=== PATIENT | female | born 2000 | race Caucasian/White ===

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

== ENCOUNTER 2021-02-04 12:22 | Emergency (ER) | payer BC, SELFPAY ==
[2021-02-04 12:31] VITALS: BP 115/59; PULSE 84; RESP 18; TEMP 36.8; O2SAT 100
--- NOTE | 2021-02-04 12:49 | ED.GENADULT ---
HPI - General Adult General Chief complaint: Urogenital-Female Stated complaint: UTI Source: patient Mode of arrival: ambulatory Limitations: no limitations History of Present Illness HPI narrative: Patient presents for evaluation of urinary symptoms since yesterday. She reports dysuria, urinary hesitancy, white vaginal discharge and vaginal pruritus. She is currently , 11 weeks 3 days gestation. She is already had a confirmed IUP during this per ultrasound. under the care of DIRECTOR PRIVATE, Dr. Phillips. She has experienced nausea during this but denies any fever, chills, vomiting, abdominal pain. Blood type is A- per chart review. No additional complaints or concerns. Related Data Home Medications Medication Instructions Recorded Confirmed promethazine 12.5 mg PO PRN PRN 02/04/21 02/04/21 Allergies Allergy/AdvReac Type Severity Reaction Status Date / Time No Known Allergies Allergy Verified 02/04/21 12:45 Review of Systems Review of Systems: Narrative: CONSTITUTIONAL: Denies fever, chills, or sweats. EYES: Denies visual changes, redness, or discharge. ENT: Denies rhinorrhea, congestion, sore throat, or otalgia. CARDIOVASCULAR: Denies chest pain, palpitations, or edema. RESPIRATORY: Denies cough or dyspnea. GASTROINTESTINAL: Denies abdominal pain, nausea, vomiting, or diarrhea. GENITOURINARY:Reports dysuria, hesitancy, vaginal pruritis and thick white vaginal discharge SKIN: Denies rash MUSCULOSKELETAL: Denies back pain, joint pain, or myalgia. NEUROLOGIC: Denies headache, numbness, dizziness, or weakness. PSYCHIATRIC: Denies anxiety or depression. [facility] Past Medical History Medical History UTI (urinary tract infection) Surgical History Surgical History No significant past surgical history Family History Family History Father Hyperlipidemia Other No acute medical problems Social History Social History (Updated 02/04/21 @ 12:52 by ALEX Boyd, ) Smoking status: Former smoker Tobacco type: cigarettes Second hand tobacco smoke exposure: No Alcohol intake: former Living arrangements: with family Gender identity (if verbalized by the patient): Female Sexual Orientation (if Verbalized by the Patient): Straight or Heterosexual Spiritual care concerns: No Exam Narrative: Exam Narrative: GENERAL: Well-appearing, well-nourished, and in no acute distress. HEAD: Normocephalic, atraumatic. EYES: PERRLA and EOMI. ENT: Nares clear, no rhinorrhea or epistaxis. Mucous membranes moist. Oropharynx without tonsillar hypertrophy exudate or other lesions. Bilateral TMs pearly moore nonbulging NECK: Supple. No adenopathy or masses. No carotid bruits or JVD CHEST: Clear to auscultation. No respiratory distress. No wheezes rales or rhonchi HEART: Regular rate and rhythm. No murmur heard. Normal peripheral pulses. ABDOMEN: Soft, nontender, nondistended, normal active bowel sounds. EXTREMITIES: Normal range of motion. No edema. SKIN: Warm, dry, no rash. NEURO: No focal deficits. Alert and oriented x3. PSYCH: Normal mood and affect. : No external genital lesions. No adnexal tenderness. No cervical motion tenderness. Moderate amount of thick white clumpy discharge in vaginal vault. Cervical os is closed. No visible blood in vaginal vault Course Course Emergency Course: This is a 20 yr old female currently , 11 weeks 3 days gestation, with confirmed IUP per U/S during this who presents today for evaluation of urinary symptoms that started yesterday. Of note, she had 1+ blood, 1+ protein and 2+ leukocytes on urine dipstick. She declined seeing any vaginal bleeding, and 1+ blood on urine dipstick is likely from urinary tract. However I did inform patient that to be t
== END 2021-02-04 13:40 | disposition home or self-care (01) ==
PROVIDERS: Emergency Provider Nurse Practitioner; PCP Obstetrics & Gynecology
DX: O23.41 Unspecified infection of urinary tract in pregnancy, first trimester (principal); Z3A.11 11 weeks gestation of pregnancy; Z87.891 Personal history of nicotine dependence
CPT/HCPCS: 81003; 87070; 87086; 87088; 87491; 87591; 87661; 99214; G0463

== ENCOUNTER 2021-02-16 20:32 | Emergency (ER) | payer BC, SELFPAY ==
--- NOTE | ~2021-02-16 | XR_ITS ---
EXAMINATION: XR chest 1V portable 02/16/2021 21:06 INDICATION: Left rib pain posteriorly PROCEDURE: AP portable chest COMPARISON: 12/19/2020 FINDINGS: The lungs are clear. The cardiomediastinal silhouette is within normal limits. There are no pleural effusions. There is no pneumothorax suspected. IMPRESSION: 1: NO ACUTE CARDIOPULMONARY DISEASE. Reviewed, dictated and finalized at location A.
[2021-02-16 20:42] VITALS: BP 127/66; PULSE 85; RESP 17; TEMP 36.9; O2SAT 100
--- NOTE | 2021-02-16 21:05 | ED.GENADULT ---
HPI - General Adult General Chief complaint: Abdominal Pain Stated complaint: sharp abdominal pain, 13 weeks Time Seen by Provider: 02/16/21 20:44 Source: patient and family Mode of arrival: ambulatory Limitations: no limitations History of Present Illness HPI narrative: Patient is 20 years old white female, 17 weeks intermittent sharp stabbing pain at the left mid axillary thoracic area, 1 hour prior to arrival to the emergency room. Patient started working at the [employer] for 1-1/2-month which involved lifting, pushing and bending. Patient denies any fever, chills, nausea, vomiting, chest pain, shortness of breath, abdominal pain, urinary symptoms. Patient had history of urinary tract infection few days ago started on Keflex 5 days ago. Patient also denies any vaginal bleeding or discharge. Patient is 3, para 0, 2 Related Data Home Medications Medication Instructions Recorded Confirmed promethazine 12.5 mg PO PRN PRN 02/04/21 02/04/21 Allergies Allergy/AdvReac Type Severity Reaction Status Date / Time No Known Allergies Allergy Verified 02/16/21 21:34 Review of Systems Review of Systems: Narrative: CONSTITUTIONAL: Denies fever, chills, or sweats. EYES: Denies visual changes, redness, or discharge. ENT: Denies rhinorrhea, congestion, sore throat, or otalgia. CARDIOVASCULAR: Denies chest pain, palpitations, or edema. RESPIRATORY: Denies cough or dyspnea. GASTROINTESTINAL: Denies abdominal pain, nausea, vomiting, or diarrhea. GENITOURINARY: Denies dysuria or hematuria. SKIN: Denies rash or itching. MUSCULOSKELETAL: Denies back pain, joint pain, or myalgia. NEUROLOGIC: Denies headache, numbness, or weakness. PSYCHIATRIC: Denies anxiety or depression. [facility] Past Medical History Medical History UTI (urinary tract infection) Surgical History Surgical History No significant past surgical history Family History Family History Father Hyperlipidemia Other No acute medical problems Social History Social History Smoking status: Former smoker Tobacco type: cigarettes Second hand tobacco smoke exposure: No Alcohol intake: former Alcohol use details: rarely Gender identity (if verbalized by the patient): Female Spiritual care concerns: No Exam Narrative: Exam Narrative: General appearance: Well-developed, well-nourished Skin: Normal color Head: Normocephalic, nontraumatic Eyes: Clear conjunctiva ENT: Oropharynx normal, ears normal, nose normal Neck: Supple, nontender Chest and respiratory: Airway patent, no respiratory distress, no accessory muscle use Heart: Regular rate/rhythm Abdomen: Soft, nontender, no organomegaly, quiet bowel sounds Vascular: Normal peripheral pulses, normal capillary refill. Musculoskeletal: Normal range of motion, nontender back Neurologic: Alert and oriented ?3, [employer]PAR[employer] is normal as tested, no gross motor deficit Course Course Emergency Course: Stable Vital Signs Vital signs: Vital Signs Temperature 36.9 C 02/16/21 20:42 Pulse Rate 85 02/16/21 20:42 Respiratory Rate 17 02/16/21 20:42 Blood Pressure 127/66 02/16/21 20:42 Pulse Oximetry 100 02/16/21 20:42 Temperature 36.9 C 02/16/21 20:42 Pulse Rate 85 02/16/21 20:42 Respiratory Rate 17 02/16/21 20:42 Blood Pressure 127/66 02/16/21 20:42 Pulse Oximetry 100 02/16/21 20:42 Medical Decision Making MDM Narrative Medical decision making narrative: Jose
[2021-02-16 21:29] LABS: Add Urine Microscopic? YES; Appearance Urine Cloudy (Clear); Bacteria Urine 1+ /hpf; Bilirubin Urine Negative (Negative); Blood Urine Negative (Negative); Color Urine Yellow (Yellow); Glucose Urine UA Negative (Negative); Ketones Urine Trace mg/dL (Negative); Leukocyte Esterase Ur 3+ LEU/UL (Negative); Mucus Urine Rare /lpf; Nitrate Urine Negative (Negative); Protein Urine Negative (Negative); Specific Grav Ur 1.015 (1.001-1.035); Squamous Epithelial Cell Urine Many /hpf (Few); Urobilinogen Urine Negative mg/dL (<2.0); WBC Urine 16-20 /hpf
[2021-02-16 21:40] LABS: Basophils Absolute Auto 0.1 K/mm3 (0.0-0.1); Basophils Percent Auto 0.5 % (0.2-1.2); Eosinophils Absolute Auto 0.1 K/mm3 (0-0.3); Eosinophils Percent Auto 0.8 % (0-4.4); Hematocrit 36.9 % (37.0-47.0); Hemoglobin 12.7 g/dL (12.0-15.0); Immature Granulocyte Absolute 0.04 K/mm3 (0.00-0.031); Immature Granulocyte Percent A 0.4 % (0-0.5); Lymphocytes Absolute Auto 2.58 K/mm3 (0.9-3.2); Lymphocytes Percent Auto 24.9 % (18.3-44.2); Mean Corpuscular HGB Conc 34.4 g/dl (32-36); Mean Corpuscular Hemoglobin 29.8 pg (26-34); Mean Corpuscular Volume 86.6 fl (80-100); Mean Platelet Volume 9.9 fl (7.4-10.4); Monocytes Absolute Auto 0.4 K/mm3 (0.1-0.6); Monocytes Percent Auto 4.2 % (2.6-8.5); Neutrophils Absolute Auto 7.2 K/mm3 (1.3-6.7); Neutrophils Percent Auto 69.2 % (45.5-73.1); Platelet Count Result 262 k/mm3 (150-375); Red Blood Count 4.26 M/mm3 (4.2-5.4); Red Cell Distribution Width 12.6 % (11.5-14.5); White Blood Count 10.4 K/mm3 (4.5-10.0)
[2021-02-16 21:55] LABS: Alanine Aminotransferase 7 U/L (4-35); Albumin Level 4.3 g/dL (3.7-5.6); Alkaline Phosphatase 42 U/L (45-116); Anion Gap 8 mmol/L (8-16); Aspartate Amino Transferase 21 U/L (14-36); Bilirubin,Total 0.3 mg/dL (0.2-1.3); Blood Urea Nitrogen 5 mg/dL (8-21); Calcium 9.2 mg/dL (8.9-10.7); Carbon Dioxide 25 mmol/L (22-30); Chloride 102 mmol/L (98-107); Estimated CRCL calculation 141 ml/min; Estimated Glomerular Filt Rate > 60; Glucose 87 mg/dL (65-105); Potassium 3.3 mmol/L (3.4-5.0); Sodium 135 mmol/L (134-143)
[2021-02-16 22:48] LABS: D Dimer 0.47 ug/mL (<0.48)
[2021-02-16] MEDS: AMOXICILLIN/CLAVULANATE K 875-125 MG TAB 1 TABLET PO (22:50)
[2021-02-16 22:52] VITALS: BP 97/58; PULSE 83; RESP 16; O2SAT 100
[2021-02-16 23:04] VITALS: BP 107/60
== END 2021-02-16 23:04 | disposition home or self-care (01) ==
PROVIDERS: Emergency Provider Emergency Medicine; PCP Obstetrics & Gynecology
DX: O23.42 Unspecified infection of urinary tract in pregnancy, second trimester (principal); O99.891 Other specified diseases and conditions complicating pregnancy; M54.6 Pain in thoracic spine; Z87.891 Personal history of nicotine dependence; Z3A.17 17 weeks gestation of pregnancy
CPT/HCPCS: 36415; 71045; 80053; 81001; 85025; 85380; 87086; 99283; A9270

== ENCOUNTER 2021-05-23 13:39 | Outpatient (RCR) | payer BC, SELFPAY ==
[2021-05-23 15:05] LABS: Hematocrit 36.1 % (37.0-47.0); Hemoglobin 12.2 g/dL (12.0-15.0)
[2021-05-23 15:16] LABS: Glucose 1 Hour PP 50gm Dose 71 mg/dL
[2021-05-23 16:52] LABS: HIV 1/2 Ab P24 Ag Result Negative (Negative)
[2021-05-24 13:13] LABS: Rapid Plasma Reagin Non-Reactive (NonReactive)
[2021-05-24] MEDS: RHO(D) IMMUNE GLOBULIN 300 MCG/2 ML SYRINGE IM (13:38)
== END 2021-08-21 23:59 | disposition home or self-care (01) ==
LOC: ANHLAB 13:39
PROVIDERS: PCP Obstetrics & Gynecology; Visit Provider Advanced Practice Midwife
DX: Z11.4 Encounter for screening for human immunodeficiency virus [HIV] (principal); Z29.13 Encounter for prophylactic Rho(D) immune globulin; O36.0190 Maternal care for anti-D [Rh] antibodies, unspecified trimester, not applicable or unspecified; Z3A.00 Weeks of gestation of pregnancy not specified
CPT/HCPCS: 36415; 82947; 85014; 85018; 85461; 86592; 86703; 90384; 96372; G0432; J2790

== ENCOUNTER 2021-06-19 04:46 | Emergency (ER) | payer BC, SELFPAY ==
[2021-06-19 04:57] VITALS: BP 122/66; PULSE 74; RESP 18; TEMP 36.4; O2SAT 100
--- NOTE | 2021-06-19 05:46 | ED.FALL ---
HPI - Fall General Chief Complaint: Fall Stated Complaint: 31 weeks preg - fell, side pain Time Seen by Provider: 06/19/21 04:58 History of Present Illness HPI Narrative: Patient is a 20-year-old female who presents ER with left-sided back pain. Patient was walking in her backyard when she stepped in a hole and fell onto her left side. She has some pain inferior to her rib cage and above her hip. She did not fall onto her abdomen. She is currently 31 weeks . No vaginal bleeding or leakage of fluid. She is concerned about the baby and has no other complaints. Patient is able to feel her baby move. Related Data Home Medications Medication Instructions Recorded Confirmed promethazine 12.5 mg PO PRN PRN 02/04/21 02/04/21 Allergies Allergy/AdvReac Type Severity Reaction Status Date / Time No Known Allergies Allergy Verified 06/19/21 05:06 Review of Systems Review of Systems: All systems reviewed & are unremarkable except as noted in HPI and below Gastrointestinal: Gastrointestinal: Denies abdominal pain, Denies nausea and Denies vomiting Genitourinary: Genitourinary: Denies abnormal vaginal bleeding, Denies pelvic pain and Denies vaginal discharge Musculoskeletal: Musculoskeletal: Reports back pain and Denies muscle cramps PMFSH Past Medical History Medical History UTI (urinary tract infection) Surgical History Surgical History No significant past surgical history Family History Family History Father Hyperlipidemia Other No acute medical problems Social History Social History Smoking status: Former smoker Tobacco type: cigarettes Second hand tobacco smoke exposure: No Alcohol intake: former Alcohol use details: rarely Gender identity (if verbalized by the patient): Female Sexual Orientation (if Verbalized by the Patient): Straight or Heterosexual Spiritual care concerns: No Exam Narrative: GENERAL: Well-appearing, well-nourished, and in no acute distress. HEAD: Normocephalic, atraumatic. CHEST: Clear to auscultation. No respiratory distress. HEART: Regular rate and rhythm. Normal peripheral pulses. ABDOMEN: Soft, gravid abdomen with palpable movement, fundus below the umbilicus, nondistended. EXTREMITIES: Normal range of motion. No edema. Back: No midline tenderness thoracic or lumbar spine. No reproducible paraspinal muscular tenderness. Discomfort is mainly superior to the iliac crest in the midaxillary line. NEURO: Alert and oriented x3. PSYCH: Normal mood and affect. Course Course Emergency Course: monitoring unremarkable. Discharge home. Vital Signs Vital signs: Vital Signs Temperature 97.6 F 06/19/21 04:57 Pulse Rate 74 06/19/21 04:57 Respiratory Rate 18 06/19/21 04:57 Blood Pressure 122/66 06/19/21 04:57 Pulse Oximetry 100 06/19/21 04:57 Temperature 97.6 F 06/19/21 04:57 Pulse Rate 74 06/19/21 04:57 Respiratory Rate 18 06/19/21 04:57 Blood Pressure 122/66 06/19/21 04:57 Pulse Oximetry 100 06/19/21 04:57 Discharge Plan Discharge Clinical Impression: Back strain Patient Disposition: Home, Self-Care Condition: Stable Instructions: Muscle Strain (ED) Additional Instructions: Take Tylenol as needed for pain. monitoring of your baby was unremarkable. Return to the ER if you have vaginal bleeding, you have leakage of fluid from your vagina, you develop chest pain or shortness of breath, you have additional concerns. Prescriptions: No Action promethazine 12.5 mg tablet 12.5 mg PO PRN PRN (Reason: Nausea) RF: 0 cephalexin 500 mg capsule 500 mg PO Q12H Qty: 14 RF: 0 amoxicillin 875 mg tablet 875 mg PO Q12H Qty: 20 RF: 0 Follow-up/Referrals: Kristen Phillips MD
[2021-06-19 05:47] VITALS: BP 122/69; PULSE 98
[2021-06-19 05:57] VITALS: BP 100/78; PULSE 86; RESP 16; O2SAT 99
== END 2021-06-19 05:57 | disposition home or self-care (01) ==
PROVIDERS: Emergency Provider Emergency Medicine; PCP Obstetrics & Gynecology
DX: O26.893 Other specified pregnancy related conditions, third trimester (principal); S39.012A Strain of muscle, fascia and tendon of lower back, initial encounter; Z87.891 Personal history of nicotine dependence; Z3A.31 31 weeks gestation of pregnancy; W17.2XXA Fall into hole, initial encounter
CPT/HCPCS: 99282

== ENCOUNTER 2021-08-23 14:07 | Inpatient (IN) | payer BC, SELFPAY ==
[2021-08-23] VITALS (115 sets, daily range): BP systolic 99–147; BP diastolic 47–109; PULSE 72–137; TEMP 36.7–37.3; O2SAT 93–100; BMI 34.4
--- NOTE | 2021-08-23 14:07 | PC.NURSE ---
pt states that, I think Im in labor, Im 40 weeks . pt in no distress, call to OB, pt to OB via W/C
--- OUTSIDE RECORDS SUMMARY | 2021-08-23 14:50 | XMS_ITS ---
:2000 Author Care Team Providers Name Role Phone MIRIAM VINES DO Primary Care Provider [phone] Allergies Code Code System Name Reaction Severity Status Onset NKDA ? Medications Name Status Start Date Stop Date ? ? amoxicillin 875 mg tablet Completed ? 2020 TAKE 1 TABLET BY MOUTH EVERY 12 HOURS azithromycin 250 mg tablet Completed ? 05/06 cefdinir 300 mg capsule Completed ? 01/18/20 21 cephalexin 500 mg capsule Completed ? 2020 TAKE 1 CAPSULE BY MOUTH EVERY 12 HOURS fluconazole 150 mg tablet Completed ? 2021 TAKE 1 TABLET BY MOUTH 1 TIME Loestrin 08/30 (21) 1 mg-20 mcg tablet Completed 11/13/2018 12/23/2018 take 1 tablet by oral route every day methotrexate sodium (PF) 25 mg/mL injection solution Active 05/27/2019 Not available Bring to office for inj misoprostol 200 mcg tablet Completed ? 05/06 nitrofurantoin Completed ? 05/06/2020 monohydrate/macrocrystals 100 mg capsule phenazopyridine 100 mg tablet Completed ? Gummies Active ? Not available promethazine Completed ? 03/09/2021 promethazine 12.5 mg tablet Completed ? 04/2021 terconazole 0.4 % vaginal cream Completed ? 01/17/2021 INSERT ONE APPLICATORFUL VAGINALLY AT BEDTIME FOR 7 DAYS terconazole 0.8 % vaginal cream Completed ? 07/13/2021 INSERT 1 APPLICATORFUL VAGINALLY EVERY DAY FOR 3 DAYS Ventolin HFA 90 mcg/actuation aerosol inhaler Completed ? 08/01/20
--- OUTSIDE RECORDS SUMMARY | 2021-08-23 14:50 | XMS_ITS | Encounter Summary ---
:2000 Author Care Team Providers Name Role Phone Oneal Thomas DO Primary Care Provider [phone] Reason for Visit OB visit 39wks Assessment and Plan 1. Routine care Discussion Note: None recorded.Patient educational handouts: No information available. Plan of Care Reminders Provider Appointments Ob Routine Lisbet Potts, 08/24/2021 CNM 10:45AM Lab None ? ? recorded. Referral None ? ? recorded. Procedures None ? ? recorded. Surgeries None ? ? recorded. Imaging None ? ? recorded. Medications Name Start Date ? ? Gummies ? Medications Administered None recorded. Vitals Height Weight BMI Blood Pressure 5 ft 6 in 213 lbs 34.4 kg/m2 134/80 mm[Hg] Results Lab Results None recorded. Allergies Code Code System Name Reaction Severity Onset NKDA ? ? ? Problems Name Status Onset Date Source ? Active 02/14/2021 ? Procedures Date Name Performed by ?
--- OUTSIDE RECORDS SUMMARY | 2021-08-23 14:50 | XMS_ITS | Encounter Summary ---
:2000 Author Care Team Providers Name Role Phone Oneal Thomas DO Primary Care Provider [phone] Reason for Visit OB visit 38wks Assessment and Plan 1. Routine care Discussion [...] BMI Blood Pressure 5 ft 6 in 215 lbs 34.7 kg/m2 130/85 mm[Hg] Results Lab Results None recorded. Allergies Code Code System Name Reaction Severity Onset NKDA ? ? ? Problems Name Status Onset Date Source ? Active 02/14/2021 ? Procedures Date Name Performed by ?
--- OUTSIDE RECORDS SUMMARY | 2021-08-23 14:50 | XMS_ITS | Encounter Summary ---
:2000 Author Care Team Providers Name Role Phone Oneal Thomas DO Primary Care Provider [phone] Reason for Visit OB visit Assessment and Plan Assessment Note Patient is ___weeks . Discu ssed plan. 1. screening Discussion Note: None recorded.Patient educational handouts: No information available. Plan of Care Reminders Provider Appointments Ob Routine Lisbet Potts, 08/24/2021 CN 10:45AM Lab None ? ? recorded. Referral None ? ? recorded. Procedures None ? ? recorded. Surgeries None ? ? recorded. Imaging None ? ? recorded. Medications Name Start Date ? ? Gummies ? Medications Administered None recorded. Vitals Height Weight BMI Blood Pressure 5 ft 6 in 207 lbs 33.4 kg/m2 130/84 mm[Hg] Results Lab Results None recorded. Allergies Code Code System Name Reaction Severity Onset NKDA ? ? ? Problems Name Status Onset Date Source ? Active 02/14/2021 ? Procedures
--- OUTSIDE RECORDS SUMMARY | 2021-08-23 14:50 | XMS_ITS | Encounter Summary ---
:2000 Author Care Team Providers Name Role Phone Oneal Thomas DO Primary Care Provider [phone] Reason for Visit OB visit Assessment and Plan 1. Routine care Discussion [...] BMI Blood Pressure 5 ft 6 in 199 lbs 32.1 kg/m2 122/79 mm[Hg] Results Lab Results None recorded. Allergies Code Code System Name Reaction Severity Onset NKDA ? ? ? Problems Name Status Onset Date Source ? Active 02/14/2021 ? Procedures Date Name Performed by ? 06/28/2021
--- OUTSIDE RECORDS SUMMARY | 2021-08-23 14:50 | XMS_ITS | Encounter Summary ---
:2000 Author Care Team Providers Name Role Phone Oneal Thomas DO Primary Care Provider [phone] Reason for Visit None recorded. Assessment and Plan 1. AND/OR placental disord er affecting management of mother ? US, obstetric, follow-up Discussion Note: None recorded.Patient educational handouts: No information available. Plan of Care Reminders Provider Appointments Ob Routine Lisbet Potts, 08/24/2021 CNM 10:45AM Lab None ? ? recorded. Referral None ? ? recorded. Procedures None ? ? recorded. Surgeries None ? ? recorded. Imaging [facility] Obstetric, Follow-up 06/28/2021 Medications Name Start Date ? ? Gummies ? Medications Administered None recorded. Vitals None recorded. Results Lab Results None recorded. Allergies Code Code System Name Reaction Severity Onset NKDA ? ? ? Problems Name Status Onset Date Source ? Active 02/14/2021 ? Procedures Date Name Performed by ?
--- OUTSIDE RECORDS SUMMARY | 2021-08-23 14:50 | XMS_ITS | Encounter Summary ---
:2000 Author Care Team Providers Name Role Phone Oneal Thomas DO Primary Care Provider [phone] Reason for Visit None recorded. Assessment and [...] recorded. Surgeries None ? ? recorded. Imaging [facility] Obstetric, Follow-up 07/26/2021 Medications Name Start Date ? ? Gummies ? Medications Administered None recorded. Vitals None recorded. Results Lab Results None recorded. Allergies Code Code System Name Reaction Severity Onset NKDA ? ? ? Problems Name Status Onset Date Source ? Active 02/14/2021 ? Procedures Date Name Performed by ?
--- OUTSIDE RECORDS SUMMARY | 2021-08-23 14:50 | XMS_ITS | Encounter Summary ---
:2000 Author Care Team Providers Name Role Phone Oneal Thomas DO Primary Care Provider [phone] Reason for Visit OB visit OB [id number] EDC 08/23/2021 LMP unsure Assessment and Plan Assessment Note Patient is _30__weeks . Dis cussed plan. 1. Routine care Discussion Note: None recorded.Patient [...] BMI Blood Pressure 5 ft 6 in 184 lbs 29.7 kg/m2 110/71 mm[Hg] Results Lab Results None recorded. Allergies Code Code System Name Reaction Severity Onset NKDA ? ? ? Problems Name Status Onset Date Source ? Ac
--- OUTSIDE RECORDS SUMMARY | 2021-08-23 14:51 | XMS_ITS | Encounter Summary ---
:2000 Author Care Team Providers Name Role Phone Oneal Thomas DO Primary Care Provider [phone] Reason for Visit None recorded. Assessment and Plan 1. Marginal insertion of umbilic al cord ? US, obstetric, follow-up Discussion Note: None recorded.Patient educational handouts: No information available. Plan of Care Reminders Provider Appointments Ob Routine Lisbet Potts, 08/24/2021 CNM 10:45AM Lab None ? ? recorded. Referral None ? ? recorded. Procedures None ? ? recorded. Surgeries None ? ? recorded. Imaging [facility] Obstetric, Follow-up 05/30/2021 Medications Name Start Date ? ? Gummies ? Medications Administered None recorded. Vitals None recorded. Results Lab Results None recorded. Allergies Code Code System Name Reaction Severity Onset NKDA ? ? ? Problems Name Status Onset Date Source ? Active 02/14/2021 ? Procedures Date Name Performed by ?
--- NOTE | 2021-08-23 15:18 | PM.IMHP ---
H&P: HPI History of Present Illness Date/Time: 08/23/21 15:18 20 y/o @ 40 weeks here in spontaneous labor Chief Complaint: Labor Review of Systems Review of Systems: All systems reviewed & are unremarkable except as noted in HPI and below Constitutional: Constitutional: Reports as per HPI and Reports no additional constitutional complaints Eyes: Eyes: Reports as per HPI ENT: Reports system reviewed and no additional complaints, except as documented Cardiovascular: Cardiovascular: Reports as per HPI Respiratory: Respiratory: Reports as per HPI Gastrointestinal: Gastrointestinal: Reports as per HPI Genitourinary: Genitourinary: Reports no additional female genitourinary complaints Musculoskeletal: Musculoskeletal: Reports no additional musculoskeletal complaints Integumentary/Breasts: Skin/Breast: Reports system reviewed and no additional complaints, except as docu Neurologic: Reports system reviewed and no additional complaints, except as documented Psychiatric: Psychiatric: Reports no additional psychiatric complaints Endocrine: Endocrine: Reports no additional endocrine complaints Hematologic/Lymphatic: Hematologic/Lymphatic: Reports no additional hematologic/lymphatic complaints Allergic/Immunologic: Allergic/Immunologic: Reports no additional allergic/immunologic complaints [facility] Past Medical History Medical History UTI (urinary tract infection) Surgical History Surgical History No significant past surgical history Family History Family History Father Hyperlipidemia Other No acute medical problems Social History Social History Smoking status: Former smoker Tobacco type: cigarettes Second hand tobacco smoke exposure: No Alcohol intake: former Alcohol use details: rarely Gender identity (if verbalized by the patient): Female Sexual Orientation (if Verbalized by the Patient): Straight or Heterosexual Spiritual care concerns: No Meds Home Medications and Allergies Home Medications Medication Instructions Recorded Confirmed Type cephalexin 500 mg PO Q12H #14 cap 02/04/21 Rx promethazine 12.5 mg PO PRN PRN 02/04/21 02/04/21 History amoxicillin 875 mg PO Q12H #20 tablet 02/16/21 Rx Allergies Allergy/AdvReac Type Severity Reaction Status Date / Time No Known Allergies Allergy Verified 06/19/21 05:06 Vital Signs Vital Signs - 24 hr 08/23/21 14:47 Pulse Rate 107 H Blood Pressure 132/109 H Exam Narrative: Contractions regular FHR category 1 Cervix 4-5/90/-1 Const: General: cooperative and healthy appearing Orientation/consciousness: oriented to person, oriented to place, oriented to time and patient oriented x3 Limitations: no limitations HENMT: Head: normal to inspection Ears: hearing grossly normal bilaterally General nose exam: Normal external nose present Face and sinus: normal facial exam Mouth: Yes Normal oral and palatal mucosa present Teeth and gingiva: dentition normal Throat: posterior oropharynx normal Eyes: General: appearance normal, both eyes and all related structures Neck: Neck: normal visual inspection Thyroid: thyroid normal Chest: Chest palpation & inspection: normal inspection of the chest Resp: Effort & Inspection: normal respiratory effort Auscultation: clear to auscultation bilaterally Cardio: Rate: regular rate Rhythm: regular rhythm GI: Inspection: normal to inspection : General: Yes bimanual renal exam normal bilaterally Skin: General skin exam: normal color and no rashes or lesions noted Neuro: General: oriented to person, oriented to place, oriented to time and patient oriented x3 Extrem: General: normal to inspection Psych: Mental Status: mental status grossly normal Assessment and Pl
[2021-08-23] MEDS: LACTATED RINGERS 1,000 ML 125 ML IV CONT (15:37)
--- NOTE | 2021-08-23 15:43 | PC.NURSE ---
This patient, Nelly Cespedes, was admitted to Labor/Delivery/Recovery 105 on 08/23/21 at 14:07. Plans for labor, pain management and were discussed with patient. Patient/family oriented to hospital policies and general routines including ID bracelet, bed and alarms, visiting hours, pain management, procedures, bathroom and other care routines, personal items, smoking policy, room service/diet and guest tray routines, security routines, and visiting hours. Patient/Family are encouraged to report perceived risks to care and to ask questions if they do not understand what they are told or what they should do. See OBIX for further documentation.
[2021-08-23 15:45] LABS: Basophils Absolute Auto 0.1 K/mm3 (0.0-0.1); Basophils Percent Auto 0.3 % (0.2-1.2); Eosinophils Absolute Auto 0.2 K/mm3 (0-0.3); Hematocrit 36.4 % (37.0-47.0); Hemoglobin 11.6 g/dL (12.0-15.0); Immature Granulocyte Absolute 0.16 K/mm3 (0.00-0.031); Immature Granulocyte Percent A 1.1 % (0-0.5); Lymphocytes Absolute Auto 1.97 K/mm3 (0.9-3.2); Lymphocytes Percent Auto 13.7 % (18.3-44.2); Mean Corpuscular HGB Conc 31.9 g/dl (32-36); Mean Corpuscular Hemoglobin 27.9 pg (26-34); Mean Corpuscular Volume 87.5 fl (80-100); Mean Platelet Volume 10.3 fl (7.4-10.4); Monocytes Absolute Auto 0.9 K/mm3 (0.1-0.6); Monocytes Percent Auto 6.3 % (2.6-8.5); Neutrophils Absolute Auto 11.1 K/mm3 (1.3-6.7); Neutrophils Percent Auto 77.6 % (45.5-73.1); Platelet Count Result 333 k/mm3 (150-375); Red Blood Count 4.16 M/mm3 (4.2-5.4); Red Cell Distribution Width 13.2 % (11.5-14.5); White Blood Count 14.4 K/mm3 (4.5-10.0)
[2021-08-23] MEDS: LACTATED RINGERS 1,000 ML 999 ML IV CONT (16:15)
--- NOTE | 2021-08-23 17:19 | PM.OBPNLAB ---
Pain Control Date/time seen: 08/23/21 17:19 Pt comfortable with epidural SVE 5-/-1 AROM minimal amount of clear odorless fluid, bloody show, anticipate vaginal delivery
[2021-08-24] VITALS (10 sets, daily range): BP systolic 105–137; BP diastolic 54–87; PULSE 89–110; RESP 16–18; TEMP 36.3–37.4; O2SAT 97–100
--- NOTE | 2021-08-24 01:52 | OBPPTRN ---
Patient transferred to post room # 290 via wheelchair. Support person present. Oriented to unit, room, information board, rooming in, admission packet and security measures. Patient verbalizes understanding.
[2021-08-24 04:28] LABS: Hematocrit 29.8 % (37.0-47.0); Hemoglobin 9.7 g/dL (12.0-15.0)
--- NOTE | 2021-08-24 04:38 | P.PCNOB_ITS ---
OB - Delivery Note Procedure Delivery date: 08/24/21 Procedure: vaginal delivery Intrapartal events: None Delivery augmentation: rupture of membranes Delivery monitor: external FHT and external uterine Route of delivery: Episiotomy description: None Laceration Description: Labial (left labial) Specimen: No Quantitative Blood Loss (ml): 110 Anesthesia type: Epidural Disposition: floor [place] Baby Date of : 08/24/21 Time of : 22:25 Weeks of gestation at delivery: 40 Infant gender: Female Weight (pounds): 9 Weight (ounces): 9 presentation: vertex position: Left Occiput Anterior Placenta delivery description: Spontaneous cord vessel description: 3 Vessels, Clamped/Cut and Delayed Cord Clamping score one minute: 9 score five minutes: 9 Narrative: mother and baby skin to skin in stable condition
[2021-08-24] MEDS: ACETAMINOPHEN 325 MG TABLET 650 MG PO ×3 (06:04→20:35)
[2021-08-24 06:28] LABS: Rapid Plasma Reagin Non-Reactive (NonReactive)
--- NOTE | 2021-08-24 07:49 | PM.OBPNVD ---
OB - PN: Subj Subjective Date/time seen: 08/24/21 07:49 Patient comments: no complaints baby status: doing well OB - PN: Obj Data Labs CBC & Chem 7: 08/24/21 04:12 Labs: Laboratory Results - last 24 hr 08/23/21 08/23/21 08/23/21 15:28 15:28 15:28 WBC 14.4 H RBC 4.16 L Hgb 11.6 L Hct 36.4 L MCV 87.5 MCH 27.9 MCHC 31.9 L RDW 13.2 Plt Count 333 MPV 10.3 Immature Gran % (Auto) 1.1 H Neut % (Auto) 77.6 H Lymph % (Auto) 13.7 L [place] % (Auto) 6.3 Eos % (Auto) 1.0 Baso % (Auto) 0.3 Lymph # (Auto) 1.97 [place] # (Auto) 0.9 H Eos # (Auto) 0.2 Baso # (Auto) 0.1 Abs Immat Gran (auto) 0.16 H Absolute Neuts (auto) 11.1 H Absolute Nucleated RBC 0.0 Nucleated RBC % 0.0 RPR Non-reactive Blood Type A Negative Antibody Screen Negative Screen Baby's Blood Type Baby's SPARKLE Doses of RhIg Required 08/24/21 08/24/21 04:12 05:23 WBC RBC Hgb 9.7 L Hct 29.8 L MCV MCH MCHC RDW Plt Count MPV Immature Gran % (Auto) Neut % (Auto) Lymph % (Auto) [place] % (Auto) Eos % (Auto) Baso % (Auto) Lymph # (Auto) [place] # (Auto) Eos # (Auto) Baso # (Auto) Abs Immat Gran (auto) Absolute Neuts (auto) Absolute Nucleated RBC Nucleated RBC % RPR Blood Type A Negative Antibody Screen Negative Screen Negative Baby's Blood Type A pos Baby's SPARKLE Negative Doses of RhIg Required 1 OB - PN A/P Plan day: 1 Plan: routine care and discharge home Time Spent With Patient Time: Total time spent is greater than 50% in coordination of care (as documented) at patient's floor/unit and/or counseling patient: Review of Systems Review of Systems: All systems reviewed & are unremarkable except as noted in HPI and below Exam Const: General: cooperative, healthy appearing, comfortable and no acute distress
[2021-08-24] MEDS: DOCUSATE SODIUM 100 MG CAPSULE PO ×2 (08:33→17:31)
[2021-08-24] MEDS: MULTIVIT/MIN/PREN/FOL AC/IRON TABLET 1 TAB PO (08:33)
[2021-08-24] MEDS: POLYSACCHARIDE IRON COMPLEX 150 MG CAPSULE PO ×2 (08:33→17:31)
[2021-08-24] MEDS: IBUPROFEN 600 MG TABLET PO ×3 (08:33→22:41)
--- NOTE | 2021-08-24 10:58 | WPDANLDPN2 ---
Anes-Prog Note L&D Date/Time: 08/24/21 10:58 Comfortable throughout: labor and delivery Neuraxial method: epidural Epidural/Spinal procedure site: clean & non-tender Neuro status: Neuro function grossly intact. Cardiovascular status: normal Respiratory status: normal Airway patency: baseline Mental status: baseline Post-Op hydration status: normal Vital Signs: Last Vital Signs Temp 36.9 C 08/24/21 07:05 Pulse 92 08/24/21 07:05 Resp 18 08/24/21 07:05 BP 105/54 L 08/24/21 07:05 Pulse Ox 100 08/24/21 07:05 Pain score (VAS): 0 I/O: Intake & Output 08/23/21 08/24/21 08/24/21 23:59 07:59 15:59 Intake Total 1000 Balance 1000 Post-procedural complaints: none Patient feedback: Patient satisfied with anesthetic care.
--- NOTE | 2021-08-24 15:21 | PC.NURSE ---
0715 - Reported to RN that mom is bottle feeding.
[2021-08-24] MEDS: RHO(D) IMMUNE GLOBULIN 300 MCG/2 ML SYRINGE IM (15:41)
[2021-08-25] MEDS: ACETAMINOPHEN 325 MG TABLET 650 MG PO ×2 (02:28→09:50)
[2021-08-25] MEDS: IBUPROFEN 600 MG TABLET PO ×2 (05:28→12:17)
--- NOTE | 2021-08-25 08:56 | P.PNOB_ITS ---
OB - PN: Subj Subjective Date/time seen: 08/25/21 08:56 Patient comments: no complaints baby status: doing well [place] feeding status: exclusively bottle feeding OB - PN: Obj Data Labs CBC & Chem 7: 08/24/21 04:12 Labs: Laboratory Results - last 24 hr 08/24/21 05:23 Blood Type A Negative Antibody Screen Negative Screen Negative Baby's Blood Type A pos Baby's SPARKLE Negative Doses of RhIg Required 1 OB - PN A/P Plan day: 2 Plan: routine care and discharge home Time Spent With Patient Time: Total time spent is greater than 50% in coordination of care (as documented) at patient's floor/unit and/or counseling patient: Time with patient: less than 15 minutes Exam Narrative: NAD abdomen soft, nontender, fundus firm below the umbilicus Extremities nontender, 1+ edema
--- NOTE | 2021-08-25 09:01 | PM.OBDSVD ---
DS: Admitting Diagnosis Discharge Date 08/25/21 Admitting Diagnosis term IUP DS: Discharge Diagnosis Discharge Diagnosis (1) , delivered: Code(s): O80 - Encounter for full-term uncomplicated delivery Status: Acute OB - DS: Summary Hospital Course Hospital Course: Pt had an uncomplicated vaginal delivery and course. OB Procedures : Ultrasound OB Procedures Intrapartum: Spontaneous Vag Delivery OB Procedures: : None Peripartum Data Delivery Method: Natural Vaginal complications: none Status at Discharge Functional status at discharge: independent ambulation Time Spent with Patient Time attestation: Total time spent providing and/or coordinating discharge services: Exam Narrative: NAD abdomen soft, appropriately tender Ext non tender, 1+ edema DS: Data Data Completed and Pending Labs on day of discharge: Labs from last 24 hours 08/24/21 05:23 Blood Type A Negative Antibody Screen Negative Screen Negative Baby's Blood Type A pos Baby's SPARKLE Negative Doses of RhIg Required 1 Discharge Plan Discharge Attending physician on discharge: Abby Wells Discharging Clinician: Abby Wells Anticipated Discharge Date/Time: 08/25/21 08:57 Patient Disposition: Home, Self-Care Activity: pelvic rest Diet: as tolerated Patient Instructions: Antibiotic Form Stand Alone Forms: General Discharge Information Follow-up/Referrals: Kristen Phillips MD [Primary Care Provider] - 4 Weeks Abby Wells MD [Physician] - Discharge Medications: Discontinued promethazine 12.5 mg tablet 12.5 mg PO PRN PRN (Reason: Nausea) RF: 0 cephalexin 500 mg capsule 500 mg PO Q12H Qty: 14 RF: 0 amoxicillin 875 mg tablet 875 mg PO Q12H Qty: 20 RF: 0 Date of admission: 08/23/21 14:07 Primary Care Provider: Kristen Phillips Admitting Provider: Abby Wells Attending physician on admission: Abby Wells Condition: Stable
[2021-08-25] MEDS: DOCUSATE SODIUM 100 MG CAPSULE PO (09:50)
[2021-08-25] MEDS: POLYSACCHARIDE IRON COMPLEX 150 MG CAPSULE PO (09:50)
[2021-08-25 11:14] VITALS: BP 120/78; PULSE 108; RESP 16; TEMP 36.7; O2SAT 100
--- NOTE | 2021-08-25 14:05 | PC.NURSE ---
1000 Patient viewed the discharge video Mother & Baby Care, The First Two Weeks . Patient was given the opportunity and encouraged to ask questions. Patient verbalized understanding of information shared and has been given the mother/baby guide for home reference.
[2021-08-27 10:08] VITALS: BP 123/61; PULSE 81; RESP 20; TEMP 37; O2SAT 100
== END 2021-08-25 13:11 | disposition home or self-care (01) | DRG 807 ==
LOC: ANHLDR 14:49 → ANHOB2 08-24 02:03
PROVIDERS: Advanced Practice Midwife; Admitting Provider Obstetrics & Gynecology; PCP Obstetrics & Gynecology; Visit Provider Obstetrics & Gynecology
DX: O76 Abnormality in fetal heart rate and rhythm complicating labor and delivery (principal); Z37.0 Single live birth; Z87.891 Personal history of nicotine dependence; O70.0 First degree perineal laceration during delivery; Z3A.40 40 weeks gestation of pregnancy
CPT/HCPCS: 36415; 85014; 85018; 85025; 85461; 86592; 86850; 86900; 86901; 90384; A9270; J2790; J2795; J7120

== ENCOUNTER 2022-03-25 14:01 | Emergency (ER) | payer BC, SELFPAY ==
[2022-03-25 14:20] VITALS: BP 130/67; PULSE 96; RESP 16; TEMP 36.7; O2SAT 99
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
== END 2022-03-25 15:49 | disposition home or self-care (01) ==
LOC: ANHED 15:22
PROVIDERS: Emergency Provider Nurse Practitioner Family; PCP Obstetrics & Gynecology
DX: T65.6X1A Toxic effect of paints and dyes, not elsewhere classified, accidental (unintentional), initial encounter (principal); T20.45XA Corrosion of unspecified degree of scalp [any part], initial encounter; T32.0 Corrosions involving less than 10% of body surface
CPT/HCPCS: 99283

== ENCOUNTER 2022-06-03 06:49 | Emergency (ER) | payer BC, SELFPAY ==
[2022-06-03 06:55] VITALS: BP 121/77; PULSE 87; RESP 16; TEMP 36.9; O2SAT 98
--- NOTE | 2022-06-03 07:11 | ED.DENTAL ---
HPI - Dental/Oral General Chief complaint: Dental/Oral Stated complaint: toothache Time Seen by Provider: 06/03/22 07:02 History of Present Illness HPI Narrative: Patient has been having tooth pain on and off but 4 days ago was started have more pain than usual, she does not have enough money to pay for root canal which is what her dentist told her she needed. Right lower molar. No fevers no chills no swelling no difficulty swallowing Related Data Allergies Allergy/AdvReac Type Severity Reaction Status Date / Time No Known Allergies Allergy Verified 06/03/22 07:20 Review of Systems Review of Systems: CONST: No fever. HEENT: Tooth ache C/V: No chest pain RESP: No difficulty breathing GI: No nausea or vomiting : No dysuria but currently spotting. M/S: Pain with chewing. SKIN: No rash or redness. NEURO: [No headache] PSYCH: [No depression] [facility] Past Medical History Medical History UTI (urinary tract infection) Surgical History Surgical History No significant past surgical history Family History Family History Father Hyperlipidemia Other No acute medical problems Social History Social History Smoking status: Former smoker Tobacco type: cigarettes Second hand tobacco smoke exposure: No Alcohol intake: former Alcohol use details: rarely Gender identity (if verbalized by the patient): Female Sexual Orientation (if Verbalized by the Patient): Straight or Heterosexual Spiritual care concerns: No Exam Narrative: EXAMINATION OF ORGAN SYSTEMS/BODY AREAS: Constitutional: Vital signs per nursing GENERAL:[No acute distress, non-toxic appearing.] HEAD: Normal with no signs of head trauma. EYES: EOMI, conjunctiva normal ENT: Dental antionette right lower molar, no fluctuance, no trismus or swelling LUNGS: Nonlabored breathing. HEART: [Regular rate and rhythm] ABD: No distension EXT: Normal range of motion SKIN: [No rashes or lesions.] NEURO: [Alert and oriented x 3. No gross focal sensory or strength deficits.] PSYCH: Normal affect Course Vital Signs Vital signs: Vital Signs Temperature 98.4 F 06/03/22 06:55 Pulse Rate 87 06/03/22 06:55 Respiratory Rate 16 06/03/22 06:55 Blood Pressure 121/77 06/03/22 06:55 Pulse Oximetry 98 06/03/22 06:55 Oxygen Delivery Room Air 06/03/22 06:55 Temperature 98.4 F 06/03/22 06:55 Pulse Rate 87 06/03/22 06:55 Respiratory Rate 16 06/03/22 06:55 Blood Pressure 121/77 06/03/22 06:55 Pulse Oximetry 98 06/03/22 06:55 Oxygen Delivery Room Air 06/03/22 06:55 MDM - Dental/Oral MDM Narrative Medical decision making narrative: ED COURSE AND MEDICAL DECISION MAKING: Patient with worsening dental pain and dental decay. No palpable abscess. No systemic signs or symptoms. Patient declined a dental block and analgesics. I will start antibiotics and NSAIDs. Follow-up instructions given for dental/oral surgery clinics. Patient was given return precautions and discharged home in stable condition. Pulse oximetry interpretation: not hypoxic. Lab Data Labs: UCG Bedside Result Negative Reference Range: Negative Discharge Plan Discharge Clinical Impression: Toothache, Dental caries Patient Disposition: Home, Self-Care Condition: Stable Instructions: Antibiotic Form, Toothache (ED) Additional Instructions: Please follow up with the oral surgeon; you may be able to contact local dental schools for a more reasonable quintero. Come back sooner if you have any worsening symptoms. Prescriptions: New amoxicillin 500 mg capsule 500 mg PO Q8H Qty: 15 0RF ibuprofen 600 mg tablet 600 mg PO Q6H PRN (Reason: pain) Qty: 30 0RF No Action
--- NOTE | 2022-06-03 07:25 | PC.NURSE ---
Patient refused Toradol injection. made aware.
[2022-06-03] MEDS: AMOXICILLIN 500 MG CAPSULE PO (07:30)
== END 2022-06-03 07:46 | disposition home or self-care (01) ==
PROVIDERS: Emergency Provider Emergency Medicine; PCP Obstetrics & Gynecology
DX: K02.9 Dental caries, unspecified (principal); Z87.440 Personal history of urinary (tract) infections; Z87.891 Personal history of nicotine dependence
CPT/HCPCS: 81025; 99283; A9270

== ENCOUNTER 2022-07-01 02:58 | Emergency (ER) | payer BC, SELFPAY ==
[2022-07-01 03:03] VITALS: BP 127/69; PULSE 99; RESP 16; TEMP 36.9; O2SAT 98
[2022-07-01 03:43] LABS: Appearance Urine Clear (Clear); Bilirubin Urine 2+ (Negative); Blood Urine 2+ (Negative); Color Urine Yellow (Yellow); Glucose Urine UA Negative (Negative); Ketones Urine 2+ mg/dL (Negative); Leukocyte Esterase Ur Negative LEU/UL (Negative); Nitrate Urine Negative (Negative); Protein Urine 1+ mg/dL (Negative); Specific Grav Ur >= 1.030 (1.001-1.035); Urobilinogen Urine 0.2 mg/dL (<2.0); pH Urine 5.5 (5.0-9.0)
[2022-07-01 03:47] LABS: Mucus Urine Heavy /lpf; RBC Urine 51-75 /hpf (0-2); Squamous Epithelial Cell Urine Occasional /hpf (Few); WBC Urine 0-3 /hpf
[2022-07-01 03:49] LABS: Add Urine Microscopic? YES
--- NOTE | 2022-07-01 04:21 | ED.FEMALEGU ---
HPI - Female Genitourinary General Chief complaint: Urogenital-Female Stated complaint: pain after sex, possible Time Seen by Provider: 07/01/22 03:00 History of Present Illness HPI Narrative: 21-year-old female presenting due to pain after sexual intercourse, she states that it happened suddenly and was associated with some scant blood, and the pain initially was so bad that she wanted to throw up. Since she has been here her pain has largely resolved. She is also concerned she may be and she would like to get STD testing also. She is currently on control. No dysuria. First day of last period was the 5 days ago. Related Data Allergies Allergy/AdvReac Type Severity Reaction Status Date / Time No Known Allergies Allergy Verified 06/03/22 07:20 Review of Systems Review of Systems: CONST: No fever. HEENT: No sore throat C/V: No chest pain RESP: No cough GI: Initial nausea now resolved : Some vaginal bleeding and pelvic pain M/S: No joint pain. SKIN: No rash. NEURO: [No headache or focal numbness or weakness] PSYCH: [No depression] [facility] Past Medical History Medical History UTI (urinary tract infection) Surgical History Surgical History No significant past surgical history Family History Family History Father Hyperlipidemia Other No acute medical problems Social History Social History Smoking status: Former smoker Tobacco type: cigarettes Second hand tobacco smoke exposure: No Alcohol intake: former Alcohol use details: rarely Gender identity (if verbalized by the patient): Female Sexual Orientation (if Verbalized by the Patient): Straight or Heterosexual Spiritual care concerns: No Exam Narrative: EXAMINATION OF ORGAN SYSTEMS/BODY AREAS: Constitutional: Vital signs per nursing GENERAL:[No acute distress, non-toxic appearing.] Resting comfortably in bed. HEAD: Normal with no signs of head trauma. EYES: EOMI, conjunctiva normal ENT: Hearing grossly intact LUNGS: Nonlabored breathing. HEART: [Regular rate and rhythm] ABD: [Soft], [nontender to palpation] : with release specialist in room; some tenderness to left adnexal region, no cervical motion tenderness, no vaginal discharge, no active bleeding, scant bloody mucus EXT: Normal range of motion SKIN: [No rashes or lesions.] NEURO: [Alert and oriented x 3. No gross focal sensory or strength deficits.] PSYCH: Normal affect Course Vital Signs Vital signs: Vital Signs Temperature 98.5 F 07/01/22 03:03 Pulse Rate 99 07/01/22 03:03 Respiratory Rate 16 07/01/22 03:03 Blood Pressure 127/69 07/01/22 03:03 Pulse Oximetry 98 07/01/22 03:03 Temperature 98.5 F 07/01/22 03:03 Pulse Rate 99 07/01/22 03:03 Respiratory Rate 16 07/01/22 03:03 Blood Pressure 127/69 07/01/22 03:03 Pulse Oximetry 98 07/01/22 03:03 MDM - Female Genitourinary MDM Narrative Medical decision making narrative: 58-year-old patient presents to the emergency department for pelvic pain during intercourse and STD testing. Denies any systemic symptoms. Exam shows mild L adnexal tenderness without discharge. GC/CT were sent for testing. [ test is negative.] Patient would rather get results first than be treated empirically; I have low concern for PID without severe pelvic pain or cervical motion tenderness or vaginal discharge. Doubt ovarian torsion given patient's pain now resolved. Patient well appearing here and resting comfortably without abdominal pain. She declined toradol shot at this time. Counseled patient to follow up regarding results, and can return to ER for any worsening symptoms. Lab Data Labs: Lab Results 07/01/22 07/01/22 07/01/22 Range/Units 03:35 03:53 03:53 Urine Color Y
== END 2022-07-01 04:36 | disposition home or self-care (01) ==
PROVIDERS: Emergency Provider Emergency Medicine; PCP Obstetrics & Gynecology
DX: N94.19 Other specified dyspareunia (principal); Z87.891 Personal history of nicotine dependence; Z87.440 Personal history of urinary (tract) infections
CPT/HCPCS: 81001; 81025; 87070; 87491; 87591; 87808; 99284; J1885

== ENCOUNTER 2022-07-29 07:57 | Emergency (ER) | payer BC, SELFPAY ==
[2022-07-29 08:10] VITALS: BP 112/66; PULSE 100; RESP 16; TEMP 36.4; O2SAT 97
--- NOTE | 2022-07-29 09:55 | PC.NURSE ---
SO at desk and asked for water for pt.; explained could not provide until she was seen. Pt. later at desk and asked I would like to know why I am being denied water . Explained to pt. has not been evaluated and could interfere with care plus if vomiting, best to rest the gut .
--- NOTE | 2022-07-29 09:58 | PC.NURSE ---
pt. ambulating without difficulty and normal posture; skin signs and breathing wnl.
[2022-07-29 10:51] VITALS: BP 93/59; PULSE 94; RESP 16; TEMP 36.2; O2SAT 100
[2022-07-29 12:24] VITALS: BP 99/51; PULSE 94; RESP 14; TEMP 36.3; O2SAT 98
== END 2022-07-29 13:09 | disposition left against medical advice (07) ==
PROVIDERS: PCP Obstetrics & Gynecology
DX: R19.7 Diarrhea, unspecified (principal)
CPT/HCPCS: 99199

== ENCOUNTER 2023-05-02 00:43 | Emergency (ER) | payer BC, SELFPAY ==
[2023-05-02 00:48] VITALS: BP 112/72; PULSE 110; RESP 16; TEMP 36.6; O2SAT 100
[2023-05-02 01:13] LABS: Basophils Absolute Auto 0.1 K/mm3 (0.0-0.1); Eosinophils Absolute Auto 0.2 K/mm3 (0-0.3); Eosinophils Percent Auto 2.9 % (0-4.4); Hematocrit 41.5 % (37.0-47.0); Hemoglobin 13.7 g/dL (12.0-15.0); Immature Granulocyte Absolute 0.02 K/mm3 (0.00-0.031); Immature Granulocyte Percent A 0.3 % (0-0.5); Lymphocytes Absolute Auto 3.94 K/mm3 (0.9-3.2); Lymphocytes Percent Auto 51.6 % (18.3-44.2); Mean Corpuscular Hemoglobin 29.3 pg (26-34); Mean Corpuscular Volume 88.7 fl (80-100); Mean Platelet Volume 9.7 fl (7.4-10.4); Monocytes Absolute Auto 0.5 K/mm3 (0.1-0.6); Monocytes Percent Auto 6.3 % (2.6-8.5); Neutrophils Absolute Auto 2.9 K/mm3 (1.3-6.7); Neutrophils Percent Auto 37.9 % (45.5-73.1); Platelet Count Result 211 k/mm3 (150-375); Red Blood Count 4.68 M/mm3 (4.2-5.4); Red Cell Distribution Width 13.2 % (11.5-14.5); White Blood Count 7.6 K/mm3 (4.5-10.0)
[2023-05-02 01:18] VITALS: BP 121/65; PULSE 108; RESP 13; O2SAT 100
[2023-05-02 01:21] LABS: Alanine Aminotransferase 44 U/L (6-35); Albumin Level 3.9 g/dL (3.5-5.1); Alkaline Phosphatase 92 U/L (38-126); Anion Gap 3 mmol/L (8-16); Aspartate Amino Transferase 49 U/L (14-36); Bilirubin,Total 0.6 mg/dL (0.2-1.3); Blood Urea Nitrogen 9 mg/dL (7-17); Calcium 8.7 mg/dL (8.4-10.2); Carbon Dioxide 25 mmol/L (22-30); Chloride 106 mmol/L (98-107); Estimated CRCL calculation 117 ml/min; Estimated Glomerular Filt Rate > 60; Glucose 91 mg/dL (65-110); Lipase 103 U/L (23-300); Potassium 3.7 mmol/L (3.4-5.0); Sodium 134 mmol/L (137-145)
[2023-05-02 01:31] LABS: Appearance Urine Turbid (Clear); Bacteria Urine 4+ /hpf; Bilirubin Urine Negative (Negative); Blood Urine Negative (Negative); Color Urine Dark Yellow (Yellow); Glucose Urine UA Negative (Negative); Ketones Urine 1+ mg/dL (Negative); Leukocyte Esterase Ur Trace LEU/UL (Negative); Nitrate Urine Negative (Negative); Non Pathogenic Casts 0-2; Protein Urine Trace mg/dL (Negative); RBC Urine 0-2 /hpf (0-2); Specific Grav Ur 1.031 (1.001-1.035); Squamous Epithelial Cell Urine Many /hpf (Few); WBC Urine 21-50 /hpf; pH Urine 5.5 (5.0-9.0)
[2023-05-02 01:38] LABS: Anisocytosis 1+ (NORMAL); Atypical Lymphocytes Present; Large Platelets Present; Platelet Estimate Adequate (Adequate); Schistocytes None Seen (NORMAL); Smudge Cells PRESENT
[2023-05-02 01:52] LABS: Add Urine Microscopic? YES
--- NOTE | 2023-05-02 01:53 | ED.ABDPAIN ---
HPI - Abdominal Pain General Chief Complaint: Abdominal Pain Stated Complaint: upper gastric pain, dizziness Time Seen by Provider: 05/02/23 01:33 Source: patient Limitations: no limitations History of Present Illness HPI narrative: Patient is a 22-year-old female present to the emergency department complaining of abdominal pain. Patient notes for the past 3 days she has been experiencing epigastric pressure that has been intermittent, notes that has been more intense today and remains intermittent but is more of a sharp discomfort now and admits to having approximately 1 episode every 30 minutes that typically last approximately 2 to 3 minutes in duration, patient denies any history of pain in the past, denies radiation of the pain, has not noticed anything bring on the pain or making it go away no anything making it better or worse and has not tried anything for the pain. Patient notes that she is currently and has not seen an OB yet but is seen [facility] in the past and does not have an appointment notes that her last menstrual period was March 24 to . Patient states she also has a mild sore throat in addition to a fever of 100.3 Fahrenheit taken at home today around 10 PM for she took a shower and it resolved. Patient denies use of vitamins. Patient notes that she does not want to continue with this and plans to obtain a elective . 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 Patient denies recent injuries, recent illness, vomiting, diarrhea, constipation, vaginal bleeding, vaginal discharge, pelvic pain, dysuria, hematuria, history of kidney stones, urinary frequency, urinary urgency, nasal congestion, chest pain, shortness of breath, palpitations, cough, numbness, weakness, headache. Patient notes for the past 1 week she has been feeling some mild lightheadedness whenever she stands up. Patient denies any association of the pain with food consumption. Related Data Allergies Allergy/AdvReac Type Severity Reaction Status Date / Time No Known Allergies Allergy Verified 05/02/23 00:44 Review of Systems Review of Systems: A 10 system review of systems was completed on the patient and is negative except for what is stated in the HPI. Nursing and ancillary documentation was reviewed. [facility]LY [facility] Past Medical History Medical History UTI (urinary tract infection) Surgical History Surgical History No significant past surgical history Family History Family History Father Hyperlipidemia Other No acute medical problems Social History Social History Smoking status: Former smoker Tobacco type: cigarettes Second hand tobacco smoke exposure: No Alcohol intake: former Alcohol use details: rarely Living arrangements: with family Occupation/Education: occupation Gender identity (if verbalized by the patient): Female Sexual Orientation (if Verbalized by the Patient): Straight or Heterosexual Spiritual care concerns: No Comments At time of signature, I have reviewed and agree with nursing past medical, surgical, social and family history unless otherwise noted. Please see the nursing chart for further information. There is no relevant family history pertinent to the presenting complaint. Exam Narrative: CONST: No acute distress. Well nourished. HENMT: Head is normocephalic and atraumatic. Tacky mucous membranes. No posterior oropharynx erythema. EYES: No conjunctival icterus, injection, or pallor. PERRL. NECK: No meningeal signs. No palpable cervical lymphadenopathy. No palpable th
[2023-05-02 02:01] VITALS: BP 126/64; PULSE 100; RESP 15; O2SAT 98
[2023-05-02] MEDS: LACTATED RINGERS 1,000 ML 999 ML IV CONT (02:01)
[2023-05-02] MEDS: ONDANSETRON INJ 4 MG/2 ML VIAL IV PUSH (02:02)
[2023-05-02] MEDS: ACETAMINOPHEN 500 MG TABLET 1000 MG PO (02:03)
--- NOTE | 2023-05-02 02:09 | PC.NURSE ---
Pt refused belladonna compound. This RN made EDP aware.
[2023-05-02 02:16] VITALS: BP 121/70; PULSE 97; RESP 21; O2SAT 99
[2023-05-02 02:20] LABS: Troponin I 0.019 ng/mL (0.000-0.034)
[2023-05-02 02:46] VITALS: BP 105/63; PULSE 96; RESP 22; O2SAT 99
[2023-05-02 02:51] LABS: Influenza A QL RT-PCR Negative (Negative); Influenza B QL RT-PCR Negative (Negative); SARS-CoV-2 RNA PCR Negative (Negative)
--- NOTE | 2023-05-02 03:12 | ECG_ITS ---
Measurements Intervals [place] Rate: 86 P: 67 CO: 179 QRS: 64 QRSD: 86 T: 51 QT: 358 QTc: 429 Interpretive Statements SINUS RHYTHM WITH SINUS ARRHYTHMIA NORMAL ECG COMPARED TO ECG 12/19/2020 18:38:38 SINUS RHYTHM NOW PRESENT SINUS ARRHYTHMIA NOW PRESENT Electronically Signed On 05-02-2023 6:24:31 CDT by Niranjan Marks D.O.
[2023-05-02] MEDS: FAMOTIDINE 20 MG/2 ML VIAL IV PUSH (03:17)
[2023-05-02 04:06] VITALS: BP 107/51; PULSE 76; RESP 18; O2SAT 99
== END 2023-05-02 04:00 | disposition home or self-care (01) ==
PROVIDERS: Emergency Provider Student in an Organized Health Care Education/Training Program
DX: O26.891 Other specified pregnancy related conditions, first trimester (principal); R10.13 Epigastric pain; R74.01 Elevation of levels of liver transaminase levels; Z20.822 Contact with and (suspected) exposure to COVID-19; Z87.891 Personal history of nicotine dependence; Z87.440 Personal history of urinary (tract) infections; Z3A.00 Weeks of gestation of pregnancy not specified
CPT/HCPCS: 36415; 76705; 80053; 81001; 81025; 83690; 83735; 84484; 84702; 85025; 87086; 87636; 93005; 96361; 96374; 96375; 99284; A9270; J2405; J7120

== ENCOUNTER 2023-05-02 14:02 | Outpatient (CLI) | payer BC, SELFPAY ==
--- NOTE | ~2023-05-02 | US_ITS ---
EXAMINATION: US right upper quadrant DATE: 05/02/2023 15:29 INDICATION: Right upper quadrant abdominal pain TECHNIQUE: Multiple grayscale and Doppler ultrasound images of the abdomen were obtained. COMPARISON: None FINDINGS: Cephalad to mid aorta and inferior vena cava are normal. Liver has normal echogenicity and contour, w ith a smooth surface. No liver lesion identified. No intrahepatic biliary duct dilation suspected. Po rtal venous flow was seen in the hepatopetal, normal direction and has normal Doppler waveform. The g allbladder is normal in appearance. There is no cholelithiasis. The common bile duct measures 4 mm, which is normal. Sonographic Augustin sign was reported as negative by the news video editor. The visualized body and tail the pancreas appears normal. The region of the pancreatic head is obscured. IMPRESSION: 1. Normal right upper quadrant ultrasound. Reviewed, dictated and finalized at location A.
== END 2023-05-02 14:03 | disposition home or self-care (01) ==
PROVIDERS: Student in an Organized Health Care Education/Training Program; PCP Emergency Medicine; Referring Provider Nurse Practitioner Obstetrics & Gynecology; Visit Provider Emergency Medicine
DX: O26.899 Other specified pregnancy related conditions, unspecified trimester (principal); Z3A.00 Weeks of gestation of pregnancy not specified
CPT/HCPCS: 36415; 76705; 84702

== ENCOUNTER 2023-06-19 17:21 | Emergency (ER) | payer BC, SELFPAY ==
[2023-06-19 17:39] VITALS: BP 112/67; PULSE 73; RESP 18; TEMP 36.6; O2SAT 98
--- NOTE | 2023-06-19 17:54 | ED.DENTAL ---
HPI - Dental/Oral General Chief complaint: Dental/Oral Stated complaint: dental infection Time Seen by Provider: 06/19/23 17:41 History of Present Illness HPI Narrative: 22-year-old female reports for evaluation for dental pain to her right lower molar started today. Patient states she is a hole in her right lower molar which frequently gets infected. States she will develop pain in the get treated with antibiotics with improvement of her pain. She does have a dentist but states that they will not pull this tooth due to her insurance. She is requesting dental referrals. States she took Tylenol prior to arrival with improvement. Her pain is currently 3 out of 10. She denies fever, difficulty tolerating her saliva, trismus, facial swelling, ear pain or sore throat Related Data Allergies Allergy/AdvReac Type Severity Reaction Status Date / Time No Known Allergies Allergy Verified 06/19/23 17:23 Review of Systems Review of Systems: CONSTITUTIONAL: Denies fever, chills EYES: Denies visual changes, redness, or discharge. ENT: See HPI CARDIOVASCULAR: Denies chest pain, palpitations, or edema. RESPIRATORY: Denies cough or dyspnea. GASTROINTESTINAL: Denies abdominal pain, nausea, vomiting, or diarrhea. GENITOURINARY: Denies dysuria or hematuria. SKIN: Denies rash or itching. MUSCULOSKELETAL: Denies back pain, joint pain, or myalgia. NEUROLOGIC: Denies headache, numbness, dizziness, or weakness. PSYCHIATRIC: Denies anxiety or depression. [facility] Past Medical History Medical History UTI (urinary tract infection) Surgical History Surgical History No significant past surgical history Family History Family History Father Hyperlipidemia Other No acute medical problems Social History Social History Smoking status: Former smoker Tobacco type: cigarettes Second hand tobacco smoke exposure: No Alcohol intake: former Alcohol use details: rarely Living arrangements: with family Occupation/Education: occupation Gender identity (if verbalized by the patient): Female Sexual Orientation (if Verbalized by the Patient): Straight or Heterosexual Spiritual care concerns: No Exam Narrative: GENERAL: Well-appearing, in no acute distress. Patient resting comfortably in exam chair. She is pleasant and conversational. HEAD: Normocephalic EYES: PERRLA ENT: Nares clear. Mucous membranes moist. Oropharynx without tonsillar hypertrophy exudate or other lesions. No facial swelling or lymphadenopathy. Floor mouth is soft without crepitus. No trismus. Patient tolerating secretions. Right lower mandible with a cavity and a mild amount of peridontillar disease. No periapical abscess. No areas of fluctuation or induration. NECK: Supple. CHEST: No respiratory distress. Clear to auscultation, no adventitious breath sounds. HEART: Regular rate and rhythm. No murmur heard. Normal peripheral pulses. EXTREMITIES: Normal range of motion. No edema. SKIN: Warm, dry, no rash. NEURO: No focal deficits. Alert and oriented x3. PSYCH: Normal mood and affect. Course Vital Signs Vital signs: Vital Signs Temperature 97.9 F 06/19/23 17:39 Pulse Rate 73 06/19/23 17:39 Respiratory Rate 18 06/19/23 17:39 Blood Pressure 112/67 06/19/23 17:39 Pulse Oximetry 98 06/19/23 17:39 Temperature 97.9 F 06/19/23 17:39 Pulse Rate 73 06/19/23 17:39 Respiratory Rate 18 06/19/23 17:39 Blood Pressure 112/67 06/19/23 17:39 Pulse Oximetry 98 06/19/23 17:39 MDM - Dental/Oral MDM Narrative Medical decision making narrative: 22-year-old female reports for evaluation for dental pain that started today. See HPI for further history. Vitals are stable and she is afebril
[2023-06-19] MEDS: AMOXICILLIN/CLAVULANATE K 875-125 MG TAB 1 TABLET PO (18:13)
== END 2023-06-19 18:10 | disposition home or self-care (01) ==
LOC: ANHED 18:14
PROVIDERS: Emergency Provider Physician Assistant
DX: K02.9 Dental caries, unspecified (principal); Z87.440 Personal history of urinary (tract) infections; Z87.891 Personal history of nicotine dependence
CPT/HCPCS: 99283; A9270

== ENCOUNTER 2023-10-08 17:13 | Emergency (ER) | payer BC, SELFPAY ==
[2023-10-08 17:27] VITALS: BP 114/71; PULSE 92; RESP 18; TEMP 37.1; O2SAT 100
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
[2023-10-08] MEDS: ULIPRISTAL ACETATE 30 MG TABLET PO (22:07)
--- NOTE | 2023-10-08 22:10 | PC.NURSE ---
Per GABBY patient declines a shower
[2023-10-08 23:07] LABS: Appearance Urine Clear (Clear); Bacteria Urine Rare /hpf; Bilirubin Urine Negative (Negative); Blood Urine Negative (Negative); Color Urine Yellow (Yellow); Glucose Urine UA Negative (Negative); Ketones Urine Negative (Negative); Leukocyte Esterase Ur Trace LEU/UL (Negative); Nitrate Urine Negative (Negative); Non Pathogenic Casts 0-2; Protein Urine Negative (Negative); RBC Urine 0-2 /hpf (0-2); Squamous Epithelial Cell Urine Few /hpf (Few); Urobilinogen Urine 0.2 mg/dL (<2.0); WBC Urine 0-5 /hpf; pH Urine 6.5 (5.0-9.0)
[2023-10-08 23:08] LABS: HIV 1/2 Ab P24 Ag Result Negative (Negative)
[2023-10-08 23:08] LABS: Add Urine Microscopic? YES
[2023-10-09] LABS: Trichomonas Vag PCR NOT DETECTED (NOT DETECTE)
[2023-10-09 00:22] LABS: Chlamydia trachomatis NOT DETECTED (NOT DETECTE); Neisseria gonorrhoeae PCR NOT DETECTED (NOT DETECTE)
[2023-10-09 15:12] LABS: Rapid Plasma Reagin Non-Reactive (NonReactive)
== END 2023-10-08 22:58 | disposition home or self-care (01) ==
PROVIDERS: Emergency Medicine; Emergency Provider Emergency Medicine
DX: T74.21XA Adult sexual abuse, confirmed, initial encounter (principal); Z87.891 Personal history of nicotine dependence; Z87.440 Personal history of urinary (tract) infections; Y07.59 Other non-family member, perpetrator of maltreatment and neglect
CPT/HCPCS: 36415; 81001; 81025; 86592; 86703; 87491; 87591; 87661; 99285; A9270; G0432

== ENCOUNTER 2024-06-18 19:11 | Observation (INO) | payer BC, SELFPAY ==
[2024-06-18] VITALS (10 sets, daily range): BP systolic 114–120; BP diastolic 64; PULSE 81–92; TEMP 36.4; O2SAT 99–100; BMI 33.0
--- NOTE | 2024-06-18 19:11 | PC.NURSE ---
Pt arrives to the unit from the Emergency Department with pelvic and back pain.
--- NOTE | 2024-06-18 19:58 | OBADM ---
This patient, Nelly Cespedes, admitted to the OB room OB Post 116 for observation. Patient/family oriented to hospital policies and general routines including ID bracelet, bed and alarms, visiting hours, pain management, procedures, bathroom and other care routines, personal items, smoking policy, room service/diet, and visiting hours. Patient/Family are encouraged to report perceived risks to care and to ask questions if they do not understand what they are told or what they should do.
[2024-06-18 20:18] LABS: Add Urine Microscopic? YES; Appearance Urine Cloudy (Clear); Bacteria Urine 2+ /hpf; Bilirubin Urine Negative (Negative); Blood Urine 3+ (Negative); Color Urine Yellow (Yellow); Glucose Urine UA Negative (Negative); Ketones Urine Negative (Negative); Leukocyte Esterase Ur 1+ LEU/UL (Negative); Nitrate Urine Negative (Negative); Non Pathogenic Casts 0-2; Protein Urine 1+ mg/dL (Negative); RBC Urine 51-100 /hpf (0-2); Specific Grav Ur 1.023 (1.001-1.035); Squamous Epithelial Cell Urine Many /hpf (Few); Urobilinogen Urine 0.2 mg/dL (<2.0); pH Urine 5.5 (5.0-9.0)
--- NOTE | 2024-06-18 20:28 | PC.NURSE ---
Called Dr. Phillips, update on pt, pelvic and back pain, blood pressure, labs, and tracing. Orders received to discharge pt with a prescription for macrobid 100 mg twice a day for seven days, instructions to call the office and make an appointment for next week, and when to return to the unit.
--- NOTE | 2024-06-18 20:48 | PC.NURSE ---
Pt discharged with a prescription for macrobid, instructions to call the office to make an appointment next week, and when to return to the unit.
--- NOTE | 2024-07-20 08:06 | P.PNOB_ITS ---
OB - Triage/Final Diagnosis Visit Information Comments/Additional reasons for admission: I have assessed the risk for this patient, Nelly Cespedes, and determined that she would benefit from observation care. Evaluation Laboratory results: Laboratory Tests 06/18/24 20:07 Urine Color Yellow Urine Appearance Cloudy H Urine pH 5.5 Ur Specific [place] 1.023 Urine Protein 1+ H Urine Glucose (UA) Negative Urine Ketones Negative Ur Blood (Man) 3+ H Urine Nitrate Negative Urine Bilirubin Negative Urine Urobilinogen 0.2 Leukocyte Esterase Rfl 1+ H Urine RBC 51-100 H Urine WBC 11-20 H Ur Squamous Epith Cells Many H Urine Bacteria 2+ H Urine Casts 0-2 Final Diagnosis (1) Oral pain of unknown etiology: Code(s): K13.79 - Other lesions of oral mucosa Status: Acute
--- NOTE | 2024-07-26 08:27 | P.PNOB_ITS ---
OB - Triage/Final Diagnosis Visit Information Comments/Additional reasons for admission: I have assessed the risk for this patient, Nelly Cespedes, and determined that she would benefit from observation care. Evaluation Laboratory results: Laboratory Tests 06/18/24 20:07 Urine Color Yellow Urine Appearance Cloudy H Urine pH 5.5 Ur Specific [place] 1.023 Urine Protein 1+ H Urine Glucose (UA) Negative Urine Ketones Negative Ur Blood (Man) 3+ H Urine Nitrate Negative Urine Bilirubin Negative Urine Urobilinogen 0.2 Leukocyte Esterase Rfl 1+ H Urine RBC 51-100 H Urine WBC 11-20 H Ur Squamous Epith Cells Many H Urine Bacteria 2+ H Urine Casts 0-2
== END 2024-06-18 20:48 | disposition home or self-care (01) ==
PROVIDERS: Admitting Provider Obstetrics & Gynecology; Visit Provider Obstetrics & Gynecology
DX: O26.892 Other specified pregnancy related conditions, second trimester (principal); R10.2 Pelvic and perineal pain; O99.891 Other specified diseases and conditions complicating pregnancy; M54.9 Dorsalgia, unspecified; K13.79 Other lesions of oral mucosa; Z3A.24 24 weeks gestation of pregnancy
CPT/HCPCS: 81001; 87086; 87088; G0378; G0379

== ENCOUNTER 2024-07-23 14:22 | Observation (INO) | payer BC, SELFPAY ==
[2024-07-23 14:40] VITALS: BMI 34.4
[2024-07-23 14:45] VITALS: BP 116/60; PULSE 91
[2024-07-23 15:00] VITALS: BP 104/60; PULSE 88
[2024-07-23 15:15] VITALS: BP 105/62; PULSE 88
[2024-07-23 15:24] LABS: Add Urine Microscopic? YES; Appearance Urine Turbid (Clear); Bacteria Urine 3+ /hpf; Bilirubin Urine Negative (Negative); Blood Urine 1+ (Negative); Color Urine Yellow (Yellow); Glucose Urine UA Negative (Negative); Ketones Urine Negative (Negative); Leukocyte Esterase Ur 2+ LEU/UL (Negative); Need Manual Microscopic Reviewed; Nitrate Urine Negative (Negative); Non Pathogenic Casts 0-2; Protein Urine Negative (Negative); Specific Grav Ur 1.011 (1.001-1.035); Squamous Epithelial Cell Urine Many /hpf (Few); Urobilinogen Urine 0.2 mg/dL (<2.0); WBC Urine 21-50 /hpf (0-3); pH Urine 7.5 (5.0-9.0)
[2024-07-23 15:30] VITALS: BP 105/58; PULSE 80
[2024-07-23 15:45] VITALS: BP 102/59; PULSE 84
--- NOTE | 2024-07-26 12:29 | PM.OBTRLD ---
OB - Triage/Final Diagnosis Visit Information Date of evaluation: 07/23/24 Reason for evaluation: other (cramping) Comments/Additional reasons for admission: I have assessed the risk for this patient, Nelly Cespedes, and determined that she would benefit from observation care. Evaluation Laboratory results: Laboratory Tests 07/23/24 14:57 Urine Color Yellow Urine Appearance Turbid H Urine pH 7.5 Ur Specific [place] 1.011 Urine Protein Negative Urine Glucose (UA) Negative Urine Ketones Negative Ur Blood (Man) 1+ H Urine Nitrate Negative Urine Bilirubin Negative Urine Urobilinogen 0.2 Ur Leukocyte Esterase 2+ H Add Ur Microanalysis Reviewed Urine RBC 11-20 H Urine WBC 21-50 H Ur Squamous Epith Cells Many H Urine Bacteria 3+ H Urine Casts 0-2
--- OUTSIDE RECORDS SUMMARY | 2024-07-26 20:34 | XMS_ITS | Data Portability ---
Author Organization [facility] [place] Address [address] [place] [address] [place] [address] Assessment Encounter Date Assessment Date Assessment LastModified by Organization Details LastModified Time 06/16/2024 06/16/2024 Patient is _24__weeks . Discussed plan. Not available 06/16/2024 11:54:02 07/21/2024 07/21/2024 Patient is _29 __weeks . Discussed plan. Not available 07/21/2024 10:51:03 Plan of Treatment Reminders Order Date Submit Date Provider Last Modified By Organization Details Last Modified Time Details Appointments OB ROUTINE 2023 08:45A Nidia BERG MD Not available Not available Not available Lab None recorded. Referral None recorded. Procedures None recorded. Surgeries None recorded. Imaging US, obstetric , 2nd or 3rd trimester 2023 024 [email or web address] [place], [facility] [address], [place], [address], 05/19/2024 20:34:58 US, obstetric , follow-up 2023 024 [email or web address] [place], [facility] [address], [place], [address], 06/16/2024 21:46:41 US, obstetric , follow-up 2023 024 ghanshyam [place], [facility] [address], [place], [address], 07/21/2024 14:19:44 Medication Orders Valtrex 500 mg tablet [address] [place] [address] [id number], [address], [place], [place], [id number], 06/16/2024 12:01:31 Patient TargetsNo targets recorded. Patient InstructionsNo instructions recorded. Reason for Referral None Reported. Results Created Date Observation Date Name Description Value Unit Range Abnormal Flag Note LastModifiedBy Organization Detail LastModifiedTime 05/19/20 24 05/19/2024 US, obste tric, 2nd or 3rd trime ster No observ ation record ed. [facility] [address], [place], [address], 05/19/2024 13:03:32 05/19/2005/19/2024 US, obste tric, follo w-up No observ ation record ed. [email or web address] [address], [place], [address], 05/20/2024 12:55:49 06/16/2006/16/2024 US, obste tric, follo w-up No observ ation record ed. [email or web address] [place] [address], [place], [address], 06/16/2024 11:37:57 06/16/2006/16/2024 US, obste tric, follo w-up No observ ation record ed. [email or web address] [address], [place], [address], 06/17/2024 13:53:59 07/21/20 24 07/21/2024 US, obste tric, follo w-up No observ ation record ed. [facility] [address], [place], [address], 07/21/2024 13:09:44 07/21/20 24 07/21/2024 US, obste tric, follo w-up No observ ation record ed. [email or web address] [address], [place], [address], 07/22/2024 18:18:47 Result Notes None recorded. Problems Name Problem SNOMED Code Status Onset Date Resolution Date Notes Provider Name and Address Organization Details Recorded Time Missed miscarri age 35108796 Completed 201801/17/2021 Missed ;Recorde d Elsewher e: No Locat ion: [facility] S ource: EHR Dewaterer Operator rina: N Practi ce ID: 0001 Catracho lable Time: 04:00:00 PM Giovanna Suh [facility] 16:25:08 Pregnanc y detectio n examinat ion Completed 201801/17/2021 Encounte r for pregnanc y test, result positive ;Recorde d Elsewher e: No Locat ion: [facility] S ource: EHR Dewaterer Operator rina: N Practi ce ID: 0001 Catracho lable Time: 01:45:00 PM Giovanna cardona [facility] 16:25:10 Finding of contents of cervix [id number] Completed 201801/17/2021 Weeks of gestatio n of pregnanc y not specifie d;Record ed Elsewher e: No Locat ion: [facility] S ource: EHR Dewaterer Operator rina: N Practi ce ID: 0001 Catracho lable Time: 04:30:00 PM Giovanna cardona [facility] 16:24:57 Pregnanc y test negative [id number] Completed 201801/17/2021 Encounte r for pregnanc y test, result negative ;Recorde d Elsewher e: No Locat ion: [facility] S ource: EHR Dewaterer Operator rina: N Practi ce ID: 0001 Catracho lable Time: 10:00:00 AM Giovanna cardona [facility] 16:25:13 Antenata l screenin g Completed 201801/17/2021 Encounte r for antenata l screenin g for uncertai n dates;Re corded Elsewher e: No Locat ion: [facility] S ource: EHR Dewaterer Operator rina: N Practi ce ID: 0001 Catracho lable Time: 01:00:00 PM Giovanna Suh [facility] 16:24:[address] Concept Completed 201801/17/2021 Encntr for routine child health exam w/o abnormal findings ;Recorde d Elsewher e: No Locat ion: [facility] S ource: EHR Dewaterer Operator rina: N Dianati ce ID: 0001 Catracho lable Time: 09:15:00 AM Giovanna cardona [facility] 16:25:15 Miscarri age without complica tion [id number] Completed 201801/17/2021 Incomple te spontane ous without complica tion;Rec orded Elsewher e: No Locat ion: [facility] Source: EHR Dewaterer Operator rina: N Dianati ce ID: 0001 Catracho lable Time: 02:00:00 PM Giovanna Suh brendan [facility] 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 16:25:18 Pregnanc y 37637539 Completed 202009/17/2021 Giovanna Suh [facility], [facility] 4 12:37:01 Acute urinary tract infectio n 389391613 Completed Treated Sravani anderson [facility] 2 16:07:41 Recurren t miscarri age 378821922 Completed Sravani Tidwellsoilamillersuri monica [facility], [facility] 2 16:07:41 Marginal insertio n of umbilica l cord 52804532 Completed 2020 serial growth u/s Sravani anderson brendan, [facility] 2 16:07:41 Herpes simplex 29305094 Active takes daily valtrex, increase to bid at 36 weeks Yulissa Potts CNM [address], [place], [address], [facility] 4 13:58:29 Pregnanc y 09445515 Active 2023 Giovanna Suh [facility], [facility] 4 12:37:01 Herpes simplex 86698716 Active takes daily valtrex, increase to bid at 36 weeks Yulissa Potts CNM [address], [place], [address], [facility] 4 13:58:29 Problem Notes None recorded. Procedures Surgical History Date Name Laterality Status Provider Name and Address Organization Details Recorded Time 02/25/20 24 Date of Last Pap Smear completed Giovanna Suh [facility] 02/25/2024 14:33:16 08/11/19 23 termination of completed Giovanna Suh [facility] 02/25/2024 14:35:32 Imaging Results Imaging Date Name Status LastModified by Organiz ation Details LastModified Time 05/19/2024 US, obstetric, 2nd or 3rd trimester completed [address], [place], [address], 05/19/2024 13:03:32 05/19/2024 US, obstetric, follow-up completed [email or web address] [address], [place], [address], 05/20/2024 12:55:49 06/16/2024 US, obstetric, follow-up [email or web address] [address], [place], [address], 06/16/2024 11:37:57 06/16/2024 US, obstetric, follow-up completed [email or web address] [address], [place], [address], 06/17/2024 13:53:59 07/21/2024 US, obstetric, follow-up completed [facility] [address], [place], [address], 07/21/2024 13:09:44 07/21/2024 US, obstetric, follow-up completed [email or web address] [address], [place], [address], 07/22/2024 18:18:47 Procedure Notes None recorded. Medical Equipment None Reported. Allergies No known drug allergies Medications Name Sig Start Date Stop Date Status Note LastModified by Organization Details LastModified Time amoxicill in 500 mg capsule TAKE 1 CAPSULE BY MOUTH EVERY 8 HOURS 07/01 completed Not Available Not Available Not Available terconazo le 0.4 % vaginal cream INSERT ONE APPLICAT ORFUL VAGINALL Y AT BEDTIME FOR 7 DAYS 01/17 completed Not Available Not Available Not Available azithromy araceli 250 mg tablet 05/06 completed Not Available Not Available Not Available fluconazo le 150 mg tablet TAKE 1 TABLET BY MOUTH 1 TIME 04/21 completed Not Available Not Available Not Available valacyclo vir 1 gram tablet TAKE 1 TABLET BY MOUTH EVERY DAY FOR 5 DAYS DIRECTED 02/24 completed Not Available Not Available Not Available promethaz ine 12.5 mg tablet Take 1 tablet every 6 hours by oral route. 01/17 completed Not Available Not Available Not Available ondansetr on HCl 4 mg tablet TAKE 1 TABLET BY MOUTH EVERY 4 TO 6 HOURS NEEDED active Not Available Not Available No t Available terconazo le 0.8 % vaginal cream INSERT 1 APPLICAT ORFUL VAGINALL Y EVERY DAY FOR 3 DAYS 07/13 completed Not Available Not Available Not Available metronida zole 500 mg tablet TAKE 1 TABLET BY MOUTH TWICE DAILY FOR 7 DAYS 11/20 completed Not Available Not Available Not Available valacyclo vir 500 mg tablet TAKE 1 TABLET BY MOUTH EVERY DAY active Not Available Not Available No t Available nystatin- triamcino lone 100,000 unit/gram -0.1 % topical ointment APPLY TOPICALL Y TO THE AFFECTED AREA TWICE DAILY 07/01 completed Not Available Not Available Not Available amoxicill in 875 mg tablet TAKE 1 TABLET BY MOUTH EVERY 12 HOURS active Not Available Not Available No t Available phenazopy ridine 100 mg tablet 05/06 completed Not Available Not Available Not Available cephalexi n 500 mg capsule TAKE ONE CAPSULE BY MOUTH EVERY 6 HOURS UNTIL ALL TAKEN 11/20 completed Not Available Not Available Not Available Loestrin 08/30 (21) 1 mg-20 mcg tablet take 1 tablet by oral route every day 12/23 completed Prescrib ed Bret e: No Locat ion: [facility] odify By: [email or web address] bean DateTime : 11/14/19 09:15:00 AM Not Available Not Available Not Available misoprost ol 200 mcg tablet insert 4 tablet by vaginal route 05/06 completed Not Available Not Available Not Available promethaz ine 25 mg tablet TAKE ONE TABLET BY MOUTH EVERY 4 TO 6 HOURS NEEDED FOR NAUSEA 02/24 completed Not Available Not Available Not Available misoprost ol 100 mcg tablet INSERT 1 TABLET VAGINALL Y THE NIGHT PRIOR TO IUD INSERTIO N 03/28 completed Not Available Not Available Not Available fluoxetin e 10 mg capsule TAKE 1 CAPSULE BY MOUTH EVERY DAY 11/26 completed Not Available Not Available Not Available mupirocin 2 % topical ointment APPLY TOPICALL Y TO THE AFFECTED AREA TWICE DAILY 07/01 completed Not Available Not Available Not Available ibuprofen 600 mg tablet TAKE ONE TABLET BY MOUTH EVERY 6 HOURS NEEDED FOR PAIN 02/24 completed Not Available Not Available Not Available ondansetr on 4 mg disintegr ating tablet 02/24 completed Not Available Not Available Not Available cefdinir 300 mg capsule 01/17 completed Not Available Not Available Not Available fluoxetin e 20 mg capsule Take 1 capsule every day by oral route. 11/26 completed Not Available Not Available Not Available fluticaso ne propionat e 50 mcg/actua tion nasal spray,p[employer]on pension SHAKE LIQUID AND USE 2 SPRAYS IN EACH NOSTRIL EVERY DAY 11/20 completed Not Available Not Available Not Available amoxicill in 875 mg-potass ium clavulana te 125 mg tablet TAKE 1 TABLET BY MOUTH EVERY 12 HOURS 02/24 completed Not Available Not Available Not Available Ventolin HFA 90 mcg/actua tion aerosol inhaler INL 2 PFS PO QID PRF SOB OR WHZ 08/01 completed Not Available Not Available Not Available methotrex ate sodium (PF) 25 mg/mL injection solution Bring to office for inj 05/06 completed Not Available Not Available Not Available nitrofura ntoin monohydra te/macroc rystals 100 mg capsule active Not Available Not Available Not Available promethaz ine 03/09 completed Not Available Not Available Not Available Lo Loestrin Fe 1 mg-10 mcg (24)/10 mcg (2) tablet Take 1 tablet by oral route every day 11/20 completed [facility] 0430-042 0-95 Lot #[id number] Exp 10/03 Not Available Not Available Not Available Diclegis 10 mg-10 mg tablet,de layed release TAKE 1 TABLET BY MOUTH TWICE DAILY 02/24 completed Not Available Not Available Not Available Junel Fe 24 1 mg-20 mcg (24)/75 mg (4) tablet Take 1 tablet by oral route every day 12/31 completed Replaced with Lo Loestrin Not Available Not Available Not Available Gummies 11/26 completed Not Available Not Available Not Available Twirla 120 mcg-30 mcg/24 hr transderm al patch APPLY 1 PATCH TOPICALL Y TO THE SKIN EVERY WEEK FOR 21 DAYS 03/28 completed Not Available Not Available Not Available Zafemy 150 mcg-35 mcg/24 hr transderm al patch APPLY 1 PATCH TOPICALL Y TO THE SKIN EVERY WEEK 02/24 completed Not Available Not Available Not Available Vitals Date Recorded Body weight Body mass index (BMI) Body height Systolic blood pressure Diastolic blood pressure Provider Name and Address Organization Details Last Updated DateTime 05/19/2024 23827.32 741 g 31.2 kg/m2 167.64 cm 105 mm[Hg] 70 mm[Hg] Giovanna Suh [facility] 12:00:26 Date Recorded Body height Body weight Systolic blood pressure Diastolic blood pressure Provider Name and Address Organization Details Last Updated DateTime 06/16/2024 167.64 cm 63725.843 48 g 106 mm[Hg] 73 mm[Hg] Giovanna Suh [facility] 06/16/2024 11:45:39 Date Recorded Body weight Systolic blood pressure Diastolic blood pressure Provider Name and Address Organization Details Last Updated DateTime 07/21/2024 28014.3595 5 g 115 mm[Hg] 72 mm[Hg] Giovanna Suh [facility] 07/21/2024 10:49:24 Social History Question Answer Notes LastModified by Organizat ion Details LastModified Time Tobacco Smoking Status Current Every Day Smoker Giovanna Suh [facility] 02/25/2024 14:35:21 Do You Have An Advance Directive? No Information not available 01/17/2021 What Is Your Level Of Alcohol Consumption? None Information not available 01/17/2021 If You Are , What Was Your Level Of Alcohol Consumption Prior To ? Occasional Information not available 02/25/2024 Are You Blind Or Do You Have Difficulty Seeing? No [email or web address] Information not available 01/17/2021 What Is Your Level Of Caffeine Consumption? Occasional [email or web address] Information not available 01/17/2021 How Much Tobacco Do You Chew? None [email or web address] Information not available 01/17/2021 In The 14 Days Before Symptom Onset, Have You Had Close Contact With A [facility] COVID-19 While That Case Was Ill? No [email or web address] Information not available 01/17/2021 In The 14 Days Before Symptom Onset, Have You Had Close Contact With A Person Who Is Under Investigation For COVID-19 While That Person Was Ill? No Information not available 01/17/2021 Have You Been To An Area Known To Be High Risk For COVID-19? No [email or web address] Information not available 01/17/2021 Are You Deaf Or Do You Have Serious Difficulty Hearing? No [email or web address] Information not available 01/17/2021 What Type Of Diet Are You Following? REGULAR [email or web address] Information not available 01/17/2021 What Is The Highest Grade Or Level Of School You Have Completed Or The Highest Degree You Have Received? [id number] [email or web address] Information not available 01/17/2021 What Is Your Occupation? N/A Information not available 03/24/2024 Are There Any Guns Present In Your Home? No [email or web address] Information not available 01/17/2021 Do You Use Protection During Sex? No Information not available 01/17/2021 Do You Use Your Seat Belt Or Car Seat Routinely? Yes [email or web address] Information not available 01/17/2021 Do You Have Smoke And Carbon Monoxide Detectors In Your Home? Yes [email or web address] Information not available 01/17/2021 At What Age Did You Start Smoking Tobacco? 15 [email or web address] Information not available 02/14/2021 How Much Tobacco Do You Smoke? 0.25 PPD [email or web address] Information not available 03/24/2024 Do You Feel Stressed (tense, Restless, Nervous, Or Anxious, Or Unable To Sleep At Night)? [id number] [email or web address] Information not available 03/24/2024 Do You Use Any Illicit Or Recreational Drugs? No [email or web address] Information not available 01/17/2021 Do You Use Sunscreen Routinely? No [email or web address] Information not available 01/17/2021 How Many Years Have You Smoked Tobacco? 6 Information not available 03/24/2024 Have You Used IV Drugs? No [email or web address] Information not available 01/17/2021 Do You Or Have You Ever Used Any Other Forms Of Tobacco Or Nicotine? No Information not available 02/25/2024 Sex: Unknown Functional Status Question Answer Note LastModified by Organizat ion Details LastModified Time Do you have difficulty walking or climbing stairs? No Information not available 07/19/2022 Are you able to walk? [email or web address] Information not available 01/17/2021 Are you able to care for yourself? Yes Information not available 07/19/2022 Do you have difficulty dressing or bathing? No Information not available 07/19/2022 What is your exercise level? Moderate [email or web address] Information not available 01/17/2021 Mental Status None recorded. Family History Relationship Description Onset Age of this Age Resolved Age Notes LastModified by Organization Details LastModified Time Father Hyperlipidem ia Not available 2023 10:41:30 Maternal Grandmother Diabetes mellitus [email or web address] Not available 2019 08:44:30 Mother Anxiety disorder [email or web address] Not available 02/24 14:31:54 Mother Depressive disorder [email or web address] Not available 03/24 12:20:19 Paternal Grandmother Anxiety disorder [email or web address] Not available 03/24 12:20:19 Paternal Grandmother Depressive disorder [email or web address] Not available 03/24 12:20:19 Brother Anxiety disorder [email or web address] Not available 03/24 12:20:19 Brother Depressive disorder [email or web address] Not available 03/24 12:20:19 Medical History Condition Response Allergies (Food, seasonal, environmental ) N Other N Breast Cancer N Drug/Latex Allergies/Reactions N Blood Transfusion N Dermatologic Disorders N Lung Disease N Defects or Inherited Disease N Breast Problem N Gestational Diabetes N Hematologic disorders N Anesthesia Complications N History of STI Y Deep Vein Thrombosis N Polycystic ovary syndrome N Anxiety Disorder Y Autoimmune disease N Arthritis N Infertility N Polyps N Acid Reflux (GERD) N History of abnormal pap N Cancer N Stroke N Varicosities N Neurologic/Epilepsy N Endometriosis N High Cholesterol N Headaches N Fibromyalgia N Kidney Disease N Heart Problems N Kidney or Bladder Problems N Thyroid Problems N GI Problems N Eating Disorder N Anemia N Art (IVF or FET) N Psychiatric Illness N Ovarian Cancer N Diabetes N Pulmonary (TB, Asthma) N Hepatitis/Liver Disease N No Past Medical History N Eczema N Urinary Tract Infection N Abuse/Domestic Violence N Asthma N Trauma/Violence N Depression/ depression Y Heart Disease N Pre-Eclampsia N Hypertension N Osteoporosis N Thrombophilias N Gynecological History Statement/Question Response Date of Last Mammogram Flow Moderate Date of LMP N Was last menstrual period normal Y STIs/STDs Y N/A Desired Control Method None Abnormal Pap N On BCP's at Conception? N HPV Vaccine Y Current Control Method Age at First Child 20 Are cycles usually normal Y Sexually Active? Y Menses Monthly Y Date of DEXA bone scan Age of first menstrual cycle 11 Date of Last Pap Smear 02/25/2024 Sexual Problems? N LMP Definite N Obstetrics History GPAL:G 8 P 1 0 6 1 Type Value Full Term 1 Induced 1 Spontaneous 5 Living 1 Total 8 Past Encounters Encounter ID Performer Location Encounter Start Date Encounter Closed Date Diagnosis/Indication Diagnosis SNOMED-CT Code Diagnosis ICD10 Code [id number] David Phillips MD [place] [address] [place] [address] 05/06/2020 10:38:15 05/06/2020 11:32:14 Abnormal uterine bleeding 0445059886 9100 N93.9 [id number] Vicenta Brooks [facility] [address] [place] [address] 08/01/2020 14:11:56 08/01/2020 14:51:14 Mastodynia of bilateral breasts 2506070713 6707315 N64.4 N63.10 Axillary lymphadenopathy 462861148 R59.0 [id number] [facility] [address] [place] [address] 01/17/2021 15:13:34 01/17/2021 16:51:28 Amenorrhea 70192033 N91.2 [id number] [facility] [address] [place] [address] 01/17/2021 15:12:54 01/17/2021 16:51:45 [id number] [facility] [address] [place] [address] 02/14/2021 14:21:36 02/14/2021 14:57:26 screening 454508976 Z36.82 [id number] David Phillips MD [place] [address] [address] 02/14/2021 14:22:10 02/14/2021 16:02:41 Routine care 128920724 Z34.91 [id number] Abby Wells MD [place] [address] [address] 03/09/2021 12:41:22 03/09/2021 13:20:51 Routine care 464990249 Z34.82 [id number] Franci Farrell [place] [address] [address] 04/05/2021 11:21:49 04/05/2021 17:36:52 Routine care 156839692 Z34.92 [id number] Abby Sheets [place] [address] [address] 04/05/2021 11:21:19 04/05/2021 14:05:43 screening for malformation 378390654 Z36.3 [id number] [facility] [address] [address] 05/02/2021 12:51:48 05/02/2021 14:27:37 Routine care 701043080 Z34.92 [id number] Kinsey Mi [place] [address] [address] 05/02/2021 11:57:30 05/02/2021 15:09:25 screening 022575174 Z36.2 [id number] [facility] [address] [address] 05/30/2021 11:53:50 05/30/2021 13:50:42 Routine care 572752514 Z34.92 [id number] Alanna Tubbs [place] [address] [place] [address] 05/30/2021 11:51:29 05/30/2021 13:49:56 Marginal insertion of umbilical cord 49346296 O43.129 Z3A.27 [id number] Yulissa Potts CNM [place] [address] [address] 06/15/2021 11:34:13 06/15/2021 12:27:19 Routine care 249645285 Z34.92 [id number] [facility] [address] [address] 06/28/2021 09:21:37 06/28/2021 13:11:18 Routine care 796450398 Z34.92 Vaginitis 72305906 N76.0 [id number] [facility] [address] [address] 06/28/2021 09:20:15 06/28/2021 10:29:58 AND/OR placental disorder affecting management of mother 58457914 O43.129 Z3A.32 [id number] Abby Wells MD [place] [address] [address] 07/13/2021 11:36:36 07/13/2021 14:01:15 Routine care 617785358 Z34.82 [id number] Alanna Tubbs [place] [address] [address] 07/26/2021 11:53:16 07/26/2021 13:14:06 AND/OR placental disorder affecting management of mother 98144127 O43.129 Z3A.36 [id number] David Phillips MD [place] [address] [address] 07/26/2021 11:53:39 07/26/2021 13:13:26 screening 924738220 Z36.2 [id number] [facility] [address] [address] 08/09/2021 09:59:38 08/10/2021 18:58:53 Routine care 256698796 Z34.92 [id number] Johana aPrtida [place] [address] [address] 08/09/2021 09:57:59 08/09/2021 11:22:54 Reduced movement 468595140 O36.8199 [id number] Franci Farrell [place] [address] [address] 08/16/2021 11:20:08 08/16/2021 12:16:49 Routine care 555351064 Z34.92 [id number] Yulissa Potts [facility] [address] [address] 10/05/2021 10:22:00 10/05/2021 10:51:03 care 771111497 Z39.2 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 [id number] Katiana Cobian [facility] [address] [address] 11/26/2021 14:26:28 11/26/2021 15:15:36 Vaginitis 57883758 N76.0 Contracept ion care management 089387284 Z30.9 [id number] Vicenta Brooks [facility] [address] [address] 07/19/2022 11:05:24 07/23/2022 15:09:57 Pelvic and perineal pain 506233655 R10.2 Pain in pelvis 42074802 R10.2 [id number] Kinsey Mi [place] [address] [address] 07/24/2022 15:52:37 07/24/2022 16:35:28 Pain in pelvis 15113822 R10.2 [id number] Vicenta Brooks [facility] [address],[place] [address] 11/20/2022 11:56:13 11/20/2022 14:18:35 Genital herpes simplex 98577618 A60.9 Contracept ion care management [id number] Z30.9 [id number] Vicenta Brooks [facility] [address],[place] [address] 03/28/2023 09:59:13 03/28/2023 10:36:54 Genital herpes simplex 15406795 A60.9 [id number] Kinsey [facility] [place] [address],[place] [address] 02/25/2024 13:37:40 02/25/2024 14:12:08 [id number] Yulissa Potts [place] [address],[place] [address] 02/25/2024 13:43:32 02/25/2024 15:01:51 Amenorrhea 73044591 N91.2 Venereal d isease screening 401457423 Z11.3 Herpes simplex 73702422 B00.9 [id number] [facility] [address],[place] [address] 03/24/2024 10:54:16 03/24/2024 11:35:08 screening 487161198 Z36.82 [id number] Yulissa Potts [facility] [address],[place] [address] 03/24/2024 10:56:41 03/24/2024 14:03:13 Gestation period, 12 weeks 67201928 Z3A.12 Routine an tenatal care 328799870 Z34.92 [id number] Yulissa Potts [facility] [address],[place] [address] 04/21/2024 10:39:46 04/21/2024 12:04:49 Routine care 448108697 Z34.92 [id number] [facility] [address] [place] [address] 05/19/2024 10:48:18 05/19/2024 11:54:12 screening for malformation 639081492 Z36.3 Z3A.20 [id number] Yulissa Potts [facility] [address] [place] [address] 05/19/2024 10:53:05 05/19/2024 12:10:23 Gestation period, 20 weeks 52597599 Z3A.20 [id number] Kinsey [facility] [place] [address],[place] [address] 06/16/2024 10:43:49 06/16/2024 11:37:27 screening 408057719 Z36.2 Z3A.24 [id number] Yulissa Potts [facility] [address],[place] [address] 06/16/2024 10:46:47 06/16/2024 12:04:08 Gestation period, 24 weeks 050598956 Z3A.24 Herpes simplex 76729190 B00.9 [id number] [facility] [address],[place] [address] 07/21/2024 09:33:30 07/21/2024 11:04:15 Medical examination for suspected condition 300653176 Z03.74 Z3A.29 [id number] Yulissa Potts [facility] [address],[place] [address] 07/21/2024 09:34:53 07/21/2024 11:08:31 Gestation period, 29 weeks 85032905 Z3A.29 Health Concerns Section Related Observation LastModified by Organization Detai ls LastModified Time None Recorded Concern Status LastModified by Organization Details LastModified Time None Recorded Advance Directives Directive N: Payers Encounter Date Sequence Insurance Name Policy Number Policy Guerrero Covered Member ID Guerrero Member ID Guarantor Name 05/19/2024 1 [employer] [id number] A Dean Cespedes [id number] 91 Nelly Cespedes 06/16/2024 1 [place] [id number] A Dean Cespedes [id number] 91 Nelly Cespedes 06/16/2024 1 [place] [id number] A Dean Cespedes [id number] 91 Nelly Cespedes 07/21/2024 1 [place] [id number] A Dean Bean Cespedes [id number] 91 Nelly Cespedes 07/21/2024 1 [facility] [id number] A Dean Cespedes [id number] 91 Nelly Cespedes OBGyn Episode Ob Episode Information Episode Created Date Number of Fetuses Patient Bloodtype Patient rh Status Prepregnancy Weight lbs Domestic Partner Domestic Partner Phone Father Name Product Lister Status 02/15/20 21 1 A Negative 135 CLOSED Fetus Data First Name Last Name Admitted to NICU Weight (g) Sex Living Outcome Pediatric Complications Fetus ID Race Codes Race Delivery Type Pat 3798.83 3 F true Full Term [id number] Vaginal Delivery Problems Problem Notes accessory lobe Problem Name Start Date End Date Resolution Snomed Code Not e Acute urinary tract infection MEDICATION 969058713 Treated Recurrent miscarriage 99916755 1 Marginal insertion of umbilical cord 04/05/2021 [id number] serial growth u/s Olivier Calculation OLIVIER Calculation Method Initial Olivier Date Initial Exam Date Initial Exam Provider Initial Ultrasound Date Last Menstrual Period Date Ultra Sound Weeks Gestation Conception by IVF Embryo Age at Transfer Date of Transfer 08/23/19 22 02/15/20 21 01/17/2021 8 Eighteen To Twenty Week Olivier Update Ultra Sound Date Fundal Height At Umbil Quickening Date Ultra Sound Latest Weeks Gestation Final Olivier Confirmed By Final Olivier Confirmed Date Final Olivier Date Ultra Sound Latest Days Gestation 0 [email or web address] 02/14/2021 08/23/19 22 0 Pre- Flowsheet Flowsheet Date 02/14/2021 Bailey Score Blood Edema Fundus Height Fundus Units Glucose Ketones Leukocytes Nitrite Labor Signs Protein Cervic Dilation Cervic Effacement Cervic Station 12 Type Weight in lbs Pre/Post Dialysis Refused Weight 137.670310214683 BP Diastolic BP Location Tested BP Systolic BP Type 68 R arm 111 sitting Fetus Heart Rate Present A 158 Fetus Movement Comments This patient is a 20-year-ol d multi to proceed female with 2 previous miscarriages who presents for initial visit. She has no complaints. She has by unremarkable medical, surgical, obstetric history. She will begin routine care Flowsheet Date 03/09/2021 Bailey Score Blood Edema Fundus Height Fundus Units Glucose Ketones Leukocytes Nitrite Labor Signs Protein Cervic Dilation Cervic Effacement Cervic Station none Type Weight in lbs Pre/Post Dialysis Refused Weight 139.482180740991 BP Diastolic BP Location Tested BP Systolic BP Type 71 107 Fetus Heart Rate Present A 140 Fetus Movement A No Comments Doing well, feeling fine ,ma ybe some flutters. NIPT low risk, doing gender reveal tomorrow. PNL today. Declines AFP. Flowsheet Date 04/05/2021 Bailey Score Blood Edema Fundus Height Fundus Units Glucose Ketones Leukocytes Nitrite Labor Signs Protein Cervic Dilation Cervic Effacement Cervic Station Type Weight in lbs Pre/Post Dialysis Refused BP Diastolic BP Location Tested BP Systolic BP Type Fetus Heart Rate Present Fetus Movement Comments Flowsheet Date 04/05/2021 Bailey Score Blood Edema Fundus Height Fundus Units Glucose Ketones Leukocytes Nitrite Labor Signs Protein Cervic Dilation Cervic Effacement Cervic Station trace trace Type Weight in lbs Pre/Post Dialysis Refused Weight 146.765667896098 BP Diastolic BP Location Tested BP Systolic BP Type 68 102 Fetus Heart Rate Present Fetus Movement A Yes Comments Doing well. Baseline anatomy today. Incomplete views and MCI. Pt informed. Repeat u/s in 4 weeks unless something else recommended. Flowsheet Date 05/02/2021 Bailey Score Blood Edema Fundus Height Fundus Units Glucose Ketones Leukocytes Nitrite Labor Signs Protein Cervic Dilation Cervic Effacement Cervic Station Type Weight in lbs Pre/Post Dialysis Refused BP Diastolic BP Location Tested BP Systolic BP Type Fetus Heart Rate Present Fetus Movement Comments Flowsheet Date 05/02/2021 Bailey Score Blood Edema Fundus Height Fundus Units Glucose Ketones Leukocytes Nitrite Labor Signs Protein Cervic Dilation Cervic Effacement Cervic Station neg none trace Type Weight in lbs Pre/Post Dialysis Refused Weight 159.387757426959 BP Diastolic BP Location Tested BP Systolic BP Type 70 108 Fetus Heart Rate Present Fetus Movement A Yes Comments patient states that having b ack pain and discharge. anatomy complete accessory lobe noted, reviewed precautions lab work given for gct and rhogam f/u in 4 weeks Flowsheet Date 05/30/2021 Bailey Score Blood Edema Fundus Height Fundus Units Glucose Ketones Leukocytes Nitrite Labor Signs Protein Cervic Dilation Cervic Effacement Cervic Station Type Weight in lbs Pre/Post Dialysis Refused BP Diastolic BP Location Tested BP Systolic BP Type Fetus Heart Rate Present Fetus Movement Comments Flowsheet Date 05/30/2021 Bailey Score Blood Edema Fundus Height Fundus Units Glucose Ketones Leukocytes Nitrite Labor Signs Protein Cervic Dilation Cervic Effacement Cervic Station neg none trace Type Weight in lbs Pre/Post Dialysis Refused Weight 173.352357732609 BP Diastolic BP Location Tested BP Systolic BP Type 75 113 Fetus Heart Rate Present Fetus Movement A Yes Comments doing well, had rhogam and d id GCT at [place], MCI efw 25% precations reviewed, tdap rec Flowsheet Date 06/15/2021 Bailey Score Blood Edema Fundus Height Fundus Units Glucose Ketones Leukocytes Nitrite Labor Signs Protein Cervic Dilation Cervic Effacement Cervic Station neg none trace Type Weight in lbs Pre/Post Dialysis Refused Weight 184.697617925924 BP Diastolic BP Location Tested BP Systolic BP Type 71 110 Fetus Heart Rate Present A 155 Present Fetus Movement A Yes Comments patient states that having s ome cramping and white discharge. reviewed precautions, discussed saturator operator, doing well f/u 2 weeks Flowsheet Date 06/28/2021 Bailey Score Blood Edema Fundus Height Fundus Units Glucose Ketones Leukocytes Nitrite Labor Signs Protein Cervic Dilation Cervic Effacement Cervic Station Type Weight in lbs Pre/Post Dialysis Refused BP Diastolic BP Location Tested BP Systolic BP Type Fetus Heart Rate Present Fetus Movement Comments Flowsheet Date 06/28/2021 Bailey Score Blood Edema Fundus Height Fundus Units Glucose Ketones Leukocytes Nitrite Labor Signs Protein Cervic Dilation Cervic Effacement Cervic Station none Type Weight in lbs Pre/Post Dialysis Refused Weight 188.562740580074 BP Diastolic BP Location Tested BP Systolic BP Type 79 120 Fetus Heart Rate Present Fetus Movement A Yes Comments Vulvar itching since [place]. Thick white discharge. Tried monistat but it staples. Affirm collected. Will send out diflucan for suspected yeast infection. Otherwise doing well. Encouraged flu, tdap and covid vaccines. Encouraged to schedule pre admit. Pt will start looking for pedi. Flowsheet Date 07/13/2021 Bailey Score Blood Edema Fundus Height Fundus Units Glucose Ketones Leukocytes Nitrite Labor Signs Protein Cervic Dilation Cervic Effacement Cervic Station neg trace 32 trace Type Weight in lbs Pre/Post Dialysis Refused Weight 199.856109013273 BP Diastolic BP Location Tested BP Systolic BP Type 79 122 Fetus Heart Rate Present A 150 Fetus Movement A Yes Comments Doing well. Growth 06/28 50 %. Precautions given. GBS next. Flowsheet Date 07/26/2021 Bailey Score Blood Edema Fundus Height Fundus Units Glucose Ketones Leukocytes Nitrite Labor Signs Protein Cervic Dilation Cervic Effacement Cervic Station Type Weight in lbs Pre/Post Dialysis Refused BP Diastolic BP Location Tested BP Systolic BP Type Fetus Heart Rate Present Fetus Movement Comments Flowsheet Date 07/26/2021 Bailey Score Blood Edema Fundus Height Fundus Units Glucose Ketones Leukocytes Nitrite Labor Signs Protein Cervic Dilation Cervic Effacement Cervic Station 36 trace Type Weight in lbs Pre/Post Dialysis Refused Weight 207.974426179695 BP Diastolic BP Location Tested BP Systolic BP Type 84 R arm 130 sitting Fetus Heart Rate Present A 145 Fetus Movement A Yes Comments did not tolerate cervical ex am, exam was not completed, GBS done, growth was good today on last growth ultrasound for marginal cord insertion. Flowsheet Date 08/09/2021 Bailey Score Blood Edema Fundus Height Fundus Units Glucose Ketones Leukocytes Nitrite Labor Signs Protein Cervic Dilation Cervic Effacement Cervic Station Type Weight in lbs Pre/Post Dialysis Refused BP Diastolic BP Location Tested BP Systolic BP Type Fetus Heart Rate Present Fetus Movement Comments Flowsheet Date 08/09/2021 Bailey Score Blood Edema Fundus Height Fundus Units Glucose Ketones Leukocytes Nitrite Labor Signs Protein Cervic Dilation Cervic Effacement Cervic Station none 37 none trace Type Weight in lbs Pre/Post Dialysis Refused Weight 215.183820693795 BP Diastolic BP Location Tested BP Systolic BP Type 85 130 Fetus Heart Rate Present A 142 Fetus Movement A Yes Comments Doing well. Occasional contr actions. DFM this morning. NST reactive and pt is now feeling normal movement. Encouraged kick counts twice daily. Pt informed she did the right thing by calling and not to hesitate if she ever feels a difference or decrease in movement. Labor precautions discussed. Declined exam. Flowsheet Date 08/16/2021 Bailey Score Blood Edema Fundus Height Fundus Units Glucose Ketones Leukocytes Nitrite Labor Signs Protein Cervic Dilation Cervic Effacement Cervic Station none 38 none trace Type Weight in lbs Pre/Post Dialysis Refused Weight 213.838631292187 BP Diastolic BP Location Tested BP Systolic BP Type 80 134 Fetus Heart Rate Present A 148 Fetus Movement A Yes Comments Doing well. Occasional contr actions. Declines vaginal exam. Not interested in MIL. Menstrual History Last Menstrual Date Menses Monthly On Bcp Conception Prior Menses Frequency Hcg Plus Date Menarche Onset Age Genetic Screening And Infection History Question Response Note Mental Retardation/Autism false Patient's Age Will Be 35 Years Or Older At Estim ated Date of Delivery false Thalassemia (Bengali, Sierra Leonean, Mediterranean, Or Background): MCV < 80 false Neural Tube Defect (Meningomyelocele, Spina Bifi da, Or Anencephaly) false Congenital Heart Defect false Down Syndrome false Gunner-Sachs (eg, Mandaeism, Cajun, Kinyarwanda-Richmond) f alse Norah Disease false Sickle Cell Disease Or Trait () false Hemophilia Or Other Blood Disorders false Muscular Dystrophy false Cystic Fibrosis false Lamont's Chorea false Intellectual Disability/Autism false If Yes, Was Person Tested For Fragile X? false Other Inherited Genetic Or Chromosomal Disorder false Maternal Metabolic Disorder (eg, Type 1 Diabetes , PKU) false Patient Or Baby's Father Had A Child With Defects Not Listed Above false Recurrent Loss, Or A Stillbirth false Medications (including Suppl ements, Vitamins, Herbs, OTC Drugs), Illicit/Recreational Drugs, Alcohol false If Yes, Agent(s) And Strength/Dosage false Any Other Genetic History false Live With Someone With TB Or Exposed To TB false Patient Or Partner Has History Of Genital Herpes false Rash Or Viral Illness Since Last Menstrual Perio d false History Of STD, Gonorrhea, Chlamydia, HPV, Syphi lis false Other Infection History false History of HIV false History of Hepatitis false Prior GBS-infected child false Hemoglobinopathy Or Carrier false Other Structural Defect false Recent Travel History Outside of Country false Delivery Information Delivery Date Delivery Type Labor Anesthesia Weeks Gestation Incision Type Labor Labor Length Hrs Delivered By Post Complications Tubal Sterilization Discharge Date Comments 2 [facility] idural 40 false Yulissa Potts CNN[facility] marginal cord Discharge Information Feeding Method Contraceptive Method Maternal HG B and HCT Levels Breast Ob Episode Information Episode Created Date Number of Fetuses Patient Bloodtype Patient rh Status Prepregnancy Weight lbs Domestic Partner Domestic Partner Phone Father Name Product Lister Status 01/18/20 21 1 CLOSED Fetus Data First Name Last Name Admitted to NICU Weight (g) Sex Living Outcome Pediatric Complications Fetus ID Race Codes Race Delivery Type , [place] o[place] [id number] Olivier Calculation OLIVIER Calculation Method Initial Olivier Date Initial Exam Date Initial Exam Provider Initial Ultrasound Date Last Menstrual Period Date Ultra Sound Weeks Gestation Conception by IVF Embryo Age at Transfer Date of Transfer 0 Eighteen To Twenty Week Olivier Update Ultra Sound Date Fundal Height At Umbil Quickening Date Ultra Sound Latest Weeks Gestation Final Olivier Confirmed By Final Olivier Confirmed Date Final Olivier Date Ultra Sound Latest Days Gestation 0 0 Menstrual History Last Menstrual Date Menses Monthly On Bcp Conception Prior Menses Frequency Hcg Plus Date Menarche Onset Age Delivery Information Delivery Date Delivery Type Labor Anesthesia Weeks Gestation Incision Type Labor Labor Length Hrs Delivered By Post Complications Tubal Sterilization Discharge Date Comments 0 Discharge Information Feeding Method Contraceptive Method Maternal HG B and HCT Levels Ob Episode Information Episode Created Date Number of Fetuses Patient Bloodtype Patient rh Status Prepregnancy Weight lbs Domestic Partner Domestic Partner Phone Father Name Product Lister Status 01/18/20 21 1 CLOSED Fetus Data First Name Last Name Admitted to NICU Weight (g) Sex Living Outcome Pediatric Complications Fetus ID Race Codes Race Delivery Type , [place] [id number] Olivier Calculation OLIVIER Calculation Method Initial Olivier Date Initial Exam Date Initial Exam Provider Initial Ultrasound Date Last Menstrual Period Date Ultra Sound Weeks Gestation Conception by IVF Embryo Age at Transfer Date of Transfer 0 Eighteen To Twenty Week Olivier Update Ultra Sound Date Fundal Height At Umbil Quickening Date Ultra Sound Latest Weeks Gestation Final Olivier Confirmed By Final Olivier Confirmed Date Final Olivier Date Ultra Sound Latest Days Gestation 0 0 Menstrual History Last Menstrual Date Menses Monthly On Bcp Conception Prior Menses Frequency Hcg Plus Date Menarche Onset Age Delivery Information Delivery Date Delivery Type Labor Anesthesia Weeks Gestation Incision Type Labor Labor Length Hrs Delivered By Post Complications Tubal Sterilization Discharge Date Comments 9 Discharge Information Feeding Method Contraceptive Method Maternal HG B and HCT Levels Ob Episode Information Episode Created Date Number of Fetuses Patient Bloodtype Patient rh Status Prepregnancy Weight lbs Domestic Partner Domestic Partner Phone Father Name Product Lister Status 03/24/20 24 1 CLOSED Fetus Data First Name Last Name Admitted to NICU Weight (g) Sex Living Outcome Pediatric Complications Fetus ID Race Codes Race Delivery Type , [place] [id number] Olivier Calculation OLIVIER Calculation Method Initial Olivier Date Initial Exam Date Initial Exam Provider Initial Ultrasound Date Last Menstrual Period Date Ultra Sound Weeks Gestation Conception by IVF Embryo Age at Transfer Date of Transfer 0 Eighteen To Twenty Week Olivier Update Ultra Sound Date Fundal Height At Umbil Quickening Date Ultra Sound Latest Weeks Gestation Final Olivier Confirmed By Final Olivier Confirmed Date Final Olivier Date Ultra Sound Latest Days Gestation 0 0 Menstrual History Last Menstrual Date Menses Monthly On Bcp Conception Prior Menses Frequency Hcg Plus Date Menarche Onset Age Delivery Information Delivery Date Delivery Type Labor Anesthesia Weeks Gestation Incision Type Labor Labor Length Hrs Delivered By Post Complications Tubal Sterilization Discharge Date Comments 1 Discharge Information Feeding Method Contraceptive Method Maternal HG B and HCT Levels Ob Episode Information Episode Created Date Number of Fetuses Patient Bloodtype Patient rh Status Prepregnancy Weight lbs Domestic Partner Domestic Partner Phone Father Name Product Lister Status 03/28/20 23 1 CLOSED Fetus Data First Name Last Name Admitted to NICU Weight (g) Sex Living Outcome Pediatric Complications Fetus ID Race Codes Race Delivery Type , [place] [address] Olivier Calculation OLIVIER Calculation Method Initial Olivier Date Initial Exam Date Initial Exam Provider Initial Ultrasound Date Last Menstrual Period Date Ultra Sound Weeks Gestation Conception by IVF Embryo Age at Transfer Date of Transfer 0 Eighteen To Twenty Week Olivier Update Ultra Sound Date Fundal Height At Umbil Quickening Date Ultra Sound Latest Weeks Gestation Final Olivier Confirmed By Final Olivier Confirmed Date Final Olivier Date Ultra Sound Latest Days Gestation 0 0 Menstrual History Last Menstrual Date Menses Monthly On Bcp Conception Prior Menses Frequency Hcg Plus Date Menarche Onset Age Delivery Information Delivery Date Delivery Type Labor Anesthesia Weeks Gestation Incision Type Labor Labor Length Hrs Delivered By Post Complications Tubal Sterilization Discharge Date Comments 3 Discharge Information Feeding Method Contraceptive Method Maternal HG B and HCT Levels Ob Episode Information Episode Created Date Number of Fetuses Patient Bloodtype Patient rh Status Prepregnancy Weight lbs Domestic Partner Domestic Partner Phone Father Name Product Lister Status 02/25/20 24 1 CLOSED Fetus Data First Name Last Name Admitted to NICU Weight (g) Sex Living Outcome Pediatric Complications Fetus ID Race Codes Race Delivery Type , Induced [id number] Olivier Calculation OLIVIER Calculation Method Initial Olivier Date Initial Exam Date Initial Exam Provider Initial Ultrasound Date Last Menstrual Period Date Ultra Sound Weeks Gestation Conception by IVF Embryo Age at Transfer Date of Transfer 0 Eighteen To Twenty Week Loivier Update Ultra Sound Date Fundal Height At Umbil Quickening Date Ultra Sound Latest Weeks Gestation Final Olivier Confirmed By Final Olivier Confirmed Date Final Olivier Date Ultra Sound Latest Days Gestation 0 0 Menstrual History Last Menstrual Date Menses Monthly On Bcp Conception Prior Menses Frequency Hcg Plus Date Menarche Onset Age Delivery Information Delivery Date Delivery Type Labor Anesthesia Weeks Gestation Incision Type Labor Labor Length Hrs Delivered By Post Complications Tubal Sterilization Discharge Date Comments 3 Discharge Information Feeding Method Contraceptive Method Maternal HG B and HCT Levels Ob Episode Information Episode Created Date Number of Fetuses Patient Bloodtype Patient rh Status Prepregnancy Weight lbs Domestic Partner Domestic Partner Phone Father Name Product Lister Status 03/24/20 24 1 A Negative 184 Jl Kramer OPEN Fetus Data First Name Last Name Admitted to NICU Weight (g) Sex Living Outcome Pediatric Complications Fetus ID Race Codes Race Delivery Type [id number] Problems Problem Notes Problem Name Start Date End Date Resolution Snomed Code Not e Herpes simplex [id number] takes daily valtrex, increase to bid at 36 weeks Olivier Calculation OLIVIER Calculation Method Initial Olivier Date Initial Exam Date Initial Exam Provider Initial Ultrasound Date Last Menstrual Period Date Ultra Sound Weeks Gestation Conception by IVF Embryo Age at Transfer Date of Transfer 10/01/19 25 02/25/20 24 02/25/2024 8 Eighteen To Twenty Week Olivier Update Ultra Sound Date Fundal Height At Umbil Quickening Date Ultra Sound Latest Weeks Gestation Final Olivier Confirmed By Final Olivier Confirmed Date Final Olivier Date Ultra Sound Latest Days Gestation 0 0 Pre- Flowsheet Flowsheet Date 03/24/2024 Bailey Score Blood Edema Fundus Height Fundus Units Glucose Ketones Leukocytes Nitrite Labor Signs Protein Cervic Dilation Cervic Effacement Cervic Station none Type Weight in lbs Pre/Post Dialysis Refused Weight 184.884626253963 BP Diastolic BP Location Tested BP Systolic BP Type 74 105 Fetus Heart Rate Present Fetus Movement A No Comments Patient is having some nause a and vomiting. will call out zofran, discussed care, US wnl, education and precautions, hx multiple miscarriages , one uncomplicated vaginal delivery Flowsheet Date 04/21/2024 Bailey Score Blood Edema Fundus Height Fundus Units Glucose Ketones Leukocytes Nitrite Labor Signs Protein Cervic Dilation Cervic Effacement Cervic Station none Type Weight in lbs Pre/Post Dialysis Refused 187.771779076544 BP Diastolic BP Location Tested BP Systolic BP Type 74 110 Fetus Heart Rate Present Fetus Movement A Yes Comments Patient states that is weak and having some discharge, nausea and vomiting. +FM, doing well, education nd precautions f/u 4 weeks anatomy scan Flowsheet Date 05/19/2024 Bailey Score Blood Edema Fundus Height Fundus Units Glucose Ketones Leukocytes Nitrite Labor Signs Protein Cervic Dilation Cervic Effacement Cervic Station Type Weight in lbs Pre/Post Dialysis Refused BP Diastolic BP Location Tested BP Systolic BP Type Fetus Heart Rate Present Fetus Movement Comments Flowsheet Date 05/19/2024 Bailey Score Blood Edema Fundus Height Fundus Units Glucose Ketones Leukocytes Nitrite Labor Signs Protein Cervic Dilation Cervic Effacement Cervic Station none Type Weight in lbs Pre/Post Dialysis Refused 193.05465023928 BP Diastolic BP Location Tested BP Systolic BP Type 70 105 Fetus Heart Rate Present Fetus Movement A Yes Comments Patient states that pain, di scharge and nausea. anatomy incomplete, efw 63%, +flutters, precautions and education f/u 4 weeks with US Flowsheet Date 06/16/2024 Bailey Score Blood Edema Fundus Height Fundus Units Glucose Ketones Leukocytes Nitrite Labor Signs Protein Cervic Dilation Cervic Effacement Cervic Station Type Weight in lbs Pre/Post Dialysis Refused BP Diastolic BP Location Tested BP Systolic BP Type Fetus Heart Rate Present Fetus Movement Comments Flowsheet Date 06/16/2024 Bailey Score Blood Edema Fundus Height Fundus Units Glucose Ketones Leukocytes Nitrite Labor Signs Protein Cervic Dilation Cervic Effacement Cervic Station neg none Type Weight in lbs Pre/Post Dialysis Refused 204.007222913613 BP Diastolic BP Location Tested BP Systolic BP Type 73 106 Fetus Heart Rate Present Fetus Movement A Yes Comments efw 42% anatomy incomplete f /u 4 weeks +FM, precautions and education gct at next visit Flowsheet Date 07/21/2024 Bailey Score Blood Edema Fundus Height Fundus Units Glucose Ketones Leukocytes Nitrite Labor Signs Protein Cervic Dilation Cervic Effacement Cervic Station Type Weight in lbs Pre/Post Dialysis Refused BP Diastolic BP Location Tested BP Systolic BP Type Fetus Heart Rate Present Fetus Movement Comments Flowsheet Date 07/21/2024 Bailey Score Blood Edema Fundus Height Fundus Units Glucose Ketones Leukocytes Nitrite Labor Signs Protein Cervic Dilation Cervic Effacement Cervic Station Type Weight in lbs Pre/Post Dialysis Refused 215.775526105442 BP Diastolic BP Location Tested BP Systolic BP Type 72 115 Fetus Heart Rate Present Fetus Movement A Yes Comments Patient is having some BH co ntractions. discussed lifting restrictions and note given efw 28%, precautions and education glucose today, f/u 2 weeks Menstrual History Last Menstrual Date Menses Monthly On Bcp Conception Prior Menses Frequency Hcg Plus Date Menarche Onset Age Delivery Information Delivery Date Delivery Type Labor Anesthesia Weeks Gestation Incision Type Labor Labor Length Hrs Delivered By Post Complications Tubal Sterilization Discharge Date Comments Discharge Information Feeding Method Contraceptive Method Maternal HG B and HCT Levels Ob Episode Information Episode Created Date Number of Fetuses Patient Bloodtype Patient rh Status Prepregnancy Weight lbs Domestic Partner Domestic Partner Phone Father Name Product Lister Status 03/24/20 24 1 CLOSED Fetus Data First Name Last Name Admitted to NICU Weight (g) Sex Living Outcome Pediatric Complications Fetus ID Race Codes Race Delivery Type , Spontane ous [id number] Olivier Calculation OLIVIER Calculation Method Initial Olivier Date Initial Exam Date Initial Exam Provider Initial Ultrasound Date Last Menstrual Period Date Ultra Sound Weeks Gestation Conception by IVF Embryo Age at Transfer Date of Transfer 0 Eighteen To Twenty Week Olivier Update Ultra Sound Date Fundal Height At Umbil Quickening Date Ultra Sound Latest Weeks Gestation Final Olivier Confirmed By Final Olivier Confirmed Date Final Olivier Date Ultra Sound Latest Days Gestation 0 0 Menstrual History Last Menstrual Date Menses Monthly On Bcp Conception Prior Menses Frequency Hcg Plus Date Menarche Onset Age Delivery Information Delivery Date Delivery Type Labor Anesthesia Weeks Gestation Incision Type Labor Labor Length Hrs Delivered By Post Complications Tubal Sterilization Discharge Date Comments 1 Discharge Information Feeding Method Contraceptive Method Maternal HG B and HCT Levels
--- OUTSIDE RECORDS SUMMARY | 2024-07-26 20:35 | XMS_ITS | Continuity of Care Document ---
Author Organization [facility] Address [address] [place] [address] Assessment Encounter Date Assessment Date Assessment LastModified by Organization Details LastModified Time 05/19/2024 05/19/2024 Patient is __20_weeks . Discussed plan. Not available 05/19/2024 12:07:47 Plan of Treatment Reminders Order Date Submit Date Provider Last Modified By Organization Details Last Modified Time Details Appointments OB ROUTINE 2023 08:45A Nidia BERG MD Not available Not available Not available Lab None recorded . Referral None recorded . Procedures None recorded . Surgeries None recorded . Imaging None recorded . Medication Orders None recorded . Patient TargetsNo targets recorded. Patient InstructionsNo instructions recorded. Reason for Referral None Reported. Results Created Date Observation Date Name Description Value Unit Range Abnormal Flag Note LastModifiedBy Organization Detail LastModifiedTime 03/24/2003/24/2024 US, obste tric, nucha l trans lucen cy No observ ation record ed. [facility] [address], [place], [address], 03/24/2024 12:59:48 03/24/2003/24/2024 US, obste tric, nucha l trans lucen cy No observ ation record ed. [email or web address] [address], [place], [address], 03/24/2024 13:45:30 05/19/20 24 05/19/2024 US, obste tric, 2nd or 3rd trime ster No observ ation record ed. [facility] [address], [place], [address], 05/19/2024 13:03:32 05/19/20 24 05/19/2024 US, obste tric, follo w-up No observ ation record ed. [email or web address] [address], [place], [address], 05/20/2024 12:55:49 06/16/2006/16/2024 US, obste tric, follo w-up No observ ation record ed. [email or web address] [facility] [address], [place], [address], 06/16/2024 11:37:57 06/16/20 24 06/16/2024 US, obste tric, follo w-up No observ ation record ed. [email or web address] [address], [place], [address], 06/17/2024 13:53:59 07/21/20 24 07/21/2024 US, obste tric, follo w-up No observ ation record ed. [facility] [address], [place], [address], 07/21/2024 13:09:44 07/21/20 24 07/21/2024 US, obste tric, follo w-up No observ ation record ed. [email or web address] [address], [place], [address], 07/22/2024 18:18:47 Result Notes None recorded. Problems Name Problem SNOMED Code Status Onset Date Resolution Date Notes Provider Name and Address Organization Details Recorded Time Missed miscarri age 60456202 Completed 201801/17/2021 Missed ;Recorde d Elsewher e: No Locat ion: [facility] S ource: EHR Nurse Reviewer rina: N Practi ce ID: 0001 Catracho lable Time: 04:00:00 PM Giovanna Suh [facility], [facility] 16:25:08 Pregnanc y detectio n examinat ion Completed 201801/17/2021 Encounte r for pregnanc y test, result positive ;Recorde d Elsewher e: No Locat ion: [facility] S ource: EHR Nurse Reviewer rina: N Dianati ce ID: 0001 Catracho lable Time: 01:45:[address] [facility] 16:25:10 Finding of contents of cervix [id number] Completed 201801/17/2021 Weeks of gestatio n of pregnanc y not specifie d;Record ed Elsewher e: No Locat ion: [facility] S ource: EHR Nurse Reviewer rina: N Dianati ce ID: [id number] Catracho lable Time: 04:30:[address] [facility] 16:24:57 Pregnanc y test negative [id number] Completed 201801/17/2021 Encounte r for pregnanc y test, result negative ;Recorde d Elsewher e: No Locat ion: [facility] S ource: EHR Nurse Reviewer rina: N Dianati ce ID: 0001 Catracho lable Time: 10:00:00 [facility] Antenata l screenin g Completed 201801/17/2021 Encounte r for antenata l screenin g for uncertai n dates;Re corded Elsewher e: No Locat ion: [facility] S ource: EHR Nurse Reviewer rina: N Dianati ce ID: 0001 Catracho lable Time: 01:00:[address] [facility] 16:24:[address] Concept Completed 201801/17/2021 Encntr for routine child health exam w/o abnormal findings ;Recorde d Elsewher e: No Locat ion: [facility] S ource: EHR Nurse Reviewer rina: N Winston ce ID: 0001 Catracho lable Time: 09:15:00 AM Giovanna Bowentz [facility] 1 16:25:15 Miscarri age without complica tion 40087483 Completed 201801/17/2021 Incomple te spontane ous without complica tion;Rec orded Elsewher e: No Locat ion: [facility] Source: EHR Nurse Reviewer rina: N Practi ce ID: 0001 Catracho lable Time: 02:00:00 PM Giovanna Suh [facility], [facility] 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 1 16:25:18 Pregnanc y [id number] Completed 202009/17/2021 Giovanna Suh [facility], [facility] 4 12:37:01 Acute urinary tract infectio n 963630259 Completed Treated Sravani Xiomara anderson [facility] 2 16:07:41 Recurren t miscarri age 454395591 Completed Sravani anderson [facility] 2 16:07:41 Marginal insertio n of umbilica l cord 29695923 Completed 2020 serial growth u/s Sravanimindy anderson [facility] 2 16:07:41 Herpes simplex 95977107 Active takes daily valtrex, increase to bid at 36 weeks Yulissa Potts CNM [address], [place], [address], [facility] 4 13:58:29 Pregnanc y 16118965 Active 2023 Giovanna cardona, [facility] 4 12:37:01 Herpes simplex 87517803 Active takes daily valtrex, increase to bid at 36 weeks Yulissa Potts CNM [address], [place], [address], [facility] 4 13:58:29 Problem Notes None recorded. Procedures Surgical History Date Name Laterality Status Provider Name and Address Organization Details Recorded Time 02/25/20 24 Date of Last Pap Smear completed Giovanna Suh [facility] 02/25/2024 14:33:16 08/11/19 23 termination of completed Giovanna Suh [facility] 02/25/2024 14:35:32 Imaging Results None recorded. Procedure Notes None recorded. Medical Equipment None [...] Not Available Not Available Not Available Loestrin 20 (21) 1 mg-20 mcg tablet take 1 tablet by oral route every day 12/23 completed Prescrib jim Queen e: No Locat ion: [facility] By: [email or web address] gonzalez DateTime : 11/14/19 09:15:00 AM Not Available [...] by oral route every day 11/20 completed [facility] 0430-042 0-95 Lot #[id number] Exp 10/03 Not Available Not Available Not [...] Address Organization Details Last Updated DateTime 05/19/2024 62570.32 741 g 31.2 kg/m2 167.64 cm 105 mm[Hg] 70 mm[Hg] Giovanna Suh [facility] 12:00:26 Social History Question Answer Notes LastModified by Organizat ion Details LastModified Time Tobacco Smoking Status Current Every Day Smoker Giovanna Suh [facility], [facility] 02/25/2024 14:35:21 Do You Have An Advance Directive? No [email or web address] Information not available 01/17/2021 What Is Your Level Of Alcohol Consumption? None [email or web address] Information not available 01/17/2021 If You Are , What Was Your Level Of Alcohol Consumption Prior To ? Occasional [email or web address] Information not available 02/25/2024 Are You Blind Or Do You Have Difficulty Seeing? No [email or web address] Information not available 01/17/2021 What Is Your Level Of Caffeine Consumption? Occasional [email or web address] Information not available 01/17/2021 How Much Tobacco Do You Chew? None [email or web address] Information not available 01/17/2021 In The 14 Days Before Symptom Onset, Have You Had Close Contact With A Laboratory-confir med COVID-19 While That Case Was Ill? No [email or web address] Information not available 01/17/2021 In The 14 Days Before Symptom Onset, Have You Had Close Contact With A Person Who Is Under Investigation For COVID-19 While That Person Was Ill? No [email or web address] Information not available 01/17/2021 Have You Been To An Area Known To Be High Risk For COVID-19? No [email or web address] Information not available 01/17/2021 Are You Deaf Or Do You Have Serious Difficulty Hearing? No [email or web address] Information not available 01/17/2021 What Type Of Diet Are You Following? REGULAR [email or web address] Information not available 01/17/2021 What Is The Highest Grade Or Level Of School You Have Completed Or The Highest Degree You Have Received? VS29417-9 [email or web address] Information not available 01/17/2021 What Is Your Occupation? N/A [email or web address] Information not available 03/24/2024 Are There Any Guns Present In Your Home? No [email or web address] Information not available 01/17/2021 Do You Use Protection During Sex? No [email or web address] Information not available 01/17/2021 Do You Use Your Seat Belt Or Car Seat Routinely? Yes Information not available 01/17/2021 Do You Have Smoke And Carbon Monoxide Detectors In Your Home? Yes [email or web address] Information not available 01/17/2021 At What Age Did You Start Smoking Tobacco? 15 [email or web address] Information not available 02/14/2021 How Much Tobacco Do You Smoke? 0.25 PPD [email or web address] Information not available 03/24/2024 Do You Feel Stressed (tense, Restless, Nervous, Or Anxious, Or Unable To Sleep At Night)? [id number] [email or web address] Information not available 03/24/2024 Do You Use Any Illicit Or Recreational Drugs? No [email or web address] Information not available 01/17/2021 Do You Use Sunscreen Routinely? No [email or web address] Information not available 01/17/2021 How Many Years Have You Smoked Tobacco? 6 [email or web address] Information not available 03/24/2024 Have You Used IV Drugs? No [email or web address] Information not available 01/17/2021 Do You Or Have You Ever Used Any Other Forms Of Tobacco Or Nicotine? No [email or web address] Information not available 02/25/2024 Sex: Unknown Functional [...] 07/19/2022 What is your exercise level? Moderate Information not available 01/17/2021 Mental Status None recorded. Family History Relationship Description Onset Age of this Age Resolved Age Notes LastModified by Organization Details LastModified Time Father Hyperlipidem iris [email or web address] Not available 2023 10:41:30 Maternal Grandmother Diabetes mellitus [email or web address] Not available 2019 08:44:30 Mother Anxiety disorder [email or web address] Not available 02/24 14:31:54 Mother Depressive disorder [email or web address] Not available 03/24 12:20:19 Paternal Grandmother Anxiety disorder [email or web address] Not available 03/24 12:20:19 Paternal Grandmother Depressive disorder Not available 03/24 12:20:19 Brother Anxiety disorder [email or web address] Not available 03/24 12:20:19 Brother Depressive disorder [email or web address] Not available 03/24 12:20:19 Medical History Condition Response Other N Blood Transfusion N Dermatologic Disorders N Gestational Diabetes N Anxiety Disorder Y Autoimmune disease N Arthritis N Polyps N Infertility N Acid Reflux (GERD) N Cancer N Varicosities N Stroke N Neurologic/Epilepsy N Fibromyalgia N Headaches N Kidney Disease N Heart Problems N Kidney or Bladder Problems N Eating Disorder N Art (IVF or FET) N Hepatitis/Liver Disease N No Past Medical History N Urinary Tract Infection N Asthma N Trauma/Violence N Thrombophilias N Allergies (Food, seasonal, environmental ) N Breast Cancer N Drug/Latex Allergies/Reactions N Lung Disease N Defects or Inherited Disease N Breast Problem N Hematologic disorders N Anesthesia Complications N History of STI Y Deep Vein Thrombosis N Polycystic ovary syndrome N History of abnormal pap N Endometriosis N High Cholesterol N Thyroid Problems N GI Problems N Anemia N Psychiatric Illness N Ovarian Cancer N Diabetes N Pulmonary (TB, Asthma) N Eczema N Abuse/Domestic Violence N Depression/ depression Y Heart Disease N Pre-Eclampsia N Hypertension N Osteoporosis N Gynecological History Statement/Question Response Date of [...] Diagnosis/Indication Diagnosis SNOMED-CT Code Diagnosis ICD10 Code [id number] [facility] [address],[place] [address] 04/21/2024 10:39:46 04/21/2024 12:04:49 Routine care 898034009 Z34.92 [id number] [facility] [address],[place] [address] 05/19/2024 10:48:18 05/19/2024 11:54:12 screening for malformation 701919973 Z36.3 Z3A.20 [id number] [facility] [address],[place] [address] 05/19/2024 10:53:05 05/19/2024 12:10:23 Gestation period, 20 weeks 92062034 Z3A.20 Health Concerns Section Related Observation LastModified by Organization Detai ls LastModified Time None Recorded Concern Status LastModified by Organization Details LastModified Time None Recorded Payers Encounter Date Sequence Insurance Name Policy Number Policy Guerrero Covered Member ID Guerrero Member ID Guarantor Name 05/19/2024 1 [place] [employer] [id number] A Dean Cespedes [id number] Nelly Cespedes OBGyn Episode Ob Episode Information Episode Created Date Number of Fetuses Patient Bloodtype Patient rh Status Prepregnancy Weight lbs Domestic Partner Domestic Partner Phone Father Name 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 Status 03/24/20 24 1 A Negative 184 Jl Nia OPEN Fetus Data First Name Last Name Admitted to NICU Weight (g) Sex Living Outcome Pediatric Complications Fetus ID Race Codes Race Delivery Type [id number] Problems Problem Notes Problem Name Start Date End Date Resolution Snomed Code Not e Herpes simplex [id number] takes daily valtrex, increase to bid at [...] Weight in lbs Pre/Post Dialysis Refused Weight 184.235754733677 BP Diastolic BP Location Tested BP Systolic [...] Type Weight in lbs Pre/Post Dialysis Refused 187.099273682278 BP Diastolic BP Location Tested BP Systolic [...] Type Weight in lbs Pre/Post Dialysis Refused 193.25737465786 BP Diastolic BP Location Tested BP Systolic [...] Type Weight in lbs Pre/Post Dialysis Refused 204.577835239492 BP Diastolic BP Location Tested BP Systolic [...] Type Weight in lbs Pre/Post Dialysis Refused 215.386962994175 BP Diastolic BP Location Tested BP Systolic [...]
--- OUTSIDE RECORDS SUMMARY | 2024-07-26 20:35 | XMS_ITS | Continuity of Care Document ---
Author Organization [facility] [place] Address [address] [place] [address] [place] [address] Assessment No assessment recorded. Plan of Treatment Reminders Order Date Submit Date Provider Last Modified By Organization Details Last Modified Time Details Appointments OB ROUTINE 2023 08:45A M ROCK BERG MD Not available Not available Not available Lab None recorded . Referral None recorded . Procedures None recorded . Surgeries None recorded . Imaging US, obstetri c, follow-u p 2023 024 [email or web address] [place], [address], [address], [place], [address], 07/21/2024 14:19:44 Medication Orders None recorded . Patient TargetsNo targets recorded. Patient InstructionsNo instructions recorded. Reason for Referral None Reported. Results Created Date Observation Date Name Description Value Unit Range Abnormal Flag Note LastModifiedBy Organization Detail LastModifiedTime 03/24/2003/24/2024 US, obste tric, nucha l trans lucen cy No observ ation record ed. [facility] [address], [place], [address], 03/24/2024 12:59:48 03/24/2003/24/2024 US, obste tric, nucha l trans lucen cy No observ ation record ed. [email or web address] [address], [place], [address], 03/24/2024 13:45:30 05/19/20 24 05/19/2024 US, obste tric, 2nd or 3rd trime ster No observ ation record ed. [facility] [address], [place], [address], 05/19/2024 13:03:32 05/19/20 24 05/19/2024 US, obste tric, follo w-up No observ ation record ed. [email or web address] [address], [place], [address], 05/20/2024 12:55:49 06/16/2006/16/2024 US, obste tric, follo w-up No observ ation record ed. [email or web address] [place] [address], [place], [address], 06/16/2024 11:37:57 06/16/20 24 06/16/2024 US, obste tric, follo w-up No observ ation record ed. [email or web address] [address], [place], [address], 06/17/2024 13:53:59 07/21/20 24 07/21/2024 US, obste tric, follo w-up No observ ation record ed. [facility] [address], [place], [address], 07/21/2024 13:09:44 07/21/20 24 07/21/2024 US, obste tric, follo w-up No observ ation record ed. [address], [place], [address], 07/22/2024 18:18:47 Result Notes None recorded. Problems Name Problem SNOMED Code Status Onset Date Resolution Date Notes Provider Name and Address Organization Details Recorded Time Missed miscarri age 36380728 Completed 201801/17/2021 Missed ;Recorde d Elsewher e: No Locat ion: Rosaline e [facility] S ource: EHR Integration Analyst rina: N Practi ce ID: 0001 Catracho lable Time: 04:00:00 PM Giovanna cardona, [facility] 16:25:08 Pregnanc y detectio n examinat ion Completed 201801/17/2021 Encounte r for pregnanc y test, result positive ;Recorde d Elsewher e: No Locat ion: [facility] S ource: EHR Integration Analyst rina: N Practi ce ID: 0001 Catracho lable Time: 01:45:00 PM Giovanna Suh [facility], [facility] 16:25:10 Finding of contents of cervix [id number] Completed 201801/17/2021 Weeks of gestatio n of pregnanc y not specifie d;Record ed Elsewher e: No Locat ion: [facility] S ource: EHR Integration Analyst rina: N Practi ce ID: [email or web address] Catracho lable Time: 04:30:00 PM Giovanna cardona, [facility] 16:24:57 Pregnanc y test negative [id number] Completed 201801/17/2021 Encounte r for pregnanc y test, result negative ;Recorde d Elsewher e: No Locat ion: [facility] S ource: EHR Integration Analyst rina: N Practi ce ID: 0001 Catracho lable Time: 10:00:00 AM Giovanna cardona, [facility] 16:25:13 Antenata l screenin g Completed 201801/17/2021 Encounte r for antenata l screenin g for uncertai n dates;Re corded Elsewher e: No Locat ion: [facility] S ource: EHR Integration Analyst rina: N Practi ce ID: 0001 Catracho lable Time: 01:00:00 PM Giovanna Suh brendan [facility] 06/09/[address] 16:24:[address] Concept Completed 201801/17/2021 Encntr for routine child health exam w/o abnormal findings ;Recorde d Elsewher e: No Locat ion: Rosaline pitt [facility] S ource: EHR Integration Analyst rina: N Dianati ce ID: 0001 Catracho lable Time: 09:15:00 AM Giovanna Suh [facility] 1 16:25:15 Miscarri age without complica tion [id number] Completed 201801/17/2021 Incomple te spontane ous without complica tion;Rec orded Elsewher e: No Locat ion: [facility] Source: EHR Integration Analyst rina: N Practi ce ID: 0001 Catracho lable Time: 02:00:00 PM Giovanna cardona, [facility] [address] 16:25:[address] Concept Completed 201801/17/2021 Encntr for obstetrics gyn exam (general ) (routine ) w/o abn findings ;Practic e ID: [id number] Giovanna Suh [facility], [facility] 1 16:25:18 Pregnanc y 68861661 Completed 202009/17/2021 Giovanna Suh [facility], [facility] 4 12:37:01 Acute urinary tract infectio n 611005537 Completed Treated Sravani anderson [facility] 2 16:07:41 Recurren t miscarri age 226683190 Completed Sravani anderson [facility] 2 16:07:41 Marginal insertio n of umbilica l cord 54961142 Completed 2020 serial growth u/s Sravani anderson [facility], [facility] 2 16:07:41 Herpes simplex 01884117 Active takes daily valtrex, increase to bid at 36 weeks Yulissa Potts CNM [address], [place], [address], [facility] 4 13:58:29 Pregnanc y 96081921 Active 2023 Giovanna cardona, [facility] 4 12:37:01 Herpes simplex 36037668 Active takes daily valtrex, increase to bid at 36 weeks Yulissa Potts CNM [address], [place], [address], [facility] 4 13:58:29 Problem Notes None recorded. Procedures Surgical History Date Name Laterality Status Provider Name and Address Organization Details Recorded Time 02/25/20 24 Date of Last Pap Smear completed Giovanna Suh [facility] 02/25/2024 14:33:16 08/11/19 23 termination of completed Giovanna Suh [facility] 02/25/2024 14:35:32 Imaging Results Imaging Date Name Status LastModified by Organiz ation Details LastModified Time 07/21/2024 US, obstetric, follow-up completed corona Shi [address], [place], [address], 07/21/2024 13:09:44 07/21/2024 US, obstetric, follow-up completed [email or web address], [place], [address], 07/22/2024 18:18:47 Procedure Notes None recorded. Medical [...] Prescrib jim Queen e: No Locat ion: [facility] M odify By: bhargavi gonzalez DateTime : 11/14/19 [...] by oral route every day 11/20 completed [facility] 0430-042 0-95 Lot #[id number] Exp 10/03 Not Available Not Available Not [...] Not Available Vitals Date Recorded Body weight Systolic blood pressure Diastolic blood pressure Provider Name and Address Organization Details Last Updated DateTime 07/21/2024 41856.3595 5 g 115 mm[Hg] 72 mm[Hg] Giovanna Suh [facility] 07/21/2024 10:49:24 Social History Question Answer Notes LastModified by Organizat ion Details LastModified Time Tobacco Smoking Status Current Every Day Smoker Giovanna Suh [facility] 02/25/2024 14:35:21 Do You Have An Advance Directive? No [email or web address] Information not available 01/17/2021 What Is Your Level Of Alcohol Consumption? None [email or web address] Information not available 01/17/2021 If You Are , What Was Your Level Of Alcohol Consumption Prior To ? Occasional [email or web address] Information not available 02/25/2024 Are You Blind Or Do You Have Difficulty Seeing? No [email or web address] Information not available 01/17/2021 What Is Your Level Of Caffeine Consumption? Occasional [email or web address] Information not available 01/17/2021 How Much Tobacco Do You Chew? None [email or web address] Information not available 01/17/2021 In The 14 Days Before Symptom Onset, Have You Had Close Contact With A Laboratory-confir med COVID-19 While That Case Was Ill? No [email or web address] Information not available 01/17/2021 In The 14 Days Before Symptom Onset, Have You Had Close Contact With A Person Who Is Under Investigation For COVID-19 While That Person Was Ill? No [email or web address] Information not available 01/17/2021 Have You Been To An Area Known To Be High Risk For COVID-19? No [email or web address] Information not available 01/17/2021 Are You Deaf Or Do You Have Serious Difficulty Hearing? No [email or web address] Information not available 01/17/2021 What Type Of Diet Are You Following? REGULAR [email or web address] Information not available 01/17/2021 What Is The Highest Grade Or Level Of School You Have Completed Or The Highest Degree You Have Received? OD03020-8 [email or web address] Information not available 01/17/2021 What Is Your Occupation? N/A Information not available 03/24/2024 Are There Any Guns Present In Your Home? No [email or web address] Information not available 01/17/2021 Do You Use Protection During Sex? No [email or web address] Information not available 01/17/2021 Do You Use Your Seat Belt Or Car Seat Routinely? Yes [email or web address] Information not available 01/17/2021 Do You Have Smoke And Carbon Monoxide Detectors In Your Home? Yes [email or web address] Information not available 01/17/2021 At What Age Did You Start Smoking Tobacco? 15 [email or web address] Information not available 02/14/2021 How Much Tobacco Do You Smoke? 0.25 PPD [email or web address] Information not available 03/24/2024 Do You Feel Stressed (tense, Restless, Nervous, Or Anxious, Or Unable To Sleep At Night)? [id number] Information not available 03/24/2024 Do You Use Any Illicit Or Recreational Drugs? No [email or web address] Information not available 01/17/2021 Do You Use Sunscreen Routinely? No [email or web address] Information not available 01/17/2021 How Many Years Have You Smoked Tobacco? 6 [email or web address] Information not available 03/24/2024 Have You Used IV Drugs? No [email or web address] Information not available 01/17/2021 Do You Or Have You Ever Used Any Other Forms Of Tobacco Or Nicotine? No [email or web address] Information not available 02/25/2024 Sex: Unknown Functional Status Question Answer Note LastModified by Organizat ion Details LastModified Time Do you have difficulty walking or climbing stairs? No Information not available 07/19/2022 Are you able to walk? YESWOREST [email or web address] Information not available 01/17/2021 Are you able to care for yourself? Yes Information not available 07/19/2022 Do you have difficulty dressing or bathing? No Information not available 07/19/2022 What is your exercise level? Moderate [email or web address] Information not available 01/17/2021 Mental Status None recorded. Family History Relationship Description Onset Age of this Age Resolved Age Notes LastModified by Organization Details LastModified Time Father Hyperlipidem ia [email or web address] Not available 2023 10:41:30 Maternal Grandmother Diabetes mellitus [email or web address] Not available 2019 08:44:30 Mother Anxiety disorder [email or web address] Not available 02/24 14:31:54 Mother Depressive disorder [email or web address] Not available 03/24 12:20:19 Paternal Grandmother Anxiety disorder [email or web address] Not available 03/24 12:20:19 Paternal Grandmother Depressive disorder [email or web address] Not available 03/24 12:20:19 Brother Anxiety disorder [email or web address] Not available 03/24 12:20:19 Brother Depressive disorder [email or web address] Not available 03/24 12:20:19 Medical History Condition Response Allergies (Food, seasonal, environmental ) N Other N Breast Cancer N Drug/Latex Allergies/Reactions N Blood Transfusion N Lung Disease N Dermatologic Disorders N Defects or Inherited Disease N Breast Problem N Gestational Diabetes N Hematologic disorders N Anesthesia Complications N History of STI Y Deep Vein Thrombosis N Polycystic ovary syndrome N Anxiety Disorder Y Autoimmune disease N Arthritis N Polyps N Infertility N History of abnormal pap N Acid Reflux (GERD) N Cancer N Varicosities N Stroke N Neurologic/Epilepsy N Endometriosis N High Cholesterol N Fibromyalgia N Headaches N Kidney Disease [...] Diagnosis/Indication Diagnosis SNOMED-CT Code Diagnosis ICD10 Code 006159 Abby Sheets [place] [address] [address] 07/21/2024 09:33:30 07/21/2024 11:04:15 Medical examination for suspected condition [id number] Z03.74 Z3A.29 [id number] Yulissa Potts, [facility] [address] [address] 07/21/2024 09:34:53 07/21/2024 11:08:31 Gestation period, 29 weeks [id number] Z3A.29 Health Concerns Section Related Observation LastModified by Organization Detai ls LastModified Time None Recorded Concern Status LastModified by Organization Details LastModified Time None Recorded Payers Encounter Date Sequence Insurance Name Policy Number Policy Guerrero Covered Member ID Guerrero Member ID Guarantor Name 07/21/2024 1 [place] [id number] A Dean Cespedes [id number] Nelly Cespedes OBGyn Episode Ob Episode Information Episode Created Date Number of Fetuses Patient Bloodtype Patient rh Status Prepregnancy Weight lbs Domestic Partner Domestic Partner Phone Father Name Deckhand Clam Dredge Status 03/24/20 24 1 A Negative 184 [address] Nia OPEN Fetus Data First Name Last Name Admitted to NICU Weight (g) Sex Living Outcome Pediatric Complications Fetus ID Race Codes Race Delivery Type [id number] Problems Problem Notes Problem Name Start Date End Date Resolution Snomed Code Not e Herpes simplex [id number] takes daily valtrex, increase to bid at [...] Weight in lbs Pre/Post Dialysis Refused Weight 184.181405174225 BP Diastolic BP Location Tested BP Systolic [...] Type Weight in lbs Pre/Post Dialysis Refused 187.881163984516 BP Diastolic BP Location Tested BP Systolic [...] Type Weight in lbs Pre/Post Dialysis Refused 193.13537469937 BP Diastolic BP Location Tested BP Systolic [...] Type Weight in lbs Pre/Post Dialysis Refused 204.855827952456 BP Diastolic BP Location Tested BP Systolic [...] Type Weight in lbs Pre/Post Dialysis Refused 215.036401354854 BP Diastolic BP Location Tested BP Systolic [...]
--- OUTSIDE RECORDS SUMMARY | 2024-07-26 20:35 | XMS_ITS | Continuity of Care Document ---
Author Organization [facility] Address [address] [place] [address] Assessment Encounter Date Assessment Date Assessment LastModified by Organization Details LastModified Time 07/21/2024 07/21/2024 Patient is _29 __weeks . [...] lucen cy No observ ation record ed. [facility] [address], [place], [address], 03/24/2024 12:59:48 03/24/2003/24/2024 US, obste tric, nucha l trans lucen cy No observ ation record ed. [email or web address] Shanel [address], [place], [address], 03/24/2024 13:45:30 05/19/20 24 05/19/2024 US, obste tric, 2nd or 3rd trime ster No observ ation record ed. [facility] [address], [place], [address], 05/19/2024 13:03:32 05/19/20 24 05/19/2024 US, obste tric, follo w-up No observ ation record ed. [email or web address] Shan[address], [place], [address], 05/20/2024 12:55:49 06/16/2006/16/2024 US, obste tric, follo w-up No observ ation record ed. [email or web address] Archer [address], [place], [address], 06/16/2024 11:37:57 06/16/20 24 06/16/2024 US, obste tric, follo w-up No observ ation record ed. [email or web address] [address], [place], [address], 06/17/2024 13:53:59 07/21/20 24 07/21/2024 US, obste tric, follo w-up No observ ation record ed. [facility] [address], [place], [address], 07/21/2024 13:09:44 07/21/20 24 07/21/2024 US, obste tric, follo w-up No observ ation record ed. [email or web address] [address], [place], [address], 07/22/2024 18:18:47 Result Notes None recorded. Problems Name Problem SNOMED Code Status Onset Date Resolution Date Notes Provider Name and Address Organization Details Recorded Time Missed miscarri age 90738026 Completed 201801/17/2021 Missed ;Recorde d Elsewher e: No Locat ion: Rosaline pitt [facility] S ource: EHR Quill Picking Machine Operator rina: N Practi ce ID: [id number] Catracho lable Time: 04:00:00 PM Giovanna Suh [facility], [facility] 16:25:08 Pregnanc y detectio n examinat ion Completed 201801/17/2021 Encounte r for pregnanc y test, result positive ;Recorde d Elsewher e: No Locat ion: [facility] [address] S ource: EHR Quill Picking Machine Operator rina: N Dianati ce ID: [id number] Catracho lable Time: 01:45:00 PM Giovanna Suh [facility] 16:25:10 Finding of contents of cervix [id number] Completed 201801/17/2021 Weeks of gestatio n of pregnanc y not specifie d;Record ed Elsewher e: No Locat ion: [facility] [address] S ource: EHR Quill Picking Machine Operator rina: N Dianati ce ID: [id number] Catracho lable Time: 04:30:00 PM Giovanna Suh [facility] 16:24:57 Pregnanc y test negative [id number] Completed 201801/17/2021 Encounte r for pregnanc y test, result negative ;Recorde d Elsewher e: No Locat ion: [facility] [address] S ource: EHR Quill Picking Machine Operator rina: N Dianati ce ID: 0001 Catracho lable Time: 10:00:00 [facility]:25:13 Antenata l screenin g Completed 201801/17/2021 Encounte r for antenata l screenin g for uncertai n dates;Re corded Elsewher e: No Locat ion: [facility] [address] S ource: EHR Quill Picking Machine Operator rina: N Dianati ce ID: [id number] Catracho lable Time: 01:00:00 PM Giovanna Suh [facility] 16:24:[address] Concept Completed 201801/17/2021 Encntr for routine child health exam w/o abnormal findings ;Recorde d Elsewher e: No Locat ion: [facility] S ource: EHR Quill Picking Machine Operator rina: N Winston ce ID: [id number] Catracho lable Time: 09:15:00 AM Giovanna Bowentz [facility] 1 16:25:15 Miscarri age without complica tion 81567525 Completed 201801/17/2021 Incomple te spontane ous without complica tion;Rec orded Elsewher e: No Locat ion: [facility] Source: EHR Quill Picking Machine Operator rian: N Practi ce ID: [id number] Catracho lable Time: 02:00:00 PM Giovanna Suh [facility], [facility] [address] 16:25:[address] Concept Completed 201801/17/2021 Encntr for lead front desk agent exam (general ) (routine ) w/o abn findings ;Practic e ID: 0001 Giovanna Suh [facility], [facility] 1 16:25:18 Pregnanc y 31994047 Completed 202009/17/2021 Giovanna Suh [facility], [facility] 4 12:37:01 Acute urinary tract infectio n 913170734 Completed Treated Sravani Xiomara anderson [facility] 2 16:07:41 Recurren t miscarri age 526790522 Completed Sravani anderson [facility] 2 16:07:41 Marginal insertio n of umbilica l cord 35616831 Completed 2020 serial growth u/s Sravanimindy anderson [facility] 2 16:07:41 Herpes simplex 99900965 Active takes daily valtrex, increase to bid at 36 weeks Yulissa Potts CNM [address], [place], [address], [facility] 4 13:58:29 Pregnanc y 25817082 Active 2023 Giovanna cardona, [facility] 4 12:37:01 Herpes simplex 94829449 Active takes daily valtrex, increase to bid at 36 weeks Yulissa Potts CNM [address], [place], [address], [facility] 4 13:58:29 Problem Notes None recorded. Procedures Surgical History Date Name Laterality Status Provider Name and Address Organization Details Recorded Time 02/25/20 24 Date of Last Pap Smear completed Giovanna Suh [facility] 02/25/2024 14:33:16 08/11/19 23 termination of completed Giovanna Suh [facility] 02/25/2024 14:35:32 Imaging Results None recorded. [...] Prescrib jim Queen e: No Locat ion: [facility] odify By: [email or web address] gonzalez DateTime : 11/14/19 [...] by oral route every day 11/20 completed [facility] [id number] 0-95 Lot #[id number] Exp 10/03 Not Available Not Available Not [...] Address Organization Details Last Updated DateTime 07/21/2024 72472.3595 5 g 115 mm[Hg] 72 mm[Hg] Giovanna Suh [facility] 07/21/2024 10:49:24 Social History Question Answer Notes LastModified by Organizat ion Details LastModified Time Tobacco Smoking Status Current Every Day Smoker Giovanna Suh [facility], [facility] 02/25/2024 14:35:21 Do You Have An Advance Directive? No Information not available 01/17/2021 What Is Your Level Of Alcohol Consumption? None [email or web address] Information not available 01/17/2021 If You Are , What Was Your Level Of Alcohol Consumption Prior To ? Occasional [email or web address] Information not available 02/25/2024 Are You Blind Or Do You Have Difficulty Seeing? No [email or web address] Information not available 01/17/2021 What Is Your Level Of Caffeine Consumption? Occasional [email or web address] Information not available 01/17/2021 How Much Tobacco Do You Chew? None [email or web address] Information not available 01/17/2021 In The 14 Days Before Symptom Onset, Have You Had Close Contact With A Laboratory-confir med COVID-19 While That Case Was Ill? No [email or web address] Information not available 01/17/2021 In The 14 Days Before Symptom Onset, Have You Had Close Contact With A Person Who Is Under Investigation For COVID-19 While That Person Was Ill? No Information not available 01/17/2021 Have You Been To An Area Known To Be High Risk For COVID-19? No [email or web address] Information not available 01/17/2021 Are You Deaf Or Do You Have Serious Difficulty Hearing? No [email or web address] Information not available 01/17/2021 What Type Of Diet Are You Following? REGULAR [email or web address] Information not available 01/17/2021 What Is The Highest Grade Or Level Of School You Have Completed Or The Highest Degree You Have Received? EQ29994-5 [email or web address] Information not available 01/17/2021 What Is Your Occupation? N/A [email or web address] Information not available 03/24/2024 Are There Any Guns Present In Your Home? No Information not available 01/17/2021 Do You Use Protection During Sex? No [email or web address] Information not available 01/17/2021 Do You Use Your Seat Belt Or Car Seat Routinely? Yes Information not available 01/17/2021 Do You Have Smoke And Carbon Monoxide Detectors In Your Home? Yes [email or web address] Information not available 01/17/2021 At What Age Did You Start Smoking Tobacco? 15 [email or web address] Information not available 02/14/2021 How Much Tobacco Do You Smoke? 0.25 PPD [email or web address] Information not available 03/24/2024 Do You Feel Stressed (tense, Restless, Nervous, Or Anxious, Or Unable To Sleep At Night)? [id number] [email or web address] Information not available 03/24/2024 Do You Use Any Illicit Or Recreational Drugs? No [email or web address] Information not available 01/17/2021 Do You Use Sunscreen Routinely? No [email or web address] Information not available 01/17/2021 How Many Years Have You Smoked Tobacco? 6 [email or web address] Information not available 03/24/2024 Have You Used IV Drugs? No [email or web address] Information not available 01/17/2021 Do You Or [...] 07/19/2022 What is your exercise level? Moderate [email or web address] Information not available 01/17/2021 Mental Status None recorded. Family History Relationship Description Onset Age of this Age Resolved Age Notes LastModified by Organization Details LastModified Time Father Hyperlipidem ia [email or web address] Not available 2023 10:41:30 Maternal Grandmother Diabetes mellitus [email or web address] Not available 2019 08:44:30 Mother Anxiety disorder [email or web address] Not available 02/24 14:31:54 Mother Depressive disorder [email or web address] Not available 03/24 12:20:19 Paternal Grandmother Anxiety disorder [email or web address] Not available 03/24 12:20:19 Paternal Grandmother Depressive disorder [email or web address] Not available 03/24 12:20:19 Brother Anxiety disorder [email or web address] Not available 03/24 12:20:19 Brother Depressive disorder Not available 03/24 12:20:19 Medical History Condition [...] Diagnosis/Indication Diagnosis SNOMED-CT Code Diagnosis ICD10 Code 700175 Abby Sheets Archer [address] [address] 07/21/2024 09:33:30 07/21/2024 11:04:15 Medical examination for suspected condition 582759019 Z03.74 Z3A.29 [id number] [facility] [address] [address] 07/21/2024 09:34:53 07/21/2024 11:08:31 Gestation period, 29 weeks 06154288 Z3A.29 Health Concerns Section Related Observation LastModified by Organization Detai ls LastModified Time None Recorded Concern Status LastModified by Organization Details LastModified Time None Recorded Payers Encounter Date Sequence Insurance Name Policy Number Policy Guerrero Covered Member ID Guerrero Member ID Guarantor Name 07/21/2024 1 [place] ([facility]) [id number] A Dean Cespedes [id number] Nelly Cespedes OBGyn Episode Ob Episode Information Episode Created Date Number of Fetuses Patient Bloodtype Patient rh Status Prepregnancy Weight lbs Domestic Partner Domestic Partner Phone Father Name Daycare Worker Status 03/24/20 24 1 A Negative 184 Jl Kramer OPEN Fetus Data First Name Last Name Admitted to NICU Weight (g) Sex Living Outcome Pediatric Complications Fetus ID Race Codes Race Delivery Type [id number] Problems Problem Notes Problem Name Start Date End Date Resolution Snomed Code Not e Herpes simplex 03792740 takes daily valtrex, increase to bid at [...] Ultra Sound Latest Days Gestation 0 0 Pre-renato Flowsheet Flowsheet Date 03/24/2024 Bailey Score Blood Edema Fundus Height Fundus Units Glucose Ketones Leukocytes Nitrite Labor Signs Protein Cervic Dilation Cervic Effacement Cervic Station none Type Weight in lbs Pre/Post Dialysis Refused Weight 184.102786095689 BP Diastolic BP Location Tested BP Systolic BP Type 74 105 Fetus Heart Rate Present Fetus Movement A No Comments Patient is having some nause a and vomiting. will call out jose f, discussed care, US wnl, education and precautions, hx multiple miscarriages , one uncomplicated vaginal delivery Flowsheet Date 04/21/2024 Bailey Score Blood Edema Fundus Height Fundus Units Glucose Ketones Leukocytes Nitrite Labor Signs Protein Cervic Dilation Cervic Effacement Cervic Station none Type Weight in lbs Pre/Post Dialysis Refused 187.534410277275 BP Diastolic BP Location Tested BP Systolic [...] Type Weight in lbs Pre/Post Dialysis Refused 193.57421199308 BP Diastolic BP Location Tested BP Systolic [...] Type Weight in lbs Pre/Post Dialysis Refused 204.817600966213 BP Diastolic BP Location Tested BP Systolic [...] Type Weight in lbs Pre/Post Dialysis Refused 215.522624696706 BP Diastolic BP Location Tested BP Systolic [...]
--- OUTSIDE RECORDS SUMMARY | 2024-07-26 20:35 | XMS_ITS | Continuity of Care Document ---
Author Organization [facility] [place] Address [address] [place] [address] Assessment No assessment recorded. Plan of Treatment Reminders Order Date Submit Date Provider Last Modified By Organization Details Last Modified Time Details Appointments OB ROUTINE 2023 08:45A Nidia BERG MD Not available Not available Not available Lab None recorded . Referral None recorded . Procedures None recorded . Surgeries None recorded . Imaging US, obstetri c, follow-u p 2023 024 [email or web address] [place], [address], [address], [place], [address], 06/16/2024 21:46:41 Medication Orders None recorded . Patient TargetsNo targets recorded. Patient InstructionsNo instructions recorded. Reason for Referral None Reported. Results Created Date Observation Date Name Description Value Unit Range Abnormal Flag Note LastModifiedBy Organization Detail LastModifiedTime 03/24/2003/24/2024 US, obste tric, nucha l trans lucen cy No observ ation record ed. [facility] [address], [place], [address], 03/24/2024 12:59:48 03/24/2003/24/2024 US, obste tric, nucha l trans lucen cy No observ ation record ed. [email or web address], [place], [address], 03/24/2024 13:45:30 05/19/20 24 05/19/2024 US, obste tric, 2nd or 3rd trime ster No observ ation record ed. [facility] [address], [place], [address], 05/19/2024 13:03:32 05/19/20 24 05/19/2024 US, obste tric, follo w-up No observ ation record ed. [address], [place], [address], 05/20/2024 12:55:49 06/16/2006/16/2024 US, obste tric, follo w-up No observ ation record ed. [email or web address] [place] [address], [place], [address], 06/16/2024 11:37:57 06/16/20 24 06/16/2024 US, obste tric, follo w-up No observ ation record ed. [email or web address], [place], [address], 06/17/2024 13:53:59 07/21/20 24 07/21/2024 US, obste tric, follo w-up No observ ation record ed. [facility] [address], [place], [address], 07/21/2024 13:09:44 07/21/20 24 07/21/2024 US, obste tric, follo w-up No observ ation record ed. [email or web address] [address], [place], [address], 07/22/2024 18:18:47 Result Notes None recorded. Problems Name Problem SNOMED Code Status Onset Date Resolution Date Notes Provider Name and Address Organization Details Recorded Time Missed miscarri age 96862136 Completed 201801/17/2021 Missed ;Recorde d Elsewher e: No Locat ion: [facility] e [facility] S ource: EHR Lunch Wagon Operator rina: N Practi ce ID: 0001 Catracho lable Time: 04:00:00 PM Giovanna cardona, [facility] 16:25:08 Pregnanc y detectio n examinat ion Completed 201801/17/2021 Encounte r for pregnanc y test, result positive ;Recorde d Elsewher e: No Locat ion: [facility] S ource: EHR Lunch Wagon Operator rina: N Practi ce ID: 0001 Catracho lable Time: 01:45:00 PM Giovanna Suh [facility], [facility] 16:25:10 Finding of contents of cervix [id number] Completed 201801/17/2021 Weeks of gestatio n of pregnanc y not specifie d;Record ed Elsewher e: No Locat ion: [facility] S ource: EHR Lunch Wagon Operator rina: N Practi ce ID: 0001 Catracho lable Time: 04:30:00 PM Giovanna cardona, [facility] 16:24:57 Pregnanc y test negative [id number] Completed 201801/17/2021 Encounte r for pregnanc y test, result negative ;Recorde d Elsewher e: No Locat ion: [facility] S ource: EHR Lunch Wagon Operator rina: N Practi ce ID: 0001 Catracho lable Time: 10:00:00 AM Giovanna cardona, [facility] 16:25:13 Antenata l screenin g Completed 201801/17/2021 Encounte r for antenata l screenin g for uncertai n dates;Re corded Elsewher e: No Locat ion: [facility] S ource: EHR Lunch Wagon Operator rina: N Practi ce ID: 0001 Catracho lable Time: 01:00:00 PM Giovanna Suh brendan [facility] 06/09/[address] 16:24:[address] Concept Completed 201801/17/2021 Encntr for routine child health exam w/o abnormal findings ;Recorde d Elsewher e: No Locat ion: Rosaline pitt [facility] S ource: EHR Lunch Wagon Operator rina: N Dianati ce ID: 0001 Catracho lable Time: 09:15:00 AM [facility] 1 16:25:15 Miscarri age without complica tion [id number] Completed 201801/17/2021 Incomple te spontane ous without complica tion;Rec orded Elsewher e: No Locat ion: [facility] Source: EHR Lunch Wagon Operator rina: N Practi ce ID: 0001 Catracho lable Time: 02:00:00 PM Giovanna cardona, [facility] 1 16:25:[address] Concept Completed 201801/17/2021 Encntr for consumer attorney exam (general ) (routine ) w/o abn findings ;Practic e ID: [id number] Giovanna Suh [facility], [facility] 1 16:25:18 Pregnanc y 86163797 Completed 202009/17/2021 Giovanna Suh [facility], [facility] 4 12:37:01 Acute urinary tract infectio n [id number] Completed Treated Sravani anderson [facility] 2 16:07:41 Recurren t miscarri age 575159193 Completed Sravani anderson [facility] 2 16:07:41 Marginal insertio n of umbilica l cord 44836965 Completed 2020 serial growth u/s Sravani anderson [facility], [facility] 2 16:07:41 Herpes simplex 25560902 Active takes daily valtrex, increase to bid at 36 weeks Yulissa Potts CNM [address], [place], [address], [facility] 4 13:58:29 Pregnanc y 40880366 Active 2023 Giovanna cardona, [facility] 4 12:37:01 Herpes simplex 00301196 Active takes daily valtrex, increase to bid at 36 weeks Yulissa Potts CNM [address], [place], [address], [facility] 4 13:58:29 Problem Notes None recorded. Procedures Surgical History Date Name Laterality Status Provider Name and Address Organization Details Recorded Time 02/25/20 24 Date of Last Pap Smear completed Giovanna Suh [facility] 02/25/2024 14:33:16 08/11/19 23 termination of completed Giovanna Suh [facility] 02/25/2024 14:35:32 Imaging Results Imaging Date Name Status LastModified by Organiz ation Details LastModified Time 06/16/2024 US, obstetric, follow-up completed [email or web address] [place] [address], [place], [address], 06/16/2024 11:37:57 06/16/2024 US, obstetric, follow-up completed [email or web address] [address], [facility], [place], [address], 06/17/2024 13:53:59 Procedure Notes None recorded. Medical Equipment None [...] Prescrib jim Queen e: No Locat ion: [facility] M odify By: [email or web address] gonzalez DateTime : [...] by oral route every day 11/20 completed [facility] 0430-042 0-95 Lot #[id number] Exp 10/03 Not Available Not Available Not [...] Available Not Available Vitals Date Recorded Body height Body weight Systolic blood pressure Diastolic blood pressure Provider Name and Address Organization Details Last Updated DateTime 06/16/2024 167.64 cm 27850.843 48 g 106 mm[Hg] 73 mm[Hg] Giovanna Suh [facility] 06/16/2024 11:45:39 Social History Question Answer Notes LastModified by Organizat ion Details LastModified Time Tobacco Smoking Status Current Every Day Smoker Giovanna Suh [facility] 02/25/2024 14:35:21 Do You Have An Advance Directive? No [email or web address] Information not available 01/17/2021 What Is Your Level Of Alcohol Consumption? None [email or web address] Information not available 01/17/2021 If You Are , What Was Your Level Of Alcohol Consumption Prior To ? Occasional Information not available 02/25/2024 Are You Blind Or Do You Have Difficulty Seeing? No [email or web address] Information not available 01/17/2021 What Is Your Level Of Caffeine Consumption? Occasional [email or web address] Information not available 01/17/2021 How Much Tobacco Do You Chew? None [email or web address] Information not available 01/17/2021 In The 14 Days Before Symptom Onset, Have You Had Close Contact With A Laboratory-confir med COVID-19 While That Case Was Ill? No [email or web address] Information not available 01/17/2021 In The 14 Days Before Symptom Onset, Have You Had Close Contact With A Person Who Is Under Investigation For COVID-19 While That Person Was Ill? No [email or web address] Information not available 01/17/2021 Have You Been To An Area Known To Be High Risk For COVID-19? No [email or web address] Information not available 01/17/2021 Are You Deaf Or Do You Have Serious Difficulty Hearing? No [email or web address] Information not available 01/17/2021 What Type Of Diet Are You Following? REGULAR Information not available 01/17/2021 What Is The Highest Grade Or Level Of School You Have Completed Or The Highest Degree You Have Received? CP20785-4 Information not available 01/17/2021 What Is Your Occupation? N/A [email or web address] Information not available 03/24/2024 Are There Any Guns Present In Your Home? No [email or web address] Information not available 01/17/2021 Do You Use Protection During Sex? No [email or web address] Information not available 01/17/2021 Do You Use Your Seat Belt Or Car Seat Routinely? Yes [email or web address] Information not available 01/17/2021 Do You Have Smoke And Carbon Monoxide Detectors In Your Home? Yes [email or web address] Information not available 01/17/2021 At What Age Did You Start Smoking Tobacco? 15 [email or web address] Information not available 02/14/2021 How Much Tobacco Do You Smoke? 0.25 PPD [email or web address] Information not available 03/24/2024 Do You Feel Stressed (tense, Restless, Nervous, Or Anxious, Or Unable To Sleep At Night)? [id number] [email or web address] Information not available 03/24/2024 Do You Use Any Illicit Or Recreational Drugs? No Information not available 01/17/2021 Do You Use Sunscreen Routinely? No [email or web address] Information not available 01/17/2021 How Many Years Have You Smoked Tobacco? 6 [email or web address] Information not available 03/24/2024 Have You Used IV Drugs? No [email or web address] Information not available 01/17/2021 Do You Or Have You Ever Used Any Other Forms Of Tobacco Or Nicotine? No [email or web address] Information not available 02/25/2024 Sex: Unknown Functional Status Question Answer Note LastModified by Organizat ion Details LastModified Time Do you have difficulty walking or climbing stairs? No Information not available 07/19/2022 Are you able to walk? YESWOREST [email or web address] Information not available 01/17/2021 Are you able to care for yourself? Yes Information not available 07/19/2022 Do you have difficulty dressing or bathing? No Information not available 07/19/2022 What is your exercise level? Moderate [email or web address] Information not available 01/17/2021 Mental Status None recorded. Family History Relationship Description Onset Age of this Age Resolved Age Notes LastModified by Organization Details LastModified Time Father Hyperlipidem ia [email or web address] Not available 2023 10:41:30 Maternal Grandmother Diabetes mellitus [email or web address] Not available 2019 08:44:30 Mother Anxiety disorder [email or web address] Not available 02/24 14:31:54 Mother Depressive disorder [email or web address] Not available 03/24 12:20:19 Paternal Grandmother Anxiety disorder [email or web address] Not available 03/24 12:20:19 Paternal Grandmother Depressive disorder [email or web address] Not available 03/24 12:20:19 Brother Anxiety disorder [email or web address] Not available 03/24 12:20:19 Brother Depressive disorder [email or web address] Not available 03/24 12:20:19 Medical History Condition [...] Diagnosis/Indication Diagnosis SNOMED-CT Code Diagnosis ICD10 Code 415856 Abby Sheets [place] [address],[place] [address] 05/19/2024 10:48:18 05/19/2024 11:54:12 screening for malformation [id number] Z36.3 Z3A.20 [id number] Yulissa Potts [facility] [address],[place] [address] 05/19/2024 10:53:05 05/19/2024 12:10:23 Gestation period, 20 weeks 09564829 Z3A.20 [id number] [facility] [address],[place] [address] 06/16/2024 10:43:49 06/16/2024 11:37:27 screening 248065951 Z36.2 Z3A.24 [id number] Yulissa Potts [facility] [address],[place] [address] 06/16/2024 10:46:47 06/16/2024 12:04:08 Gestation period, 24 weeks 708224642 Z3A.24 Herpes simplex 57637718 B00.9 Health Concerns Section Related Observation LastModified by Organization Detai ls LastModified Time None Recorded Concern Status LastModified by Organization Details LastModified Time None Recorded Payers Encounter Date Sequence Insurance Name Policy Number Policy Guerrero Covered Member ID Guerrero Member ID Guarantor Name 06/16/2024 1 [place] [employer] [id number] A Dean Cespedes [id number] Nelly Coy OBGyn Episode Ob Episode Information Episode Created Date Number of Fetuses Patient Bloodtype Patient rh Status Prepregnancy Weight lbs Domestic Partner Domestic Partner Phone Father Name Replacer Status 03/24/20 24 1 A Negative 184 Jl Kramer OPEN Fetus Data First Name Last Name Admitted to NICU Weight (g) Sex Living Outcome Pediatric Complications Fetus ID Race Codes Race Delivery Type [id number] Problems Problem Notes Problem Name Start Date End Date Resolution Snomed Code Not e Herpes simplex [id number] takes daily valtrex, increase to bid at [...] Weight in lbs Pre/Post Dialysis Refused Weight 184.250312061521 BP Diastolic BP Location Tested BP Systolic [...] Type Weight in lbs Pre/Post Dialysis Refused 187.339922579241 BP Diastolic BP Location Tested BP Systolic [...] Type Weight in lbs Pre/Post Dialysis Refused 193.38419334754 BP Diastolic BP Location Tested BP Systolic [...] Type Weight in lbs Pre/Post Dialysis Refused 204.336776020953 BP Diastolic BP Location Tested BP Systolic [...] Type Weight in lbs Pre/Post Dialysis Refused 215.524998685003 BP Diastolic BP Location Tested BP Systolic [...]
--- OUTSIDE RECORDS SUMMARY | 2024-07-26 20:36 | XMS_ITS | Encounter Summary ---
Author Organization [facility] Address [address] [place] [address] Care Team Providers Care Pathology Transcriptionist Name Role Phone Unavailable Primary Care Provider Unavailabl e Encounter Details Date Type Department Care Team (Late st Contact Info) Description 07/03/2020 2:[address] Rapid Evaluation [facility] Community Testing [facility] [address] [place] [address] Social History Tobacco Use Types Packs/Day Years Used Date Smoking Tobacco: Never Assessed Comments Unknown Sex and Gender Information Value Date Recorded Sex Assigned at Not on file Legal Sex Female 1:[address] Gender Identity Not on file Sexual Orientation Not on file documented as of this encounter Plan of Treatment Not on file documented as of this encounter Visit Diagnoses Not on filedocumented in this encounter
--- OUTSIDE RECORDS SUMMARY | 2024-07-26 20:36 | XMS_ITS | Encounter Summary ---
Author Organization [facility] Address [facility] [facility] [address] [place] [address] Care Team Providers Care Contract Management Specialist Name Role Phone None, Provider Primary Care Provider Unavaila ble Reason for Referral * Imaging (Emergency) - New Request Specialty Diagnoses / Procedures Referred By Crista escamilla Referred To Contact RADIOLOGY Procedures CT ABD+PEL W IV CON ONLY Ирина Moralez NP [address] [address] Phone: tel: fax: Referral ID Status Reason Start Date Expiration Date V isits Requested Visits Authorized [id number] New Request 07/26/2023 07/26/2024 1 1 NG MACHINE ATTENDANT Reason for Visit * Reason Comments Vomiting Encounter Details Date Type Department Care Team (Late st Contact Info) Description 07/26/2023 1:41 PM MIXING MACHINE ATTENDANT - 07/26/2023 5:39 PM MIXING MACHINE ATTENDANT Emergency [facility] Emergency Room [place], [place] [id number] Aleida Blackburn, DIRECTOR PACKAGING [phone] [address] Ирина Moralez NP [address] [id number] [phone]- Vomiting Discharge Disposition: Home or Self Care (Routine Discharge) Social History Tobacco Use Types Packs/Day Years Used Date Smoking Tobacco: Former Cigarettes 0.3 4 1 09/21/2015 - 07/21/2020 Smokeless Tobacco: Never Alcohol Use Standard Drinks/Week Comments Not Currently 0 (1 standard drink = 0.6 oz pur e alcohol) PHQ-2 Answer Date Recorded PHQ-2 Score - If the patient scores above 3, please move on to questions 3-9 2 08/18/2020 Comments No Sex and Gender Information Value Date Recorded Sex Assigned at Not on file Legal Sex Female 2:58 PM CDT Gender Identity Not on file Sexual Orientation Not on file documented as of this encounter Last Filed Vital Signs Vital Sign Reading Time Taken Comments Blood Pressure 105/66 07/26/2023 5:37 PM MIXING MACHINE ATTENDANT Pulse 106 07/26/2023 5:37 PM MIXING MACHINE ATTENDANT Temperature 36.2 ??C (97.1 ??F) 07/26/2023 1:31 PM CS T Respiratory Rate 18 07/26/2023 5:37 PM MIXING MACHINE ATTENDANT Oxygen Saturation 100% 07/26/2023 5:37 PM MIXING MACHINE ATTENDANT Inhaled Oxygen Concentration - - Weight 81.2 kg (179 lb) 07/26/2023 1:31 PM MIXING MACHINE ATTENDANT Height 167.6 cm (5' 6 ) 07/26/2023 1:31 PM MIXING MACHINE ATTENDANT Body Mass Index 28.89 07/26/2023 1:31 PM MIXING MACHINE ATTENDANT documented in this encounter Discharge Instructions * Discharge Instructions* Ирина Moralez NP - 07/26/2023 5:00 PM MIXING MACHINE ATTENDANT Push fluids and start with a BRAT diet: bananas, rice, applesauce and toast. Increase diet as tolerated. If you develop return of symptoms or worse in any way, please return for re evaluation of symptoms. Also take Pepto-Bismol but do remember that that medication can turn your tongue a dark color and turn your stools very dark color, this will normalize once the Pepto-Bismol is out of your system usually about 24 hours. NG MACHINE ATTENDANT * Attachments The following attachments cannot be sent through Care Everywhere. * Nausea and Vomiting Discharge Instructions, Adult (Barbadian) * Diarrhea in adolescents and adults (Barbadian) documented in this encounter Medications at Time of Discharge ondansetron (ZOFRAN-ODT) 4 MG disintegrating tablet Take 1 tablet (4 mg total) by mouth every 8 (eight) hours as needed for Nausea. 20 tablet 07/26/2023 cefdinir 300 MG Cap capsuleIndications:Ax illary lymphadenopathy Take 1 capsule (300 mg total) by mouth 2 (two) times daily. 20 capsule 08/18/2020 VENTOLIN HFA 108 (90 Base) MCG/ACT inhaler INL 2 PFS PO QID PRF SOB OR WHZ 07/10/2020 documented as of this encounter ED Notes * Ирина Moralez NP - 07/26/2023 3:17 PM CST [facility] Emergency Department Assumed Care Note Patient signed out to me by BOB Blackburn.. Briefly, Nelly Cespedes is a 22-year-old female is being evaluated for vomiting and diarrhea multipletimes since 8 AM, states she has had at least 4 episodes of each prior to arrival and 1 episode of diarrhea since her arrival. Nonbloody. Belly pain. She attributes it to eating a chicken sandwich wrap which she has had in the past but she ate that last evening. Denies any fever. Vitals: 07/26/23 1737 BP: 105/66 Pulse: (!) 106 Resp: 18 Temp: SpO2: 100% Thus far, studies reveal:, With a white count of 18,000. Pending studies include: CT scan was ordered, has diffuse abdominal pain but with a white count at 18,000 and a shift, concerning for colitis. No concern for perforation, abdomen is soft with no peritoneal signs. Plan from sign out is: Pending CT results. Medications ondansetron (ZOFRAN) injection 4 mg (4 mg Intravenous Given 07/26/23 1354) sodium chloride 0.9% bolus infusion 1,000 mL (0 mLs Intravenous Infusion Stop Time 07/26/23 1429) sodium chloride 0.9% bolus infusion 1,000 mL (0 mLs Intravenous Infusion Stop Time 07/26/23 1704) ondansetron (ZOFRAN) injection 4 mg (4 mg Intravenous Given 07/26/23 1519) iopamidol (ISOVUE-370) 76 % injection 100 mL (100 mLs Intravenous Given 07/26/23 1631) prochlorperazine (COMPAZINE) injection 10 mg (10 mg Intravenous Given 07/26/23 1718) Discharge Medication List as of 07/26/2023 5:33 PM START taking these medications Details ondansetron (ZOFRAN-ODT) 4 MG disintegrating tablet Take 1 tablet (4 mg total) by mouth every 8 (eight) hours as needed for Nausea., Starting 07/26/2023, Eprescribe Class: Eprescribe Pharmacy: [facility] #[id number] - [address] AT [facility] & [facility] [address] ( #: [phone]) Progress notes: 07/26/2023 5:25 PM Patient has vomited the first attempt at PO challenge. Compazine ordered. Non tender abdomen. Was given a dose of Compazine and within a few minutes she asked to be discharged as her ride was in route. Did give her prescription for Zofran and return precautions. She has a nontoxic exam, states she feels better after she went to the bathroom. CT had been noted, no acute findings and agreed with the impression. Differential diagnosis includes but is not limited to nausea vomiting, food poisoning and viral gastroenteritis. Clinical impression: SNOMED CT(R) 1. Vomiting and diarrhea DIARRHEA AND VOMITING Disposition: Discharge Ирина Moralez NP 07/26/23 9436 Cosigned by Smith Fuentes MD at 07/28/2023 8:12 AM MIXING MACHINE ATTENDANT NG MACHINE ATTENDANT NG MACHINE ATTENDANT * ALEX Alcaraz - 07/26/2023 1:33 PM CST Chief Complaint Chief Complaint Patient presents with ??? Vomiting History of Present Illness 22-year-old female presents for evaluation of nausea, vomiting, diarrhea. She feels like she could be sick due to eating a chicken wrap from a store yesterday. No known sick contacts. Medical History ALLERGIES: Review of patient's allergies indicates: No Known Allergies MEDICATIONS: Prior to Admission medications Medication Sig Start Date End Date Taking? Authorizing Provider cefdinir 300 MG Cap capsule Take 1 capsule (300 mg total) by mouth 2 (two) times daily. 08/18/20 Oneal hTomas, VENTOLIN HFA 108 (90 Base) MCG/ACT inhaler INL 2 PFS PO QID PRF SOB OR WHZ 07/10/20 [facility] PAST MEDICAL HISTORY: Past Medical History: Diagnosis Date ??? Anxiety ??? COVID-19 08/18/2020 ??? Depression ??? Spontaneous without complication ([facility]) 05/27/2019 ??? Yeast infection of the vagina PAST SURGICAL HISTORY: Past Surgical History: Procedure Laterality Date ??? TOOTH EXTRACTION FAMILY HISTORY: Family History Problem Relation Name Age of Onset ??? No Known Problems Mother ??? Hyperlipidemia Father ??? Other (low back pain) Father SOCIAL HISTORY: Social History Tobacco Use ??? Smoking status: Former Packs/day: 0.25 Years: 4.00 Additional pack years: 0.00 Total pack years: 1.00 Types: Cigarettes Quit date: 07/21/2020 Years since quittin.0 ??? Smokeless tobacco: Never Substance Use Topics ??? Alcohol use: Not Currently ??? Drug use: Not Currently Comment: Occasional marijuana smoker Review of Systems Review of Systems Gastrointestinal: Positive for diarrhea, nausea and vomiting. Physical Exam Filed Vitals: 07/26/23 1331 BP: 111/68 Pulse: (!) 111 Resp: 18 Temp: 97.1 ??F (36.2 ??C) TempSrc: Temporal SpO2: 99% Weight: 81.2 kg (179 lb) Height: 1.676 m (5' 6 ) Physical Exam Vitals and nursing note reviewed. Constitutional: Appearance: She is well-developed. She is ill-appearing. HENT: Head: Normocephalic. Eyes: Pupils: Pupils are equal, round, and reactive to light. Cardiovascular: Rate and Rhythm: Normal rate and regular rhythm. Pulmonary: Effort: Pulmonary effort is normal. Breath sounds: Normal breath sounds. Abdominal: Palpations: Abdomen is soft. Tenderness: There is no abdominal tenderness. There is no guarding. Musculoskeletal: General: Normal range of motion. Skin: General: Skin is warm and dry. Neurological: Mental Status: She is alert and oriented to person, place, and time. Psychiatric: Mood and Affect: Mood normal. Diagnostic Studies / Procedures ELECTROCARDIOGRAMS: No results found for this visit on 07/26/23. LABORATORY STUDIES: Results for orders placed or performed during the hospital encounter of 07/26/23 CBC W/DIFF AUTOMATED Result Value Ref Range WBC 18.4 (H) 4.5 - 11.0 x10'3/uL RBC 6.04 (H) 4.20 - 5.40 x10'6/uL HGB 18.1 (H) 12.0 - 16.0 G/DL HCT 52.9 (H) 38.0 - 48.0 % MCV 87.6 81.0 - 99.0 FL MCH 30.0 27.0 - 31.0 PG MCHC 34.2 32.0 - 36.0 G/DL RDW 12.2 11.5 - 14.5 % PLT 370 130 - 400 x10'3/uL MPV 10.3 9.3 - 12.2 FL DIFFERENTIAL TYPE AUTOMATED DIFFERENTIAL NEUTROPHILS 85.9 % LYMPHOCYTES 8.1 % MONOCYTES 4.5 % EOSINOPHILS 0.7 % BASOPHILS 0.3 % IMMATURE GRANS 0.5 % ABS. NEUTROPHILS TOTAL 15.79 (H) 1.80 - 7.70 x10'3/uL ABS. LYMPHOCYTES 1.49 1.00 - 4.80 x10'3/uL ABS. MONOCYTES 0.82 0.24 - 0.86 x10'3/uL ABS. EOSINOPHILS 0.12 0.04 - 0.36 x10'3/uL ABS. BASOPHILS 0.06 0.01 - 0.08 x10'3/uL ABS. IMMATURE GRANULOCYTES 0.10 0.00 - 0.49 x10'3/uL COMPREHENSIVE METABOLIC PANEL Result Value Ref Range GLUCOSE 112 (H) 70 - 99 MG/DL BUN 14 7 - 18 MG/DL CREATININE S/P/B 0.88 0.55 - 1.02 MG/DL SODIUM S/P/B 139 136 - 145 MMOL/L POTASSIUM S/P/B 3.9 3.5 - 5.1 MMOL/L CHLORIDE S/P/B 108 100 - 108 MMOL/L CO2 22.1 21 - 32 MMOL/L CALCIUM S/P/B 9.7 8.5 - 10.1 MG/DL BILIRUBIN TOTAL S/P/B 0.4 0.2 - 1.2 MG/DL TOTAL PROTEIN S/P/B 8.8 (H) 6.4 - 8.2 G/DL ALBUMIN S/P/B 3.9 3.4 - 5.0 G/DL AST 17 15 - 37 U/L ALT 18 14 - 55 U/L ALKALINE PHOSPHATASE S/P/B 85 50 - 136 U/L ANION GAP 8.9 5 - 15 MMOL/L BUN CREATININE RATIO 15.9 6 - 26 A/G RATIO 0.8 (L) 1.0 - 2.0 RATIO GFR ESTIMATE >90 >90 ML/MIN/1.73 M2 LIPASE Result Value Ref Range LIPASE 37 13 - 75 UNITS/L POCT urine Result Value Ref Range URINE HCG TEST NEGATIVE Internal Control: VALID IMAGING STUDIES: No orders to display MEDICATIONS: Medications ondansetron (ZOFRAN) injection 4 mg (4 mg Intravenous Given 07/26/23 1354) sodium chloride 0.9% bolus infusion 1,000 mL (0 mLs Intravenous Infusion Stop Time 07/26/23 1429) Current Discharge Medication List ED Course / Medical Decision Making Medical Decision Making And this shift report given to ALVAREZ Jones pending, I suspect leukocytosis related to actively retching, patient denied focal abdominal pain. ED Course as of 07/26/23 1659 Sat Jul 26, 2023 1510 LIPASE: 37 [LM] 1658 KETONES (U)(!): 10 [LM] ED Course User Index [LM] Ирина Moralez NP Clinical Impression None Disposition: Data Unavailable NOTE: I dictated portions of this note using [employer] Interactive speech recognition software. Occasional wrong word or sound-alike substitutions may have occurred due to the inherent limitations of voice recognition software. ALEX ALCARAZ 07/26/2023 ALEX Alcaraz 07/26/23 1504 Cosigned by Smith Fuentes MD at 07/28/2023 8:12 AM MIXING MACHINE ATTENDANT NG MACHINE ATTENDANT NG MACHINE ATTENDANT * Virginia Cavazos RN - 07/26/2023 1:28 PM CST Pt ambulatory to triage c/o vomiting and diarrhea since this morning. Pt c/o abdominal pain that does not radiate. Pt states that she thinks she ate a bad chicken wrap yesterday. NG MACHINE ATTENDANT documented in this encounter Plan of Treatment Not on file documented as of this encounter Procedures Procedure Name Priority Date/Time Associated Diagnosis Comments CT ABD+PEL W CON STAT 07/26/2023 4:31 PM MIXING MACHINE ATTENDANT POCT URINE (BACK OFFICE) STAT 07/26/2023 2:32 PM MIXING MACHINE ATTENDANT HC URINALYSIS AUTO W/O MICRO STAT 07/26/2023 2:30 PM MIXING MACHINE ATTENDANT URINE BACTERIA CULTURE Routine 2:30 PM MIXING MACHINE ATTENDANT COMPREHENSIVE METABOLIC PANEL STAT 07/26/2023 1:48 PM MIXING MACHINE ATTENDANT CBC W/DIFF AUTOMATED STAT 07/26/2023 1:48 PM MIXING MACHINE ATTENDANT LIPASE STAT 07/26/2023 1:48 PM MIXING MACHINE ATTENDANT documented in this encounter Results * CT ABD+PEL W IV CON ONLY (07/26/2023 4:31 PM MIXING MACHINE ATTENDANT) Anatomical Region Laterality Modality Abdomen Computed Tomogra phy 07/26/2023 4:51 PM MIXING MACHINE ATTENDANT Impressions 07/26/2023 4:54 PM MIXING MACHINE ATTENDANT IMPRESSION: 1. ??No definite acute/localizing abnormality identified. 2. ??Liquid stool is noted. Referred By: ?? Interpreted By: Andrey Cooper MD, 07/26/2023 4:51 PM Narrative 07/26/2023 4:54 PM MIXING MACHINE ATTENDANT EXAMINATION: CT ABD+PEL W CON CLINICAL HISTORY: Nausea and vomiting COMPARISON: None DATE/TIME: 07/26/2023 3:59 PM TECHNIQUE: Multiplanar CT images of the abdomen and pelvis were obtained. ??IV contrast: uneventful intravenous administration of 100 mL Isovue 370. ??Oral contrast: None. ?? A dose lowering technique was used for this procedure, which may include, but is not limited to, dose reduction technique, automated exposure control, the use of iterative reconstruction, and ALARA (As Low As Reasonably Achievable) / Image Gently techniques. FINDINGS: Liver is negative. ??Gallbladder is negative. ??Bile ducts are negative. ??Pancreas is negative. ??Spleen is negative. ??Adrenal glands are negative. ??Kidneys are negative. ??Bladder is grossly unremarkable though not well- distended. ??No pelvic mass. ??Calcified pelvic phleboliths. ??Abdominal aorta is normal caliber. No free air or fluid. ??No bowel obstruction. ??The colon is decompressed and not well evaluated. ??Appendix is within normal limits. ??There is liquid stool in the rectum, consistent with history of diarrhea. ??No definite focal bowel wall thickening/inflammatory changes identified. ??Stomach is decompressed and not well evaluated. ??No acute osseous and amount. Procedure Note Andrey Cooper MD - 07/26/2023 EXAMINATION: CT ABD+PEL W CON CLINICAL HISTORY: Nausea and vomiting COMPARISON: None DATE/TIME: 07/26/2023 3:59 PM TECHNIQUE: Multiplanar CT images of the abdomen and pelvis were obtained.IV contrast: uneventful intravenous administration of 100 mL Isovue 370.Oral contrast: None. A dose lowering technique was used for this procedure, which may include,but is not limited to, dose reduction technique, automated exposurecontrol, the use of iterative reconstruction, and ALARA (As Low AsReasonably Achievable) / Image Gently techniques. FINDINGS: Liver is negative. Gallbladder is negative. Bile ducts arenegative. Pancreas is negative. Spleen is negative. Adrenal glands arenegative. Kidneys are negative. Bladder is grossly unremarkable thoughnot well-distended. No pelvic mass. Calcified pelvic phleboliths.Abdominal aorta is normal caliber. No free air or fluid. No bowel obstruction. The colon is decompressedand not well evaluated. Appendix is within normal limits. There isliquid stool in the rectum, consistent with history of diarrhea. Nodefinite focal bowel wall thickening/inflammatory changes identified.Stomach is decompressed and not well evaluated. No acute osseous andamount. IMPRESSION: 1. No definite acute/localizing abnormality identified. 2. Liquid stool is noted. Referred By: Interpreted By: Andrey Cooper MD, 07/26/2023 4:51 PM Ирина Moralez BACK END DEVELOPER CT Final Result * POCT urine (07/26/2023 2:32 PM MIXING MACHINE ATTENDANT) [facility] URINE HCG TEST NEGATIVE Internal Control: VALID Aleida SAEZP POINT OF CARE TEST ORDERABL ES Final Result * CULTURE URINE (07/26/2023 2:30 PM MIXING MACHINE ATTENDANT) [facility] SPEC DESCRIPTION URINE CLEAN CATCH 07/26/2023 3:23 PM MIXING MACHINE ATTENDANT [facility] SPECIAL REQUESTS NO SPECIAL REQUEST 07/26/2023 3:23 PM MIXING MACHINE ATTENDANT [facility] CULTURE RESULT NO GROWTH 2 DAYS 07/28/2023 7:47 AM MIXING MACHINE ATTENDANT [facility] URINE SPECIMEN OBTAINED BY CLEAN CATCH PROCEDURE / Unknown 07/26/2023 2:30 PM MIXING MACHINE ATTENDANT 07/26/2023 3:22 PM MIXING MACHINE ATTENDANT Aleida SAEZP MICROBIOLOGY - GENERAL ORDE RABLES Final Result [facility] [address] [place] [address], [place] [phone] * (ABNORMAL) URINALYSIS (07/26/2023 2:30 PM MIXING MACHINE ATTENDANT) [facility] SPECIMEN TYPE URINE CLEAN CATCH 07/26/2023 2:29 PM [facility] COLOR (U) YELLOW 07/26/2023 3:21 PM [facility] TRANSPARENCY TURBID 07/26/2023 3:21 PM [facility] SPECIFIC GRAVITY (U) 1.036(H) 1.001 - 1.030 07/26/2023 3:21 PM [facility] U PH 5.5 5.0 - 9.0 07/26/2023 3:21 PM [facility] LEUKOCYTES (U) 25(A) NEGATIVE 07/26/2023 3:21 PM [facility] NITRITES NEGATIVE NEGATIVE 07/26/2023 3:21 PM [facility] PROTEIN RANDOM (U) 70(H) <30 MG/DL 07/26/2023 3:21 PM [facility] GLUCOSE (U) NORMAL NORMAL MG/DL 07/26/2023 3:21 PM [facility] KETONES MG/DL (U) 10(A) NEGATIVE MG/DL 07/26/2023 3:21 PM [facility] UROBILINOGEN NORMAL NORMAL MG/DL 07/26/2023 3:21 PM [facility] BILIRUBIN (U) NEGATIVE NEGATIVE MG/DL 07/26/2023 3:21 PM [facility] BLOOD (U) NEGATIVE NEGATIVE 07/26/2023 3:21 PM [facility] CULTURE & SENSITIVITY INDICATED? SPECIMEN SETUP FOR CULTURE 07/26/2023 3:21 PM [facility] MUCUS MANY /LPF 07/26/2023 3:22 PM [facility] WBC/HPF 3 <6 /HPF 07/26/2023 3:22 PM [facility] RBC/HPF 3 <6 /HPF 07/26/2023 3:22 PM MIXING MACHINE ATTENDANT [facility] SQUAMOUS EPITHELIALS MODERATE /HPF 07/26/2023 3:22 PM MIXING MACHINE ATTENDANT [facility] URINE SPECIMEN OBTAINED BY CLEAN CATCH PROCEDURE / Unknown 07/26/2023 2:30 PM MIXING MACHINE ATTENDANT Aleida Blackburn [facility] URINE ORDERABLES Final Resu lt [facility] [address] [place] [address], [place] [phone] * LIPASE (07/26/2023 1:48 PM MIXING MACHINE ATTENDANT) LIPASE 37 13 - 75 UNITS/L 07/26/2023 2:26 PM MIXING MACHINE ATTENDANT [facility] 07/26/2023 1:48 PM MIXING MACHINE ATTENDANT Aleida Blackburn [facility] Final Resul t Performing Organization Address City/[facility]/ZIP Co de Phone Number [facility] [address] [place] [address], [place] [phone] * (ABNORMAL) COMPREHENSIVE METABOLIC PANEL (07/26/2023 1:48 PM MIXING MACHINE ATTENDANT) GLUCOSE 112(H) 70 - 99 MG/DL 07/26/2023 2:26 PM MIXING MACHINE ATTENDANT [facility] BUN 14 7 - 18 MG/DL 07/26/2023 2:26 PM MIXING MACHINE ATTENDANT [facility] CREATININE S/P/B 0.88 0.55 - 1.02 MG/DL 07/26/2023 2:26 PM MIXING MACHINE ATTENDANT [facility] SODIUM S/P/B 139 136 - 145 MMOL/L 07/26/2023 2:26 PM [facility] POTASSIUM S/P/B 3.9 3.5 - 5.1 MMOL/L 07/26/2023 2:26 PM [facility] CHLORIDE S/P/B 108 100 - 108 MMOL/L 07/26/2023 2:26 PM [facility] CO2 22.1 21 - 32 MMOL/L 07/26/2023 2:26 PM [facility] CALCIUM S/P/B 9.7 8.5 - 10.1 MG/DL 07/26/2023 2:26 PM [facility] BILIRUBIN TOTAL S/P/B 0.4 0.2 - 1.2 MG/DL 07/26/2023 2:26 PM [facility] Comment: THIS ASSAY IS NOT RECOMMENDED FOR PATIENTS UNDERGOING TREATMENT WITH ELTROMBOPAG DUE TO THE POTENTIAL FOR FALSELY ELEVATED RESULTS. TOTAL PROTEIN S/P/B 8.8(H) 6.4 - 8.2 G/DL 07/26/2023 2:26 PM [facility] ALBUMIN S/P/B 3.9 3.4 - 5.0 G/DL 07/26/2023 2:26 PM [facility] AST 17 15 - 37 U/L 07/26/2023 2:26 PM [facility] ALT 18 14 - 55 U/L 07/26/2023 2:26 PM [facility] ALKALINE PHOSPHATASE S/P/B 85 50 - 136 U/L 07/26/2023 2:26 PM [facility] ANION GAP 8.9 5 - 15 MMOL/L 07/26/2023 2:26 PM [facility] BUN CREATININE RATIO 15.9 6 - 26 07/26/2023 2:26 PM [facility] A/G RATIO 0.8(L) 1.0 - 2.0 RATIO 07/26/2023 2:26 PM MIXING MACHINE ATTENDANT [facility] GFR ESTIMATE >90 >90 ML/MIN/1.7 3 M2 07/26/2023 2:26 PM MIXING MACHINE ATTENDANT [facility] Comment: NOTE: eGFR is not calculated for patients <18 years of age. This is an estimated GFR calculation using the new CKD EPI creatinine equation without race and so does not require a correction factor for race. This estimated GFR should not be used for calculating drug doses. 07/26/2023 1:48 PM MIXING MACHINE ATTENDANT Aleida Blackburn DIRECTOR PACKAGING LABORATORY Final Resul t [facility] [address] [place] [address], [place] [phone] * (ABNORMAL) CBC W/DIFF AUTOMATED (07/26/2023 1:48 PM MIXING MACHINE ATTENDANT) WBC 18.4(H) 4.5 - 11.0 x10'3/uL 07/26/2023 2:05 PM MIXING MACHINE ATTENDANT [facility] RBC 6.04(H) 4.20 - 5.40 x10'6/uL 07/26/2023 2:05 PM [facility] HGB 18.1(H) 12.0 - 16.0 G/DL 07/26/2023 2:05 PM MIXING MACHINE ATTENDANT [facility] HCT 52.9(H) 38.0 - 48.0 % 07/26/2023 2:05 PM [facility] MCV 87.6 81.0 - 99.0 FL 07/26/2023 2:05 PM [facility] MCH 30.0 27.0 - 31.0 PG 07/26/2023 2:05 PM [facility] MCHC 34.2 32.0 - 36.0 G/DL 07/26/2023 2:05 PM [facility] RDW 12.2 11.5 - 14.5 % 07/26/2023 2:05 PM [facility] PLT 370 130 - 400 x10'3/uL 07/26/2023 2:05 PM [facility] MPV 10.3 9.3 - 12.2 FL 07/26/2023 2:05 PM [facility] DIFFERENTIAL TYPE AUTOMATED DIFFERENTIAL 07/26/2023 2:05 PM [facility] NEUTROPHILS % 85.9 % 07/26/2023 2:05 PM [facility] LYMPHOCYTES % 8.1 % 07/26/2023 2:05 PM [facility] MONOCYTES % 4.5 % 07/26/2023 2:05 PM [facility] EOSINOPHILS 0.7 % 07/26/2023 2:05 PM [facility] BASOPHILS 0.3 % 07/26/2023 2:05 PM [facility] IMMATURE GRANS % 0.5 % 07/26/20 23 2:05 PM [facility] ABS. NEUTROPHILS TOTAL 15.79(H) 1.80 - 7.70 x10'3/uL 07/26/2023 2:05 PM [facility] ABS. LYMPHOCYTES 1.49 1.00 - 4.80 x10'3/uL 07/26/2023 2:05 PM [facility] ABS. MONOCYTES 0.82 0.24 - 0.86 x10'3/uL 07/26/2023 2:05 PM [facility] ABS. EOSINOPHILS 0.12 0.04 - 0.36 x10'3/uL 07/26/2023 2:05 PM [facility] ABS. BASOPHILS 0.06 0.01 - 0.08 x10'3/uL 07/26/2023 2:05 PM MIXING MACHINE ATTENDANT [facility] ABS. IMMATURE GRANULOCYTES 0.10 0.00 - 0.49 x10'3/uL 07/26/2023 2:05 PM MIXING MACHINE ATTENDANT [facility] 07/26/2023 1:48 PM MIXING MACHINE ATTENDANT Aleida Blackburn DIRECTOR PACKAGING LABORATORY Final Resul t [facility] [address] [place] [address], documented in this encounter Visit Diagnoses Diagnosis Vomiting and diarrhea- Primary Vomiting alone documented in this encounter Administered Medications Inactive Administered Medications - up to 3 most recent administrations Medication Order MAR Action Action Date Dose Rate Site iopamidol (ISOVUE-370) 76 % injection 100 mL 100 mL, Intravenous, IMG once as needed, Contrast, 1 dose, Starting on 07/26/23 at 1631, Until 07/26/23 at 1631 Given 07/26/2023 4:31 PM MIXING MACHINE ATTENDANT 100 mLs ondansetron (ZOFRAN) injection 4 mg 4 mg, Intravenous, Once, 1 dose, On 07/26/23 at 1345, IV push over 2-5 minutes. Given 07/26/2023 1:54 PM MIXING MACHINE ATTENDANT 4 mg ondansetron (ZOFRAN) injection 4 mg 4 mg, Intravenous, Once, 1 dose, On 07/26/23 at 1515, IV push over 2-5 minutes. Given 07/26/2023 3:19 PM MIXING MACHINE ATTENDANT 4 mg prochlorperazine (COMPAZINE) injection 10 mg 10 mg, Intravenous, Once, 1 dose, On 07/26/23 at 1715, If giving IV, administer diluted or undiluted by slow IV push at a maximum rate of 5 mg/minute. To reduce the risk of hypotension the patient must remain lying down and be observed for 30 minutes after receiving the medication. Given 07/26/2023 5:18 PM MIXING MACHINE ATTENDANT 10 mg sodium chloride 0.9% bolus infusion 1,000 mL 1,000 mL, Intravenous, Administer over 30 Minutes, Once, 1 dose, On 07/26/23 at 1345 New Bag 07/26/2023 1:55 PM MIXING MACHINE ATTENDANT 1,000 mLs sodium chloride 0.9% bolus infusion 1,000 mL 1,000 mL, Intravenous, Administer over 60 Minutes, Once, 1 dose, On 07/26/23 at 1515 New Bag 07/26/2023 3:18 PM MIXING MACHINE ATTENDANT 1,000 mLs documented in this encounter Active and Recently Administered Medications Times are shown in MIXING MACHINE ATTENDANT. Scheduled Medication Order 07/24/2023 07/25/2023 07/26/2023 ondansetron (ZOFRAN) injection 4 mg (COMPLETED) 4 mg, Intravenous, Once, 1 dose, On 07/26/23 at 1345, IV push over 2-5 minutes. 1354 (Given - Provid er: Dayanna Carranza RN) ondansetron (ZOFRAN) injection 4 mg (COMPLETED) 4 mg, Intravenous, Once, 1 dose, On 07/26/23 at 1515, IV push over 2-5 minutes. 1519 (Given - Provid er: Dayanna Carranza RN) prochlorperazine (COMPAZINE) injection 10 mg (COMPLETED) 10 mg, Intravenous, Once, 1 dose, On 07/26/23 at 1715, If giving IV, administer diluted or undiluted by slow IV push at a maximum rate of 5 mg/minute. To reduce the risk of hypotension the patient must remain lying down and be observed for 30 minutes after receiving the medication. 1718 (Given - Provid er: Dayanna Carranza RN) sodium chloride 0.9% bolus infusion 1,000 mL (COMPLETED) 1,000 mL, Intravenous, Administer over 30 Minutes, Once, 1 dose, On 07/26/23 at 1345 1355 (New Bag - Prov ider: Dayanna Carranza RN)1429 (Infusion Stop Time - Provider: Dayanna Carranza RN) sodium chloride 0.9% bolus infusion 1,000 mL (COMPLETED) 1,000 mL, Intravenous, Administer over 60 Minutes, Once, 1 dose, On 07/26/23 at 1515 1518 (New Bag - Prov ider: Dayanna Carranza, RN)1704 (Infusion Stop Time - Provider: Dayanna Carranza, RN) PRN Medication Order 07/24/2023 07/25/2023 07/26/2023 iopamidol (ISOVUE-370) 76 % injection 100 mL (COMPLETED) 100 mL, Intravenous, IMG once as needed, Contrast, 1 dose, Starting on 07/26/23 at 1631, Until 07/26/23 at 1631 1631 (Given - Provid er: Candelaria Watt, RTR) documented in this encounter Additional Health Concerns Assessment Noted Time PHQ-9 Depression Total Score: 9 08/18/19 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
--- OUTSIDE RECORDS SUMMARY | 2024-07-26 20:36 | XMS_ITS | Encounter Summary ---
Author Organization [facility] Address [address] [place] [address] Care Team Providers Care Gis Engineer Name Role Phone Unavailable Primary Care Provider Unavailabl e Encounter Details Date Type Department Care Team (Late st Contact Info) Description 07/03/[address] 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
--- OUTSIDE RECORDS SUMMARY | 2024-07-26 20:36 | XMS_ITS | Patient Health Summary ---
Author Organization [facility] Address [address] [place] [address] Care Team Providers Care Soil Conservation Teacher Name Role Phone Unavailable Primary Care Provider Unavailabl e Note from [facility],non-owned Affiliates and Associated Physician Practices is amultiple site organization consisting of ambulatory clinics and hospital sitesin [place], [place], [place] and [place]. This disclosure is being madepursuant to the Care Everywhere program and may not contain all information available regarding this patient. Last updated 18.[facility] Allergies No known active allergies Medications Be aware that medications may not be up to date on this document. Always verify current medications with the patient. 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
--- OUTSIDE RECORDS SUMMARY | 2024-07-26 20:36 | XMS_ITS | Clinical Summary ---
Author Organization 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 Gender Identity Not on file Sexual Orientation Not on file Plan of Treatment Health Maintenance Due Date Last Done Comments Hepatitis C Virus (HCV) Screening 2001 TdaP Immunization 2001 Human Papillomavirus (HPV) Immunization (1 - 3-dose series) 2016 Pap Smear 2022 SARS-COV-2 Immunization ( season) 2023 Influenza Immunization (Season Ended) 2024 Hepatitis B Immunization Completed 003, 01/06/2002, 2001 DTaP/Tdap/Td Immunization Discontinued 2006, 06/14/2003, 06/16/2002, Additional history exists Measles Mumps Rubella (MMR) Immunization Discontinued 02/24/2007, 12/14/2002 Polio (IPV) Immunization Discontinued 007, 09/16/2002, 04/16/2002, Additional history exists Varicella Immunization Discontinued 02/24/2007, 2002 Hepatitis A Immunization Discontinued 08/27/2017 Meningococcal Immunization (ACWY) Aged Out No longer eligible based on patient's age to complete this topic Pneumococcal Immunization Combined Aged Out No longer eligible based on patient's age to complete this topic Rotavirus Immunization Aged Out No lo nger eligible based on patient's age to complete this topic
--- OUTSIDE RECORDS SUMMARY | 2024-07-26 20:36 | XMS_ITS | Encounter Summary ---
Author Organization [facility] Address [address] [place] [address] Care Team Providers Care Returned Goods Sorter Name Role Phone Unavailable Primary Care Provider Unavailabl e Reason for Visit * Reason Comments SUICIDAL letter written yeste rday. * Auth/Cert Specialty Diagnoses / Procedures Referred By Contac t Referred To Contact Emergency Room Emergency Dept [address] [place] [id number] Referral ID Status Reason Start Date Expiration Date Visits Re quested Visits Authorized [id number] 09/08/2015 03/06/2016 1 Encounter Details Date Type Department Care Team (Late st Contact Info) Description 09/08/2015 5:14 PM TRUCK SALES REPRESENTATIVE - 09/08/2015 8:48 PM TRUCK SALES REPRESENTATIVE Emergency ER at [address] [address] Diana Lopez MD No Updated information Suicidal ideation; Depression Discharge Disposition: Home or Self Care Social History Tobacco Use Types Packs/Day Years [...] Sign Reading Time Taken Comments Blood Pressure 109/54 09/08/2015 8:00 PM TRUCK SALES REPRESENTATIVE Pulse 88 09/08/2015 8:00 PM TRUCK SALES REPRESENTATIVE Temperature 37.2 ??C (98.9 ??F) 09/08/2015 8:00 PM CS T Respiratory Rate 18 09/08/2015 8:00 PM TRUCK SALES REPRESENTATIVE Oxygen Saturation 100% 09/08/2015 7:04 PM TRUCK SALES REPRESENTATIVE Inhaled Oxygen Concentration - - Weight 60.2 kg (132 lb 11.5 oz) 09/08/2015 5:14 PM TRUCK SALES REPRESENTATIVE Height - - Body Mass Index - - documented in this encounter Discharge Instructions * Discharge Instructions* Daniela Ronquillo MD - 09/08/2015 8:25 PM TRUCK SALES REPRESENTATIVE Depression in Children WHAT YOU SHOULD KNOW: Depression is a medical condition that causes your child to feel sad, hopeless, or irritable. Depression may cause your child to lose interest in things he used to enjoy. He may also be angry, do poorly in school, isolate himself, or complain about pain. These feelings can interfere with your child's daily life. INSTRUCTIONS: Medicines: ?? Antidepressants may be given to improve or balance your child's mood. Your child may need to take this medicine for several weeks before he begins to feel better. Watch your child very closely when he begins to take antidepressants, or if his healthcare provider changes the amount or type of medicine he takes. Antidepressants increase the risk of suicide in some children. ?? Give your child's medicine as directed. Call your child's healthcare provider if you think the medicine is not working as expected. Tell him if your child is allergic to any medicine. Keep a current list of the medicines, vitamins, and herbs your child takes. Include the amounts, and when, how, and why they are taken. Bring the list or the medicines in their containers to follow-up visits. Carry your child's medicine list with you in case of an emergency. Follow up with your child's healthcare provider as directed: Take your child to his appointments. If your child cannot come to an appointment, schedule another one as soon as possible. Write down your questions so you remember to ask them during your child's visits. Medicine monitoring: If your child is taking antidepressants, his healthcare provider will monitor his progress at follow-up visits. He will ask your child questions to find out if medicine is helping to reduce symptoms of depression. Tell the healthcare provider about any problems your child has with his medicine. Sometimes the kind or amount of medicine may have to be changed. Take your child to therapy as directed: Therapy may be used to treat your child's depression. A therapist will help your child learn to cope with his thoughts and feelings. This can be done alone or in a group. It may also be done with family members. How to help your child: ?? Watch your child carefully for any behavior changes. Talk to your child's healthcare provider ifyou have concerns or questions about your child's behavior. Children with depression have an increased risk of suicide. ?? Encourage healthy eating and sleeping habits. Make sure your child eats a variety of healthy foods. Stick to a sleep schedule so he gets enough sleep. Your child may sleep better if his room is quiet and dark. ?? Make sure your child gets 1 hour of physical activity every day. Encourage your child to play sports or be active every day. Physical activity can reduce symptoms of depression. Contact your child's healthcare provider or psychiatrist if: ?? Your child says he wants to commit suicide. ?? Your child's mood gets worse. ?? Your child has new symptoms, such as headaches or nausea, after starting antidepressants. ?? You have questions or concerns about your child's condition or care. Return to the emergency department if: ?? Your child has done something on purpose to hurt himself, or he tries to commit suicide. ?? 2014 [employer] Information is for End User's use only and may not be sold, redistributed or otherwise used for commercial purposes. All illustrations and images included in CareNotes?? are the copyrighted property of [employer] or [employer]. The above information is an educational technician only. It is not intended as medical advice for individual conditions or treatments. Talk to your doctor, nurse or pharmacist before following any medical regimen to see if it is safe and effective for you. K SALES REPRESENTATIVE documented in this encounter Progress Notes * Terrance Edouard - 09/08/2015 6:46 PM CST Received call from [facility] , requesting evaluation of pt K SALES REPRESENTATIVE * Leon Mckeon - 09/08/2015 6:30 PM CST CENTRAL INTAKE ASSESSMENT: REASON FOR ASSESSMENT: Nelly Cespedes is a 14 y.o. female who presents to the ED with the initial chief complaint(s) per triage note of: Chief Complaint Patient presents with ??? SUICIDAL letter written yesterday. The above was entered during triage and not by author of this note. Informants: The patient and Pt's parents (Dean & Samanta Cespedes) PRECIPITATING EVENT: The patient is a 14 y.o. female presenting to the Emergency Department via personal transportation with a complaint of increased depression and vague suicidal ideations. The precipitating event is Ptpresents to [facility] at the recommendation of her outpatient therapist Filomena Sandy LCPC. Pt reportedly wrote a vague suicide note yesterday, September 07, while at school. Pt cannot give areason on why she ended up writing it. I wasn't even feeling suicidal at the time. Pt ended up giving the note to her boyfriend, Franki, who then shredded it up and threw it out. After coming home from school, Pt asked her dad to make an appointment with her outpatient therapist for today, September 08. During counseling appointment, Pt ended up confessing about the note. Pt was advised to present to the ED. During interview, Pt denies all suicidal and homicidal ideations. Pt does admit to hearing voices and seeing shadows at times. However, hallucinations are not present on a consistent basis. Pt does admit to increase in depression which is in relation to her family moving to [facility] approximately two years ago. Tough time getting adjusted. Pt's family is seeking outpatient services for their daughter. RISK TO SELF: (SI, Plan, Intent, Past Attempts, Self-injury, Unsafe Behaviors) The patient adamantly denies all suicidal ideations, plan, or intent. Pt has no prior suicide attempts. Pt does not endorse self-injurious or unsafe behaviors. Pt did have a history of cutting behaviors, but stopped in December 2014. Pt denies having access to firearms, knives, or weapons. RISK TO OTHERS: (HI, Plan, Intent, Aggressive Ideation or Behaviors, Past History) The patient adamantly denies homicidal ideations, plan, or intent. Pt does not endorse aggressive behaviors/ideations. SYMPTOMS OF PSYCHOSIS: (Hallucinations, Paranoia, Delusions, Bizarre Behaviors) The patient admits to hearing voices and seeing shadows at times. However, hallucinations are not present on a consistent basis. Pt reports states the hallucinations are hard to describe. No strong family history noted of psychosis. PSYCHIATRIC TREATMENT HISTORY: (Past Admits, Current Providers, Medications, Treatment Compliance, Family History) The patient has had no prior psychiatric admissions in the [facility] network. The patient reports that her current provider is Filomena Sandy LCPC with last appointment on September 08. Family history includes history of depression and use of illicit substances. Current Medications List: The patient is not currently on outpatient psychotropic medication. SUBSTANCE ABUSE: (Current Substance Abuse, What Type of Substance Used, When was the last time of use of Substance, How long using the Substance, Past History, Treatment History) Current Substance Abuse: Denies. Past History of Substance Abuse: Denies. Past Substance Abuse Treatment History: Denies. UDS was not collected. PSYCHOSOCIAL HISTORY: Stressors: Pt moved to [facility] approximately two years ago. She has been having difficultywith adjusting to new state. Moved from [place]. Pt with limited support with friends. Pt also identifies as bi-sexual. Not clarified if Pt's are aware of sexual orientation. Living situation: Pt resides with her parents. Work/education: Pt is currently enrolled in the eighth grade. Currently with the [employer]. Pt's family may be seeking [employer] for start of freshman year. Assets/supports: Pt's parents are main support in her life. History of physical or sexual abuse: denies Legal problems: denies Feel safe in current situation: Yes, feel safe RECENT CHANGES TO BEHAVIOR: Sleep:stable - 8 hours per night. ADL's: no change Appetite: normal Cognition: Insight Deficit Mood: Depressed, Despondent Interest/Motivation: normal Comments: N/a PRESENTATION DURING ASSESSMENT: Mood: depressed, flat, blunt and calm Affect: Flat, is mood congruent Grooming and Hygiene: Fair Eye Contact: Good Speech: normal Behavior: calm and cooperative Orientation: Time, Person, Place, Situation Insight/Judgement: Poor insight, Poor judgement and Poor decision-making skills Comments: This bond underwriter did have a chance to speak with Pt's outpatient therapist, Filomena Sandy LCPC. Case discussed. DISPOSITION: Discussed case with Dr. Graham (Psychiatrist) who agrees that patient does not meet criteria for inpatient behavioral health services. Discussed case with Dr. Lopez (ED Physician) who agrees the patient does not meet inpatient criteria for behavioral health services. Appointment made for [facility] for September 11 @ 8:00am. Referral for [facility] outpatient services also given. Updated Allyssa (ED RN) of patient's status and discharge disposition. All verbalized understanding. Pt left with parents back to private residence. Provisional Diagnosis: Major Depressive Disorder, Recurrent, Moderate (F33.1) Assessment Times: [id number] K SALES REPRESENTATIVE documented in this encounter ED Notes * Allyssa Dalton RN - 09/08/2015 8:40 PM CST Pt alert and calm at time of discharge. VSS. Discharge plan for home reviewed with parent. Medication instructions discussed, schedule suggested. Given opportunity for questions. Family member verbalized understanding. K SALES REPRESENTATIVE * Daniela Ronquillo MD - 09/08/2015 8:13 PM CST Received sign out from Dr. Hodges at 2015: This is a 14yo female who h/o depression, SIB. She gave her BF a suicide note yesterday. Endorses auditory and visual hallucinations. Has been assessed by [facility], awaiting plans for placement. 2024: Cleared by [facility] for d/c home. Provided with resources for outpatient psychiatric follow up. Daniela Ronquillo MD Pediatric Resident, PGY-3 09/08/2015 8:26 PM Pager: [phone] K SALES REPRESENTATIVE * Diana Lopez MD - 09/08/2015 6:54 PM CST Provider contact with the patient: 09/08/2015 18:54 Nelly Cespedes [id number] [facility] EMERGENCY DEPARTMENT History Chief Complaint Patient presents with ??? SUICIDAL letter written yesterday. I have read the resident/MAGAZINE DESIGNER history. Unless appended by me below, I agree with findings as documented. HPI Comments: 14 yr girl with suicidal thoughts. Patient reports that she feels depressed and feelssad most of the time. She moved to [facility] 2 years ago. Previous h/o cutting herself a few months ago. Talks to her School counselor regularly. She is bullied at School. Yesterday she gave a suicidenote to her boy friend which was destroyed, but now reports that she doesn't have suicidal thoughts. Has no suicidal plan. Denies headache, nausea, vomiting or any other symptoms. Past hx healthy Not on any meds Family hx Mom's relatives - depression Review of Systems Review of Systems All other systems reviewed and are negative. BP 128/79 mmHg Pulse 92 Temp(Src) 98.8 ??F Resp 18 Wt 60.2 kg (132 lb 11.5 oz) Physical Exam I have reviewed the resident/MAGAZINE DESIGNER physical exam. Unless appended by me below, I agree with the PE as documented. Physical Exam Constitutional: She appears well-developed and well-nourished. No distress. HENT: Head: Normocephalic. Mouth/Throat: No oropharyngeal exudate. Eyes: Conjunctivae are normal. Right eye exhibits no discharge. Left eye exhibits no discharge. Neck: Neck supple. Cardiovascular: Normal rate, regular rhythm and normal heart sounds. Pulmonary/Chest: Effort normal. No respiratory distress. She has no wheezes. She has no rales. Abdominal: Soft. She exhibits no distension and no mass. There is no tenderness. There is no guarding. Musculoskeletal: Normal range of motion. Neurological: She is alert. No cranial nerve deficit. She exhibits normal muscle tone. Coordinationnormal. Skin: Skin is warm. She is not diaphoretic. Psychiatric: Her behavior is normal. Nursing note and vitals reviewed. Procedures Procedures ECG Interpretation ECG Interpretation Lab/SPO2 Interpretation No results found for this visit on 09/08/15. No orders to display Progress Notes ED Course Central intake consulted Central intake suggests patient can be discharged for outpatient psychiatry treatment. Patient denies suicidal thoughts in ER Advised supportive care and to fU with Psychiatry and discharged home. Adv to also FU with PCP Medical Decision Making The total time providing critical care (excluding time spent for procedures) was: 0 minutes. I have personally seen and examined this patient. I have fully participated in the care of this patient. I have reviewed all pertinent clinical information available to me during this encounter, including history, physical exam and plan. I have reviewed nursing notes, available labs and radiographic studies. With respect to physicians in training and mid-level providers, I agree with the assessment and plan except if revised in my note. Clinical Impression Final diagnoses: Suicidal ideation Depression K SALES REPRESENTATIVE * Mariel Hodges MD - 09/08/2015 6:14 PM CST EMERGENCY DEPARTMENT 09/08/2015 Dear Doctor, We had the pleasure of caring for your patient, Nelly Cespedes in our emergency department on 09/08/2015. A note from the provider(s) who cared for your patient is attached. Should you wish to access any laboratory results, please call . Should you wish to access any radiology results, please call , option 3. In addition, you can access patient information 24 hours a day, from any computer, through [employer], the online version of our electronic medical record. If you would like to use this service, please call Alexandra Franklin, Connectivity Coordinator, at . We appreciate the opportunity to care for your patients. If you would like additional information, please call the emergency department directly at . Sincerely, Mariel Hodges MD Division of Emergency Medicine [facility], [place] [facility] [place] EMERGENCY DEPARTMENT Provider contact with the patient: 09/08/2015 18:14 Nelly Cespedes [id number] [facility] EMERGENCY DEPARTMENT History Chief Complaint Patient presents with ??? SUICIDAL letter written yesterday. HPI 14 year old female presents with SI. She recently moved to [facility] ~2 years ago and since then has been depressed . The majority of the time she has a sad mood. + h/o cutting a few months ago. Has a counselor outside of school that she regularly sees. She feels unsafe at school due to bullying. She wrote a suicide note and gave it to her boyfriend to rip up yesterday. She asked her father today to see her counselor immediatly and she recommended coming to the ER. + AH and VH. Past medical history: none, no surgeries, no medications History Social History ??? Marital Status: Single Spouse Name: N/A Number of Children: N/A ??? Years of Education: N/A Occupational History ??? Not on file. Social History Main Topics ??? Smoking status: Passive Smoke Exposure - Never Smoker ??? Smokeless tobacco: Not on file ??? Alcohol Use: No ??? Drug Use: No ??? Sexual Activity: Not on file Other Topics Concern ??? Not on file Social History Narrative ??? No narrative on file Medications No current outpatient prescriptions on file. Review of Systems Review of Systems Constitutional: Negative for fever. HENT: Negative for rhinorrhea. Respiratory: Negative for cough. Gastrointestinal: Negative for vomiting and diarrhea. Skin: Negative for rash. Neurological: Negative for weakness and headaches. Psychiatric/Behavioral: Positive for suicidal ideas and hallucinations. BP 128/79 mmHg Pulse 92 Temp(Src) 98.8 ??F Resp 18 Wt 60.2 kg (132 lb 11.5 oz) Physical Exam Physical Exam Constitutional: She appears well-developed and well-nourished. No distress. HENT: Head: Normocephalic. Nose: Nose normal. Eyes: Conjunctivae are normal. Pupils are equal, round, and reactive to light. Neck: Normal range of motion. Cardiovascular: Normal rate, regular rhythm, normal heart sounds and intact distal pulses. Pulmonary/Chest: Effort normal and breath sounds normal. Abdominal: Soft. Bowel sounds are normal. She exhibits no distension. There is no tenderness. Neurological: She is alert. She exhibits normal muscle tone. Skin: Skin is warm. No rash noted. Healing horizontal abrasions to L forearm Psychiatric: Flat affect Procedures Procedures ECG Interpretation ECG Interpretation Lab/SPO2 Interpretation Progress Notes ED Course Central intake paged awaiting recommendations Patient signed out to Dr. Ronquillo at 815pm Medical Decision Making Clinical Impression Final diagnoses: None K SALES REPRESENTATIVE documented in this encounter Plan of Treatment Not on file documented as of this encounter Visit Diagnoses Diagnosis Suicidal ideation Depression Depressive disorder, not elsewhere classified documented in this encounter
--- OUTSIDE RECORDS SUMMARY | 2024-07-26 20:36 | XMS_ITS | Continuity of Care Document ---
Author Organization [facility] [place] Address [address] [place] [place] [address] Assessment No assessment recorded. Plan of Treatment Reminders Order Date Submit Date Provider Last Modified By Organization Details Last Modified Time Details Appointments OB ROUTINE 2023 08:45A Nidia BERG MD Not available Not available Not available Lab None recorded. Referral None recorded. Procedures None recorded. Surgeries None recorded. Imaging US, obstetric , 2nd or 3rd trimester 2023 024 [email or web address] [place], [address], [address], [place], [address], 05/19/2024 20:34:58 Medication Orders None recorded. Patient TargetsNo targets recorded. Patient InstructionsNo instructions recorded. Reason for Referral None Reported. Results Created Date Observation Date Name Description Value Unit Range Abnormal Flag Note LastModifiedBy Organization Detail LastModifiedTime 03/24/2003/24/2024 US, obste tric, nucha l trans lucen cy No observ ation record ed. [facility] [address], [place], [address], 03/24/2024 12:59:48 03/24/2003/24/2024 US, obste tric, nucha l trans lucen cy No observ ation record ed. [email or web address] [address], [place], [address], 03/24/2024 13:45:30 05/19/2005/19/2024 US, obste tric, 2nd or 3rd trime ster No observ ation [facility] ed[facility] [address], [place], [address], 05/19/2024 13:03:32 05/19/20 24 05/19/2024 US, obste tric, follo w-up No observ ation record ed. [email or web address] [address], [place], [address], 05/20/2024 12:55:49 06/16/2006/16/2024 US, obste tric, follo w-up No observ ation record ed. [email or web address] [place] [address], [place], [address], 06/16/2024 11:37:57 06/16/20 24 06/16/2024 US, obste tric, follo w-up No observ ation record ed. [address], [place], [address], 06/17/2024 13:53:59 07/21/20 24 07/21/2024 US, obste tric, follo w-up No observ ation record ed. [facility] [address], [place], [address], 07/21/2024 13:09:44 07/21/20 24 07/21/2024 US, obste tric, follo w-up No observ ation record ed. [email or web address] [address], [place], [address], 07/22/2024 18:18:47 Result Notes None recorded. Problems Name Problem SNOMED Code Status Onset Date Resolution Date Notes Provider Name and Address Organization Details Recorded Time Missed miscarri age 00261403 Completed 201801/17/2021 Missed ;Recorde d Elsewher e: No Locat ion: [facility] S ource: EHR Rn Hospital rina: N Dianati ce ID: 0001 Catracho lable Time: 04:00:00 PM Giovanna cardona, [facility] 1 16:25:08 Pregnanc y detectio n examinat ion Completed 201801/17/2021 Encounte r for pregnanc y test, result positive ;Recorde d Elsewher e: No Locat ion: [facility] S ource: [facility] Hospital rina: N Practi ce ID: 0001 Catracho lable Time: 01:45:00 PM [facility] 16:25:10 Finding of contents of cervix 252382310 Completed 201801/17/2021 Weeks of gestatio n of pregnanc y not specifie d;Record ed Elsewher e: No Locat ion: [facility] D[facility] ID: 0001 Catracho lable Time: 04:30:00 PM [facility] 16:24:57 Pregnanc y test negative [id number] Completed 201801/17/2021 Encounte r for pregnanc y test, result negative ;Recorde d Elsewher e: No Locat ion: [facility] S ource: [facility] Hospital rina: N Practi ce ID: 0001 Catracho lable Time: 10:00:00 AM Giovanna cardona, [facility] 16:25:13 Antenata l screenin g Completed 201801/17/2021 Encounte r for antenata l screenin g for uncertai n dates;Re corded Elsewher e: No Locat ion: [facility] S ource: E[facility] R[facility] Hospital rina: N Practi ce ID: 0001 Catracho lable Time: 01:00:00 PM Giovanna Suh brendan, [facility] 06/09/202 [address] 16:24:[address] Concept Completed 201801/17/2021 Encntr for routine child health exam w/o abnormal findings ;Recorde d Elsewher e: No Locat ion: [facility] S ource: EHR Rn Hospital rina: N Dianati ce ID: 0001 Catracho lable Time: 09:15:00 AM [facility] 1 16:25:15 Miscarri age without complica tion [id number] Completed 201801/17/2021 Incomple te spontane ous without complica tion;Rec orded Elsewher e: No Locat ion: [facility] Source: EHR Rn Hospital rina: N Practi ce ID: 0001 Catracho lable Time: 02:00:00 PM [facility] [address] 16:25:[address] Concept Completed 201801/17/2021 Encntr for manager enrollment exam (general ) (routine ) w/o abn findings ;Practic e ID: 0001 [facility] Su[facility] 1 16:25:18 Pregnanc y 89510929 Completed 202009/17/2021 [facility] 4 12:37:01 Acute urinary tract infectio n 806212579 Completed Treated Sravani Xiomara anderson [facility] 2 16:07:41 Recurren t miscarri age 549891632 Completed Sravani anderson [facility] 2 16:07:41 Marginal insertio n of umbilica l cord 60432526 Completed 2020 serial growth u/s Sravani [facility], [facility] 2 16:07:41 Herpes simplex 90723637 Active takes daily valtrex, increase to bid at 36 weeks Yulissa Potts CNM [address], [place], [address], [facility] 4 13:58:29 Pregnanc y 07140275 Active 2023 Giovanna cardona, [facility] 4 12:37:01 Herpes simplex 88484320 Active takes daily valtrex, increase to bid at 36 weeks Yulissa Potts CNM [address], [place], [address], [facility] 4 13:58:29 Problem Notes None recorded. Procedures Surgical History Date Name Laterality Status Provider Name and Address Organization Details Recorded Time 02/25/20 24 Date of Last Pap Smear completed Giovanna Suh [facility] 02/25/2024 14:33:16 08/11/19 23 termination of completed Giovanna Suh [facility] 02/25/2024 14:35:32 Imaging Results Imaging Date Name Status LastModified by Organiz ation Details LastModified Time 05/19/2024 US, obstetric, 2nd or 3rd trimester completed corona [place] [address], [place], [address], 05/19/2024 13:03:32 05/19/2024 US, obstetric, follow-up completed [email or web address] [address], [facility], [place], [address], 05/20/2024 12:55:49 Procedure Notes None recorded. Medical Equipment None [...] VAGINALL Y AT BEDTIME FOR 7 DAYS 06/09 /2021 completed Not Available Not Available Not Available [...] Prescrib jim Queen e: No Locat ion: [facility] M odify By: bhargavi gonzalez DateTime : [...] by oral route every day 11/20 completed [facility] [id number] 0-95 Lot #[id number] Exp 10/03 Not Available Not Available Not [...] Address Organization Details Last Updated DateTime 05/19/2024 80325.32 741 g 31.2 kg/m2 167.64 cm 105 mm[Hg] 70 mm[Hg] Giovanna Suh [facility] 12:00:26 Social History Question Answer Notes LastModified by Organizat ion Details LastModified Time Tobacco Smoking Status Current Every Day Smoker Giovanna Suh [facility] 02/25/2024 14:35:21 Do You Have An Advance Directive? No [email or web address] Information not available 01/17/2021 What Is Your Level Of Alcohol Consumption? None [email or web address] Information not available 01/17/2021 If You Are , What Was Your Level Of Alcohol Consumption Prior To ? Occasional [email or web address] Information not available 02/25/2024 Are You Blind Or Do You Have Difficulty Seeing? No Information not available 01/17/2021 What Is Your Level Of Caffeine Consumption? Occasional Information not available 01/17/2021 How Much Tobacco Do You Chew? None [email or web address] Information not available 01/17/2021 In The 14 Days Before Symptom Onset, Have You Had Close Contact With A Laboratory-confir med COVID-19 While That Case Was Ill? No [email or web address] Information not available 01/17/2021 In The 14 Days Before Symptom Onset, Have You Had Close Contact With A Person Who Is Under Investigation For COVID-19 While That Person Was Ill? No [email or web address] Information not available 01/17/2021 Have You Been To An Area Known To Be High Risk For COVID-19? No [email or web address] Information not available 01/17/2021 Are You Deaf Or Do You Have Serious Difficulty Hearing? No [email or web address] Information not available 01/17/2021 What Type Of Diet Are You Following? REGULAR [email or web address] Information not available 01/17/2021 What Is The Highest Grade Or Level Of School You Have Completed Or The Highest Degree You Have Received? [id number] [email or web address] Information not available 01/17/2021 What Is Your Occupation? N/A [email or web address] Information not available 03/24/2024 Are There Any Guns Present In Your Home? No [email or web address] Information not available 01/17/2021 Do You Use Protection During Sex? No [email or web address] Information not available 01/17/2021 Do You Use Your Seat Belt Or Car Seat Routinely? Yes [email or web address] Information not available 01/17/2021 Do You Have Smoke And Carbon Monoxide Detectors In Your Home? Yes [email or web address] Information not available 01/17/2021 At What Age Did You Start Smoking Tobacco? 15 [email or web address] Information not available 02/14/2021 How Much Tobacco Do You Smoke? 0.25 PPD [email or web address] Information not available 03/24/2024 Do You Feel Stressed (tense, Restless, Nervous, Or Anxious, Or Unable To Sleep At Night)? [id number] [email or web address] Information not available 03/24/2024 Do You Use Any Illicit Or Recreational Drugs? No [email or web address] Information not available 01/17/2021 Do You Use Sunscreen Routinely? No [email or web address] Information not available 01/17/2021 How Many Years Have You Smoked Tobacco? 6 [email or web address] Information not available 03/24/2024 Have You Used IV Drugs? No [email or web address] Information not available 01/17/2021 Do You Or Have You Ever Used Any Other Forms Of Tobacco Or Nicotine? No Information not available 02/25/2024 Sex: Unknown Functional Status Question Answer Note LastModified by Organizat ion Details LastModified Time Do you have difficulty walking or climbing stairs? No Information not available 07/19/2022 Are you able to walk? YESWOREST [email or web address] Information not available 01/17/2021 Are you able to care for yourself? Yes Information not available 07/19/2022 Do you have difficulty dressing or bathing? No Information not available 07/19/2022 What is your exercise level? Moderate [email or web address] Information not available 01/17/2021 Mental Status None recorded. Family History Relationship Description Onset Age of this Age Resolved Age Notes LastModified by Organization Details LastModified Time Father Hyperlipidem ia [email or web address] Not available 2023 10:41:30 Maternal Grandmother Diabetes mellitus [email or web address] Not available 2019 08:44:30 Mother Anxiety disorder [email or web address] Not available 02/24 14:31:54 Mother Depressive disorder [email or web address] Not available 03/24 12:20:19 Paternal Grandmother Anxiety disorder [email or web address] Not available 03/24 12:20:19 Paternal Grandmother Depressive disorder [email or web address] Not available 03/24 12:20:19 Brother Anxiety disorder [email or web address] Not available 03/24 12:20:19 Brother Depressive disorder [email or web address] Not available 03/24 12:20:19 Medical History Condition Response Allergies (Food, seasonal, environmental ) N Other N Drug/Latex Allergies/Reactions N Blood Transfusion N Breast Cancer N Dermatologic Disorders N Lung Disease N Defects or Inherited Disease N Breast Problem N Gestational Diabetes N Hematologic disorders N Anesthesia Complications N History of STI Y Deep Vein Thrombosis N Polycystic ovary syndrome N Anxiety Disorder Y Autoimmune disease N Arthritis N Polyps N Infertility N Acid Reflux (GERD) N History of abnormal pap N Cancer N Varicosities N Stroke N Neurologic/Epilepsy N Endometriosis N High Cholesterol N Fibromyalgia N Headaches N Kidney Disease N Heart Problems N Thyroid Problems N Kidney or Bladder Problems N GI Problems N Eating Disorder [...] Diagnosis/Indication Diagnosis SNOMED-CT Code Diagnosis ICD10 Code 213248 Yulissa Potts [facility] [address],[facility] [place] [address] 04/21/2024 10:39:46 04/21/2024 12:04:49 Routine care 086022521 Z34.92 [id number] [facility] [address],[facility] [place] [address] 05/19/2024 10:48:18 05/19/2024 11:54:12 screening for malformation 512579422 Z36.3 Z3A.20 [id number] Yulissa Potts [facility] [address],[place] [address] 05/19/2024 10:53:05 05/19/2024 12:10:23 Gestation period, 20 weeks 43783264 Z3A.20 Health Concerns Section Related Observation LastModified by Organization Detai ls LastModified Time None Recorded Concern Status LastModified by Organization Details LastModified Time None Recorded Payers Encounter Date Sequence Insurance Name Policy Number Policy Guerrero Covered Member ID Guerrero Member ID Guarantor Name 05/19/2024 1 [place] [employer] [id number] A Dean Cespedes [id number] Nelly Cespedes OBGyn Episode Ob Episode Information Episode Created Date Number of Fetuses Patient Bloodtype Patient rh Status Prepregnancy Weight lbs Domestic Partner Domestic Partner Phone Father Name Bell Staff Status 03/24/20 24 1 A Negative 184 Jl Kramer OPEN Fetus Data First Name Last Name Admitted to NICU Weight (g) Sex Living Outcome Pediatric Complications Fetus ID Race Codes Race Delivery Type [id number] Problems Problem Notes Problem Name Start Date End Date Resolution Snomed Code Not e Herpes simplex [id number] takes daily valtrex, increase to bid at [...] Weight in lbs Pre/Post Dialysis Refused Weight 184.802201140408 BP Diastolic BP Location Tested BP Systolic [...] Type Weight in lbs Pre/Post Dialysis Refused 187.721182135012 BP Diastolic BP Location Tested BP Systolic [...] Type Weight in lbs Pre/Post Dialysis Refused 193.12716679127 BP Diastolic BP Location Tested BP Systolic [...] Type Weight in lbs Pre/Post Dialysis Refused 204.948846752647 BP Diastolic BP Location Tested BP Systolic [...] Type Weight in lbs Pre/Post Dialysis Refused 215.339656907801 BP Diastolic BP Location Tested BP Systolic [...]
--- OUTSIDE RECORDS SUMMARY | 2024-07-26 20:36 | XMS_ITS | Encounter Summary ---
Author Organization [facility] Address [address] [place] [address]. [place], [place] [address] [place] [address] Care Team Providers Care Lunchroom Monitor Name Role Phone Unavailable Primary Care Provider Unavailabl e Encounter Details Date Type Department Care Team (Late st Contact Info) Description 07/31/2020 Orders Only [facility] Family & Internal Medicine [address] [address] Yulissa Elam MA Social History Tobacco Use Types Packs/Day Years [...]
--- OUTSIDE RECORDS SUMMARY | 2024-07-26 20:36 | XMS_ITS | Referral Summary ---
Author Organization [facility] Address [address] [place] [address] Care Team Providers Care Bsa/Aml Compliance Officer Name Role Phone Unavailable Primary Care Provider Unavailabl e Source Comments [facility],non-owned Affiliates and Associated Physician Practices is amultiple site organization consisting of ambulatory clinics and hospital sitesin [place], [place], [place] and [place]. This disclosure is being madepursuant to the Care Everywhere program and may not contain all information available regarding this patient. Last updated 18.[facility] Allergies No known active allergies Medications Be [...] Comments Blood Pressure 102/74 09/21/2015 7:22 PM PHYSICAL THER Pulse 68 09/21/2015 7:22 PM PHYSICAL THER Temperature 36.6 ??C (97.8 ??F) 09/21/2015 7:22 PM CS T Respiratory Rate 16 09/21/2015 7:22 PM PHYSICAL THER Oxygen Saturation 100% 09/08/2015 7:04 PM PHYSICAL THER Inhaled Oxygen Concentration - - Weight 58.1 kg (128 lb) 09/21/2015 7:22 PM PHYSICAL THER Height 167.6 cm (5' 5.98 ) 09/21/2015 7:22 PM CS T Body Mass Index 20.67 09/21/2015 7:22 PM PHYSICAL THER Plan of Treatment Not on file
--- OUTSIDE RECORDS SUMMARY | 2024-07-26 20:36 | XMS_ITS | Encounter Summary ---
Author Organization [facility] Address [address] [place] [address]. [place], [place] [address] [place] [address] Care Team Providers Care Police Liaison Officer Name Role Phone Oneal Thomas DO Primary Care Provider + Encounter Details Date Type Department Care Team (Latest Contact Info) Description 08/03/2020 Scan HEALTH INFO SRVCS Scanned, Documents Social History Tobacco Use Types Packs/Day Years Used Date Smoking Tobacco: Never Assessed PHQ-2 Answer Date Recorded PHQ-2 Score - If the patient scores above 3, please move on to questions 3-9 2 08/18/2020 Comments Unknown Sex and Gender Information Value Date Recorded Sex Assigned at Not on file Legal Sex Female 2:58 PM CDT Gender Identity Not on file Sexual Orientation Not on file COVID-19 Exposure Response Date Recorded In the last month, have you been in contact with someone who was confirmed or suspected to have Coronavirus / COVID-19? 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
--- OUTSIDE RECORDS SUMMARY | 2024-07-26 20:36 | XMS_ITS | Clinical Summary ---
Author Organization [facility] Address [address] [place] [address] Care Team Providers Care Purchasing Associate Name Role Phone Unavailable Primary Care Provider Unavailabl e Source Comments [facility] [employer]non-owned Affiliates and Associated Physician Practices is amultiple site organization consisting of ambulatory clinics and hospital sitesin [place], [place], [place] and [place]. This disclosure is being madepursuant to the Care Everywhere program and may not contain all information available regarding this patient. Last updated 18.[facility] [employer] Allergies No known active allergies Medications Be [...] Comments Blood Pressure 102/74 09/21/2015 7:22 PM CEREAL CHEMIST Pulse 68 09/21/2015 7:22 PM CEREAL CHEMIST Temperature 36.6 ??C (97.8 ??F) 09/21/2015 7:22 PM CS T Respiratory Rate 16 09/21/2015 7:22 PM CEREAL CHEMIST Oxygen Saturation 100% 09/08/2015 7:04 PM CEREAL CHEMIST Inhaled Oxygen Concentration - - Weight 58.1 kg (128 lb) 09/21/2015 7:22 PM CEREAL CHEMIST Height 167.6 cm (5' 5.98 ) 09/21/2015 7:22 PM CS T Body Mass Index 20.67 09/21/2015 7:22 PM CEREAL CHEMIST Plan of Treatment Health Maintenance Due Date Last Done Comments PAP SMEAR 2001 HIV SCREENING 2016 HPV VACCINE (1 - 3-dose series) 2016 CHLAMYDIA/GONORRHEA SCREENING 2017 HEPATITIS C SCREENING 12/03/2019 DTAP/TDAP/TD VACCINES (1 - Tdap) 2020 HEPATITIS B VACCINE (1 of 3 - 19+ 3-dose series) 2020 DEPRESSION SCREENING 08/11/2023 COVID-19 VACCINE (1 - 2023-2 5 season) 2024 INFLUENZA VACCINE (#1) 2024 ZOSTER VACCINE (1 of 2) 12/08/2051 HIB VACCINE Aged Out No longer eligi ble based on patient's age to complete this topic MENINGOCOCCAL VACCINE Aged Out No umm sarah eligible based on patient's age to complete this topic PNEUMOCOCCAL VACCINE Aged Out No long er eligible based on patient's age to complete this topic
--- OUTSIDE RECORDS SUMMARY | 2024-07-26 20:36 | XMS_ITS | Encounter Summary ---
Author Organization [facility] Address [address] [place] [address]. [place] [address] [place] [address] Care Team Providers Care Community Center Director Name Role Phone Oneal Thomas DO Primary Care Provider + Encounter Details Date Type Department Care Team (Latest Contact Info) Description 08/18/2020 Travel Social History Tobacco Use Types Packs/Day Years [...] COVID-19? No / Unsure 08/18/2020 1:05 PM WATER VALVE REPAIRER documented as of this encounter Plan of Treatment Not on file documented as of this encounter Visit Diagnoses Not on filedocumented in this encounter Additional Health Concerns Assessment Noted Time PHQ-9 Depression Total Score: 9 08/18/19 21 1:30 PM WATER VALVE REPAIRER documented as of this encounter Care Teams Community Center Director Relationship Specialty Start Date End Date Oneal Thomas DO [address] [place] [address] PCP - General FAMILY PRACTICE 08/18/20 07/25/23 documented as of this encounter
--- OUTSIDE RECORDS SUMMARY | 2024-07-26 20:36 | XMS_ITS | Encounter Summary ---
Author Organization [facility] Address [address] [place] [address]. [place], [place] [address] [place] [address] Care Team Providers Care Digital Service Engineer Name Role Phone Unavailable Primary Care Provider Unavailabl e Encounter Details Date Type Department Care Team (Late st Contact Info) Description 04/11/2020 Orders Only [facility] Group Family & Internal Medicine [address] [address] Yulissa Elam MA Social History Tobacco Use [...]
--- OUTSIDE RECORDS SUMMARY | 2024-07-26 20:36 | XMS_ITS | Clinical Summary ---
Author Organization [facility] Address [address] [place] [address]. [place] [address] [place] [address] Care Team Providers Care Director Counseling Bureau Name Role Phone None, Provider MD Primary Care Provider Unavaila ble Allergies No known active allergies Medications VENTOLIN HFA 108 (90 Base) MCG/ACT inhaler INL 2 PFS PO QID PRF SOB OR WHZ 0 Active cefdinir 300 MG Cap capsuleIndications:A xillary lymphadenopathy Take 1 capsule (300 mg total) by mouth 2 (two) times daily. 20 capsule 1 Active ondansetron (ZOFRAN-ODT) 4 MG disintegrating tablet Take 1 tablet (4 mg total) by mouth every 8 (eight) hours as needed for Nausea. 20 tablet 3 Active Active Problems Problem Noted Date Diagnosed Date Candidiasis of vagina 08/18/2020 Vaginal bleeding 08/18/2020 Depression with suicidal ideation 04/11/2020 Major depressive disorder, r ecurrent, severe w/o psychotic behavior ([facility]) 04/11/2020 Marijuana use 04/11/2020 Social anxiety disorder 04/11/2020 test negative 07/12/2019 examination or test, unconfi rmed 01/11/2019 screening for rais ed alpha-fetoprotein levels in amniotic fluid ([facility]) 11/13/2018 Resolved Problems Problem Noted Date Diagnosed Date Resolved Date COVID-19 08/18/2020 08/18/2020 Spontaneous without complication ([facility]) 05/27/2019 08/18/2020 Immunizations Name Administration Dates Next Due DTaP (Daptacel) 02/24/2007,06/14/2003,06/16/2002 ,04/16/2002,02/08/2002 Hepatitis A (Generic) 08/27/2017 Hepatitis B Pediatric 09/16/2002,01/06/2002,08/2001 Hib (Generic) 03/08/2003,06/16/2002,04/16/2002 ,02/08/2002 MMR 02/24/2007,12/14/2002 Polio IPV (Ipol) 02/24/2007,09/16/2002, 2,02/08/2002 Varicella Vaccine 02/24/2007,12/14/2002 Family History Medical History Relation Comments Hyperlipidemia Father low back pain Father No Known Problems Mother Relation Status Comments Father Alive Mother Alive Social History Tobacco Use Types Packs/Day Years [...] Comments Blood Pressure 105/66 07/26/2023 5:37 PM CONTRACTS ADMINISTRATOR Pulse 106 07/26/2023 5:37 PM CONTRACTS ADMINISTRATOR Temperature 36.2 ??C (97.1 ??F) 07/26/2023 1:31 PM CS T Respiratory Rate 18 07/26/2023 5:37 PM CONTRACTS ADMINISTRATOR Oxygen Saturation 100% 07/26/2023 5:37 PM CONTRACTS ADMINISTRATOR Inhaled Oxygen Concentration - - Weight 81.2 kg (179 lb) 07/26/2023 1:31 PM CONTRACTS ADMINISTRATOR Height 167.6 cm (5' 6 ) 07/26/2023 1:31 PM CONTRACTS ADMINISTRATOR Body Mass Index 28.89 07/26/2023 1:31 PM CONTRACTS ADMINISTRATOR Plan of Treatment Health Maintenance Due Date Last Done Comments Cervical Cancer Screening Pap Smear (Age 21 to 29) Every 3 Years 2001 Cervical Cancer Screening 2001 Annual Physical 2004 DTaP, Tdap and Td Vaccines (6 - Tdap) 2012 02/24/2007, 06/14/2003, 06/16/2002, Additional history exists HPV Vaccines (1 - 3-dose series) 2016 Hepatitis C 12/08/2019 COVID-19 Vaccine ( season) 2024 Influenza Adult (#1) 2024 Hepatitis B Vaccines Completed 09/16/2002, 01/06/2002, 2001 Meningococcal Vaccine Aged Out No umm sarah eligible based on patient's age to complete this topic Pneumococcal Vaccine: Pediatrics (0 to 5 Years) and At-Risk Patients (6 to 64 Years) Aged Out No longer eligible based on patient's age to complete this topic RSV Immunizations Under 20 Months Aged Out No longer eligible based on patient's age to complete this topic Insurance [facility] Care Teams Director Counseling Bureau Relationship Specialty Start Date End Date None, Provider, PCP - General UNKNOWN PHYSICIAN SPECIALTY 07/26/23
--- OUTSIDE RECORDS SUMMARY | 2024-07-26 20:36 | XMS_ITS | Encounter Summary ---
Author Organization [facility] Address [address] [place] [address]. [place] [address] [place] [address] Care Team Providers Care Film Editor Supervisor Name Role Phone Oneal Thomas DO Primary Care Provider + Encounter Details Date Type Department Care Team (Latest Contact Info) Description 08/18/2020 Scan HEALTH INFO SRVCS Scanned, Documents Social [...] COVID-19? No / Unsure 08/18/2020 1:05 PM DIVORCE ATTORNEY documented as of this encounter Plan of Treatment Not on file documented as of this encounter Visit Diagnoses Not on filedocumented in this encounter Additional Health Concerns Assessment Noted Time PHQ-9 Depression Total Score: 9 08/18/19 21 1:30 PM DIVORCE ATTORNEY documented as of this encounter Care Teams Film Editor Supervisor Relationship Specialty Start Date End Date Oneal Thomas DO [address] [place] [id number] PCP - General FAMILY PRACTICE 08/18/20 07/25/23 documented as of this encounter
--- OUTSIDE RECORDS SUMMARY | 2024-07-26 20:36 | XMS_ITS | Encounter Summary ---
Author Organization [facility] Address [address] [place] [address]. [place], [place] [id number] [place] [address] Care Team Providers Care Snaker Driving Horses Name Role Phone None, Provider Primary Care Provider Unavaila ble Encounter Details Date Type Department Care Team (Latest Contact Info) Description 07/26/2023 Travel Social History Tobacco Use Types Packs/Day [...] Total Score: 9 08/18/19 21 1:30 PM RN SOCIAL SERVICES documented as of this encounter Care Teams Snaker Driving Horses Relationship Specialty Start Date End Date None, Provider, PCP - General UNKNOWN PHYSICIAN SPECIALTY 07/26/23 documented as of this encounter
--- OUTSIDE RECORDS SUMMARY | 2024-07-26 20:36 | XMS_ITS | Encounter Summary ---
Author Organization [facility] Address [address] [place] [address]. [place] [address] [place] [address] Care Team Providers Care Nuclear Equipment Design Engineer Name Role Phone Oneal Thomas DO Primary Care Provider + Reason for Referral * Consultation/Treatment (Routine) - Closed Specialty Diagnoses / Procedures Referred By Contac t Referred To Contact [facility] Behavioral Health Diagnoses Major depressive disorder, recurrent, severe w/o psychotic behavior ([facility]) Oneal Thomas DO [address] [place] [address] Phone: tel: fax: Referral ID Status Reason Start Date Expiration Date V isits Requested Visits Authorized [id number] Closed Specialty Services 08/18/2020 09/18/2021 1 1 RER Reason for Visit * Reason Comments Depression establish care Lump under right arm for a couple of weeks Flank Pain left side pain off a nd on for 3-4 weeks Encounter Details Date Type Department Care Team (Late st Contact Info) Description 08/18/2020 1:20 PM STEERER Office Visit [facility] Medical [facility] Family & Internal Medicine [facility] [address] [place] [phone] Oneal Thomas DO [address] [place], [place] [id number] Depression (establish care ); Lump (under right arm for a couple of weeks ); Flank Pain (left side pain off and on for 3-4 weeks ) Social History Tobacco Use Types Packs/Day Years [...] COVID-19? No / Unsure 08/18/2020 1:05 PM STEERER documented as of this encounter Last Filed Vital Signs Vital Sign Reading Time Taken Comments Blood Pressure 94/56 08/18/2020 1:19 PM STEERER Pulse 96 08/18/2020 1:19 PM STEERER Temperature 36.8 ??C (98.2 ??F) 08/18/2020 1:19 PM CS T Respiratory Rate 16 08/18/2020 1:19 PM STEERER Oxygen Saturation 98% 08/18/2020 1:19 PM STEERER Inhaled Oxygen Concentration - - Weight 67.4 kg (148 lb 9.6 oz) 08/18/2020 1:19 P M STEERER Height 167.6 cm (5' 6 ) 08/18/2020 1:1 9 PM STEERER Body Mass Index 23.98 08/18/2020 1:19 PM STEERER Body Mass Index Percentile 74.51% 08/18/2020 1:1 9 PM STEERER Growth Chart: [facility] (Girls, 2- 20 Years) documented in this encounter Patient Instructions * Patient Instructions* Oneal Thomas DO - 08/18/2020 1:20 PM STEERER [facility], [facility] (Dr. Carter) [address], [place] [address] RER documented in this encounter Progress Notes * Oneal Francis DO Martha - 08/18/2020 1:20 PM CST Images from the original note were not included. GENERAL OFFICE VISIT Encounter Date: 08/18/2020 Chief Complaint: 19-year-old female presents for Depression ([facility] ), Lump (under right arm for a couple ofweeks ), and Flank Pain (left side pain off and on for 3-4 weeks ) HPI: Patient present for major depressive disorder. Pt was first diagnosed with this 5 years ago. Concurrent psychiatric conditions include borderline personality disorder and anxiety. Pt is currently taking nothing. Pt does not see counseling. Pt's symptoms are not controlled. Pt has axillary lymphadenopathy. She was given Keflex for this, but did not finish. It is not growing but not disappearing either. Pt presents for side pain. She states it started about a month ago. She would get pain and it felt numbness. It hasn't bothered her much recently. She did not take any medication for it at the time. Review of Systems Constitutional: Negative for fever. Respiratory: Negative for shortness of breath. Genitourinary: Negative for dysuria. Musculoskeletal: See HPI Skin: See HPI Neurological: See HPI Patient Active Problem List Diagnosis ??? Depression with suicidal ideation ??? Major depressive disorder, recurrent, severe w/o psychotic behavior (CMS/HCC) ??? Marijuana use ??? Social anxiety disorder ??? Candidiasis of vagina ??? screening for raised alpha-fetoprotein levels in amniotic fluid ??? examination or test, unconfirmed ??? test negative ??? Vaginal bleeding Past Medical History: Diagnosis Date ??? Anxiety ??? COVID-19 08/18/2020 ??? Depression ??? Spontaneous without complication 05/27/2019 ??? Yeast infection of the vagina Past Surgical History: Procedure Laterality Date ??? TOOTH EXTRACTION Family History Problem Relation Name Age of Onset ??? No Known Problems Mother ??? Hyperlipidemia Father ??? Other (low back pain) Father Social History Socioeconomic History ??? Marital status: Single Spouse name: Not on file ??? Number of children: Not on file ??? Years of education: Not on file ??? Highest education level: Not on file Occupational History ??? Not on file Social Needs ??? Financial resource strain: Not on file ??? Food insecurity Worry: Not on file Inability: Not on file ??? Transportation needs Medical: Not on file Non-medical: Not on file Tobacco Use ??? Smoking status: Former Smoker Packs/day: 0.25 Years: 4.00 Pack years: 1.00 Types: Cigarettes Quit date: 07/21/2020 Years since quittin.0 ??? Smokeless tobacco: Never Used Substance and Sexual Activity ??? Alcohol use: Not Currently ??? Drug use: Not Currently Comment: Occasional marijuana smoker ??? Sexual activity: Not on file Lifestyle ??? Physical activity Days per week: Not on file Minutes per session: Not on file ??? Stress: Not on file Relationships ??? Social connections Talks on phone: Not on file Gets together: Not on file Attends rastafarian service: Not on file Active member of club or organization: Not on file Attends meetings of clubs or organizations: Not on file Relationship status: Not on file ??? Intimate partner violence Fear of current or ex partner: Not on file Emotionally abused: Not on file Physically abused: Not on file Forced sexual activity: Not on file Other Topics Concern ??? Not on file Social History Narrative ??? Not on file Immunization History Administered Date(s) Administered ??? DTaP (Daptacel) 02/08/2002, 04/16/2002, 06/16/2002, 06/14/2003, 02/24/2007 ??? Hepatitis A (Generic) 08/27/2017 ??? Hepatitis B Pediatric 2001, 01/06/2002, 09/16/2002 ??? Hib (Generic) 02/08/2002, 04/16/2002, 06/16/2002, 03/08/2003 ??? MMR 12/14/2002, 02/24/2007 ??? Polio IPV (Ipol) 02/08/2002, 04/16/2002, 09/16/2002, 02/24/2007 ??? Varicella Vaccine 12/14/2002, 02/24/2007 Current Outpatient Medications Medication Sig Dispense Refill ??? cefdinir 300 MG Cap capsule Take 1 capsule (300 mg total) by mouth 2 (two) times daily. 20 capsule 0 ??? fluconazole 150 MG tablet Take 1 tablet (150 mg total) by mouth once for 1 dose. Repeat in 72 hours if needed 2 tablet 0 ??? VENTOLIN HFA 108 (90 Base) MCG/ACT inhaler INL 2 PFS PO QID PRF SOB OR WHZ No current facility-administered medications for this visit. Current Outpatient Medications on File Prior to Visit Medication Sig ??? VENTOLIN HFA 108 (90 Base) MCG/ACT inhaler INL 2 PFS PO QID PRF SOB OR WHZ No current facility-administered medications on file prior to visit. No Known Allergies Objective: Filed Vitals: 08/18/20 1319 BP: 94/56 Pulse: 96 Resp: 16 Temp: 98.2 ??F (36.8 ??C) TempSrc: Skin SpO2: 98% Weight: 67.4 kg (148 lb 9.6 oz) Height: 5' 6 (1.676 m) Physical Exam Constitutional: She is oriented to person, place, and time and well-developed, well-nourished, and in no distress. HENT: Head: Normocephalic and atraumatic. Right Ear: External ear normal. Left Ear: External ear normal. Eyes: Conjunctivae are normal. No scleral icterus. Neck: Neck supple. Cardiovascular: Normal rate, regular rhythm and normal heart sounds. Exam reveals no gallop and no friction rub. No murmur heard. Pulmonary/Chest: Effort normal and breath sounds normal. No respiratory distress. She has no wheezes. She has no rales. Abdominal: Soft. Bowel sounds are normal. There is no abdominal tenderness. Musculoskeletal: General: No edema. Lymphadenopathy: She has no cervical adenopathy. Neurological: She is alert and oriented to person, place, and time. Skin: Skin is warm and dry. No rash noted. Axillary lymphadenopathy on right, consistent with described from previous DEFENSE ATTORNEY visit Psychiatric: Mood and affect normal. Nursing note and vitals reviewed. Urine test: Negative Assessment & Plan: Nelly was seen today for depression, lump and flank pain. Diagnoses and all orders for this visit: Encounter to establish care with new doctor Major depressive disorder, recurrent, severe w/o psychotic behavior ([facility]) - Ambulatory Referral to Psychiatry Axillary lymphadenopathy - cefdinir 300 MG Cap capsule; Take 1 capsule (300 mg total) by mouth 2 (two) times daily. - fluconazole 150 MG tablet; Take 1 tablet (150 mg total) by mouth once for 1 dose. Repeat in 72 hours if needed BMI 23.0-23.9, adult Acute left-sided low back pain without sciatica Discussion/Summary: Will refer to psych as per above. No current SI; will defer medication treatment to psych. Will treat axillary lymphadenopathy as per above; continue regular follow-up with DEFENSE ATTORNEY. Will request previous records for evaluation as pt has had two miscarriages. Monitor back pain. Will have pt f/u in 3-6 months. Pt v/u. Time Spent: 35 minutes were spent in total for today's visit. This includes but is not limited to chart preparation, direct patient evaluation & consultation, patient counseling, and documentation. Please see Assessment & Plan for specific topics discussed during counseling and coordinationof care. Oneal Thomas DO RER documented in this encounter Plan of Treatment Scheduled Referrals Name Type Priority Associated Diagnoses Orde r Schedule Ambulatory Referral to Psychiatry Referral Routine Major depressive disorder, recurrent, severe w/o psychotic behavior ([facility]) Ordered: 08/18/2020 documented as of this encounter Visit Diagnoses Diagnosis Encounter to establish care with new doctor- Primary Other reasons for seeking consultation Major depressive disorder, recurrent, severe w/o psychotic behavior ([facility]) Major depressive disorder, recurrent episode, severe, without mention of psychotic behavior Axillary lymphadenopathy Enlargement of lymph nodes BMI 23.0-23.9, adult Acute left-sided low back pain without sciatica documented in this encounter Additional Health Concerns Assessment Noted Time PHQ-9 Depression Total Score: 9 08/18/19 21 1:30 PM STEERER documented as of this encounter Care Teams Nuclear Equipment Design Engineer Relationship Specialty Start Date End Date Oneal Thomas DO [address] [place] [id number] PCP - General FAMILY PRACTICE 08/18/20 07/25/23 documented as of this encounter
--- OUTSIDE RECORDS SUMMARY | 2024-07-26 20:37 | XMS_ITS | Continuity of Care Document ---
Author Organization [facility] Address [address] [place] [address] Assessment Encounter Date Assessment Date Assessment LastModified by Organization Details LastModified Time 06/16/2024 06/16/2024 Patient is _24__weeks . Discussed plan. Not available 06/16/2024 11:54:02 Plan of Treatment Reminders Order Date Submit Date Provider Last Modified By Organization Details Last Modified Time Details Appointments OB ROUTINE 2023 08:45A Ximena BERG MD Not available Not available Not available Lab None recorded . Referral None recorded . Procedures None recorded . Surgeries None recorded . Imaging None recorded . Medication Orders Valtrex 500 mg tablet [address] [place] [address] [id number], [address] [facility] [address], [place], [place], [id number], 06/16/2024 12:01:31 Patient TargetsNo targets recorded. Patient InstructionsNo instructions recorded. Reason for Referral None Reported. Results Created Date Observation Date Name Description Value Unit Range Abnormal Flag Note LastModifiedBy Organization Detail LastModifiedTime 03/24/2003/24/2024 US, obste tric, nucha l trans lucen cy No observ ation record ed. [facility] [address], [place], [address], 03/24/2024 12:59:48 03/24/2003/24/2024 US, obste tric, nucha l trans lucen cy No observ ation record ed. [email or web address] [address], [place], [address], 03/24/2024 13:45:30 05/19/2005/19/2024 US, obste tric, 2nd or 3rd trime ster No observ ation record ed. [facility] [address], [place], [address], 05/19/2024 13:03:32 05/19/2005/19/2024 US, obste tric, follo w-up No observ ation record ed. [email or web address] [address], [place], [address], 05/20/2024 12:55:49 06/16/2006/16/2024 US, obste tric, follo w-up No observ ation record ed. [email or web address] [place] [address], [place], [address], 06/16/2024 11:37:57 06/16/2006/16/2024 US, obste tric, follo w-up No observ ation record ed. [email or web address] [address], [place], [address], 06/17/2024 13:53:59 07/21/2007/21/2024 US, obste tric, follo w-up No observ ation record ed. [facility] [address], [place], [address], 07/21/2024 13:09:44 07/21/2007/21/2024 US, obste tric, follo w-up No observ ation record ed. [email or web address] [address], [place], [address], 07/22/2024 18:18:47 Result Notes None recorded. Problems Name Problem SNOMED Code Status Onset Date Resolution Date Notes Provider Name and Address Organization Details Recorded Time Missed miscarri age 45955591 Completed 201801/17/2021 Missed ;Recorde d Elsewher e: No Locat ion: [facility] yoandy [facility] S ource: EHR Appeals Reviewer Veteran rina: N Practi ce ID: [id number] Catracho lable Time: 04:00:00 PM Giovanna Suh [facility] 1 16:25:08 Pregnanc y detectio n examinat ion Completed 201801/17/2021 Encounte r for pregnanc y test, result positive ;Recorde d Elsewher e: No Locat ion: [facility] S ource: EHR Appeals Reviewer Veteran rina: N Practi ce ID: [id number] Catracho lable Time: 01:45:00 PM Giovanna Bowentz [facility] 16:25:10 Finding of contents of cervix [id number] Completed 201801/17/2021 Weeks of gestatio n of pregnanc y not specifie d;Record ed Elsewher e: No Locat ion: [facility] S ource: EHR Appeals Reviewer Veteran rina: N Practi ce ID: [id number] Catracho lable Time: 04:30:00 PM Giovanna Suh [facility] 16:24:57 Pregnanc y test negative [id number] Completed 201801/17/2021 Encounte r for pregnanc y test, result negative ;Recorde d Elsewher e: No Locat ion: [facility] S ource: EHR Appeals Reviewer Veteran rina: N Practi ce ID: [id number] Catracho lable Time: 10:00:00 AM Giovanna Suh [facility] 16:25:13 Antenata l screenin g Completed 201801/17/2021 Encounte r for antenata l screenin g for uncertai n dates;Re corded Elsewher e: No Locat ion: [facility] S ource: EHR Appeals Reviewer Veteran rina: N Dianati ce ID: [id number] Catracho lable Time: 01:00:00 PM Giovanna cardona [facility] [address] 16:24:[address] Concept Completed 201801/17/2021 Encntr for routine child health exam w/o abnormal findings ;Recorde d Elsewher e: No Locat ion: Rosaline pitt [facility] S ource: EHR Appeals Reviewer Veteran rina: N Dianati ce ID: [id number] Catracho lable Time: 09:15:00 AM Giovanna Suh [facility], [facility] 1 16:25:15 Miscarri age without complica tion [id number] Completed 201801/17/2021 Incomple te spontane ous without complica tion;Rec orded Elsewher e: No Locat ion: [facility] Source: EHR Appeals Reviewer Veteran rina: N Winston ce ID: [id number] Catracho lable Time: 02:00:00 PM Giovanna Suh [facility], [facility] [address] Concept Completed 201801/17/2021 Encntr for lapping machine tender exam (general ) (routine ) w/o abn findings ;Practic e ID: [id number] Giovanna Suh [facility], [facility] 1 16:25:18 Pregnanc y 68210423 Completed 202009/17/2021 Giovanna Suh [facility], [facility] 4 12:37:01 Acute urinary tract infectio n 035552533 Completed Treated Sravani anderson [facility] 2 16:07:41 Recurren t miscarri age 272015190 Completed Sravani anderson [facility] 2 16:07:41 Marginal insertio n of umbilica l cord 27129429 Completed 2020 serial growth u/s Sravani Moseleyyareli anderson null, [facility] 2 16:07:41 Herpes simplex 78490561 Active takes daily valtrex, increase to bid at 36 weeks Yulissa Potts CNM [address], [place], [address], [facility] 4 13:58:29 Pregnanc y 82091229 Active 2023 Giovanna cardona, [facility] 4 12:37:01 Herpes simplex 54274651 Active takes daily valtrex, increase to bid at 36 weeks Yulissa Potts CNM [address], [place], [address], [facility] 4 13:58:29 Problem Notes None recorded. Procedures Surgical History Date Name Laterality Status Provider Name and Address Organization Details Recorded Time 02/25/20 24 Date of Last Pap Smear completed Giovanna Suh [facility] 02/25/2024 14:33:16 08/11/19 23 termination of completed Giovanna Suh [facility] 02/25/2024 14:35:32 Imaging Results None [...] route every day 12/[address] [facility] e: No Locat ion: Rosaline pitt [facility] M odify By: [email or web address] gonzalez DateTime : [...] by oral route every day 11/20 completed [facility] 0430-042 0-95 Lot #[id number] Exp 10/03 Not Available Not Available Not [...] Details Last Updated DateTime 06/16/2024 167.64 cm 92683.843 48 g 106 mm[Hg] 73 mm[Hg] Giovanna Suh [facility] 06/16/2024 11:45:39 Social History Question Answer Notes LastModified by Organizat ion Details LastModified Time Tobacco Smoking Status Current Every Day Smoker Giovanna Suh [facility] 02/25/2024 14:35:21 Do You Have An Advance Directive? No [email or web address] Information not available 01/17/2021 What Is Your Level Of Alcohol Consumption? None [email or web address] Information not available 01/17/2021 If You Are , What Was Your Level Of Alcohol Consumption Prior To ? Occasional [email or web address] Information not available 02/25/2024 Are You Blind Or Do You Have Difficulty Seeing? No [email or web address] Information not available 01/17/2021 What Is Your Level Of Caffeine Consumption? Occasional [email or web address] Information not available 01/17/2021 How Much Tobacco Do You Chew? None [email or web address] Information not available 01/17/2021 In The 14 Days Before Symptom Onset, Have You Had Close Contact With A Laboratory-confir med COVID-19 While That Case Was Ill? No [email or web address] Information not available 01/17/2021 In The 14 Days Before Symptom Onset, Have You Had Close Contact With A Person Who Is Under Investigation For COVID-19 While That Person Was Ill? No [email or web address] Information not available 01/17/2021 Have You Been To An Area Known To Be High Risk For COVID-19? No Information not available 01/17/2021 Are You Deaf Or Do You Have Serious Difficulty Hearing? No [email or web address] Information not available 01/17/2021 What Type Of Diet Are You Following? REGULAR [email or web address] Information not available 01/17/2021 What Is The Highest Grade Or Level Of School You Have Completed Or The Highest Degree You Have Received? AS50573-6 [email or web address] Information not available 01/17/2021 What Is Your Occupation? N/A Information not available 03/24/2024 Are There Any Guns Present In Your Home? No [email or web address] Information not available 01/17/2021 Do You Use Protection During Sex? No [email or web address] Information not available 01/17/2021 Do You Use Your Seat Belt Or Car Seat Routinely? Yes [email or web address] Information not available 01/17/2021 Do You Have Smoke And Carbon Monoxide Detectors In Your Home? Yes [email or web address] Information not available 01/17/2021 At What Age Did You Start Smoking Tobacco? 15 [email or web address] Information not available 02/14/2021 How Much Tobacco Do You Smoke? 0.25 PPD Information not available 03/24/2024 Do You Feel Stressed (tense, Restless, Nervous, Or Anxious, Or Unable To Sleep At Night)? [id number] [email or web address] Information not available 03/24/2024 Do You Use Any Illicit Or Recreational Drugs? No [email or web address] Information not available 01/17/2021 Do You Use Sunscreen Routinely? No [email or web address] Information not available 01/17/2021 How Many Years Have You Smoked Tobacco? 6 [email or web address] Information not available 03/24/2024 Have You Used IV Drugs? No Information not available 01/17/2021 Do You Or Have You Ever Used Any Other Forms Of Tobacco Or Nicotine? No [email or web address] Information not available 02/25/2024 Sex: Unknown Functional Status Question Answer Note LastModified by Organizat ion Details LastModified Time Do you have difficulty walking or climbing stairs? No Information not available 07/19/2022 Are you able to walk? YESWOREST [email or web address] Information not available 01/17/2021 Are you able to care for yourself? Yes Information not available 07/19/2022 Do you have difficulty dressing or bathing? No Information not available 07/19/2022 What is your exercise level? Moderate Information not available 01/17/2021 Mental Status None recorded. Family History Relationship Description Onset Age of this Age Resolved Age Notes LastModified by Organization Details LastModified Time Father Hyperlipideximena [email or web address] Not available 2023 10:41:30 Maternal Grandmother Diabetes mellitus [email or web address] Not available 2019 08:44:30 Mother Anxiety disorder [email or web address] Not available 02/24 14:31:54 Mother Depressive disorder [email or web address] Not available 03/24 12:20:19 Paternal Grandmother Anxiety disorder [email or web address] Not available 03/24 12:20:19 Paternal Grandmother Depressive disorder [email or web address] Not available 03/24 12:20:19 Brother Anxiety disorder [email or web address] Not available 03/24 12:20:19 Brother Depressive disorder [...] Diagnosis/Indication Diagnosis SNOMED-CT Code Diagnosis ICD10 Code 896254 Abby Sheets [place] [address] [address] 05/19/2024 10:48:18 05/19/2024 11:54:12 screening for malformation [id number] Z36.3 Z3A.20 [id number] Yulissa Potts [facility] [address],[place] [address] 05/19/2024 10:53:05 05/19/2024 12:10:23 Gestation period, 20 weeks 29172538 Z3A.20 [id number] [facility] [address],[place] [address] 06/16/2024 10:43:49 06/16/2024 11:37:27 screening 384764693 Z36.2 Z3A.24 [id number] Yulissa Potts [facility] [address],[place] [address] 06/16/2024 10:46:47 06/16/2024 12:04:08 Gestation period, 24 weeks 754034288 Z3A.24 Herpes simplex 20001645 B00.9 Health Concerns Section Related Observation LastModified by Organization Detai ls LastModified Time None Recorded Concern Status LastModified by Organization Details LastModified Time None Recorded Payers Encounter Date Sequence Insurance Name Policy Number Policy Guerrero Covered Member ID Guerrero Member ID Guarantor Name 06/16/2024 1 [employer] [employer] [id number] Nayana Cespedes [id number] 91 Nelly Cespedes OBGyn Episode Ob Episode Information Episode Created Date Number of Fetuses Patient Bloodtype Patient rh Status Prepregnancy Weight lbs Domestic Partner Domestic Partner Phone Father Name Pulverizer Operator Status 03/24/20 24 1 A Negative 184 Jl Nia OPEN Fetus Data First Name Last Name Admitted to NICU Weight (g) Sex Living Outcome Pediatric Complications Fetus ID Race Codes Race Delivery Type [id number] Problems Problem Notes Problem Name Start Date End Date Resolution Snomed Code Not e Herpes simplex [id number] takes daily valtrex, increase to bid at 36 weeks Olivier Calculation OLIVIER Calculation Method Initial Oliiver Date Initial Exam Date Initial Exam Provider [...] Weight in lbs Pre/Post Dialysis Refused Weight 184.328076260952 BP Diastolic BP Location Tested BP Systolic [...] Type Weight in lbs Pre/Post Dialysis Refused 187.338215397672 BP Diastolic BP Location Tested BP Systolic [...] Type Weight in lbs Pre/Post Dialysis Refused 193.65723147021 BP Diastolic BP Location Tested BP Systolic [...] Type Weight in lbs Pre/Post Dialysis Refused 204.084279132013 BP Diastolic BP Location Tested BP Systolic [...] Type Weight in lbs Pre/Post Dialysis Refused 215.171469264403 BP Diastolic BP Location Tested BP Systolic [...]
== END 2024-07-23 16:06 | disposition home or self-care (01) ==
PROVIDERS: Advanced Practice Midwife; Admitting Provider Obstetrics & Gynecology; Visit Provider Obstetrics & Gynecology
DX: O26.893 Other specified pregnancy related conditions, third trimester (principal); R25.2 Cramp and spasm; Z3A.29 29 weeks gestation of pregnancy
CPT/HCPCS: 81001; 87086; G0378; G0379

== ENCOUNTER 2024-09-25 21:42 | Observation (INO) | payer BC, SELFPAY ==
--- OUTSIDE RECORDS SUMMARY | 2024-09-26 00:27 | XMS_ITS | Referral Summary ---
Author Organization [facility] Address [address] [place] [address] Care Team Providers Care Shutdown Planner Name Role Phone Unavailable Primary Care Provider Unavailabl e Source Comments [facility],non-owned Affiliates and Associated Physician Practices is amultiple site organization consisting of ambulatory clinics and hospital sitesin [place], [place], [place] and [place]. This disclosure is being madepursuant to the Care Everywhere program and may not contain all information available regarding this patient. Last updated 18.[facility] Allergies No known active allergies Medications Be [...] Comments Blood Pressure 102/74 09/21/2015 7:22 PM HOSE MENDER Pulse 68 09/21/2015 7:22 PM HOSE MENDER Temperature 36.6 C (97.8 F) 09/21/2015 7:22 PM HOSE MENDER Respiratory Rate 16 09/21/2015 7:22 PM HOSE MENDER Oxygen Saturation 100% 09/08/2015 7:04 PM HOSE MENDER Inhaled Oxygen Concentration - - Weight 58.1 kg (128 lb) 09/21/2015 7:22 PM HOSE MENDER Height 167.6 cm (5' 5.98 ) 09/21/2015 7:22 PM CS T Body Mass Index 20.67 09/21/2015 7:22 PM HOSE MENDER Plan of Treatment Not on file
--- OUTSIDE RECORDS SUMMARY | 2024-09-26 00:27 | XMS_ITS | Clinical Summary ---
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
--- OUTSIDE RECORDS SUMMARY | 2024-09-26 00:27 | XMS_ITS | Clinical Summary ---
Author Organization [facility] Address [facility] [place] [address] Care Team Providers Care Spider Assembler Name Role Phone None, Provider MD Primary [...] disorder, r ecurrent, severe w/o psychotic behavior ([facility]) 04/11/2020 Marijuana use 04/11/2020 Social anxiety disorder 04/11/2020 test negative 07/12/2019 examination or test, unconfi rmed 01/11/2019 screening for rais ed alpha-fetoprotein levels in amniotic fluid ([facility]) 11/13/2018 Resolved Problems Problem Noted Date Diagnosed Date Resolved Date COVID-19 08/18/2020 08/18/2020 Spontaneous without complication ([facility]) 05/27/2019 08/18/2020 Immunizations Name Administration Dates Next Due DTaP (Daptacel) 02/24/2007,06/14/2003,06/16/2002 ,04/16/2002,02/08/2002 Hepatitis A (Generic) 08/27/2017 Hepatitis B Pediatric 09/16/2002,01/06/2002,0508/2001 Hib (Generic) 03/08/2003,06/16/2002,04/16/2002 ,02/08/2002 MMR 02/24/2007,12/14/2002 Polio [...] Comments Blood Pressure 105/66 07/26/2023 5:37 PM SHOWROOM SALESPERSON Pulse 106 07/26/2023 5:37 PM SHOWROOM SALESPERSON Temperature 36.2 C (97.1 F) 07/26/2023 1:31 PM SHOWROOM SALESPERSON Respiratory Rate 18 07/26/2023 5:37 PM SHOWROOM SALESPERSON Oxygen Saturation 100% 07/26/2023 5:37 PM SHOWROOM SALESPERSON Inhaled Oxygen Concentration - - Weight 81.2 kg (179 lb) 07/26/2023 1:31 PM SHOWROOM SALESPERSON Height 167.6 cm (5' 6 ) 07/26/2023 1:31 PM SHOWROOM SALESPERSON Body Mass Index 28.89 07/26/2023 1:31 PM SHOWROOM SALESPERSON Plan of Treatment Health Maintenance Due Date Last Done Comments Annual Physical 2004 DTaP, Tdap and Td Vaccines (6 - Tdap) 2012 02/24/2007, 06/14/2003, 06/16/2002, Additional history exists HPV Vaccines (1 - 3-dose series) 2016 Meningococcal B Vaccine (1 of 2 - Standard) 2017 Hepatitis C 12/08/2019 COVID-19 Vaccine ( season) 2024 Influenza Adult (#1) 2024 Cervical Cancer Screening Pap Smear (Age 21 to 29) Every 3 Years 11/26/2024 11/26/2021 Cervical Cancer Screening 11/26/2024 Hepatitis B Vaccines Completed 09/16/2002, 01/06/2002, 2001 [...] patient's age to complete this topic Insurance [facility] Care Teams Spider Assembler Relationship Specialty Start Date End Date None, Provider, PCP - General UNKNOWN PHYSICIAN SPECIALTY 07/26/23
--- OUTSIDE RECORDS SUMMARY | 2024-09-26 00:27 | XMS_ITS | Patient Health Summary ---
Author Organization [facility] Address [address] [place] [address] Care Team Providers Care Dormitory Supervisor Name Role Phone Unavailable Primary Care Provider Unavailabl e Note from [facility],non-owned Affiliates and Associated Physician Practices is amultiple site organization consisting of ambulatory clinics and hospital sitesin [place], [place], [place] and [place]. This disclosure is being madepursuant to the Care Everywhere program and may not contain all information available regarding this patient. Last updated 18.[facility] [email or web address] Allergies No known active allergies Medications Be [...] Comments Blood Pressure 102/74 09/21/2015 7:22 PM BOOTH SUPERVISOR Pulse 68 09/21/2015 7:22 PM BOOTH SUPERVISOR Temperature 36.6 C (97.8 F) 09/21/2015 7:22 PM BOOTH SUPERVISOR Respiratory Rate 16 09/21/2015 7:22 PM BOOTH SUPERVISOR Oxygen Saturation 100% 09/08/2015 7:04 PM BOOTH SUPERVISOR Inhaled Oxygen Concentration - - Weight 58.1 kg (128 lb) 09/21/2015 7:22 PM BOOTH SUPERVISOR Height 167.6 cm (5' 5.98 ) 09/21/2015 7:22 PM CS T Body Mass Index 20.67 09/21/2015 7:22 PM BOOTH SUPERVISOR
--- OUTSIDE RECORDS SUMMARY | 2024-09-26 00:27 | XMS_ITS | Data Portability ---
Author Organization [facility], [place], [place] Address [address] [place] [place] [address] Assessment Encounter Date Assessment Date Assessment LastModified by Organization Details LastModified Time 09/08/2024 09/08/2024 Patient is ___weeks . Discussed plan. [email or web address] Not available 09/08/2024 09:39:25 09/15/2024 09/15/2024 Patient is __37_weeks . Discussed plan. [email or web address] Not available 09/15/2024 10:23:37 09/22/2024 09/22/2024 Patient is _38__weeks . Discussed plan. [email or web address] Not available 09/22/2024 10:20:27 Plan of Treatment Reminders Order Date Submit Date Provider Last Modified By Organization Details Last Modified Time Details Appointments OB ROUTINE 2024 09:00A M Yulissa Potts CNM Not available Not available Not available Lab None recorded . Referral None recorded . Procedures None recorded . Surgeries None recorded . Imaging non-stre ss test 2024 025 [email or web address] [place], [address], [place], [address], 09/23/2024 11:26:44 US, obstetri c, follow-u p 2024 025 [email or web address] [place], [address], [place], [address], 09/01/2024 12:52:06 Medication Orders None recorded . Patient TargetsNo targets recorded. Patient InstructionsNo instructions recorded. Reason for Referral None Reported. Results Created Date Observation Date Name Description Value Unit Range Abnormal Flag Note LastModifiedBy Organization Detail LastModifiedTime 09/01/1909/01/2024 CULTU RE: GROUP B STREP SCREE N, REFLE X SUSCE PTIBI LITY result report SEE RESULT S BELOW Test: Cultu re: Group B Strep , Refle x Susce ptibi lity ([facility]/ [facility] ) Speci men Sourc e: Vagin a/Rec desmond Speci men Type: Vagin al/Re ctal Speci men Date: 2024 1122 Resul t Date: 20245 Resul t Statu s: Final resul t Abnor mal: No Resul ting Lab: [facility] [address] [facility] [address] Tel: CULTU RE ----- ----- ----- --- No Group B strep isola javad at 2 days (tahira ctive broth enhan cemen t) Not Available [facility] (Lab) [address] [facility], [place], [address], 09/05/2024 23:09:42 09/01/19 25 09/01/2024 US, obste tric, follo w-up No observ ation record ed. [email or web address] [place] [address], [place], [address], 09/01/2024 13:52:25 09/01/19 25 09/01/2024 US, obste tric, follo w-up No observ ation record ed. [email or web address] [address], [place], [address], 09/01/2024 12:49:35 09/23/19 25 09/22/2024 non-s tress test No observ ation record ed. [email or web address] [place] [address], [place], [address], 09/23/2024 11:18:29 09/23/19 25 09/22/2024 non-s tress test No observ ation record ed. [email or web address] [place] [address], [place], [address], 09/23/2024 11:19:04 Result Notes None recorded. Problems Name Problem SNOMED Code Status Onset Date Resolution Date Notes Provider Name and Address Organization Details Recorded Time Missed miscarri age [id number] Completed 201801/17/2021 Missed ;Recorde d Elsewher e: No Locat ion: [facility] S ource: EHR Equipment Operator/Laborer rina: N Practi ce ID: 0001 Catracho lable Time: 04:00:[address] [facility] 16:25:08 Pregnanc y detectio n examinat ion Completed 201801/17/2021 Encounte r for pregnanc y test, result positive ;Recorde d Elsewher e: No Locat ion: [facility] S ource: EHR Equipment Operator/Laborer rina: N Practi ce ID: 0001 Catracho lable Time: 01:45:[address] [facility] 16:25:10 Finding of contents of cervix [id number] Completed 201801/17/2021 Weeks of gestatio n of pregnanc y not specifie d;Record ed Elsewher e: No Locat ion: [facility] S ource: EHR Equipment Operator/Laborer rina: N Practi ce ID: 0001 Catracho lable Time: 04:30:[address] [facility] 16:24:57 Pregnanc y test negative [id number] Completed 201801/17/2021 Encounte r for pregnanc y test, result negative ;Recorde d Elsewher e: No Locat ion: [facility] S ource: EHR Equipment Operator/Laborer rina: N Practi ce ID: 0001 Catracho lable Time: 10:00:00 AM Giovanna cardona, [facility] 16:25:13 Antenata l screenin g Completed 201801/17/2021 Encounte r for antenata l screenin g for uncertai n dates;Re corded Elsewher e: No Locat ion: [facility] S ource: EHR Equipment Operator/Laborer rina: N Practi ce ID: 0001 Catracho lable Time: 01:00:00 PM Giovanna cardona, [facility] 16:24:[address] Concept Completed 201801/17/2021 Encntr for routine child health exam w/o abnormal findings ;Recorde d Elsewher e: No Locat ion: [facility] S ource: EHR Equipment Operator/Laborer rina: N Practi ce ID: 0001 Catracho lable Time: 09:15:00 AM Giovanna cardona, [facility] 16:25:15 Miscarri age without complica tion 15334066 Completed 201801/17/2021 Incomple te spontane ous without complica tion;Rec orded Elsewher e: No Locat ion: [facility] Source: EHR Equipment Operator/Laborer rina: N Practi ce ID: 0001 Catracho lable Time: 02:00:00 PM Giovanna cardona [facility] 16:25:[address] Concept Completed 201801/17/2021 Encntr for saturator exam (general ) (routine ) w/o abn findings ;Practic e ID: 0001 Giovanna cardona, [facility] 16:25:18 Pregnanc y 44881636 Completed 202009/17/2021 Giovanna cardona, [facility] 4 12:37:01 Acute urinary tract infectio n 177805172 Completed Treated Sravani cardona [facility] 2 16:07:41 Recurren t miscarri age 515237329 Completed Sravani cardona, [facility] 2 16:07:41 Marginal insertio n of umbilica l cord 79224979 Completed 2020 serial growth u/s Sravani anderson null, [facility] 2 16:07:41 Herpes simplex 12183134 Active takes daily valtrex, increase to bid at 36 weeks Yulissa Potts CNM [address], [place], [address], [facility] 4 13:58:29 Pregnanc y 88535192 Active 2023 Giovanna cardona, [facility] 4 12:37:01 Herpes simplex 39937607 Active takes daily valtrex, increase to bid at 36 weeks Yulissa Potts CNM [address], [place], [address], [facility] 4 13:58:29 Problem Notes None recorded. Procedures Surgical History Date Name Laterality Status Provider Name and Address Organization Details Recorded Time 02/25/20 24 Date of Last Pap Smear completed Giovanna Suh [facility] 02/25/2024 14:33:16 08/11/19 23 termination of completed Giovanna Suh [facility] 02/25/2024 14:35:32 Imaging Results Imaging Date Name Status LastModified by Organiz ation Details LastModified Time 09/01/2024 US, obstetric, follow-up completed [email or web address] [place] [address], [place], [address], 09/01/2024 13:52:25 09/01/2024 US, obstetric, follow-up completed [email or web address] [address], [place], [address], 09/01/2024 12:49:35 09/22/2024 non-stress test completed [email or web address] [place] [address], [place], [address], 09/23/2024 11:18:29 09/22/2024 non-stress test completed [email or web address] [place] [address], [place], [address], 09/23/2024 11:19:04 Procedure Notes None recorded. Medical Equipment None [...] completed Not Available Not Available Not Available benzonata te 200 mg capsule TAKE 1 CAPSULE BY MOUTH THREE TIMES DAILY FOR 10 DAYS 08/18 completed Not Available Not Available Not Available [...] MOUTH EVERY 4 TO 6 HOURS NEEDED 08/18 completed Not Available Not Available Not Available terconazo le 0.8 % vaginal cream [...] 1 TABLET BY MOUTH EVERY 12 HOURS 08/18 completed Not Available Not Available Not Available phenazopy ridine 100 mg tablet 05/06 completed Not Available Not Available Not Available cephalexi n 500 mg capsule TAKE ONE CAPSULE BY MOUTH EVERY 6 HOURS UNTIL ALL TAKEN 08/18 completed Not Available Not Available Not Available Loestrin 08/30 (21) 1 mg-20 mcg tablet take 1 tablet by oral route every day 12/23 completed Prescrib ed Bret e: No Locat ion: [facility] odify By: [email or web address] bean DateTime : 11/14/19 [...] e 50 mcg/actua tion nasal spray,preston pension USE 2 SPRAY(S) IN EACH NOSTRIL ONCE DAILY FOR 10 DAYS active Not Available Not Available No t Available amoxicill in 875 mg-potass ium clavulana [...] ntoin monohydra te/macroc rystals 100 mg capsule 08/18 completed Not Available Not Available Not Available promethaz ine 03/09 completed Not Available Not Available Not Available Lo Loestrin Fe 1 mg-10 mcg (24)/10 mcg (2) tablet Take 1 tablet by oral route every day 11/20 completed [facility] 0430-042 0-95 Lot #[id number] Exp 10/03 Not Available Not Available Not [...] and Address Organization Details Last Updated DateTime 09/01/2024 070427.8 3747 g 37.3 kg/m2 167.64 cm 121 mm[Hg] 78 mm[Hg] Giovanna Suh [facility] 5 12:16:46 Date Recorded Body weight Body mass index (BMI) Body height Systolic blood pressure Diastolic blood pressure Provider Name and Address Organization Details Last Updated DateTime 09/08/2024 548609.0 2221 g 37.6 kg/m2 167.64 cm 115 mm[Hg] 79 mm[Hg] Giovanna Suh [facility] 5 09:40:00 Date Recorded Body weight Body mass index (BMI) Body height Systolic blood pressure Diastolic blood pressure Provider Name and Address Organization Details Last Updated DateTime 09/15/2024 240354.2 0695 g 37.9 kg/m2 167.64 cm 104 mm[Hg] 71 mm[Hg] Giovanna Suh [facility] 09:54:27 Date Recorded Body height Body mass index (BMI) Body weight Body height Body mass index (BMI) Body weight Systolic blood pressure Diastolic blood pressure Systolic blood pressure Diastolic blood pressure Provider Name and Address Organization Details Last Updated DateTime 167.64 cm 37.9 kg/m2 799020. 21 g 167.64 cm 37.9 kg/m2 580145. 21 g 110 mm[Hg] 77 mm[Hg] 110 mm[Hg] 77 mm[Hg] Giovanna Suh [facility] 5 09:29:44 Social History Question Answer Notes LastModified by Organizat ion Details LastModified Time Tobacco Smoking Status Current Every Day Smoker Giovanna Suh [facility] 02/25/2024 14:35:21 Do You Have An Advance Directive? No [email or web address] Information not available 01/17/2021 What Is Your Level Of Alcohol Consumption? None [email or web address] Information not available 01/17/2021 If You Are , What Was Your Level Of Alcohol Consumption Prior To ? Occasional [email or web address] Information not available 02/25/2024 Are You Blind Or Do You Have Difficulty Seeing? No [email or web address] Information not available 01/17/2021 What Is Your Level Of Caffeine Consumption? Occasional [email or web address] Information not available 01/17/2021 How Much Tobacco Do You Chew? None [email or web address] Information not available 01/17/2021 In The 14 Days Before Symptom Onset, Have You Had Close Contact With A Laboratory-confir med COVID-19 While That Case Was Ill? No [email or web address] Information not available 01/17/2021 In The 14 Days Before Symptom Onset, Have You Had Close Contact With A Person Who Is Under Investigation For COVID-19 While That Person Was Ill? No Information not available 01/17/2021 Have You Been To An Area Known To Be High Risk For COVID-19? No [email or web address] Information not available 01/17/2021 Are You Deaf Or Do You Have Serious Difficulty Hearing? No [email or web address] Information not available 01/17/2021 What Type Of Diet Are You Following? REGULAR [email or web address] Information not available 01/17/2021 What Is The Highest Grade Or Level Of School You Have Completed Or The Highest Degree You Have Received? GR77534-2 [email or web address] Information not available 01/17/2021 What Is Your Occupation? N/A [email or web address] Information not available 03/24/2024 Are There Any Guns Present In Your Home? No [email or web address] Information not available 01/17/2021 Do You Use Protection During Sex? No [email or web address] Information not available 01/17/2021 Do You Use Your Seat Belt Or Car Seat Routinely? Yes [email or web address] Information not available 01/17/2021 Do You Have Smoke And Carbon Monoxide Detectors In Your Home? Yes [email or web address] Information not available 01/17/2021 At What Age Did You Start Smoking Tobacco? 15 [email or web address] Information not available 02/14/2021 How Much Tobacco Do You Smoke? 0.25 PPD [email or web address] Information not available 03/24/2024 Do You Feel Stressed (tense, Restless, Nervous, Or Anxious, Or Unable To Sleep At Night)? [id number] [email or web address] Information not available 03/24/2024 Do You Use Any Illicit Or Recreational Drugs? No [email or web address] Information not available 01/17/2021 Do You Use Sunscreen Routinely? No [email or web address] Information not available 01/17/2021 How Many Years Have You Smoked Tobacco? 6 [email or web address] Information not available 03/24/2024 Have You Used IV Drugs? No Information not available 01/17/2021 Do You Or Have You Ever Used Any Other Forms Of Tobacco Or Nicotine? No [email or web address] Information not available 02/25/2024 Sex: Unknown Functional Status Question Answer Note LastModified by Organizat ion Details LastModified Time Do you have difficulty walking or climbing stairs? No Information not available 07/19/2022 Are you able to walk? YESWOREST [email or web address] Information not available 01/17/2021 Are you able to care for yourself? Yes Information not available 07/19/2022 Do you have difficulty dressing or bathing? No Information not available 07/19/2022 What is your exercise level? Moderate [email or web address] Information not available 01/17/2021 Mental Status None recorded. Family History Relationship Description Onset Age of this Age Resolved Age Notes LastModified by Organization Details LastModified Time Father Hyperlipidem ia [email or web address] Not available 2023 10:41:30 Maternal Grandmother Diabetes mellitus [email or web address] Not available 2019 08:44:30 Mother Anxiety disorder [email or web address] Not available 02/24 14:31:54 Mother Depressive disorder [email or web address] Not available 03/24 12:20:19 Paternal Grandmother Anxiety disorder [email or web address] Not available 03/24 12:20:19 Paternal Grandmother Depressive disorder Not available 03/24 12:20:19 Brother Anxiety disorder [email or web address] Not available 03/24 12:20:19 Brother Depressive disorder [email or web address] Not available 03/24 12:20:19 Medical History Condition Response Allergies (Food, seasonal, environmental ) N Other N Breast Cancer N Blood Transfusion N Drug/Latex Allergies/Reactions N Dermatologic Disorders N Lung Disease N [...] Diagnosis/Indication Diagnosis SNOMED-CT Code Diagnosis ICD10 Code Diagnosis Note [id number] David Phillips MD [place] [address] [address] 05/06/2020 10:38:15 05/06/2020 11:32:14 Abnormal uterine bleeding [id number] 9100 N93.9 this patient presents for concerns about and an episode of abnormal bleeding. She had some spotting and her follicular phase. We talked about it was a single episode. We agreed not to evaluate. will observe this problem. Her yeast infection is cleared up that was treated recently. T is not . Patient had concerns about . [id number] [facility]enta [facility] [address] [address] 08/01/2020 14:11:56 08/01/2020 14:51:14 Mastodynia of bilateral breasts 5932437032 6377504 N64.4 N63.10 Bilateral breast tenderness with LMP x 1wk ago. Breast lump right upper outer quadrant of breast approx. 10-11 o'clock position. We agreed to start with breast US. Aware to schedule. Will wait for report to decide next steps. Axillary lymphadenopathy 489315907 R59.0 Cystic like structure in middle of axilla likely from nicking it during shaving than use of deodorant. abx sent Hot compresses F/U x 2wks Time spent in visit is a total of 26 mins with at least 50% of visit consisting of counseling and review of plan of care. [id number] Yulissa Potts CNM [place] [address],[place] [address] 01/17/2021 15:13:34 01/17/2021 16:51:28 Amenorrhea 01428528 N91.2 [id number] [facility] [address],[place] [address] 01/17/2021 15:12:54 01/17/2021 16:51:45 [id number] [facility] [address],[place] [address] 02/14/2021 14:21:36 02/14/2021 14:57:26 screening 601386024 Z36.82 [id number] David Phillips MD [place] [address],[place] [address] 02/14/2021 14:22:10 02/14/2021 16:02:41 Routine care 312055843 Z34.91 14838 Abby Wells MD [place] [address],[place] [address] 03/09/2021 12:41:22 03/09/2021 13:20:51 Routine care 569465469 Z34.82 [id number] Franci Farrell [place] [address],[place] [address] 04/05/2021 11:21:49 04/05/2021 17:36:52 Routine care 369717658 Z34.92 [id number] Abby Sheets [place] [address],[place] [address] 04/05/2021 11:21:19 04/05/2021 14:05:43 screening for malformation 871922921 Z36.3 [id number] Yulissa Potts [facility] [address],[place] [address] 05/02/2021 12:51:48 05/02/2021 14:27:37 Routine care 908520809 Z34.92 [id number] [facility] [address],[place] [address] 05/02/2021 11:57:30 05/02/2021 15:09:25 screening 062104213 Z36.2 [id number] Yulissa Potts [facility] [address],[place] [address] 05/30/2021 11:53:50 05/30/2021 13:50:42 Routine care 128349567 Z34.92 [id number] Alanna Tubbs [place] [address],[place] [address] 05/30/2021 11:51:29 05/30/2021 13:49:56 Marginal insertion of umbilical cord 05053562 O43.129 Z3A.27 46904 Yulissa Potts [facility] [address],[place] [address] 06/15/2021 11:34:13 06/15/2021 12:27:19 Routine care 953423731 Z34.92 17503 Franci Farrell [place] [address],[place] [address] 06/28/2021 09:21:37 06/28/2021 13:11:18 Routine care 394999635 Z34.92 Vaginitis 77741893 N76.0 Discussed use of mild soap like dove or ivory, cotton underwear w/out dye, hypoallerg enic detergent, wipe from front to back, avoid tub baths, keep perineum clean and dry, d/c use of baby wipes. Encouraged daily intake of yogurt or womens health probiotic. Internal and external affirm collected. [id number] Alanna Tubbs [place] [address],[place] [address] 06/28/2021 09:20:15 06/28/2021 10:29:58 AND/OR placental disorder affecting management of mother 05920768 O43.129 Z3A.32 64764 Abby Wells MD [place] [address],[place] [address] 07/13/2021 11:36:36 07/13/2021 14:01:15 Routine care 647372966 Z34.82 [id number] Alanna Tubbs [place] [address],[place] [address] 07/26/2021 11:53:16 07/26/2021 13:14:06 AND/OR placental disorder affecting management of mother 24688908 O43.129 Z3A.36 [id number] David Phillips MD [place] [address],[place] [address] 07/26/2021 11:53:39 07/26/2021 13:13:26 screening 291826721 Z36.2 [facility] [address],[place] [address] 08/09/2021 09:59:38 08/10/2021 18:58:53 Routine care 774922776 Z34.92 34859 Johana Partida [place] [address],[place] [address] 08/09/2021 09:57:59 08/09/2021 11:22:54 Reduced movement 094333301 O36.8199 97395 [facility] [address],[place] [address] 08/16/2021 11:20:08 08/16/2021 12:16:49 Routine care 491940721 Z34.92 [id number] Yulissa Potts CNM [place] [address] [address] 10/05/2021 10:22:00 10/05/2021 10:51:03 care 144673149 Z39.2 start patch on Friday give one month to be effective, reviewed risk of blood clots Mixed anxi ety and depressive disorder 512456313 F41.8 if any suicidal thoughts to ED, reviewed se risks and benefits, counseling list given [id number] DEEPALI Grider [place] [address] [address] 11/26/2021 14:26:28 11/26/2021 15:15:36 Vaginitis 35328884 N76.0 Vulvar irritation /itching x 1 week.No abnormal discharge. On exam vulvar redness and irritation noted. Patient currently on period, unable to collect any discharge swabs. No abnormal discharge noted.Will treat for yeast.Dinorah brooks STI panel sent.She uses the patch for control. BMI 30.7. We discussed increased risk of VTE and less effective in BMI over 30. She has been having some skin irritation with patch and would like to switch to pills.She denies hx of DVT/PE, HTN, Cancer, liver disease, Migraine with aura, or Stroke/KS. She is 3 months , is formula feeding.Di scussed all control options in great detail. Pt would like to start ocp. She is aware of the risks and benefits. She does not have any medical condition that is contraindi cated with the use of estrogen containing control. Pt will start her pills on the first friday following the start of her period. She is aware it is not effective for control the first month. She is also aware of the importance of taking at the same time every day. Encouraged use of condoms as the pill does not protect against STD's. Will return in 3 months for med check. Consent was read and signed. Pt verbalized understand ing. She is on her cycle today so will start pills today.We discussed can recheck the vulva when she RTC for med check.Vulv ar care guidelines discussed with patient to help prevent recurrent yeast infections .RTC for med check or sooner if needed. Time spent with patient was 35 minutes. Contracept ion care management 140966705 Z30.9 [id number] Vicenta Brooks [facility] [address],[place] [address] 07/19/2022 11:05:24 07/23/2022 15:09:57 Pelvic and perineal pain 793023771 R10.2 Reach out with resultsLo loestrin samples givenUPT [facility] ED records from [facility] signed Left sided adnexal pain Patient is to contact office or go to nearest ED/Urgent care if fever >/= 100.1, pain, excessive bleeding, unusual drainage or swelling in area of concern; or experienci ng worsening sx's or new onset of concerning sx's. Understand ing verbalized . All questions answered to patient satisfacti on. Time spent in visit is a total of 26 mins with at least 50% of visit consisting of counseling and review of plan of care. Pain in pelvis 26798432 R10.2 [id number] [facility] [address],[place] [address] 07/24/2022 15:52:37 07/24/2022 16:35:28 Pain in pelvis 88179413 R10.2 [id number] Vicenta Brooks [facility] [address],[place] [address] 11/20/2022 11:56:13 11/20/2022 14:18:35 Genital herpes simplex 29049516 A60.9 If having >5-6 outbreaks in a year need to discuss suppressiv e therapy.Rx sent Contracept ion care management 212494760 Z30.9 Patient is going to try the twirla patch for the next couple of days to see if the adhesive provokes an allergic response (contact irritant); If it does then she will come to get IUD inserted since she is on her menses now.If no allergic response to patch she will decide if wants to continue this method; and if she does then she will need 2 more boxes of samples and a 3mos med check appt. Time spent in visit is a total of 26 mins with at least 50% of visit consisting of counseling and review of plan of care. [id number] Vicenta Brooks [facility] [address] [place] [address] 03/28/2023 09:59:13 03/28/2023 10:36:54 Genital herpes simplex 55618908 A60.9 If having >5-6 outbreaks in a year and requests to pursue daily suppressiv e therapy.Curry s an outbreak now.We have chatted about this in previous visits.Rev iewed suppressiv e therapy.Ta ke 1gm for current outbreak and then when done switch to 500mg dailyRx sentF/U PRN Counseled on medication R/B's, Most common side effects, & use. All questions were answered to patient satisfacti on. Time spent in visit is a total of 20 mins with at least 50% of visit consisting of counseling and review of plan of care. [id number] Kinsey Mi [place] [address],[place] [address] 02/25/2024 13:37:40 02/25/2024 14:12:08 [id number] Yulissa Potts CNM [place] [address] [place] [address] 02/25/2024 13:43:32 02/25/2024 15:01:51 Amenorrhea 03388777 N91.2 Venereal d isease screening 802586879 Z11.3 Herpes simplex 48433152 B00.9 current infection continue valtrex as prescribed [id number] [facility] [address] [place] [address] 03/24/2024 10:54:16 03/24/2024 11:35:08 screening [id number] Z36.82 [id number] Yulissa Potts CNM [place] [address] [place] [address] 03/24/2024 10:56:41 03/24/2024 14:03:13 Gestation period, 12 weeks 03042676 Z3A.12 Routine an tenatal care 387139972 Z34.92 [id number] Yulissa Potts CNM [place] [address] [place] [address] 04/21/2024 10:39:46 04/21/2024 12:04:49 Routine care 592269237 Z34.92 continue care [id number] [facility] [address] [address] 05/19/2024 10:48:18 05/19/2024 11:54:12 screening for malformation 575109198 Z36.3 Z3A.20 [id number] Yulissa Potts [facility] [address],[place] [address] 05/19/2024 10:53:05 05/19/2024 12:10:23 Gestation period, 20 weeks 64884313 Z3A.20 [id number] Kinsey Mi [place] [address],[place] [address] 06/16/2024 10:43:49 06/16/2024 11:37:27 screening 813944272 Z36.2 Z3A.24 [id number] Yulissa Potts [facility] [address],[place] [address] 06/16/2024 10:46:47 06/16/2024 12:04:08 Gestation period, 24 weeks 296791076 Z3A.24 continue vitamin Herpes simplex 74300783 B00.9 current infection continue valtrex as prescribed [id number] [facility] [address],[place] [address] 07/21/2024 09:33:30 07/21/2024 11:04:15 Medical examination for suspected condition 584094857 Z03.74 Z3A.29 [id number] [facility] [address] [place] [address] 07/21/2024 09:34:53 07/21/2024 11:08:31 Gestation period, 29 weeks 67264991 Z3A.29 [id number] [facility] [address],[place] [address] 08/18/2024 09:47:10 08/18/2024 10:21:58 Routine care 510362014 Z34.92 continue care [id number] Kinsey Mi [place] [address],[place] [address] 09/01/2024 11:16:20 09/01/2024 12:11:13 Uterine size for dates discrepancy 224859437 O26.843 Z3A.35 [id number] Yulissa Potts [facility] [address],[place] [address] 09/01/2024 11:17:04 09/01/2024 12:26:19 Gestation period, 35 weeks 88349006 Z3A.35 screening 2437 09004 Z36.85 [id number] Yulissa Potts [facility] [address],[place] [address] 09/08/2024 09:29:37 09/08/2024 09:54:50 Gestation period, 36 weeks 77166123 Z3A.36 [id number] Yulissa Potts [place] [address],[place] [address] 09/15/2024 09:26:20 09/15/2024 10:27:30 Gestation period, 37 weeks 61102645 Z3A.37 [id number] Yulissa Potts [place] [address] [address] 09/22/2024 09:50:11 09/22/2024 10:26:38 Gestation period, 38 weeks 54783866 Z3A.38 [id number] Giovanna Vikash [place] [address],[place] [address] 09/22/2024 10:26:51 09/23/2024 11:26:44 Reduced movement 549659720 O36.8199 Health Concerns Section Related Observation LastModified by Organization Detai ls LastModified Time None Recorded Concern Status LastModified by Organization Details LastModified Time None Recorded Advance Directives Directive N: Payers Encounter Date Sequence Insurance Name Policy Number Policy Guerrero Covered Member ID Guerrero Member ID Guarantor Name 09/01/2024 1 [place] [id number] A Dean Cespedes [id number] 91 Nelly Cespedes 09/08/2024 1 [place] [id number] A Dean Bean Coy [id number] 91 Nelly Cespedes 09/15/2024 1 [place] [id number] A Dean Bean Coy [id number] 91 Nelly Cespedes 09/22/2024 1 [place] [id number] A Dean Bean Coy [id number] 91 Nelly Cespedes 09/22/2024 1 [place] [id number] A Dean Cespedes [id number] 91 Nelly Cespedes OBGyn Episode Ob Episode Information Episode Created Date Number of Fetuses Patient Bloodtype Patient rh Status Prepregnancy Weight lbs Domestic Partner Domestic Partner Phone Father Name Belt Loop Cutter Status 02/15/20 21 1 A Negative 135 CLOSED Fetus Data First Name Last Name Admitted to NICU Weight (g) Sex Living Outcome Pediatric Complications Fetus ID Race Codes Race Delivery Type Pta 3798.83 3 F true Full Term 72598 Vaginal Delivery Problems Problem Notes accessory lobe Problem Name Start Date End Date Resolution Snomed Code Not e Acute urinary tract infection MEDICATION [id number] Treated 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 04/05/2021 86397238 serial growth u/s Leonard Calculation Initial Leonard Date Initial Exam Date Initial Exam Provider Initial Ultrasound Date Last Menstrual Period Date Ultra Sound Weeks Gestation 08/23/2021 02/14/2021 01/17/2021 8 Eighteen To Twenty Week Leonard Update Ultra Sound Date Fundal Height At Umbil Quickening Date Ultra Sound Latest Weeks Gestation Final Leonard Confirmed By Final Leonard Confirmed Date Final Leonard Date Ultra Sound Latest Days Gestation 0 [email or web address] 02/14/2021 08/23/19 22 0 Pre-renato Flowsheet Flowsheet Date 02/14/2021 Bailey Score Blood Edema Fundus Height Fundus Units Glucose Ketones Leukocytes Nitrite Labor Signs Protein Cervic Dilation Cervic Effacement Cervic Station 12 Type Weight in lbs Pre/Post Dialysis Refused Weight 137.353226269221 BP Diastolic BP Location Tested BP Systolic [...] Weight in lbs Pre/Post Dialysis Refused Weight 139.382187137376 BP Diastolic BP Location Tested BP Systolic [...] Weight in lbs Pre/Post Dialysis Refused Weight 146.577162465086 BP Diastolic BP Location Tested BP Systolic [...] Weight in lbs Pre/Post Dialysis Refused Weight 159.483508930944 BP Diastolic BP Location Tested BP Systolic [...] Weight in lbs Pre/Post Dialysis Refused Weight 173.645324047752 BP Diastolic BP Location Tested BP Systolic BP Type 75 113 Fetus Heart Rate Present Fetus Movement A Yes Comments doing well, had rhogam and d id GCT at [place], MCI efw 25% precations reviewed, tdap rec Flowsheet Date 06/15/2021 Bailey Score Blood Edema Fundus Height Fundus Units Glucose Ketones Leukocytes Nitrite Labor Signs Protein Cervic Dilation Cervic Effacement Cervic Station neg none trace Type Weight in lbs Pre/Post Dialysis Refused Weight 184.114203757315 BP Diastolic BP Location Tested BP Systolic BP Type 71 110 Fetus Heart Rate Present A 155 Present Fetus Movement A Yes Comments patient states that having s ome cramping and white discharge. reviewed precautions, discussed medicine aide, doing well f/u 2 weeks Flowsheet Date [...] Weight in lbs Pre/Post Dialysis Refused Weight 188.116274399044 BP Diastolic BP Location Tested BP Systolic BP Type 79 120 Fetus Heart Rate Present Fetus Movement A Yes Comments Vulvar itching since da y. Thick white discharge. Tried monistat but [...] Weight in lbs Pre/Post Dialysis Refused Weight 199.956260440925 BP Diastolic BP Location Tested BP Systolic BP Type 79 122 Fetus Heart Rate Present A 150 Fetus Movement A Yes Comments Doing well. Growth 06/28 50% . Precautions given. GBS next. Flowsheet Date 07/26/2021 [...] Weight in lbs Pre/Post Dialysis Refused Weight 207.367654427498 BP Diastolic BP Location Tested BP Systolic [...] Weight in lbs Pre/Post Dialysis Refused Weight 215.435282469549 BP Diastolic BP Location Tested BP Systolic [...] Weight in lbs Pre/Post Dialysis Refused Weight 213.633118371161 BP Diastolic BP Location Tested BP Systolic [...] Estim ated Date of Delivery false Thalassemia (Frisian, Malagasy, Mediterranean, Or Background): MCV < 80 false Neural Tube Defect (Meningomyelocele, Spina Bifi da, Or Anencephaly) false Congenital Heart Defect false Down Syndrome false Gunner-Sachs (eg, Mormon, Cajun, Romanian-Wainwright) f alse Norah Disease false Sickle Cell Disease Or Trait () false Hemophilia Or Other Blood Disorders false Muscular Dystrophy false Cystic Fibrosis false Hastings's Chorea false Intellectual Disability/Autism false If Yes, [...] Complications Tubal Sterilization Discharge Date Comments 2 Marfrederic farnsworth [facility]-Ep idural 40 false Yulissa PottsM marginal cord Discharge Information Feeding Method Contraceptive Method Maternal HG B and HCT Levels Breast Ob Episode Information Episode Created Date Number of Fetuses Patient Bloodtype Patient rh Status Prepregnancy Weight lbs Domestic Partner Domestic Partner Phone Father Name Belt Loop Cutter Status 01/18/20 21 1 CLOSED Fetus Data First Name Last Name Admitted to NICU Weight (g) Sex Living Outcome Pediatric Complications Fetus ID Race Codes Race Delivery Type , Spontane ous 92020 Leonard Calculation Initial Leonard Date Initial Exam Date Initial Exam Provider Initial Ultrasound Date Last Menstrual Period Date Ultra Sound Weeks Gestation 0 Eighteen To Twenty Week Leonard Update Ultra Sound Date Fundal Height At Umbil Quickening Date Ultra Sound Latest Weeks Gestation Final Leonard Confirmed By Final Leonard Confirmed Date Final Leonard Date Ultra Sound Latest Days Gestation 0 [...] Domestic Partner Domestic Partner Phone Father Name Belt Loop Cutter Status 01/18/20 21 1 CLOSED Fetus Data First Name Last Name Admitted to NICU Weight (g) Sex Living Outcome Pediatric Complications Fetus ID Race Codes Race Delivery Type , [place] [address]3920 Leonard Calculation Initial Leonard Date Initial Exam Date Initial Exam Provider Initial Ultrasound Date Last Menstrual Period Date Ultra Sound Weeks Gestation 0 Eighteen To Twenty Week Leonard Update Ultra Sound Date Fundal Height At Umbil Quickening Date Ultra Sound Latest Weeks Gestation Final Leonard Confirmed By Final Leonard Confirmed Date Final Leonard Date Ultra Sound Latest Days Gestation 0 [...] Domestic Partner Domestic Partner Phone Father Name Belt Loop Cutter Status 03/24/20 24 1 CLOSED Fetus Data First Name Last Name Admitted to NICU Weight (g) Sex Living Outcome Pediatric Complications Fetus ID Race Codes Race Delivery Type , [place] 55748 Leonard Calculation Initial Leonard Date Initial Exam Date Initial Exam Provider Initial Ultrasound Date Last Menstrual Period Date Ultra Sound Weeks Gestation 0 Eighteen To Twenty Week Leonard Update Ultra Sound Date Fundal Height At Umbil Quickening Date Ultra Sound Latest Weeks Gestation Final Leonard Confirmed By Final Leonard Confirmed Date Final Leonard Date Ultra Sound Latest Days Gestation 0 [...] Domestic Partner Domestic Partner Phone Father Name Belt Loop Cutter Status 03/28/20 23 1 CLOSED Fetus Data First Name Last Name Admitted to NICU Weight (g) Sex Living Outcome Pediatric Complications Fetus ID Race Codes Race Delivery Type , Spontane o[place] 20242 Leonard Calculation Initial Leonard Date Initial Exam Date Initial Exam Provider Initial Ultrasound Date Last Menstrual Period Date Ultra Sound Weeks Gestation 0 Eighteen To Twenty Week Leonard Update Ultra Sound Date Fundal Height At Umbil Quickening Date Ultra Sound Latest Weeks Gestation Final Leonard Confirmed By Final Leonard Confirmed Date Final Leonard Date Ultra Sound Latest Days Gestation 0 [...] Domestic Partner Domestic Partner Phone Father Name Belt Loop Cutter Status 02/25/20 24 1 CLOSED Fetus Data First Name Last Name Admitted to NICU Weight (g) Sex Living Outcome Pediatric Complications Fetus ID Race Codes Race Delivery Type , Induced 23856 Leonard Calculation Initial Leonard Date Initial Exam Date Initial Exam Provider Initial Ultrasound Date Last Menstrual Period Date Ultra Sound Weeks Gestation 0 Eighteen To Twenty Week Leonard Update Ultra Sound Date Fundal Height At Umbil Quickening Date Ultra Sound Latest Weeks Gestation Final Leonard Confirmed By Final Leonard Confirmed Date Final Leonard Date Ultra Sound Latest Days Gestation 0 [...] Domestic Partner Domestic Partner Phone Father Name Belt Loop Cutter Status 03/24/20 24 1 A Negative 184 Jl Nia OPEN Fetus Data First Name Last Name Admitted to NICU Weight (g) Sex Living Outcome Pediatric Complications Fetus ID Race Codes Race Delivery Type [id number] Problems Problem Notes Problem Name Start Date End Date Resolution Snomed Code Not e Herpes simplex [id number] takes daily valtrex, increase to bid at 36 weeks Leonard Calculation Initial Leonard Date Initial Exam Date Initial Exam Provider Initial Ultrasound Date Last Menstrual Period Date Ultra Sound Weeks Gestation 10/01/2024 02/25/2024 02/25/2024 8 Eighteen To Twenty Week Leonard Update Ultra Sound Date Fundal Height At Umbil Quickening Date Ultra Sound Latest Weeks Gestation Final Leonard Confirmed By Final Leonard Confirmed Date Final Leonard Date Ultra Sound Latest Days Gestation 0 0 Pre- Flowsheet Flowsheet Date 03/24/2024 Bailey Score Blood Edema Fundus Height Fundus Units Glucose Ketones Leukocytes Nitrite Labor Signs Protein Cervic Dilation Cervic Effacement Cervic Station none Type Weight in lbs Pre/Post Dialysis Refused Weight 184.898106522222 BP Diastolic BP Location Tested BP Systolic BP Type 74 105 Fetus Heart Rate Present Fetus Movement A No Comments Patient is having some nause a and vomiting. will call out zonadia, discussed care, US wnl, education and precautions, hx multiple miscarriages , one uncomplicated vaginal delivery Flowsheet Date 04/21/2024 Bailey Score Blood Edema Fundus Height Fundus Units Glucose Ketones Leukocytes Nitrite Labor Signs Protein Cervic Dilation Cervic Effacement Cervic Station none Type Weight in lbs Pre/Post Dialysis Refused 187.964475271532 BP Diastolic BP Location Tested BP Systolic [...] Type Weight in lbs Pre/Post Dialysis Refused 193.68270137529 BP Diastolic BP Location Tested BP Systolic [...] Type Weight in lbs Pre/Post Dialysis Refused 204.089999659015 BP Diastolic BP Location Tested BP Systolic [...] Type Weight in lbs Pre/Post Dialysis Refused 215.343690974659 BP Diastolic BP Location Tested BP Systolic BP Type 72 115 Fetus Heart Rate Present Fetus Movement A Yes Comments Patient is having some BH co ntractions. discussed lifting restrictions and note given efw 28%, precautions and education glucose today, f/u 2 weeks Flowsheet Date 08/18/2024 Bailey Score Blood Edema Fundus Height Fundus Units Glucose Ketones Leukocytes Nitrite Labor Signs Protein Cervic Dilation Cervic Effacement Cervic Station 36 cm Type Weight in lbs Pre/Post Dialysis Refused 228.126825235664 BP Diastolic BP Location Tested BP Systolic BP Type 78 113 Fetus Heart Rate Present A 136 Present Fetus Movement A Yes Comments Patient is having BH contrac tions. declines rsv and tdap, education and precautions s>d plan growth gbs at next visit, wants epidural Flowsheet Date 09/01/2024 Bailey Score Blood Edema Fundus Height Fundus Units Glucose Ketones Leukocytes Nitrite Labor Signs Protein Cervic Dilation Cervic Effacement Cervic Station Type Weight in lbs Pre/Post Dialysis Refused BP Diastolic BP Location Tested BP Systolic BP Type Fetus Heart Rate Present Fetus Movement Comments Flowsheet Date 09/01/2024 Bailey Score Blood Edema Fundus Height Fundus Units Glucose Ketones Leukocytes Nitrite Labor Signs Protein Cervic Dilation Cervic Effacement Cervic Station none neg 1cm 60% -2 Type Weight in lbs Pre/Post Dialysis Refused 231.538105229100 BP Diastolic BP Location Tested BP Systolic BP Type 78 121 Fetus Heart Rate Present Fetus Movement A Yes Comments Patient is having BH contrac tions and nausea, EFW 31%, +FM, labor precautions gbs collected f/u one week Flowsheet Date 09/08/2024 Bailey Score Blood Edema Fundus Height Fundus Units Glucose Ketones Leukocytes Nitrite Labor Signs Protein Cervic Dilation Cervic Effacement Cervic Station neg none Type Weight in lbs Pre/Post Dialysis Refused 233.359338966244 BP Diastolic BP Location Tested BP Systolic BP Type 79 115 Fetus Heart Rate Present Fetus Movement A Yes Comments Patient is having BH contrac tions, discharge and nausea. valtrex bid +FM, precautions and education f/u one week Flowsheet Date 09/15/2024 Bailey Score Blood Edema Fundus Height Fundus Units Glucose Ketones Leukocytes Nitrite Labor Signs Protein Cervic Dilation Cervic Effacement Cervic Station neg trace 38 cm 2cm 70% -2 Type Weight in lbs Pre/Post Dialysis Refused 235.544847009127 BP Diastolic BP Location Tested BP Systolic BP Type 71 104 Fetus Heart Rate Present A 145 Fetus Movement A Yes Comments Patient is having some swell ing, pain, contractions, discharge and nausea. undecided about IOL, precautions and education. +FM f/u one week Flowsheet Date 09/22/2024 Bailey Score Blood Edema Fundus Height Fundus Units Glucose Ketones Leukocytes Nitrite Labor Signs Protein Cervic Dilation Cervic Effacement Cervic Station neg none 2cm 70% -2 Type Weight in lbs Pre/Post Dialysis Refused Weight 235.466124995975 BP Diastolic BP Location Tested BP Systolic BP Type 77 110 Fetus Heart Rate Present Fetus Movement A Yes Comments Patient is having BH contrac tions. decreased movement, NST today, declines IOL. f/u one week Flowsheet Date 09/22/2024 Bailey Score Blood Edema Fundus Height Fundus Units Glucose Ketones Leukocytes Nitrite Labor Signs Protein Cervic Dilation Cervic Effacement Cervic Station Type Weight in lbs Pre/Post Dialysis Refused Weight 235.973901951514 BP Diastolic BP Location Tested BP Systolic BP Type 77 110 Fetus Heart Rate Present Fetus Movement Comments Menstrual History Last Menstrual Date Menses Monthly [...] Domestic Partner Domestic Partner Phone Father Name Belt Loop Cutter Status 03/24/20 24 1 CLOSED Fetus Data First Name Last Name Admitted to NICU Weight (g) Sex Living Outcome Pediatric Complications Fetus ID Race Codes Race Delivery Type , [place] o[place] [id number] Leonard Calculation Initial Leonard Date Initial Exam Date Initial Exam Provider Initial Ultrasound Date Last Menstrual Period Date Ultra Sound Weeks Gestation 0 Eighteen To Twenty Week Leonard Update Ultra Sound Date Fundal Height At Umbil Quickening Date Ultra Sound Latest Weeks Gestation Final Leonard Confirmed By Final Leonard Confirmed Date Final Leonard Date Ultra Sound Latest Days Gestation 0 [...]
--- OUTSIDE RECORDS SUMMARY | 2024-09-26 00:27 | XMS_ITS | Clinical Summary ---
Author Organization [facility] Address [address] [place] [address] Care Team Providers Care Refractory Furnace Designer Name Role Phone Unavailable Primary Care Provider Unavailabl e Source Comments [facility],non-owned Affiliates and Associated Physician Practices is amultiple site organization consisting of ambulatory clinics and hospital sitesin [place], [place], [place] and [place]. This disclosure is being madepursuant to the Care Everywhere program and may not contain all information available regarding this patient. Last updated 18.[facility] Allergies No known active allergies Medications Be [...] Comments Blood Pressure 102/74 09/21/2015 7:22 PM ATMOSPHERIC SCIENTIST Pulse 68 09/21/2015 7:22 PM ATMOSPHERIC SCIENTIST Temperature 36.6 C (97.8 F) 09/21/2015 7:22 PM ATMOSPHERIC SCIENTIST Respiratory Rate 16 09/21/2015 7:22 PM ATMOSPHERIC SCIENTIST Oxygen Saturation 100% 09/08/2015 7:04 PM ATMOSPHERIC SCIENTIST Inhaled Oxygen Concentration - - Weight 58.1 kg (128 lb) 09/21/2015 7:22 PM ATMOSPHERIC SCIENTIST Height 167.6 cm (5' 5.98 ) 09/21/2015 7:22 PM CS T Body Mass Index 20.67 09/21/2015 7:22 PM ATMOSPHERIC SCIENTIST Plan of Treatment Health Maintenance Due Date Last Done Comments PAP SMEAR 2001 HIV SCREENING 2016 HPV VACCINE (1 - 3-dose series) 2016 CHLAMYDIA/GONORRHEA SCREENING 2017 MENINGOCOCCAL (Group B) VACC INE (1 of 2 - Standard) 2017 HEPATITIS C SCREENING 12/03/2019 DTAP/TDAP/TD VACCINES (1 - Tdap) 2020 HEPATITIS B VACCINE (1 of 3 - 19+ 3-dose series) 2020 COVID-19 VACCINE (1 - 2023-2 5 season) 2024 INFLUENZA VACCINE (#1) 2024 DEPRESSION SCREENING 08/11/2024 ZOSTER VACCINE (1 of 2) 12/08/2051 HIB VACCINE Aged Out No longer eligi ble based on patient's age to complete this topic MENINGOCOCCAL VACCINE Aged Out No umm sarah eligible based on patient's age to complete this topic PNEUMOCOCCAL VACCINE Aged Out No long er eligible based on patient's age to complete this topic
[2024-09-26 00:31] VITALS: BMI 38.0
--- NOTE | 2024-09-26 00:31 | OBADM ---
This patient, Nelly Cespedes, admitted to the OB room Labor/Delivery/Recovery 106 for observation. Patient/family oriented to hospital policies and general routines including ID bracelet, bed and alarms, visiting hours, pain management, procedures, bathroom and other care routines, personal items, smoking policy, room service/diet, and visiting hours. Patient/Family are encouraged to report perceived risks to care and to ask questions if they do not understand what they are told or what they should do.
--- NOTE | 2024-09-28 08:15 | PM.OBTRLD ---
OB - Triage/Final Diagnosis Visit Information Comments/Additional reasons for admission: I have assessed the risk for this patient, Nelly Nayana Cespedes, and determined that she would benefit from observation care. Final Diagnosis (1) Irregular contractions: Code(s): O47.9 - False labor, unspecified Status: Acute
== END 2024-09-26 00:38 | disposition home or self-care (01) ==
PROVIDERS: Admitting Provider Obstetrics & Gynecology; Visit Provider Obstetrics & Gynecology
DX: O47.1 False labor at or after 37 completed weeks of gestation (principal); Z3A.39 39 weeks gestation of pregnancy
CPT/HCPCS: G0378; G0379

== ENCOUNTER 2024-09-30 07:31 | Inpatient (IN) | payer BC, SELFPAY ==
[2024-09-30] VITALS (118 sets, daily range): BP systolic 80–138; BP diastolic 50–92; PULSE 76–123; RESP 16–20; TEMP 36.7–37.5; O2SAT 91–100; BMI 38.4
--- OUTSIDE RECORDS SUMMARY | 2024-09-30 08:06 | XMS_ITS | Clinical Summary ---
Author Organization [facility] Address [address] [place] [address] Care Team Providers Care Preschool Lead Teacher Name Role Phone None, Provider MD Primary [...] disorder, r ecurrent, severe w/o psychotic behavior ([facility]) 04/11/2020 Marijuana use 04/11/2020 Social anxiety disorder 04/11/2020 test negative 07/12/2019 examination or test, unconfi rmed 01/11/2019 screening for rais ed alpha-fetoprotein levels in amniotic fluid ([facility]) 11/13/2018 Resolved Problems Problem Noted Date Diagnosed Date Resolved Date COVID-19 08/18/2020 08/18/2020 Spontaneous without complication ([facility]) 05/27/2019 08/18/2020 Immunizations Name Administration [...] Comments Blood Pressure 105/66 07/26/2023 5:37 PM ANTICHECKING IRON WORKER Pulse 106 07/26/2023 5:37 PM ANTICHECKING IRON WORKER Temperature 36.2 C (97.1 F) 07/26/2023 1:31 PM ANTICHECKING IRON WORKER Respiratory Rate 18 07/26/2023 5:37 PM ANTICHECKING IRON WORKER Oxygen Saturation 100% 07/26/2023 5:37 PM ANTICHECKING IRON WORKER Inhaled Oxygen Concentration - - Weight 81.2 kg (179 lb) 07/26/2023 1:31 PM ANTICHECKING IRON WORKER Height 167.6 cm (5' 6 ) 07/26/2023 1:31 PM ANTICHECKING IRON WORKER Body Mass Index 28.89 07/26/2023 1:31 PM ANTICHECKING IRON WORKER Plan of Treatment Health Maintenance Due Date [...] patient's age to complete this topic Insurance [facility] Care Teams Preschool Lead Teacher Relationship Specialty Start Date End Date None, Provider, PCP - General UNKNOWN PHYSICIAN SPECIALTY 07/26/23
--- OUTSIDE RECORDS SUMMARY | 2024-09-30 08:06 | XMS_ITS | Referral Summary ---
Author Organization [facility] Address [address] [place] [address] Care Team Providers Care Dwarf Tree Grower Name Role Phone Unavailable Primary Care Provider Unavailabl e Source Comments [facility],non-owned Affiliates and Associated Physician Practices is amultiple site organization consisting of ambulatory clinics and hospital sitesin [place], [place], [place] and [place]. This disclosure is being madepursuant to the Care Everywhere program and may not contain all information available regarding this patient. Last updated 18.[facility] Allergies No known active allergies Medications Be [...] Comments Blood Pressure 102/74 09/21/2015 7:22 PM ECHO VASCULAR TECH Pulse 68 09/21/2015 7:22 PM ECHO VASCULAR TECH Temperature 36.6 C (97.8 F) 09/21/2015 7:22 PM ECHO VASCULAR TECH Respiratory Rate 16 09/21/2015 7:22 PM ECHO VASCULAR TECH Oxygen Saturation 100% 09/08/2015 7:04 PM ECHO VASCULAR TECH Inhaled Oxygen Concentration - - Weight 58.1 kg (128 lb) 09/21/2015 7:22 PM ECHO VASCULAR TECH Height 167.6 cm (5' 5.98 ) 09/21/2015 7:22 PM CS T Body Mass Index 20.67 09/21/2015 7:22 PM ECHO VASCULAR TECH Plan of Treatment Not on file
--- OUTSIDE RECORDS SUMMARY | 2024-09-30 08:06 | XMS_ITS | Continuity of Care Document ---
Author Organization [facility] Address [address] [place] [address] Assessment Encounter Date Assessment Date Assessment LastModified by Organization Details LastModified Time 09/29/2024 09/29/2024 Patient is _39__weeks . Discussed plan. Not available 09/29/2024 11:54:31 Plan of Treatment Reminders Order Date Submit Date Provider Last Modified By Organization Details Last Modified Time Details Appointments INDUCTION 2024 05:00A M Yulissa Potts CNM Not available Not available Not available Lab None recorded. Referral None recorded. Procedures None recorded. Surgeries None recorded. Imaging None recorded. Medication Orders None recorded. Patient TargetsNo targets recorded. Patient InstructionsNo instructions recorded. Reason for Referral None Reported. Results Created Date Observation Date Name Description Value Unit Range Abnormal Flag Note LastModifiedBy Organization Detail LastModifiedTime 03/24/2003/24/2024 US, obste tric, nucha l trans lucen cy No observ ation record ed. [facility] [address], [place], [address], 03/24/2024 12:59:48 03/24/20 24 03/24/2024 US, obste tric, nucha l trans lucen cy No observ ation record ed. [email or web address] [address], [place], [address], 03/24/2024 13:45:30 05/19/20 24 05/19/2024 US, obste tric, 2nd or 3rd trime ster No observ ation record ed. [facility] [address], [place], [address], 05/19/2024 13:03:32 05/19/20 24 05/19/2024 US, obste tric, follo w-up No observ ation record ed. [email or web address] [address], [place], [address], 05/20/2024 12:55:49 06/16/20 24 06/16/2024 US, obste tric, follo w-up No observ ation record ed. [email or web address] [facility] [address], [place], [address], 06/16/2024 11:37:57 06/16/20 24 06/16/2024 US, obste tric, follo w-up No observ ation record ed. [email or web address] [address], [place], [address], 06/17/2024 13:53:59 07/21/20 24 07/21/2024 US, obste tric, follo w-up No observ ation record ed. [facility] [address], [place], [address], 07/21/2024 13:09:44 07/21/20 24 07/21/2024 US, obste tric, follo w-up No observ ation record ed. [email or web address] [address], [place], [address], 07/22/2024 18:18:47 09/01/19 25 09/01/2024 US, obste tric, follo w-up No observ ation record ed. [email or web address] [facility] [address], [place], [address], 09/01/2024 13:52:25 09/01/19 25 09/01/2024 US, obste tric, follo w-up No observ ation record ed. [email or web address] [address], [place], [address], 09/01/2024 12:49:35 09/23/19 25 09/22/2024 non-s tress test No observ ation record ed. [email or web address] [facility] [address], [place], [address], 09/23/2024 11:18:29 09/23/19 25 09/22/2024 non-s tress test No observ ation record ed. [facility] [address], [place], [address], 09/23/2024 11:19:04 Result Notes None recorded. Problems Name Problem SNOMED Code Status Onset Date Resolution Date Notes Provider Name and Address Organization Details Recorded Time Missed miscarri age 48682034 Completed 201801/17/2021 Missed ;Recorde d Elsewher e: No Locat ion: [facility] S ource: EHR Legal Summer Intern rina: N Practi ce ID: [email or web address] Catracho lable Time: 04:00:00 PM Giovanna Suh [facility] 16:25:08 Pregnanc y detectio n examinat ion Completed 201801/17/2021 Encounte r for pregnanc y test, result positive ;Recorde d Elsewher e: No Locat ion: [facility] S ource: EHR Legal Summer Intern rina: N Practi ce ID: 0001 Catracho lable Time: 01:45:00 PM [facility] 16:25:10 Finding of contents of cervix 989333294 Completed 201801/17/2021 Weeks of gestatio n of pregnanc y not specifie d;Record ed Elsewher e: No Locat ion: Rosaline pitt [facility] S ource: EHR Legal Summer Intern rina: N Dianati ce ID: [email or web address] Catracho lable Time: 04:30:00 PM Giovanna Bowentz brendan [facility] 16:24:57 Pregnanc y test negative 909830019 Completed 201801/17/2021 Encounte r for pregnanc y test, result negative ;Recorde d Elsewher e: No [facility] S ource: EHR Legal Summer Intern rina: N Dianati ce ID: [email or web address] Catracho lable Time: 10:00:00 AM Giovanna Suh brendan, [facility] 16:25:13 Antenata l screenin g Completed 201801/17/2021 Encounte r for antenata l screenin g for uncertai n dates;Re corded Elsewher e: No [facility] S ource: EHR Legal Summer Intern rina: N Dianati ce ID: [email or web address] Catracho lable Time: 01:00:00 PM Giovanna Suh brendan [facility] 16:24:[address] Concept Completed 201801/17/2021 Encntr for routine child health exam w/o abnormal findings ;Recorde d Elsewher e: No [facility]: EHR Legal Summer Intern rina: N Dianati ce ID: [email or web address] Catracho lable Time: 09:15:00 AM Giovanna Suh brendan [facility] 16:25:15 Miscarri age without complica tion 54403229 Completed 201801/17/2021 Incomple te spontane ous without complica tion;Rec orded Elsewher e: No Locat ion: [facility] Source: EHR Legal Summer Intern rina: N Dianati ce ID: [email or web address] Catracho lable Time: 02:00:00 PM Giovanna Suh brendan [facility] 16:25:[address] Concept Completed 201801/17/2021 Encntr for bed operator exam (general ) (routine ) w/o abn findings ;Practic e ID: 0001 Giovanna Vikash cardona, [facility] 1 16:25:18 Pregnanc y 40642528 Completed 202009/17/2021 Giovanna cardona [facility] 4 12:37:01 Acute urinary tract infectio n 865651984 Completed Treated Sravani anderson [facility] 2 16:07:41 Recurren t miscarri age 776786308 Completed Sravani Tidwellsoilamillerartyareli anderson [facility] 2 16:07:41 Marginal insertio n of umbilica l cord 20709804 Completed 2020 serial growth u/s Sravani Jimenezartyareli [facility], [facility] 2 16:07:41 Herpes simplex 08004608 Active takes daily valtrex, increase to bid at 36 weeks Yulissa Potts CNM [address], [place], [address], [facility] 4 13:58:29 Pregnanc y 01832948 Active 2023 Giovanna Suh [facility] 4 12:37:01 Herpes simplex 95191039 Active takes daily valtrex, increase to bid at 36 weeks Yulissa Potts CNM [address], [place], [address], [facility] 4 13:58:29 Problem Notes None recorded. Procedures Surgical History Date Name Laterality Status Provider Name and Address Organization Details Recorded Time 02/25/20 Date of Last Pap Smear completed Giovanna Suh [facility] 02/25/2024 14:33:16 08/11/19 23 termination of completed Giovanna Suh [facility] 02/25/2024 14:35:32 Imaging Results None recorded. [...] Prescrib ed Bret e: No Locat ion: [facility] M odify By: [email or web address] gonzalez DateTime : [...] by oral route every day 11/20 completed [facility] 0430-042 0-95 Lot #[id number] Exp 10/03 Not Available Not Available Not [...] Available Vitals Date Recorded Body height Body mass index (BMI) Body weight Systolic blood pressure Diastolic blood pressure Provider Name and Address Organization Details Last Updated DateTime 09/29/2024 167.64 cm 38.4 kg/m2 370170.9 8 g 112 mm[Hg] 74 mm[Hg] Giovanna Suh [facility] 11:38:29 Social History Question Answer Notes LastModified by Organizat ion Details LastModified Time Tobacco Smoking Status Current Every Day Smoker Giovanna Suh [facility] 02/25/2024 14:35:21 Do You Have An Advance Directive? No [email or web address] Information not available 01/17/2021 What Is Your Level Of Alcohol Consumption? None [email or web address] Information not available 01/17/2021 If You Are , What Was Your Level Of Alcohol Consumption Prior To ? Occasional [email or web address] Information not available 02/25/2024 Are You Blind Or Do You Have Difficulty Seeing? No [email or web address] Information not available 01/17/2021 What Is Your Level Of Caffeine Consumption? Occasional Information not available 01/17/2021 How Much Tobacco Do You Chew? None [email or web address] Information not available 01/17/2021 In The 14 Days Before Symptom Onset, Have You Had Close Contact With A Laboratory-confir med COVID-19 While That Case Was Ill? No [email or web address] Information not available 01/17/2021 In The 14 Days Before Symptom Onset, Have You Had Close Contact With A Person Who Is Under Investigation For COVID-19 While That Person Was Ill? No [email or web address] Information not available 01/17/2021 Have You Been To An Area Known To Be High Risk For COVID-19? No [email or web address] Information not available 01/17/2021 Are You Deaf Or Do You Have Serious Difficulty Hearing? No Information not available 01/17/2021 What Type Of Diet Are You Following? REGULAR [email or web address] Information not available 01/17/2021 What Is The Highest Grade Or Level Of School You Have Completed Or The Highest Degree You Have Received? [id number] [email or web address] Information not available 01/17/2021 What Is Your Occupation? N/A [email or web address] Information not available 03/24/2024 Are There Any Guns Present In Your Home? No [email or web address] Information not available 01/17/2021 Do You Use Protection During Sex? No [email or web address] Information not available 01/17/2021 Do You Use Your Seat Belt Or Car Seat Routinely? Yes [email or web address] Information not available 01/17/2021 Do You Have Smoke And Carbon Monoxide Detectors In Your Home? Yes [email or web address] Information not available 01/17/2021 At What Age Did You Start Smoking Tobacco? 15 [email or web address] Information not available 02/14/2021 How Much Tobacco Do You Smoke? 0.25 PPD Information not available 03/24/2024 Do You Feel Stressed (tense, Restless, Nervous, Or Anxious, Or Unable To Sleep At Night)? [id number] [email or web address] Information not available 03/24/2024 Do You Use Any Illicit Or Recreational Drugs? No [email or web address] Information not available 01/17/2021 Do You Use Sunscreen Routinely? No [email or web address] Information not available 01/17/2021 How Many Years Have You Smoked Tobacco? 6 [email or web address] Information not available 03/24/2024 Have You Used IV Drugs? No [email or web address] Information not available 01/17/2021 Do You Or Have You Ever Used Any Other Forms Of Tobacco Or Nicotine? No [email or web address] Information not available 02/25/2024 Sex: Unknown Functional [...] 07/19/2022 What is your exercise level? Moderate [email or web address] Information not available 01/17/2021 Mental Status None recorded. Family History Relationship Description Onset Age of this Age Resolved Age Notes LastModified by Organization Details LastModified Time Father Hyperlipidem ia [email or web address] Not available 09/11 11:01:38 Maternal Grandmother Diabetes mellitus [email or web address] Not available 2019 08:44:30 Mother Anxiety disorder [email or web address] Not available 02/24 14:31:54 Mother Depressive disorder [email or web address] Not available 03/24 12:20:19 Paternal Grandmother Anxiety disorder Not available 03/24 12:20:19 Paternal Grandmother Depressive disorder [email or web address] Not available 03/24 12:20:19 Brother Anxiety disorder [email or web address] Not available 03/24 12:20:19 Brother Depressive disorder [email or web address] Not available 03/24 12:20:19 Medical History Condition [...] SNOMED-CT Code Diagnosis ICD10 Code Diagnosis Note [id number] Kinsey Mi [facility] [address] [address] 09/01/2024 11:16:20 09/01/2024 12:11:13 Uterine size for dates discrepancy 828999881 O26.843 Z3A.35 [id number] [facility] [address] [address] 09/01/2024 11:17:04 09/01/2024 12:26:19 Gestation period, 35 weeks 77951544 Z3A.35 screening 2437 48295 Z36.85 [id number] Yulissa Potts [facility] [address],[place] [address] 09/08/2024 09:29:37 09/08/2024 09:54:50 Gestation period, 36 weeks 85303594 Z3A.36 [id number] [facility] [address],[place] [address] 09/15/2024 09:26:20 09/15/2024 10:27:30 Gestation period, 37 weeks 63906059 Z3A.37 [id number] Yulissa Potts [facility] [address],[place] [address] 09/22/2024 09:50:11 09/22/2024 10:26:38 Gestation period, 38 weeks 87164392 Z3A.38 [id number] Giovanna Suh [facility] [address] [address] 09/22/2024 10:26:51 09/23/2024 11:26:44 Reduced movement 862204576 O36.8199 [id number] Yulissa Potts [place] [address],[place] [address] 09/29/2024 11:01:00 09/29/2024 12:29:10 Gestation period, 39 weeks 20306430 Z3A.39 Health Concerns Section Related Observation LastModified by Organization Detai ls LastModified Time None Recorded Concern Status LastModified by Organization Details LastModified Time None Recorded Payers Encounter Date Sequence Insurance Name Policy Number Policy Guerrero Covered Member ID Guerrero Member ID Guarantor Name 09/29/2024 1 [employer] [place] [id number] A Dean Cespedes [id number] Nelly Cespedes OBGyn Episode Ob Episode Information Episode Created Date Number of Fetuses Patient Bloodtype Patient rh Status Prepregnancy Weight lbs Domestic Partner Domestic Partner Phone Father Name Head Doffer Status 03/24/20 24 1 A Negative 184 Jl Kramer OPEN Fetus Data First Name Last Name Admitted to NICU Weight (g) Sex Living Outcome Pediatric Complications Fetus ID Race Codes Race Delivery Type [id number] Problems Problem Notes Problem Name Start Date End Date Resolution Snomed Code Not e Herpes simplex 18028660 takes daily valtrex, increase to bid at [...] Weight in lbs Pre/Post Dialysis Refused Weight 184.597480581565 BP Diastolic BP Location Tested BP Systolic [...] Type Weight in lbs Pre/Post Dialysis Refused 187.513363830133 BP Diastolic BP Location Tested BP Systolic [...] Type Weight in lbs Pre/Post Dialysis Refused 193.21043895111 BP Diastolic BP Location Tested BP Systolic [...] Type Weight in lbs Pre/Post Dialysis Refused 204.938372120132 BP Diastolic BP Location Tested BP Systolic [...] Type Weight in lbs Pre/Post Dialysis Refused 215.357197945223 BP Diastolic BP Location Tested BP Systolic [...] Type Weight in lbs Pre/Post Dialysis Refused 228.650743150338 BP Diastolic BP Location Tested BP Systolic [...] Type Weight in lbs Pre/Post Dialysis Refused 231.520166121064 BP Diastolic BP Location Tested BP Systolic [...] Type Weight in lbs Pre/Post Dialysis Refused 233.517196465261 BP Diastolic BP Location Tested BP Systolic [...] Type Weight in lbs Pre/Post Dialysis Refused 235.915118507649 BP Diastolic BP Location Tested BP Systolic [...] Weight in lbs Pre/Post Dialysis Refused Weight 235.602764904747 BP Diastolic BP Location Tested BP Systolic [...] Weight in lbs Pre/Post Dialysis Refused Weight 235.772399634529 BP Diastolic BP Location Tested BP Systolic BP Type 77 110 Fetus Heart Rate Present Fetus Movement Comments Flowsheet Date 09/29/2024 Bailey Score Blood Edema Fundus Height Fundus Units Glucose Ketones Leukocytes Nitrite Labor Signs Protein Cervic Dilation Cervic Effacement Cervic Station neg none 39 cm 3cm Type Weight in lbs Pre/Post Dialysis Refused Weight 238.815812475379 BP Diastolic BP Location Tested BP Systolic BP Type 74 112 Fetus Heart Rate Present A 143 Fetus Movement A Yes Comments patient had dizziness 3 days ago and is having BH contraction and nausea. precautions and education +FM, IOL 10/01 at 0500 Menstrual History Last Menstrual Date Menses Monthly On Bcp Conception Prior Menses Frequency Hcg Plus Date Menarche Onset Age Delivery Information Delivery Date Delivery Type Labor Anesthesia Weeks Gestation Incision Type Labor Labor Length Hrs Delivered By Post Complications Tubal Sterilization Discharge Date Comments Discharge Information Feeding Method Contraceptive Method Maternal HG B and HCT Levels
--- OUTSIDE RECORDS SUMMARY | 2024-09-30 08:06 | XMS_ITS | Patient Health Summary ---
Author Organization [facility] Address [address] [place] [address] Care Team Providers Care Coffee Sampler Name Role Phone Unavailable Primary Care Provider Unavailabl e Note from [facility],non-owned Affiliates and Associated Physician Practices is amultiple site organization consisting of ambulatory clinics and hospital sitesin [place], [place], [place]. This disclosure is being madepursuant to the Care Everywhere program and may not contain all information available regarding this patient. Last updated 18.[facility] [employer]ighten Allergies No known active allergies Medications Be [...] Comments Blood Pressure 102/74 09/21/2015 7:22 PM WASHROOM OPERATOR Pulse 68 09/21/2015 7:22 PM WASHROOM OPERATOR Temperature 36.6 C (97.8 F) 09/21/2015 7:22 PM WASHROOM OPERATOR Respiratory Rate 16 09/21/2015 7:22 PM WASHROOM OPERATOR Oxygen Saturation 100% 09/08/2015 7:04 PM WASHROOM OPERATOR Inhaled Oxygen Concentration - - Weight 58.1 kg (128 lb) 09/21/2015 7:22 PM WASHROOM OPERATOR Height 167.6 cm (5' 5.98 ) 09/21/2015 7:22 PM CS T Body Mass Index 20.67 09/21/2015 7:22 PM WASHROOM OPERATOR
--- OUTSIDE RECORDS SUMMARY | 2024-09-30 08:07 | XMS_ITS | Data Portability ---
Author Organization [facility] [place] Address [address] [place] [address] [place] [address] Assessment Encounter Date Assessment Date Assessment LastModified by Organization Details LastModified Time 09/08/2024 09/08/2024 Patient is ___weeks . Discussed plan. [email or web address] Not available 09/08/2024 09:39:25 09/15/2024 09/15/2024 Patient is __37_weeks . Discussed plan. [email or web address] Not available 09/15/2024 10:23:37 09/22/2024 09/22/2024 Patient is _38__weeks . Discussed plan. [email or web address] Not available 09/22/2024 10:20:27 09/29/2024 09/29/2024 Patient is _39__weeks . Discussed plan. [email or web address] Not available 09/29/2024 11:54:31 Plan of Treatment Reminders Order Date Submit Date Provider Last Modified By Organization Details Last Modified Time Details Appointments INDUCTION 2024 05:00A M Yulissa Potts CNM Not available Not available Not available Lab None recorded. Referral None recorded. Procedures None recorded. Surgeries None recorded. Imaging non-stres s test 2024 025 [email or web address] [facility], [address], [place], [address], 09/23/2024 11:26:44 Medication Orders None recorded. Patient TargetsNo targets recorded. Patient InstructionsNo instructions recorded. Reason for Referral None Reported. Results Created Date Observation Date Name Description Value Unit Range Abnormal Flag Note LastModifiedBy Organization Detail LastModifiedTime 09/01/19 25 09/01/2024 CULTU RE: GROUP B STREP SCREE N, REFLE X SUSCE PTIBI LITY result report SEE RESULT S BELOW Test: Cultu re: Group B Strep , Refle x Susce ptibi lity ([facility]/ [facility] ) Speci men Sourc e: Vagin a/Rec desmond Speci men Type: Vagin al/Re ctal Speci men Date: 2024 1122 Resul t Date: 2024 2205 Resul t Statu s: Final resul t Abnor mal: No Resul ting Lab: [facility] [address] [facility] [address] Tel: [phone] CULTU RE ----- ----- ----- --- No Group B strep isola javad at 2 days (tahira ctive broth enhan cemen t) Not Available [facility] (Lab) [address], [place], [address], 09/05/2024 23:09:42 09/01/19 25 09/01/2024 US, obste tric, follo w-up No observ ation record ed. [email or web address] [facility] [address], [place], [address], 09/01/2024 13:52:25 09/01/19 25 09/01/2024 US, obste tric, follo w-up No observ ation record ed. [email or web address] [address], [place], [address], 09/01/2024 12:49:35 09/23/19 25 09/22/2024 non-s tress test No observ ation record ed. [email or web address] [facility] [address], [place], [address], 09/23/2024 11:18:29 09/23/19 25 09/22/2024 non-s tress test No observ ation record ed. [email or web address] [facility] [address], [place], [address], 09/23/2024 11:19:04 Result Notes None recorded. Problems Name Problem SNOMED Code Status Onset Date Resolution Date Notes Provider Name and Address Organization Details Recorded Time Missed miscarri age 38051947 Completed 201801/17/2021 Missed ;Recorde d Elsewher e: No Locat ion: [facility] S ource: EHR Machine Binding Folder rina: N Practi ce ID: 0001 Catracho lable Time: 04:00:00 PM Giovanna Suh [facility], [facility] 16:25:08 Pregnanc y detectio n examinat ion Completed 201801/17/2021 Encounte r for pregnanc y test, result positive ;Recorde d Elsewher e: No Locat ion: [facility] S ource: EHR Machine Binding Folder rina: N Practi ce ID: 0001 Catracho lable Time: 01:45:00 PM Giovanna cardona [facility] 16:25:10 Finding of contents of cervix 111590163 Completed 201801/17/2021 Weeks of gestatio n of pregnanc y not specifie d;Record ed Elsewher e: No Locat ion: [facility] S ource: EHR Machine Binding Folder rina: N Practi ce ID: 0001 Catracho lable Time: 04:30:00 PM Giovanna cardona [facility] 16:24:57 Pregnanc y test negative 349933497 Completed 201801/17/2021 Encounte r for pregnanc y test, result negative ;Recorde d Elsewher e: No Locat ion: [facility] S ource: EHR Machine Binding Folder rina: N Practi ce ID: 0001 Catracho lable Time: 10:00:00 AM Giovanna cardona [facility] 1 16:25:13 Antenata l screenin g Completed 201801/17/2021 Encounte r for antenata l screenin g for uncertai n dates;Re corded Elsewher e: No Locat ion: [facility] S ource: EHR Machine Binding Folder rina: N Practi ce ID: 0001 Catracho lable Time: 01:00:00 PM [facility] 1 16:24:[address] Concept Completed 201801/17/2021 Encntr for routine child health exam w/o abnormal findings ;Recorde d Elsewher e: No Locat ion: [facility] S ource: EHR Machine Binding Folder rina: N Practi ce ID: 0001 Catracho lable Time: 09:15:00 AM Giovanna Suh [facility] 1 16:25:15 Miscarri age without complica tion 10633900 Completed 201801/17/2021 Incomple te spontane ous without complica tion;Rec orded Elsewher e: No Locat ion: [facility] Source: EHR Machine Binding Folder rina: N Dianati ce ID: 0001 Catracho lable Time: 02:00:00 PM Giovanna cardona [facility] 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 1 16:25:18 Pregnanc y 72699334 Completed 202009/17/2021 Giovanna Suh [facility] 4 12:37:01 Acute urinary tract infectio n 958050650 Completed Treated Sravani anderson [facility] 2 16:07:41 Recurren t miscarri age 320720585 Completed Sravani Tidwellsoilamillerartyareli anderson null, [facility] 2 16:07:41 Marginal insertio n of umbilica l cord 98799204 Completed 2020 serial growth u/s Sravani Jimenezartyareli anderson null, [facility] 2 16:07:41 Herpes simplex 82711884 Active takes daily valtrex, increase to bid at 36 weeks Yulissa Potts CNM [address], [place], [address], [facility] 4 13:58:29 Pregnanc y 68218292 Active 2023 Giovanna Suh [facility], [facility] 4 12:37:01 Herpes simplex 22080453 Active takes daily valtrex, increase to bid at 36 weeks Yulissa Potts CNM [address], [place], [address], [facility] 4 13:58:29 Problem Notes None recorded. Procedures Surgical History Date Name Laterality Status Provider Name and Address Organization Details Recorded Time 02/25/20 24 Date of Last Pap Smear completed iGovanna Suh [facility] 02/25/2024 14:33:16 08/11/19 23 termination of completed Giovanna Suh [facility] 02/25/2024 14:35:32 Imaging Results Imaging Date Name Status LastModified by Organiz ation Details LastModified Time 09/01/2024 US, obstetric, follow-up completed [email or web address] [facility] [address], [place], [address], 09/01/2024 13:52:25 09/01/2024 US, obstetric, follow-up completed [email or web address] [address], [place], [address], 09/01/2024 12:49:35 09/22/2024 non-stress test completed [place] [address], [place], [address], 09/23/2024 11:18:29 09/22/2024 non-stress test completed [email or web address] [place] [address], [place], [address], 09/23/2024 11:19:04 Procedure Notes None recorded. Medical [...] Prescrib jim Queen e: No Locat ion: [facility] Nidia odcarol By: [email or web address] gonzalez DateTime : 11/14/19 09:15:00 [...] [facility] [id number] 0-95 Lot #[id number] Exp 10/03 Not Available Not Available Not [...] Address Organization Details Last Updated DateTime 09/08/2024 527787.0 2221 g 37.6 kg/m2 167.64 cm 115 mm[Hg] 79 mm[Hg] Giovanna Suh [facility] 5 09:40:00 Date Recorded Body weight Body mass index (BMI) Body height Systolic blood pressure Diastolic blood pressure Provider Name and Address Organization Details Last Updated DateTime 09/15/2024 770102.2 0695 g 37.9 kg/m2 167.64 cm 104 mm[Hg] 71 mm[Hg] Giovanna Suh [facility] 5 09:54:27 Date Recorded Body height Body mass index (BMI) Body weight Body height Body mass index (BMI) Body weight Systolic blood pressure Diastolic blood pressure Systolic blood pressure Diastolic blood pressure Provider Name and Address Organization Details Last Updated DateTime 5 167.64 cm 37.9 kg/m2 084620. 21 g 167.64 cm 37.9 kg/m2 957975. 21 g 110 mm[Hg] 77 mm[Hg] 110 mm[Hg] 77 mm[Hg] Giovanna Suh [facility] 5 09:29:44 Date Recorded Body height Body mass index (BMI) Body weight Systolic blood pressure Diastolic blood pressure Provider Name and Address Organization Details Last Updated DateTime 09/29/2024 167.64 cm 38.4 kg/m2 208927.9 8 g 112 mm[Hg] 74 mm[Hg] Giovanna Suh [facility] 5 11:38:29 Social History Question Answer Notes LastModified by Organizat ion Details LastModified Time Tobacco Smoking Status Current Every Day Smoker [facility] 02/25/2024 14:35:21 Do You Have An Advance Directive? No [email or web address] Information not available 01/17/2021 What Is Your Level Of Alcohol Consumption? None [email or web address] Information not available 01/17/2021 If You Are , What Was Your Level Of Alcohol Consumption Prior To ? Occasional [email or web address] Information not available 02/25/2024 Are You Blind Or Do You Have Difficulty Seeing? No [email or web address] Information not available 01/17/2021 What Is Your Level Of Caffeine Consumption? Occasional Information not available 01/17/2021 How Much Tobacco Do You Chew? None [email or web address] Information not available 01/17/2021 In The 14 Days Before Symptom Onset, Have You Had Close Contact With A Laboratory-confir med COVID-19 While That Case Was Ill? No [email or web address] Information not available 01/17/2021 In The 14 Days Before Symptom Onset, Have You Had Close Contact With A Person Who Is Under Investigation For COVID-19 While That Person Was Ill? No [email or web address] Information not available 01/17/2021 Have You Been To An Area Known To Be High Risk For COVID-19? No [email or web address] Information not available 01/17/2021 Are You Deaf Or Do You Have Serious Difficulty Hearing? No [email or web address] Information not available 01/17/2021 What Type Of Diet Are You Following? REGULAR [email or web address] Information not available 01/17/2021 What Is The Highest Grade Or Level Of School You Have Completed Or The Highest Degree You Have Received? [id number] Information not available 01/17/2021 What Is Your Occupation? N/A [email or web address] Information not available 03/24/2024 Are There Any Guns Present In Your Home? No [email or web address] Information not available 01/17/2021 Do You Use Protection During Sex? No [email or web address] Information not available 01/17/2021 Do You Use Your Seat Belt Or Car Seat Routinely? Yes [email or web address] Information not available 01/17/2021 Do You Have Smoke And Carbon Monoxide Detectors In Your Home? Yes [email or web address] Information not available 01/17/2021 At What Age Did You Start Smoking Tobacco? 15 [email or web address] Information not available 02/14/2021 How Much Tobacco Do You Smoke? 0.25 PPD [email or web address] Information not available 03/24/2024 Do You Feel Stressed (tense, Restless, Nervous, Or Anxious, Or Unable To Sleep At Night)? [id number] [email or web address] Information not available 03/24/2024 Do You Use Any Illicit Or Recreational Drugs? No Information not available 01/17/2021 Do You Use Sunscreen Routinely? No Information not available 01/17/2021 How Many Years Have You Smoked Tobacco? 6 [email or web address] Information not available 03/24/2024 Have You Used IV Drugs? No [email or web address] Information not available 01/17/2021 Do You Or Have You Ever Used Any Other Forms Of Tobacco Or Nicotine? No [email or web address] Information not available 02/25/2024 Sex: Unknown Functional Status Question Answer Note LastModified by Organizat ion Details LastModified Time Do you have difficulty walking or climbing stairs? No Information not available 07/19/2022 Are you able to walk? YESWOREST [email or web address] Information not available 01/17/2021 Are you able to care for yourself? Yes Information not available 07/19/2022 Do you have difficulty dressing or bathing? No Information not available 07/19/2022 What is your exercise level? Moderate [email or web address] Information not available 01/17/2021 Mental Status None recorded. Family History Relationship Description Onset Age of this Age Resolved Age Notes LastModified by Organization Details LastModified Time Father Hyperlipidem ia [email or web address] Not available 09/11 11:01:38 Maternal Grandmother Diabetes mellitus [email or web address] Not available 2019 08:44:30 Mother Anxiety disorder [email or web address] Not available 02/24 14:31:54 Mother Depressive disorder [email or web address] Not available 03/24 12:20:19 Paternal Grandmother Anxiety disorder [email or web address] Not available 03/24 12:20:19 Paternal Grandmother Depressive disorder [email or web address] Not available 03/24 12:20:19 Brother Anxiety disorder [email or web address] Not available 03/24 12:20:19 Brother Depressive disorder [email or web address] Not available 03/24 12:20:19 Medical History Condition [...] SNOMED-CT Code Diagnosis ICD10 Code Diagnosis Note [id number] David Phillips MD [facility] [address] [address] 05/06/2020 10:38:15 05/06/2020 11:32:14 Abnormal uterine bleeding 4363968842 9100 N93.9 this patient presents for concerns about and an episode of abnormal bleeding. She had some spotting and her follicular phase. We talked about it was a single episode. We agreed not to evaluate. will observe this problem. Her yeast infection is cleared up that was treated recently. T is not . Patient had concerns about . [id number] DEEPALI [facility] [address] [address] 08/01/2020 14:11:56 08/01/2020 14:51:14 Mastodynia of bilateral breasts 1260978759 5940734 N64.4 N63.10 Bilateral breast tenderness with LMP x 1wk ago. Breast lump right upper outer quadrant of breast approx. 10-11 o'clock position. We agreed to start with breast US. Aware to schedule. Will wait for report to decide next steps. Axillary lymphadenopathy 174521706 R59.0 Cystic like structure in middle of axilla likely from nicking it during shaving than use of deodorant. abx sent Hot compresses F/U x 2wks Time spent in visit is a total of 26 mins with at least 50% of visit consisting of counseling and review of plan of care. [id number] [facility] [address],[place] [address] 01/17/2021 15:13:34 01/17/2021 16:51:28 Amenorrhea 55156172 N91.2 [id number] [facility] [address],[place] [address] 01/17/2021 15:12:54 01/17/2021 16:51:45 [id number] [facility] [address],[place] [address] 02/14/2021 14:21:36 02/14/2021 14:57:26 screening 311041700 Z36.82 [id number] David Phillips MD [facility] [address],[place] [address] 02/14/2021 14:22:10 02/14/2021 16:02:41 Routine care 602980530 Z34.91 [id number] Abby Wells MD [facility] [address],[place] [address] 03/09/2021 12:41:22 03/09/2021 13:20:51 Routine care 271457647 Z34.82 [id number] Franci Farrell [facility] [address],[place] [address] 04/05/2021 11:21:49 04/05/2021 17:36:52 Routine care 401761471 Z34.92 48344 Abby Sheets [facility] [address],[place] [address] 04/05/2021 11:21:19 04/05/2021 14:05:43 screening for malformation 803330465 Z36.3 [id number] Yulissa Potts [facility] [address],[place] [address] 05/02/2021 12:51:48 05/02/2021 14:27:37 Routine care 740840164 Z34.92 [id number] Kinsey Mi [facility] [address],[place] [address] 05/02/2021 11:57:30 05/02/2021 15:09:25 screening 506421103 Z36.2 [id number] Yulissa Potts [facility] [address],[place] [address] 05/30/2021 11:53:50 05/30/2021 13:50:42 Routine care 937754250 Z34.92 [id number] Alanna Tubbs [facility] [address],[place] [address] 05/30/2021 11:51:29 05/30/2021 13:49:56 Marginal insertion of umbilical cord 50844000 O43.129 Z3A.27 74643 Yulissa Potts [facility] [address],[place] [address] 06/15/2021 11:34:13 06/15/2021 12:27:19 Routine care 331486454 Z34.92 [id number] Franci Farrell [facility] [address],[place] [address] 06/28/2021 09:21:37 06/28/2021 13:11:18 Routine care 548095830 Z34.92 Vaginitis 89961165 N76.0 Discussed use of mild soap like dove or ivory, cotton underwear w/out dye, hypoallerg enic detergent, wipe from front to back, avoid tub baths, keep perineum clean and dry, d/c use of baby wipes. Encouraged daily intake of yogurt or womens health probiotic. Internal and external affirm collected. [id number] Alanna Tubbs [facility] [address],[place] [address] 06/28/2021 09:20:15 06/28/2021 10:29:58 AND/OR placental disorder affecting management of mother 71916800 O43.129 Z3A.32 08637 Abby Wells MD [facility] [address],[place] [address] 07/13/2021 11:36:36 07/13/2021 14:01:15 Routine care 438566236 Z34.82 [id number] Alanna Tubbs [facility] [address],[place] [address] 07/26/2021 11:53:16 07/26/2021 13:14:06 AND/OR placental disorder affecting management of mother 63538221 O43.129 Z3A.36 [id number] David Phillips MD [facility] [address],[place] [address] 07/26/2021 11:53:39 07/26/2021 13:13:26 screening 181558206 Z36.2 [id number] [facility] [address],[place] [address] 08/09/2021 09:59:38 08/10/2021 18:58:53 Routine care 827624989 Z34.92 [id number] Johana Partida [facility] [address],[place] [address] 08/09/2021 09:57:59 08/09/2021 11:22:54 Reduced movement 386495968 O36.8199 70073 [facility] [address],[place] [address] 08/16/2021 11:20:08 08/16/2021 12:16:49 Routine care 456265300 Z34.92 [id number] [facility] [address],[place] [address] 10/05/2021 10:22:00 10/05/2021 10:51:03 care 803123146 Z39.2 start patch on Friday give one month to be effective, reviewed risk of blood clots Mixed anxi ety and depressive disorder 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 On exam vulvar redness and irritation noted. Patient currently on period, unable to collect any discharge swabs. No abnormal discharge noted.Will treat for yeast.Dinorah ptit STI panel sent.She uses the patch for control. BMI 30.7. We discussed increased risk of VTE and less effective in BMI over 30. She has been having some skin irritation with patch and would like to switch to pills.She denies hx of DVT/PE, HTN, Cancer, liver disease, Migraine with aura, or Stroke/MD. She is 3 months , is formula [...] was 35 minutes. Contracept ion care management 937473841 Z30.9 [id number] [facility] [address],[place] [address] 07/19/2022 11:05:24 07/23/2022 15:09:57 Pelvic and perineal pain 266327985 R10.2 [facility] with [facility] signed Left sided adnexal pain Patient is [...] of plan of care. Pain in pelvis 09124486 R10.2 [id number] Kinsey Mi [facility] [address],[place] [address] 07/24/2022 15:52:37 07/24/2022 16:35:28 Pain in pelvis 36221870 R10.2 [id number] Vicenta [facility] [address],[place] [address] 11/20/2022 11:56:13 11/20/2022 14:18:35 Genital herpes simplex 11673190 A60.9 If having >5-6 outbreaks in a year need to discuss suppressiv e therapy.Rx sent [facility] management 988840082 Z30.9 Patient is going to try the [...] 2 more boxes of samples and a [facility] med check appt. Time spent in visit is a total of 26 mins with at least 50% of visit consisting of counseling and review of plan of care. [id number] Vicenta Brooks [facility] [address],[place] [address] 03/28/2023 09:59:13 03/28/2023 10:36:54 Genital herpes simplex 62936517 A60.9 If having >5-6 outbreaks in a [...] of plan of care. [id number] Kinsey Mi [facility] [address],[place] [address] 02/25/2024 13:37:40 02/25/2024 14:12:08 [id number] Yulissa Potts [place] [address],[place] [address] 02/25/2024 13:43:32 02/25/2024 15:01:51 Amenorrhea 98987278 N91.2 Venereal d isease screening 183373192 Z11.3 Herpes simplex 92803276 B00.9 current infection continue valtrex as prescribed [id number] [facility] [address],[place] [address] 03/24/2024 10:54:16 03/24/2024 11:35:08 screening 847143975 Z36.82 [id number] Yulissa Potts [facility] [address] [place] [address] 03/24/2024 10:56:41 03/24/2024 14:03:13 Gestation period, 12 weeks 54695071 Z3A.12 Routine an tenatal care 593691219 Z34.92 [id number] Yulissa Potts [facility] [address] [place] [address] 04/21/2024 10:39:46 04/21/2024 12:04:49 Routine care 898055340 Z34.92 continue care [id number] [facility] [address],[place] [address] 05/19/2024 10:48:18 05/19/2024 11:54:12 screening for malformation 139953723 Z36.3 Z3A.20 [id number] [facility] [address],[place] [address] 05/19/2024 10:53:05 05/19/2024 12:10:23 Gestation period, 20 weeks 34610505 Z3A.20 [id number] [facility] [address],[place] [address] 06/16/2024 10:43:49 06/16/2024 11:37:27 screening 875895480 Z36.2 Z3A.24 [id number] [facility] [address],[place] [address] 06/16/2024 10:46:47 06/16/2024 12:04:08 Gestation period, 24 weeks 894380793 Z3A.24 continue vitamin Herpes simplex 98990486 B00.9 current infection continue valtrex as prescribed [id number] [facility] [address],[place] [address] 07/21/2024 09:33:30 07/21/2024 11:04:15 Medical examination for suspected condition 203015554 Z03.74 Z3A.29 [id number] [facility] [address],[place] [address] 07/21/2024 09:34:53 07/21/2024 11:08:31 Gestation period, 29 weeks 33346754 Z3A.29 [id number] Yulissa Potts CNM [facility] [address],[place] [address] 08/18/2024 09:47:10 08/18/2024 10:21:58 Routine care 715620241 Z34.92 continue care [id number] [facility] [address],[place] [address] 09/01/2024 11:16:20 09/01/2024 12:11:13 Uterine size for dates discrepancy 581148455 O26.843 Z3A.35 [id number] [facility] [address],[place] [address] 09/01/2024 11:17:04 09/01/2024 12:26:19 Gestation period, 35 weeks 46842108 Z3A.35 screening 2437 57702 Z36.85 [id number] [facility] [address],[place] [address] 09/08/2024 09:29:37 09/08/2024 09:54:50 Gestation period, 36 weeks 97252565 Z3A.36 [id number] [facility] [address],[place] [address] 09/15/2024 09:26:20 09/15/2024 10:27:30 Gestation period, 37 weeks 31743045 Z3A.37 [id number] [facility] [address],[place] [address] 09/22/2024 09:50:11 09/22/2024 10:26:38 Gestation period, 38 weeks 97722411 Z3A.38 [id number] Giovanna Suh [facility] [address],[place] [address] 09/22/2024 10:26:51 09/23/2024 11:26:44 Reduced movement 027861707 O36.8199 [id number] [facility] [address] [place] [address] 09/29/2024 11:01:00 09/29/2024 12:29:10 Gestation period, 39 weeks 07764864 Z3A.39 Health Concerns Section Related Observation LastModified by Organization Detai ls LastModified Time None Recorded Concern Status LastModified by Organization Details LastModified Time None Recorded Advance Directives Directive N: Payers Encounter Date Sequence Insurance Name Policy Number Policy Guerrero Covered Member ID Guerrero Member ID Guarantor Name 09/08/2024 1 [place] [id number] A Dean Cespedes [id number] 91 Nelly Cespedes 09/15/2024 1 [place]) [id number] A Dean Cespedes [id number] 91 Nelly Cespedes 09/22/2024 1 [place] [id number] A Dean Cespedes [id number] 91 Nelly Cespedes 09/22/2024 1 [place] [id number] A Dean Cespedes [id number] 91 Nelly Cespedes 09/29/2024 1 [place] [id number] A Dean Cespedes [id number] 91 Nellyedy Cespedes OBGyn Episode Ob Episode Information Episode Created Date Number of Fetuses Patient Bloodtype Patient rh Status Prepregnancy Weight lbs Domestic Partner Domestic Partner Phone Father Name Farm Supervisor Status 02/15/20 21 1 A Negative 135 CLOSED Fetus Data First Name Last Name Admitted to NICU Weight (g) Sex Living Outcome Pediatric Complications Fetus ID Race Codes Race Delivery Type [place] 3798.83 3 F true Full Term [id number] Vaginal Delivery Problems Problem Notes accessory lobe Problem Name Start Date End Date Resolution Snomed Code Not e Acute urinary tract infection MEDICATION 606962614 Treated Recurrent miscarriage 03500425 1 Marginal insertion of umbilical cord 04/05/2021 80695516 serial growth u/s Leonard Calculation Initial Leonard [...] Weight in lbs Pre/Post Dialysis Refused Weight 137.301548347571 BP Diastolic BP Location Tested BP Systolic [...] Weight in lbs Pre/Post Dialysis Refused Weight 139.119400107472 BP Diastolic BP Location Tested BP Systolic [...] Weight in lbs Pre/Post Dialysis Refused Weight 146.013686640084 BP Diastolic BP Location Tested BP Systolic [...] Weight in lbs Pre/Post Dialysis Refused Weight 159.603200476268 BP Diastolic BP Location Tested BP Systolic [...] Weight in lbs Pre/Post Dialysis Refused Weight 173.606811731702 BP Diastolic BP Location Tested BP Systolic BP Type 75 113 Fetus Heart Rate Present Fetus Movement A Yes Comments doing well, had rhogam and d id GCT at [place], MCI efw 25% precations reviewed, tdap rec Flowsheet Date 06/15/2021 Bailey Score Blood Edema Fundus Height Fundus Units Glucose Ketones Leukocytes Nitrite Labor Signs Protein Cervic Dilation Cervic Effacement Cervic Station neg none trace Type Weight in lbs Pre/Post Dialysis Refused Weight 184.878732577285 BP Diastolic BP Location Tested BP Systolic BP Type 71 110 Fetus Heart Rate Present A 155 Present Fetus Movement A Yes Comments patient states that having s ome cramping and white discharge. 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 Declined exam. Flowsheet Date 08/16/2021 Bialey Score Blood Edema Fundus Height Fundus Units Glucose Ketones Leukocytes Nitrite Labor Signs Protein Cervic Dilation Cervic Effacement Cervic Station none 38 none trace Type Weight in lbs Pre/Post Dialysis Refused Weight 213.714243111621 BP Diastolic BP Location Tested BP Systolic [...] Estim ated Date of Delivery false Thalassemia (Vietnamese, Mohawk, Mediterranean, Or Background): MCV < 80 false Neural Tube Defect (Meningomyelocele, Spina Bifi da, Or Anencephaly) false Congenital Heart Defect false Down Syndrome false Gunner-Sachs (eg, Caodaism, Cajun, Rwandan-[place]) f alse Norah Disease false Sickle Cell [...] Complications Tubal Sterilization Discharge Date Comments 2 Ervin [facility] idural 40 Yulissa [place] CNM marginal cord Discharge Information Feeding Method Contraceptive Method Maternal HG B and HCT Levels Breast Ob Episode Information Episode Created Date Number of Fetuses Patient Bloodtype Patient rh Status Prepregnancy Weight lbs Domestic Partner Domestic Partner Phone Father Name Farm Supervisor Status 01/18/20 21 1 CLOSED Fetus Data First Name Last Name Admitted to NICU Weight (g) Sex Living Outcome Pediatric Complications Fetus ID Race Codes Race Delivery Type , Spontane ous 16685 Leonard Calculation Initial Leonard Date Initial Exam [...] Domestic Partner Domestic Partner Phone Father Name Farm Supervisor Status 01/18/20 21 1 CLOSED Fetus Data First Name Last Name Admitted to NICU Weight (g) Sex Living Outcome Pediatric Complications Fetus ID Race Codes Race Delivery Type , Spontane ous [id number] Leonard Calculation Initial Leonard Date Initial Exam [...] Domestic Partner Domestic Partner Phone Father Name Farm Supervisor Status 03/24/20 24 1 CLOSED Fetus Data First Name Last Name Admitted to NICU Weight (g) Sex Living Outcome Pediatric Complications Fetus ID Race Codes Race Delivery Type , Spontane ous 19551 Leonard Calculation Initial Leonard Date Initial Exam [...] Domestic Partner Domestic Partner Phone Father Name Farm Supervisor Status 03/28/20 23 1 CLOSED Fetus Data First Name Last Name Admitted to NICU Weight (g) Sex Living Outcome Pediatric Complications Fetus ID Race Codes Race Delivery Type , Spontane ous 03469 Leonard Calculation Initial Leonard Date Initial Exam [...] Domestic Partner Domestic Partner Phone Father Name Farm Supervisor Status 02/25/20 24 1 CLOSED Fetus Data First Name Last Name Admitted to NICU Weight (g) Sex Living Outcome Pediatric Complications Fetus ID Race Codes Race Delivery Type , Induced [id number] Leonard Calculation Initial Leonard Date Initial Exam [...] Domestic Partner Domestic Partner Phone Father Name Farm Supervisor Status 03/24/20 24 1 A Negative 184 Jl Kramer OPEN Fetus Data First Name Last Name Admitted to NICU Weight (g) Sex Living Outcome Pediatric Complications Fetus ID Race Codes Race Delivery Type [id number] Problems Problem Notes Problem Name Start Date End Date Resolution Snomed Code Not e Herpes simplex 19511564 takes daily valtrex, increase to bid at [...] Weight in lbs Pre/Post Dialysis Refused Weight 184.264665380650 BP Diastolic BP Location Tested BP Systolic [...] Type Weight in lbs Pre/Post Dialysis Refused 187.242655332655 BP Diastolic BP Location Tested BP Systolic [...] Type Weight in lbs Pre/Post Dialysis Refused 193.83236940056 BP Diastolic BP Location Tested BP Systolic [...] Type Weight in lbs Pre/Post Dialysis Refused 204.440582473864 BP Diastolic BP Location Tested BP Systolic [...] Type Weight in lbs Pre/Post Dialysis Refused 215.230562395356 BP Diastolic BP Location Tested BP Systolic [...] Type Weight in lbs Pre/Post Dialysis Refused 228.311414569181 BP Diastolic BP Location Tested BP Systolic [...] Type Weight in lbs Pre/Post Dialysis Refused 231.170526058036 BP Diastolic BP Location Tested BP Systolic [...] Type Weight in lbs Pre/Post Dialysis Refused 233.526553797479 BP Diastolic BP Location Tested BP Systolic [...] Type Weight in lbs Pre/Post Dialysis Refused 235.178504856648 BP Diastolic BP Location Tested BP Systolic [...] Weight in lbs Pre/Post Dialysis Refused Weight 235.200608378093 BP Diastolic BP Location Tested BP Systolic [...] Weight in lbs Pre/Post Dialysis Refused Weight 235.606664535849 BP Diastolic BP Location Tested BP Systolic BP Type 77 110 Fetus Heart Rate Present Fetus Movement Comments Flowsheet Date 09/29/2024 Bailey Score Blood Edema Fundus Height Fundus Units Glucose Ketones Leukocytes Nitrite Labor Signs Protein Cervic Dilation Cervic Effacement Cervic Station neg none 39 cm 3cm Type Weight in lbs Pre/Post Dialysis Refused Weight 238.111508619386 BP Diastolic BP Location Tested BP Systolic [...] Domestic Partner Domestic Partner Phone Father Name Farm Supervisor Status 03/24/20 24 1 CLOSED Fetus Data First Name Last Name Admitted to NICU Weight (g) Sex Living Outcome Pediatric Complications Fetus ID Race Codes Race Delivery Type , Spontane ous 22591 Leonard Calculation Initial Leonard Date Initial Exam Date Initial Exam Provider Initial Ultrasound Date Last Menstrual Period Date Ultra Sound Weeks Gestation 0 Eighteen To Twenty Week Leonard Update Ultra Sound Date Fundal Height At Umbil Quickening Date Ultra Sound Latest Weeks Gestation Final Leonard Confirmed By Final Leoanrd Confirmed Date Final Leonard Date Ultra Sound [...]
--- OUTSIDE RECORDS SUMMARY | 2024-09-30 08:07 | XMS_ITS | Clinical Summary ---
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
--- OUTSIDE RECORDS SUMMARY | 2024-09-30 08:07 | XMS_ITS | Clinical Summary ---
Author Organization [facility] Address [address] [place] [address] Care Team Providers Care Neurological Surgeon Name Role Phone Unavailable Primary Care Provider Unavailabl e Source Comments [facility],non-owned Affiliates and Associated Physician Practices is amultiple site organization consisting of ambulatory clinics and hospital sitesin [place], [place], [place] and [place]. This disclosure is being madepursuant to the Care Everywhere program and may not contain all information available regarding this patient. 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
[2024-09-30] MEDS: LACTATED RINGERS 1,000 ML 999 ML IV CONT ×2 (09:12→10:21)
[2024-09-30 09:36] LABS: Basophils Absolute Auto 0.1 K/mm3 (0.0-0.1); Basophils Percent Auto 0.4 % (0.2-1.2); Eosinophils Absolute Auto 0.1 K/mm3 (0-0.3); Eosinophils Percent Auto 0.8 % (0-4.4); Hematocrit 35.6 % (37.0-47.0); Hemoglobin 11.4 g/dL (12.0-15.0); Immature Granulocyte Absolute 0.13 K/mm3 (0.00-0.031); Lymphocytes Absolute Auto 2.78 K/mm3 (0.9-3.2); Mean Corpuscular Hemoglobin 28.1 pg (26-34); Mean Corpuscular Volume 87.7 fl (80-100); Mean Platelet Volume 10.4 fl (7.4-10.4); Monocytes Percent Auto 7.3 % (2.6-8.5); Neutrophils Absolute Auto 9.2 K/mm3 (1.3-6.7); Neutrophils Percent Auto 69.5 % (45.5-73.1); Platelet Count Result 283 k/mm3 (150-375); Red Blood Count 4.06 M/mm3 (4.2-5.4); Red Cell Distribution Width 13.4 % (11.5-14.5); White Blood Count 13.2 K/mm3 (4.5-10.0)
--- NOTE | 2024-09-30 10:22 | P.PNAN_ITS ---
Anes - Eval Pre Procedure Procedure: Labor epidural Date/Time: 09/30/24 10:22 Surgeon: Alan Preop Diagnosis: Pain during labor Pre Op Diagnosis: Contractions Patient Data Age: 23 Gender: F Height: Weight: Last Vital Signs Pulse 84 09/30/24 10:19 BP 120/92 H 09/30/24 10:19 Pulse Ox 100 09/30/24 10:21 Allergies Allergy/AdvReac Type Severity Reaction Status Date / Time No Known Allergies Allergy Verified 06/18/24 20:02 Home Medications ?Medication ?Instructions ?Recorded ?Confirmed ?Type valacyclovir 500 mg tablet 500 mg PO DAILY 10/08/23 09/30/24 History prenat.vits,eusebia,ykx-gmbo-ysdev 1 tablet PO DAILY 09/30/24 09/30/24 History Laboratory Tests 09/30/24 09/30/24 09:16 09:17 WBC 13.2 H K/mm3 (4.5-10.0) RBC 4.06 L M/mm3 (4.2-5.4) Hgb 11.4 L g/dL (12.0-15.0) Hct 35.6 L % (37.0-47.0) MCV 87.7 fl (80-100) MCH 28.1 pg (26-34) MCHC 32.0 g/dl (32-36) RDW 13.4 % (11.5-14.5) Plt Count 283 k/mm3 (150-375) MPV 10.4 fl (7.4-10.4) Immature Gran % (Auto) 1.0 H % (0-0.5) Neut % (Auto) 69.5 % (45.5-73.1) Lymph % (Auto) 21.0 % (18.3-44.2) [place] % (Auto) 7.3 % (2.6-8.5) Eos % (Auto) 0.8 % (0-4.4) Baso % (Auto) 0.4 % (0.2-1.2) Lymph # (Auto) 2.78 K/mm3 (0.9-3.2) [place] # (Auto) 1.0 H K/mm3 (0.1-0.6) Eos # (Auto) 0.1 K/mm3 (0-0.3) Baso # (Auto) 0.1 K/mm3 (0.0-0.1) Abs Immat Gran (auto) 0.13 H K/mm3 (0.00-0.031) Absolute Neuts (auto) 9.2 H K/mm3 (1.3-6.7) Absolute Nucleated RBC 0.000 K/mm3 (0.0-0.012) Nucleated RBC % 0.0 % (0.0-0.2) RPR Titer Cancelled RPR Cancelled RPR Titer Add Testing Cancelled T.pallidum Ab (FTA-ABS) Cancelled T.pall Ab(FTA-ABS)Reflex Cancelled HIV 1&2 Ab/P24 Ag 4thGn Pending Blood Type A Negative Antibody Screen Pending Patient hx anesthesia problems: none Family hx anesthesia problems: none Results Review: All pre-operative results and documents have been reviewed as part of the pre- operative evaluation. [facility] Past Medical History Medical History Genital herpes UTI (urinary tract infection) Surgical History Surgical History No significant past surgical history Family History Family History Father Hyperlipidemia Other No acute medical problems Social History Social History Smoking status: Former smoker Tobacco type: cigarettes Second hand tobacco smoke exposure: No Alcohol intake: former Alcohol use details: rarely Living arrangements: with family Occupation/Education: occupation Gender identity (if verbalized by the patient): Female Sexual Orientation (if Verbalized by the Patient): Straight or Heterosexual Spiritual care concerns: No Exam Day of Procedure 09/30/24 10:22 Patient weight: overweight Heart: regular rate and rhythm Lungs: clear to auscultation Airway: Mallampati scale class II Neurological: alert and oriented
--- NOTE | 2024-09-30 10:27 | LDADM ---
This patient, Nelly Cespedes, was admitted to Labor/Delivery/Recovery 105 on 09/30/24 at 07:31. Plans for labor, pain management and were discussed with patient. Patient/family oriented to hospital policies and general routines including ID bracelet, bed and alarms, visiting hours, pain management, procedures, bathroom and other care routines, personal items, smoking policy, room service/diet and guest tray routines, security routines, and visiting hours. Patient/Family are encouraged to report perceived risks to care and to ask questions if they do not understand what they are told or what they should do. See OBIX for further documentation.
--- NOTE | 2024-09-30 10:30 | WPDOBADMIT ---
Obstetrics - Admit Note Admission Note: record reviewed. No pertinent additions to the history and/or any subsequent changes in the physical findings that are not consistent with the expected course of the were found. Additions to the history and/or subsequent changes in the physical findings follow. admit in labor, bright light negative, anticipate vaginal delivery
[2024-09-30 10:37] LABS: HIV 1/2 Ab P24 Ag Result Negative (Negative)
--- NOTE | 2024-09-30 10:50 | PM.OBPNLAB ---
Pain Control Date/time seen: 09/30/24 10:50 Comments: FELIPA /-2 AROm thin meconium fluid category 1 tracing
[2024-09-30 11:32] LABS: Syphilis IgG/IgM Antibody Negative (Negative)
[2024-09-30] MEDS: OXYTOCIN 30 UNITS/NS 500 ML 30 UNITS/500 ML BAG IV CONT (13:40)
--- NOTE | 2024-09-30 14:41 | PM.OBPRVD ---
OB - Vaginal Delivery Note Procedure Delivery date: 09/30/24 Delivery augmentation: Rupture of Membranes and Pitocin Route of delivery: Episiotomy description: None Laceration Description: None Specimen: No Quantitative Blood Loss (ml): 50 Anesthesia type: Epidural Disposition: Floor Complications: No immediate complications [place] Baby Date of : 09/30/24 Time of : 14:32 Gestational Age by Date: 39 Infant gender: Female Weight (pounds): 7 Weight (ounces): 7 presentation: vertex position: Left Occiput Anterior Placenta delivery description: Spontaneous Cord Vessel Description: 3 Vessels and Clamped/Cut score one minute: 8 score five minutes: 9
[2024-09-30] MEDS: OXYTOCIN 30 UNITS/NS 500 ML 30 UNITS/500 ML BAG 125 UNITS IV CONT (15:05)
--- NOTE | 2024-09-30 17:51 | OBPPTRN ---
Patient transferred to post room # 291 via wheelchair.. Support person present. Oriented to unit, room, information board, rooming in, admission packet and security measures. Patient verbalizes understanding.
[2024-09-30] MEDS: IBUPROFEN 600 MG TABLET PO (19:20)
[2024-10-01] MEDS: IBUPROFEN 600 MG TABLET PO ×2 (01:50→10:06)
[2024-10-01 04:00] VITALS: BP 105/64; PULSE 76; RESP 18; TEMP 36.4; O2SAT 98
[2024-10-01 06:36] LABS: Hematocrit 33.6 % (37.0-47.0); Hemoglobin 10.5 g/dL (12.0-15.0)
[2024-10-01 07:55] VITALS: BP 103/56; PULSE 86; RESP 16; TEMP 36.3; O2SAT 99
--- NOTE | 2024-10-01 08:08 | P.PNOB_ITS ---
OB - PN: Subj Subjective Date/time seen: 10/01/24 08:08 Interval history: pp day 1 doing well desires d/c home OB - PN: Obj Data Labs 10/01/24 04:00 Labs: Laboratory Results - last 24 hr 09/30/24 09/30/24 10/01/24 09:16 09:17 04:00 WBC 13.2 H RBC 4.06 L Hgb 11.4 L 10.5 L Hct 35.6 L 33.6 L MCV 87.7 MCH 28.1 MCHC 32.0 RDW 13.4 Plt Count 283 MPV 10.4 Immature Gran % (Auto) 1.0 H Neut % (Auto) 69.5 Lymph % (Auto) 21.0 [place] % (Auto) 7.3 Eos % (Auto) 0.8 Baso % (Auto) 0.4 Lymph # (Auto) 2.78 [place] # (Auto) 1.0 H Eos # (Auto) 0.1 Baso # (Auto) 0.1 Abs Immat Gran (auto) 0.13 H Absolute Neuts (auto) 9.2 H Absolute Nucleated RBC 0.000 Nucleated RBC % 0.0 Syphilis IgG/IgM Ab Negative RPR Titer Cancelled RPR Cancelled RPR Titer Add Testing Cancelled T.pallidum Ab (FTA-ABS) Cancelled T.pall Ab(FTA-ABS)Reflex Cancelled HIV 1&2 Ab/P24 Ag 4thGn Negative Blood Type A Negative A Negative Antibody Screen Negative TNP OB - PN A/P Plan day: 1 Plan: routine care and discharge home Time Spent With Patient Time: Total time spent is greater than 50% in coordination of care (as documented) at patient's floor/unit and/or counseling patient: Review of Systems 2 Review of Systems: All systems reviewed & are unremarkable except as noted in HPI and below Exam 2 Const: General: cooperative and healthy appearing Resp: Effort & Inspection: normal respiratory effort GI: Inspection: normal to inspection Neuro: General: patient oriented x3 Extrem: General: normal to inspection Psych: Appearance: grossly normal
--- NOTE | 2024-10-01 08:09 | P.DS_ITS ---
DS: Admitting Diagnosis Discharge Date 10/01/24 Admitting Diagnosis labor DS: Discharge Diagnosis Discharge Diagnosis (1) Vaginal delivery: Code(s): O80 - Encounter for full-term uncomplicated delivery Status: Acute OB - DS: Summary OB Procedures : None OB Procedures Intrapartum: Spontaneous Vag Delivery OB Procedures: : None Peripartum Data Laceration Description: None Episiotomy description: None Time Spent with Patient Time attestation: Total time spent providing and/or coordinating discharge services: DS: Data Data Completed and Pending Labs on day of discharge: Labs from last 24 hours 10/01/24 09/30/24 09/30/24 04:00 09:17 09:16 WBC 13.2 H RBC 4.06 L Hgb 10.5 L 11.4 L Hct 33.6 L 35.6 L MCV 87.7 MCH 28.1 MCHC 32.0 RDW 13.4 Plt Count 283 MPV 10.4 Immature Gran % (Auto) 1.0 H Neut % (Auto) 69.5 Lymph % (Auto) 21.0 [place] % (Auto) 7.3 Eos % (Auto) 0.8 Baso % (Auto) 0.4 Lymph # (Auto) 2.78 [place] # (Auto) 1.0 H Eos # (Auto) 0.1 Baso # (Auto) 0.1 Abs Immat Gran (auto) 0.13 H Absolute Neuts (auto) 9.2 H Absolute Nucleated RBC 0.000 Nucleated RBC % 0.0 Syphilis IgG/IgM Ab Negative RPR Titer Cancelled RPR Cancelled RPR Titer Add Testing Cancelled T.pallidum Ab (FTA-ABS) Cancelled T.pall Ab(FTA-ABS)Reflex Cancelled HIV 1&2 Ab/P24 Ag 4thGn Negative Blood Type A Negative A Negative Antibody Screen TNP Negative Screen Pending Baby's Blood Type Pending Baby's SPARKLE Pending Doses of RhIg Required Pending Discharge Plan Discharge Attending physician on discharge: David Phillips Consulting providers: David Phillips Discharging Clinician: Yulissa Potts Activity: pelvic rest Diet: regular Patient Language: Burkinan Discharge Medications: No Action valacyclovir 500 mg tablet 500 mg PO DAILY prenat.vits,eusebia,xqy-xmms-cxgpz Tablet 1 tablet PO DAILY Date of admission: 09/30/24 07:31 Primary Care Provider: UNKNOWN,DOCTOR Admitting Provider: David Phillips Attending physician on admission: David Phillips Condition: Stable
--- NOTE | 2024-10-01 10:50 | WPDANLDPN2 ---
Anes-Prog Note L&D Date/Time: 10/01/24 10:50 Comfortable throughout: labor and delivery Neuraxial method: epidural Epidural/Spinal procedure site: clean & non-tender Neuro status: Neuro function grossly intact. Cardiovascular status: normal Respiratory status: normal Airway patency: baseline Mental status: baseline Post-Op hydration status: normal Vital Signs: Last Vital Signs Temp 36.3 C L 10/01/24 07:55 Pulse 86 10/01/24 07:55 Resp 16 10/01/24 07:55 BP 103/56 L 10/01/24 07:55 Pulse Ox 99 10/01/24 07:55 O2 Del Method Room Air 09/30/24 20:02 Pain score (VAS): 08/20 Post-procedural complaints: none Patient feedback: Patient satisfied with anesthetic care.
[2024-10-01] MEDS: RHO(D) IMMUNE GLOBULIN 300 MCG/2 ML SYRINGE IM (10:51)
[2024-10-01] MEDS: DOCUSATE SODIUM 100 MG CAPSULE PO (10:54)
[2024-10-01] MEDS: ACETAMINOPHEN 325 MG TABLET 650 MG PO (11:20)
[2024-10-01 12:39] VITALS: BP 123/73; PULSE 91; RESP 16; TEMP 36.4; O2SAT 99
[2024-10-02 10:31] VITALS: BP 108/60; PULSE 79; RESP 18; TEMP 36.6; O2SAT 100
== END 2024-10-01 16:13 | disposition home or self-care (01) | DRG 807 ==
LOC: ANHLDR 08:01 → ANHOB2 17:46
PROVIDERS: Admitting Provider Obstetrics & Gynecology; Referring Provider Advanced Practice Midwife; Visit Provider Obstetrics & Gynecology
DX: O77.0 Labor and delivery complicated by meconium in amniotic fluid (principal); Z37.0 Single live birth; Z3A.39 39 weeks gestation of pregnancy; O69.81X0 Labor and delivery complicated by cord around neck, without compression, not applicable or unspecified
CPT/HCPCS: 36415; 85014; 85018; 85025; 85461; 86593; 86703; 86850; 86900; 86901; 90384; A9270; G0432; J2590; J2790; J2795; J7120

== ENCOUNTER 2024-11-26 22:05 | Emergency (ER) | payer BC, SELFPAY ==
--- OUTSIDE RECORDS SUMMARY | 2024-11-26 22:08 | XMS_ITS | Clinical Summary ---
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
--- OUTSIDE RECORDS SUMMARY | 2024-11-26 22:08 | XMS_ITS | Clinical Summary ---
Author Organization [facility] Address [address] [place] [address] Care Team Providers Care International Student Advisor Name Role Phone None, Provider MD Primary [...] disorder, r ecurrent, severe w/o psychotic behavior ([facility]) 04/11/2020 Marijuana use 04/11/2020 Social anxiety disorder 04/11/2020 test negative 07/12/2019 examination or test, unconfi rmed 01/11/2019 screening for rais ed alpha-fetoprotein levels in amniotic fluid ([facility]) 11/13/2018 Resolved Problems Problem Noted Date Diagnosed Date Resolved Date COVID-19 08/18/2020 08/18/2020 Spontaneous without complication (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 MANAGER Pulse 106 07/26/2023 5:37 PM FUNERAL LOCATION MANAGER Temperature 36.2 C (97.1 F) 07/26/2023 1:31 PM FUNERAL LOCATION MANAGER Respiratory Rate 18 07/26/2023 5:37 PM FUNERAL LOCATION MANAGER Oxygen Saturation 100% 07/26/2023 5:37 PM FUNERAL LOCATION MANAGER Inhaled Oxygen Concentration - - Weight 81.2 kg (179 lb) 07/26/2023 1:31 PM FUNERAL LOCATION MANAGER Height 167.6 cm (5' 6 ) 07/26/2023 1:31 PM FUNERAL LOCATION MANAGER Body Mass Index 28.89 07/26/2023 1:31 PM FUNERAL LOCATION MANAGER Plan of Treatment Health Maintenance Due Date Last Done Comments Annual Physical 2004 DTaP, Tdap and Td Vaccines (6 - Tdap) 2012 02/24/2007, 06/14/2003, 06/16/2002, Additional history exists HPV Vaccines (1 - 3-dose series) 2016 Meningococcal B Vaccine (1 of 2 - Standard) 2017 Hepatitis C 12/08/2019 COVID-19 Vaccine ( season) 2024 Cervical Cancer Screening Pap Smear (Age 21 to 29) Every 3 Years 11/26/2024 11/26/2021 Cervical Cancer Screening 11/26/2024 Hepatitis B Vaccines Completed 09/16/2002, 01/06/2002, 2001 Meningococcal Vaccine Aged Out No umm sarah eligible based on patient's age to complete this topic Pneumococcal Vaccine: Pediatrics (0 to 5 Years) and At-Risk Patients (6 to 49 Years) Aged Out No longer eligible based on patient's age to complete this topic RSV Immunizations Under 20 Months Aged Out No longer eligible based on patient's age to complete this topic Insurance [facility] Care Teams International Student Advisor Relationship Specialty Start Date End Date None, Provider, MD PCP - General UNKNOWN PHYSICIAN SPECIALTY 07/26/23
--- OUTSIDE RECORDS SUMMARY | 2024-11-26 22:08 | XMS_ITS | Data Portability ---
Author Organization [facility] Address [address] [place] [address] [place] [address] Assessment Encounter Date Assessment Date Assessment LastModified by Organization Details LastModified Time 09/08/2024 09/08/2024 Patient is ___weeks . Discussed plan. [email or web address] Not available 09/08/2024 09:39:25 09/15/2024 09/15/2024 Patient is __37_weeks . Discussed plan. [email or web address] Not available 09/15/2024 10:23:37 09/22/2024 09/22/2024 Patient is _38__weeks . Discussed plan. [email or web address] Not available 09/22/2024 10:20:27 09/29/2024 09/29/2024 Patient is _39__weeks . Discussed plan. [email or web address] Not available 09/29/2024 11:54:31 Plan of Treatment Reminders Order Date Submit Date Provider Last Modified By Organization Details Last Modified Time Details Appointments None record ed. Lab None record ed. Referral None record ed. Procedures None record ed. Surgeries None record ed. Imaging non-st ress test 025 09/23/19 25 [email or web address] [place], [address], [address], [place], [address], 11:26:44 Medication Orders None record ed. Patient TargetsNo targets recorded. Patient InstructionsNo instructions [...] t Abnor mal: No Resul ting Lab: [facility] [address] [facility] [address] Tel: [phone] CULTU RE ----- ----- ----- --- No Group B strep isola javad at 2 days (tahira ctive broth enhan cemen t) Not Available [facility] (Lab) [address] [facility], [place], [address], 09/05/2024 23:09:42 09/01/19 25 09/01/2024 US, obste tric, follo w-up No observ ation record ed. [email or web address] [facility] [address], [place], [address], 09/01/2024 13:52:25 09/01/19 25 09/01/2024 US, obste tric, follo w-up No observ ation record ed. [email or web address] Shanel [address], [place], [address], 09/01/2024 12:49:35 09/23/19 25 09/22/2024 non-s tress test No observ ation record ed. [facility] [address], [place], [address], 09/23/2024 11:18:29 09/23/19 25 09/22/2024 non-s tress test No observ ation record ed. [email or web address] [facility] [address], [place], [address], 09/23/2024 11:19:04 11/02/1911/01/2024 non-s tress test No observ ation record ed. [address], [place], [address], 11/03/2024 09:35:03 Result Notes None recorded. Problems Name Problem SNOMED Code Status Onset Date Resolution Date Notes Provider Name and Address Organization Details Recorded Time Missed miscarri age 61737703 Completed 201801/17/2021 Missed ;Recorde d Elsewher e: No Locat ion: [facility] S ource: EHR Gum Maker rina: N Practi ce ID: 0001 Catracho lable Time: 04:00:00 PM Giovanna Suh [facility] 16:25:08 Pregnanc y detectio n examinat ion Completed 201801/17/2021 Encounte r for pregnanc y test, result positive ;Recorde d Elsewher e: No Locat ion: [facility] S ource: EHR Gum Maker rina: N Practi ce ID: 0001 Catracho lable Time: 01:45:00 PM Giovanna Suh [facility] 16:25:10 Finding of contents of cervix 809507432 Completed 201801/17/2021 Weeks of gestatio n of pregnanc y not specifie d;Record ed Elsewher e: No Locat ion: [facility] S ource: EHR Gum Maker rina: N Practi ce ID: 0001 Catracho lable Time: 04:30:00 PM Giovanna Suh [facility] 16:24:57 Pregnanc y test negative [id number] Completed 201801/17/2021 Encounte r for pregnanc y test, result negative ;Recorde d Elsewher e: No Locat ion: [facility] S ource: EHR Gum Maker rina: N Dianati ce ID: 0001 Catracho lable Time: 10:00:00 AM Giovanna Vikash brendan [facility] 16:25:13 Antenata l screenin g Completed 201801/17/2021 Encounte r for antenata l screenin g for uncertai n dates;Re corded Elsewher e: No Locat ion: Rosaline pitt [facility] S ource: EHR Gum Maker rina: N Dianati ce ID: 0001 Catracho lable Time: 01:00:00 PM Giovanna Suh [facility], [facility] 16:24:[address] Concept Completed 201801/17/2021 Encntr for routine child health exam w/o abnormal findings ;Recorde d Elsewher e: No [facility] S ource: EHR Gum Maker rina: N Dianati ce ID: 0001 Catracho lable Time: 09:15:00 AM Giovanna Vikash brendan [facility] 16:25:15 Miscarri age without complica tion 95129980 Completed 201801/17/2021 Incomple te spontane ous without complica tion;Rec orded Elsewher e: No Locat ion: [facility] Source: EHR Gum Maker rina: N Dianati ce ID: 0001 Catracho lable Time: 02:00:00 PM Giovanna cardona [facility] 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 16:25:18 Pregnanc y 89223958 Completed 202009/17/2021 Cori cardona, [facility] 5 11:26:25 Acute urinary tract infectio n 486894591 Completed Treated Sravani anderson null, [facility] 2 16:07:41 Recurren t miscarri age 369617374 Completed Sravani anderson null, [facility] 2 16:07:41 Marginal insertio n of umbilica l cord 52196180 Completed 2020 serial growth u/s Sravani anderson null, [facility] 2 16:07:41 Herpes simplex 13569776 Active takes daily valtrex, increase to bid at 36 weeks Yulissa Potts CNM [address], [place], [address], , P.C. 4 13:58:29 Pregnanc y 90077043 Completed 202310/18/2024 Cori Mandujano null, [facility] 5 11:26:25 Herpes simplex 68793478 Completed takes daily valtrex, increase to bid at 36 weeks Yulissa Potts CNM [address], [place], [address], , P.C. 4 13:58:29 Problem Notes None recorded. Procedures Surgical History Date Name Laterality Status Provider Name and Address Organization Details Recorded Time 02/25/20 24 Date of Last Pap Smear completed Giovanna Suh [facility] 02/25/2024 14:33:16 08/11/19 23 termination of completed Giovanna Suh [facility] 02/25/2024 14:35:32 Imaging Results Imaging Date Name Status LastModified by Organiz ation Details LastModified Time 09/01/2024 US, obstetric, follow-up completed [email or web address] [facility] [address], [place], [address], 09/01/2024 13:52:25 09/01/2024 US, obstetric, follow-up completed [email or web address] Shanel [address], [place], [address], 09/01/2024 12:49:35 09/22/2024 non-stress test completed [address], [place], [address], 09/23/2024 11:18:29 09/22/2024 non-stress test completed [email or web address] [facility] [address], [place], [address], 09/23/2024 11:19:04 11/01/2024 non-stress test completed [address], [place], [address], 11/03/2024 09:35:03 Procedure Notes None recorded. Medical Equipment None [...] Prescrib jim Queen e: No [facility] odify By: [email or web address] gonzalez DateTime : [...] every day 11/20 completed [facility] 0430-042 0-95 Lot #[id number] Exp 10/03 Not Available Not Available Not [...] Address Organization Details Last Updated DateTime 09/08/2024 624131.0 2221 g 37.6 kg/m2 167.64 cm 115 mm[Hg] 79 mm[Hg] Giovanna Suh [facility] 5 09:40:00 Date Recorded Body weight Body mass index (BMI) Body height Systolic blood pressure Diastolic blood pressure Provider Name and Address Organization Details Last Updated DateTime 09/15/2024 470836.2 0695 g 37.9 kg/m2 167.64 cm 104 mm[Hg] 71 mm[Hg] Giovanna Suh [facility] 5 09:54:27 Date Recorded Body height Body mass index (BMI) Body weight Body height Body mass index (BMI) Body weight Systolic blood pressure Diastolic blood pressure Systolic blood pressure Diastolic blood pressure Provider Name and Address Organization Details Last Updated DateTime 5 167.64 cm 37.9 kg/m2 635104. 21 g 167.64 cm 37.9 kg/m2 199538. 21 g 110 mm[Hg] 77 mm[Hg] 110 mm[Hg] 77 mm[Hg] Giovanna Suh [facility] 5 09:29:44 Date Recorded Body height Body mass index (BMI) Body weight Systolic blood pressure Diastolic blood pressure Provider Name and Address Organization Details Last Updated DateTime 09/29/2024 167.64 cm 38.4 kg/m2 320367.9 8 g 112 mm[Hg] 74 mm[Hg] Giovanna Suh [facility] 5 11:38:29 Social History Question Answer Notes LastModified by Organizat ion Details LastModified Time Tobacco Smoking Status Current Every Day Smoker Giovanna cardona [facility] 02/25/2024 14:35:21 Do You Have An Advance Directive? No [email or web address] Information not available 01/17/2021 What Is Your Level Of Alcohol Consumption? None [email or web address] Information not available 01/17/2021 If You Are , What Was Your Level Of Alcohol Consumption Prior To ? Occasional [email or web address] Information not available 02/25/2024 Are You Blind Or Do You Have Difficulty Seeing? No [email or web address] Information not available 01/17/2021 What Is Your Level Of Caffeine Consumption? Occasional Information not available 01/17/2021 How Much Tobacco Do You Chew? None [email or web address] Information not available 01/17/2021 In The 14 Days Before Symptom Onset, Have You Had Close Contact With A Laboratory-confir med COVID-19 While That Case Was Ill? No [email or web address] Information not available 01/17/2021 In The 14 Days Before Symptom Onset, Have You Had Close Contact With A Person Who Is Under Investigation For COVID-19 While That Person Was Ill? No [email or web address] Information not available 01/17/2021 Have You Been To An Area Known To Be High Risk For COVID-19? No [email or web address] Information not available 01/17/2021 Are You Deaf Or Do You Have Serious Difficulty Hearing? No [email or web address] Information not available 01/17/2021 What Type Of Diet Are You Following? REGULAR [email or web address] Information not available 01/17/2021 What Is The Highest Grade Or Level Of School You Have Completed Or The Highest Degree You Have Received? XI17818-9 [email or web address] Information not available 01/17/2021 What Is Your Occupation? N/A [email or web address] Information not available 03/24/2024 Are There Any Guns Present In Your Home? No [email or web address] Information not available 01/17/2021 Do You Use Protection During Sex? No [email or web address] Information not available 01/17/2021 Do You Use Your Seat Belt Or Car Seat Routinely? Yes [email or web address] Information not available 01/17/2021 Do You Have Smoke And Carbon Monoxide Detectors In Your Home? Yes [email or web address] Information not available 01/17/2021 At What Age Did You Start Smoking Tobacco? 15 [email or web address] Information not available 02/14/2021 How Much Tobacco Do You Smoke? 0.25 PPD [email or web address] Information not available 03/24/2024 Do You Feel Stressed (tense, Restless, Nervous, Or Anxious, Or Unable To Sleep At Night)? QB78706-2 [email or web address] Information not available 03/24/2024 Do You Use Any Illicit Or Recreational Drugs? No [email or web address] Information not available 01/17/2021 Do You Use Sunscreen Routinely? No [email or web address] Information not available 01/17/2021 How Many Years Have You Smoked Tobacco? 6 [email or web address] Information not available 03/24/2024 Have You Used IV Drugs? No [email or web address] Information not available 01/17/2021 Do You Or Have You Ever Used Any Other Forms Of Tobacco Or Nicotine? No [email or web address] Information not available 02/25/2024 Sex: Unknown Functional Status Question Answer Note LastModified by Organizat ion Details LastModified Time Do you have difficulty walking or climbing stairs? No Information not available 07/19/2022 Are you able to walk? YESWOREST [email or web address] Information not available 01/17/2021 Are you able to care for yourself? Yes Information not available 07/19/2022 Do you have difficulty dressing or bathing? No Information not available 07/19/2022 What is your exercise level? Moderate [email or web address] Information not available 01/17/2021 Mental Status None recorded. Family History Relationship Description Onset Age of this Age Resolved Age Notes LastModified by Organization Details LastModified Time Father Hyperlipidem ia [email or web address] Not available 09/11 11:01:38 Maternal Grandmother Diabetes mellitus [email or web address] Not available 2019 08:44:30 Mother Anxiety disorder [email or web address] Not available 02/24 14:31:54 Mother Depressive disorder [email or web address] Not available 03/24 12:20:19 Paternal Grandmother Anxiety disorder [email or web address] Not available 03/24 12:20:19 Paternal Grandmother Depressive disorder [email or web address] Not available 03/24 12:20:19 Brother Anxiety disorder [email or web address] Not available 03/24 12:20:19 Brother Depressive disorder [email or web address] Not available 03/24 12:20:19 Medical History Condition Response Allergies (Food, seasonal, environmental ) N Other N Blood Transfusion N Drug/Latex Allergies/Reactions N Breast Cancer N Dermatologic Disorders N [...] Definite N Obstetrics History GPAL:G 8 P 2 0 6 2 Type Value Full Term 2 Induced 1 Spontaneous 5 Living 2 Total 8 Past Encounters Encounter ID Performer Location Encounter Start Date Encounter Closed Date Diagnosis/Indication Diagnosis SNOMED-CT Code Diagnosis ICD10 Code Diagnosis Note [id number] David Phillips MD [facility] [address] [address] 05/06/2020 10:38:15 05/06/2020 11:32:14 Abnormal uterine bleeding 7982705118 9100 N93.9 this patient presents for concerns about and an episode of abnormal bleeding. She had some spotting and her follicular phase. We talked about it was a single episode. We agreed not to evaluate. will observe this problem. Her yeast infection is cleared up that was treated recently. T is not . Patient had concerns about . [id number] Vicenta Brooks [facility] [address],[place] [address] 08/01/2020 14:11:56 08/01/2020 14:51:14 Mastodynia of bilateral breasts 3892309388 1584363 N64.4 N63.10 Bilateral breast tenderness with LMP x 1wk ago. Breast lump right upper outer quadrant of breast approx. 10-11 o'clock position. We agreed to start with breast US. Aware to schedule. Will wait for report to decide next steps. Axillary lymphadenopathy 597823295 R59.0 Cystic like structure in middle of axilla likely from nicking it during shaving than use of deodorant. abx sent Hot compresses F/U x 2wks Time spent in visit is a total of 26 mins with at least 50% of visit consisting of counseling and review of plan of care. [id number] Yulissa Potts [facility] [address],[place] [address] 01/17/2021 15:13:34 01/17/2021 16:51:28 Amenorrhea 00854337 N91.2 [id number] [facility] [address],[place] [address] 01/17/2021 15:12:54 01/17/2021 16:51:45 [id number] [facility] [address],[place] [address] 02/14/2021 14:21:36 02/14/2021 14:57:26 screening 303735108 Z36.82 [id number] David Phillips MD [facility] [address],[place] [address] 02/14/2021 14:22:10 02/14/2021 16:02:41 Routine care 203814647 Z34.91 [id number] Abby Wells MD [facility] [address],[place] [address] 03/09/2021 12:41:22 03/09/2021 13:20:51 Routine care 083584376 Z34.82 [id number] [facility] [address],[place] [address] 04/05/2021 11:21:49 04/05/2021 17:36:52 Routine care 167844270 Z34.92 [id number] [facility] [address],[place] [address] 04/05/2021 11:21:19 04/05/2021 14:05:43 screening for malformation 453426018 Z36.3 [id number] Yulissa Potts [facility] [address],[place] [address] 05/02/2021 12:51:48 05/02/2021 14:27:37 Routine care 517130752 Z34.92 [id number] Kinsey Mi [facility] [address],[place] [address] 05/02/2021 11:57:30 05/02/2021 15:09:25 screening 263145302 Z36.2 [id number] Yulissa Potts [facility] [address],[place] [address] 05/30/2021 11:53:50 05/30/2021 13:50:42 Routine care 378455002 Z34.92 [id number] Alanna Tubbs [facility] [address],[place] [address] 05/30/2021 11:51:29 05/30/2021 13:49:56 Marginal insertion of umbilical cord 81569172 O43.129 Z3A.27 [id number] Yulissa Potts [facility] [address],[place] [address] 06/15/2021 11:34:13 06/15/2021 12:27:19 Routine care 885897367 Z34.92 [id number] [facility] [address],[place] [address] 06/28/2021 09:21:37 06/28/2021 13:11:18 Routine care 242056640 Z34.92 Vaginitis 66729801 N76.0 Discussed use of mild soap like dove or ivory, cotton underwear w/out dye, hypoallerg enic detergent, wipe from front to back, avoid tub baths, keep perineum clean and dry, d/c use of baby wipes. Encouraged daily intake of yogurt or womens health probiotic. Internal and external affirm collected. [id number] Alanna Tubbs [facility] [address],[place] [address] 06/28/2021 09:20:15 06/28/2021 10:29:58 AND/OR placental disorder affecting management of mother 25672020 O43.129 Z3A.32 [id number] Abby Wells MD [facility] [address],[place] [address] 07/13/2021 11:36:36 07/13/2021 14:01:15 Routine care 566819138 Z34.82 [id number] [facility] [address],[place] [address] 07/26/2021 11:53:16 07/26/2021 13:14:06 AND/OR placental disorder affecting management of mother 22873336 O43.129 Z3A.36 [id number] David Phillips MD [facility] [address],[place] [address] 07/26/2021 11:53:39 07/26/2021 13:13:26 screening 300515146 Z36.2 [id number] Franci Farrell [facility] [address],[place] [address] 08/09/2021 09:59:38 08/10/2021 18:58:53 Routine care 610181546 Z34.92 [id number] Johana Partida [facility] [address],[place] [address] 08/09/2021 09:57:59 08/09/2021 11:22:54 Reduced movement 262883053 O36.8199 [id number] Franci Farrell [facility] [address] [address] 08/16/2021 11:20:08 08/16/2021 12:16:49 Routine care 708152425 Z34.92 [id number] Yulissa Potts CNM [facility] [address],[place] [address] 10/05/2021 10:22:00 10/05/2021 10:51:03 care 489083869 Z39.2 start patch on Friday give one month to be effective, reviewed risk of blood clots Mixed anxi ety and depressive disorder 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 On exam vulvar redness and irritation noted. Patient currently on period, unable to collect any discharge swabs. No abnormal discharge noted.Will treat for yeast.Dinorah pitt STI panel sent.She uses the patch for control. BMI 30.7. We discussed increased risk of VTE and less effective in BMI over 30. She has been having some skin irritation with patch and would like to switch to pills.She denies hx of DVT/PE, HTN, Cancer, liver disease, Migraine with aura, or Stroke/NE. She is 3 months , is formula [...] was 35 minutes. Contracept ion care management 171685398 Z30.9 [id number] Vicenta Brooks [facility] [address],[place] [address] 07/19/2022 11:05:24 07/23/2022 15:09:57 Pelvic and perineal pain 054506610 R10.2 Reach out with resultsLo loestrin samples givenUPT [facility] signed Left sided adnexal pain Patient is [...] of plan of care. Pain in pelvis 76747566 R10.2 [id number] Kinsey [facility] [address],[place] [address] 07/24/2022 15:52:37 07/24/2022 16:35:28 Pain in pelvis 98505692 R10.2 [id number] Vicenta Brooks [facility] [address],[place] [address] 11/20/2022 11:56:13 11/20/2022 14:18:35 Genital herpes simplex 41812866 A60.9 If having >5-6 outbreaks in a year need to discuss suppressiv e therapy.Rx sent Contracept ion care management 767279772 Z30.9 Patient is going to try the [...] 2 more boxes of samples and a [employer] med check appt. Time spent in visit is a total of 26 mins with at least 50% of visit consisting of counseling and review of plan of care. [id number] [facility] [address],[place] [address] 03/28/2023 09:59:13 03/28/2023 10:36:54 Genital herpes simplex 66234525 A60.9 If having >5-6 outbreaks in a [...] of plan of care. [id number] Kinsey Mi [facility] [address],[place] [address] 02/25/2024 13:37:40 02/25/2024 14:12:08 [id number] Yulissa Potts CNM [facility] [address] [place] [address] 02/25/2024 13:43:32 02/25/2024 15:01:51 Amenorrhea 19654212 N91.2 Venereal d isease screening 392195217 Z11.3 Herpes simplex 56619459 B00.9 current infection continue valtrex as prescribed [id number] Abby Sheets [facility] [address],[place] [address] 03/24/2024 10:54:16 03/24/2024 11:35:08 screening 989910348 Z36.82 [id number] [facility] [address] [place] [address] 03/24/2024 10:56:41 03/24/2024 14:03:13 Gestation period, 12 weeks 99280854 Z3A.12 Routine an tenatal care 508169930 Z34.92 [id number] Yulissa Potts [facility] [address],[place] [address] 04/21/2024 10:39:46 04/21/2024 12:04:49 Routine care 310209246 Z34.92 continue care [id number] [facility] [address],[place] [address] 05/19/2024 10:48:18 05/19/2024 11:54:12 screening for malformation 416939418 Z36.3 Z3A.20 [id number] Yulissa Potts [facility] [address],[place] [address] 05/19/2024 10:53:05 05/19/2024 12:10:23 Gestation period, 20 weeks 73113837 Z3A.20 [id number] Kinsey [facility] [address],[place] [address] 06/16/2024 10:43:49 06/16/2024 11:37:27 screening 860018480 Z36.2 Z3A.24 [id number] Yulissa Potts [facility] [address],[place] [address] 06/16/2024 10:46:47 06/16/2024 12:04:08 Gestation period, 24 weeks 731701558 Z3A.24 continue vitamin Herpes simplex 56753712 B00.9 current infection continue valtrex as prescribed [id number] [facility] [address],[place] [address] 07/21/2024 09:33:30 07/21/2024 11:04:15 Medical examination for suspected condition 592674950 Z03.74 Z3A.29 [id number] Yulissa Potts [facility] [address],[place] [address] 07/21/2024 09:34:53 07/21/2024 11:08:31 Gestation period, 29 weeks 85289972 Z3A.29 [id number] Yulissa Potts [facility] [address],[place] [address] 08/18/2024 09:47:10 08/18/2024 10:21:58 Routine care 108554351 Z34.92 continue care [id number] Kinsey Mi [facility] [address],[place] [address] 09/01/2024 11:16:20 09/01/2024 12:11:13 Uterine size for dates discrepancy 254059515 O26.843 Z3A.35 [id number] Yulissa Potts [facility] [address],[place] [address] 09/01/2024 11:17:04 09/01/2024 12:26:19 Gestation period, 35 weeks 78565058 Z3A.35 screening 2437 06352 Z36.85 [id number] Yulissa Potts [facility] [address],[place] [address] 09/08/2024 09:29:37 09/08/2024 09:54:50 Gestation period, 36 weeks 91633856 Z3A.36 [id number] Yulissa Potts [facility] [address],[place] [address] 09/15/2024 09:26:20 09/15/2024 10:27:30 Gestation period, 37 weeks 39366647 Z3A.37 [id number] Yulissa Potts [facility] [address] [place] [address] 09/22/2024 09:50:11 09/22/2024 10:26:38 Gestation period, 38 weeks 31009943 Z3A.38 [id number] Giovanna Suh [facility] [address] [place] [address] 09/22/2024 10:26:51 09/23/2024 11:26:44 Reduced movement 394427076 O36.8199 [id number] Yulissa Potts, IRINA [facility] [address] [address] 09/29/2024 11:01:00 09/29/2024 12:29:10 Gestation period, 39 weeks 14516870 Z3A.39 Health Concerns Section Related Observation LastModified by Organization Detai ls LastModified Time None Recorded Concern Status LastModified by Organization Details LastModified Time None Recorded Advance Directives Directive N: Payers Encounter Date Sequence Insurance Name Policy Number Policy Guerrero Covered Member ID Guerrero Member ID Guarantor Name 09/08/2024 1 [place] [employer] [id number] A Dean Cespedes [id number] Nelly A Cespedes 09/15/2024 1 [place] [employer] [id number] A Dean Cespedes [id number] Nelly A Cespedes 09/22/2024 1 [place] [employer] [id number] A Dean Cespedes [id number] 91 Nelly A Cespedes 09/22/2024 1 [place] [id number] A Dean Cespedes [id number] 91 Nelly A Cespedes 09/29/2024 1 [place] [id number] A Dean Cespedes [id number] 91 Nelly A Cespedes OBGyn Episode Ob Episode Information Episode Created Date Number of Fetuses Patient Bloodtype Patient rh Status Prepregnancy Weight lbs Domestic Partner Domestic Partner Phone Father Name Solutions Delivery Consultant Status 02/15/20 21 1 A Negative 135 CLOSED Fetus Data First Name Last Name Admitted to NICU Weight (g) Sex Living Outcome Pediatric Complications Fetus ID Race Codes Race Delivery Type Pat 3798.83 3 F true Full Term 06708 Vaginal Delivery Problems Problem Notes accessory lobe Problem Name Start Date End Date Resolution Snomed Code Not e Acute urinary tract infection MEDICATION 877840725 Treated Recurrent miscarriage [id number] 1 Marginal insertion of umbilical cord 04/05/2021 22283144 serial growth u/s Leonard Calculation Initial Leonard [...] Weight in lbs Pre/Post Dialysis Refused Weight 137.326438651590 BP Diastolic BP Location Tested BP Systolic [...] Weight in lbs Pre/Post Dialysis Refused Weight 139.841977480557 BP Diastolic BP Location Tested BP Systolic [...] Weight in lbs Pre/Post Dialysis Refused Weight 146.981293797572 BP Diastolic BP Location Tested BP Systolic [...] Weight in lbs Pre/Post Dialysis Refused Weight 159.115996530550 BP Diastolic BP Location Tested BP Systolic [...] Weight in lbs Pre/Post Dialysis Refused Weight 173.615450273964 BP Diastolic BP Location Tested BP Systolic BP Type 75 113 Fetus Heart Rate Present Fetus Movement A Yes Comments doing well, had rhogam and d id GCT at [place], [facility] efw 25% precations reviewed, tdap rec Flowsheet Date 06/15/2021 Bailey Score Blood Edema Fundus Height Fundus Units Glucose Ketones Leukocytes Nitrite Labor Signs Protein Cervic Dilation Cervic Effacement Cervic Station neg none trace Type Weight in lbs Pre/Post Dialysis Refused Weight 184.886927899876 BP Diastolic BP Location Tested BP Systolic BP Type 71 110 Fetus Heart Rate Present A 155 Present Fetus Movement A Yes Comments patient states that having s ome cramping and white discharge. reviewed precautions, discussed chute loader, doing well f/u 2 weeks Flowsheet Date [...] Weight in lbs Pre/Post Dialysis Refused Weight 188.623087832254 BP Diastolic BP Location Tested BP Systolic BP Type 79 120 Fetus Heart Rate Present Fetus Movement A Yes Comments Vulvar itching since Satur y. Thick white discharge. Tried monistat but [...] Weight in lbs Pre/Post Dialysis Refused Weight 199.663312775934 BP Diastolic BP Location Tested BP Systolic [...] Weight in lbs Pre/Post Dialysis Refused Weight 207.328596749788 BP Diastolic BP Location Tested BP Systolic [...] Weight in lbs Pre/Post Dialysis Refused Weight 215.006437379218 BP Diastolic BP Location Tested BP Systolic [...] Weight in lbs Pre/Post Dialysis Refused Weight 213.657680321987 BP Diastolic BP Location Tested BP Systolic [...] Estim ated Date of Delivery false Thalassemia (Czech, Prydeinig, Mediterranean, Or Background): MCV < 80 false Neural Tube Defect (Meningomyelocele, Spina Bifi da, Or Anencephaly) false Congenital Heart Defect false Down Syndrome false Gunner-Sachs (eg, Jehovah'S Witness, Cajun, Yakut-Anguillan) f alse Norah Disease false Sickle Cell Disease Or Trait () false Hemophilia Or Other Blood Disorders false Muscular Dystrophy false Cystic Fibrosis false Gentry's Chorea false Intellectual Disability/Autism false If Yes, [...] Complications Tubal Sterilization Discharge Date Comments 2 [facility]-Ep idural 40 false Yulissa Potts CNM marginal cord Discharge Information Feeding Method Contraceptive Method Maternal HG B and HCT Levels Breast Ob Episode Information Episode Created Date Number of Fetuses Patient Bloodtype Patient rh Status Prepregnancy Weight lbs Domestic Partner Domestic Partner Phone Father Name Solutions Delivery Consultant Status 01/18/20 21 1 CLOSED Fetus Data First Name Last Name Admitted to NICU Weight (g) Sex Living Outcome Pediatric Complications Fetus ID Race Codes Race Delivery Type , Spontane ous 54374 Leonard Calculation Initial Leonard Date Initial Exam [...] Domestic Partner Domestic Partner Phone Father Name Solutions Delivery Consultant Status 01/18/20 21 1 CLOSED Fetus Data First Name Last Name Admitted to NICU Weight (g) Sex Living Outcome Pediatric Complications Fetus ID Race Codes Race Delivery Type , Spontane ous 30137 Leonard Calculation Initial Leonard Date Initial Exam Date Initial Exam Provider Initial Ultrasound Date Last Menstrual Period Date Ultra Sound Weeks Gestation 0 Eighteen To Twenty Week Leonard Update Ultra Sound Date Fundal Height At Umbil Quickening Date Ultra Sound Latest Weeks Gestation Final Leoanrd Confirmed By Final Leonard Confirmed Date Final [...] Domestic Partner Domestic Partner Phone Father Name Solutions Delivery Consultant Status 03/24/20 24 1 CLOSED Fetus Data First Name Last Name Admitted to NICU Weight (g) Sex Living Outcome Pediatric Complications Fetus ID Race Codes Race Delivery Type , Spontane ous 88486 Leonard Calculation Initial Leonard Date Initial Exam [...] Domestic Partner Domestic Partner Phone Father Name Solutions Delivery Consultant Status 03/28/20 23 1 CLOSED Fetus Data First Name Last Name Admitted to NICU Weight (g) Sex Living Outcome Pediatric Complications Fetus ID Race Codes Race Delivery Type , Spontane ous 23135 Leonard Calculation Initial Leonard Date Initial Exam [...] Domestic Partner Domestic Partner Phone Father Name Solutions Delivery Consultant Status 02/25/20 24 1 CLOSED Fetus Data First Name Last Name Admitted to NICU Weight (g) Sex Living Outcome Pediatric Complications Fetus ID Race Codes Race Delivery Type , Induced 15357 Leonard Calculation Initial Leonrad Date Initial Exam Date Initial Exam Provider [...] Domestic Partner Domestic Partner Phone Father Name Solutions Delivery Consultant Status 03/24/20 24 1 A Negative 184 Jl Kramer CLOSED Fetus Data First Name Last Name Admitted to NICU Weight (g) Sex Living Outcome Pediatric Complications Fetus ID Race Codes Race Delivery Type 3373.59 05 F true Full Term 71023 Vaginal Delivery Problems Problem Notes Problem Name Start Date End Date Resolution Snomed Code Not e Herpes simplex [id number] takes daily valtrex, increase to bid at [...] Ultra Sound Latest Days Gestation 0 0 Pre-reanto Flowsheet Flowsheet Date 03/24/2024 Bailey Score Blood Edema Fundus Height Fundus Units Glucose Ketones Leukocytes Nitrite Labor Signs Protein Cervic Dilation Cervic Effacement Cervic Station none Type Weight in lbs Pre/Post Dialysis Refused Weight 184.567526813177 BP Diastolic BP Location Tested BP Systolic [...] Type Weight in lbs Pre/Post Dialysis Refused 187.289606342731 BP Diastolic BP Location Tested BP Systolic [...] Type Weight in lbs Pre/Post Dialysis Refused 193.76543004106 BP Diastolic BP Location Tested BP Systolic [...] Type Weight in lbs Pre/Post Dialysis Refused 204.983901044459 BP Diastolic BP Location Tested BP Systolic [...] Type Weight in lbs Pre/Post Dialysis Refused 215.197528456378 BP Diastolic BP Location Tested BP Systolic [...] Type Weight in lbs Pre/Post Dialysis Refused 228.577454199423 BP Diastolic BP Location Tested BP Systolic [...] Type Weight in lbs Pre/Post Dialysis Refused 231.029375518891 BP Diastolic BP Location Tested BP Systolic [...] Type Weight in lbs Pre/Post Dialysis Refused 233.483630642982 BP Diastolic BP Location Tested BP Systolic [...] Type Weight in lbs Pre/Post Dialysis Refused 235.437914855746 BP Diastolic BP Location Tested BP Systolic [...] Weight in lbs Pre/Post Dialysis Refused Weight 235.861007717885 BP Diastolic BP Location Tested BP Systolic [...] Weight in lbs Pre/Post Dialysis Refused Weight 235.375173727737 BP Diastolic BP Location Tested BP Systolic BP Type 77 110 Fetus Heart Rate Present Fetus Movement Comments Flowsheet Date 09/29/2024 Bailey Score Blood Edema Fundus Height Fundus Units Glucose Ketones Leukocytes Nitrite Labor Signs Protein Cervic Dilation Cervic Effacement Cervic Station neg none 39 cm 3cm Type Weight in lbs Pre/Post Dialysis Refused Weight 238.677990239902 BP Diastolic BP Location Tested BP Systolic [...] Post Complications Tubal Sterilization Discharge Date Comments 5 Ervin farnsworth 39.6 David Phillips MD Discharge Information Feeding Method Contraceptive Method Maternal HG B and HCT Levels Ob Episode Information Episode Created Date Number of Fetuses Patient Bloodtype Patient rh Status Prepregnancy Weight lbs Domestic Partner Domestic Partner Phone Father Name Solutions Delivery Consultant Status 03/24/20 24 1 CLOSED Fetus Data First Name Last Name Admitted to NICU Weight (g) Sex Living Outcome Pediatric Complications Fetus ID Race Codes Race Delivery Type , Spontane ous 60937 Leonard Calculation Initial Leonard Date Initial Exam [...]
--- OUTSIDE RECORDS SUMMARY | 2024-11-26 22:08 | XMS_ITS | Clinical Summary ---
Author Organization [facility] Address [address] [place] [address] Care Team Providers Care Ring Attacher Name Role Phone Unavailable Primary Care Provider Unavailabl e Source Comments [facility],non-owned Affiliates and Associated Physician Practices is amultiple site organization consisting of ambulatory clinics and hospital sitesin [place], [place], [place] and [place]. This disclosure is being madepursuant to the Care Everywhere program and may not contain all information available regarding this patient. Last updated 18.[facility] Allergies No known active allergies Medications * This document contains information received from the source organization and may not represent a complete record from that organization. * Be aware that medications may not be up to date on this document. Alwaysverify current medications with the patient. No known medications Social History Tobacco Use Types Packs/Day Years Used Date Smoking Tobacco: Passive Smo ke Exposure - Never Smoker Alcohol Use Standard Drinks/Week Comments No 0 (1 standard drink = 0.6 oz pur e alcohol) Comments Unknown Sex and Gender Information Value Date Recorded Sex Assigned at Not on file Legal Sex Female 5:08 PM CLINICAL STAFF PHARMACIST Gender Identity Not on file Sexual Orientation Not on file Last Filed Vital Signs Vital Sign Reading Time Taken Comments Blood Pressure 102/74 09/21/2015 7:22 PM CLINICAL STAFF PHARMACIST Pulse 68 09/21/2015 7:22 PM CLINICAL STAFF PHARMACIST Temperature 36.6 C (97.8 F) 09/21/2015 7:22 PM CLINICAL STAFF PHARMACIST Respiratory Rate 16 09/21/2015 7:22 PM CLINICAL STAFF PHARMACIST Oxygen Saturation 100% 09/08/2015 7:04 PM CLINICAL STAFF PHARMACIST Inhaled Oxygen Concentration - - Weight 58.1 kg (128 lb) 09/21/2015 7:22 PM CLINICAL STAFF PHARMACIST Height 167.6 cm (5' 5.98 ) 09/21/2015 7:22 PM CS T Body Mass Index 20.67 09/21/2015 7:22 PM CLINICAL STAFF PHARMACIST Plan of Treatment Health Maintenance Due Date Last Done Comments PAP SMEAR 2001 HIV SCREENING 2016 HPV VACCINE (1 - 3-dose series) 2016 CHLAMYDIA/GONORRHEA SCREENING 2017 MENINGOCOCCAL (Group B) VACC INE SHARED DECISION-MAKING (1 of 2 - Standard) 2017 HEPATITIS C SCREENING 12/03/2019 DTAP/TDAP/TD VACCINES (1 - Tdap) 2020 HEPATITIS B VACCINE (1 of 3 - 19+ 3-dose series) 2020 COVID-19 VACCINE (1 - 2023-2 5 season) 2024 DEPRESSION SCREENING 08/11/2024 INFLUENZA VACCINE (Season Ended) 2025 ZOSTER VACCINE (1 of 2) 12/08/2051 HIB VACCINE Aged Out No longer eligi ble based on patient's age to complete this topic MENINGOCOCCAL GROUPS A/C/Y/W VACCINE Aged Out No longer eligible b ased on patient's age to complete this topic PNEUMOCOCCAL VACCINE Aged Out No long er eligible based on patient's age to complete this topic Insurance ANTHEM [facility] Address: [facility] [id number] [place] [address] ANTHEM
[2024-11-26 22:16] VITALS: BP 113/67; PULSE 99; RESP 18; TEMP 37; O2SAT 98
[2024-11-26] MEDS: SODIUM CHLORIDE 0.9% IV 1,000 ML 999 ML IV CONT ×2 (22:56→23:48)
[2024-11-26] MEDS: ONDANSETRON INJ 4 MG/2 ML VIAL IV PUSH (22:57)
[2024-11-26 22:59] LABS: Basophils Percent Auto 0.3 % (0.2-1.2); Eosinophils Absolute Auto 0.1 K/mm3 (0-0.3); Hematocrit 43.3 % (37.0-47.0); Immature Granulocyte Absolute 0.02 K/mm3 (0.00-0.031); Immature Granulocyte Percent A 0.3 % (0-0.5); Lymphocytes Absolute Auto 1.66 K/mm3 (0.9-3.2); Lymphocytes Percent Auto 28.6 % (18.3-44.2); Mean Corpuscular HGB Conc 32.3 g/dl (32-36); Mean Corpuscular Hemoglobin 28.5 pg (26-34); Mean Platelet Volume 9.9 fl (7.4-10.4); Monocytes Absolute Auto 0.5 K/mm3 (0.1-0.6); Monocytes Percent Auto 8.3 % (2.6-8.5); Neutrophils Absolute Auto 3.6 K/mm3 (1.3-6.7); Neutrophils Percent Auto 61.5 % (45.5-73.1); Platelet Count Result 293 k/mm3 (150-375); Red Blood Count 4.92 M/mm3 (4.2-5.4); Red Cell Distribution Width 15.1 % (11.5-14.5); White Blood Count 5.8 K/mm3 (4.5-10.0)
[2024-11-26 23:10] LABS: SPREG INTERNAL CONTROL Positive; Serum Qual hCG Negative
--- OUTSIDE RECORDS SUMMARY | 2024-11-26 23:10 | XMS_ITS | Clinical Summary ---
Author Organization [facility] Address [facility] [place] [address] Care Team Providers Care Commercial Roofing Estimator Name Role Phone None, Provider MD Primary [...] disorder, r ecurrent, severe w/o psychotic behavior ([facility]) 04/11/2020 Marijuana use 04/11/2020 Social anxiety disorder 04/11/2020 test negative 07/12/2019 examination or test, unconfi rmed 01/11/2019 screening for rais ed alpha-fetoprotein levels in amniotic fluid ([facility]) 11/13/2018 Resolved Problems Problem Noted Date Diagnosed Date Resolved Date COVID-19 08/18/2020 08/18/2020 Spontaneous without complication ([facility]) 05/27/2019 08/18/2020 Immunizations Immunization Administration Dates [...] Comments Blood Pressure 105/66 07/26/2023 5:37 PM GAS SCRUBBER OPERATOR Pulse 106 07/26/2023 5:37 PM GAS SCRUBBER OPERATOR Temperature 36.2 C (97.1 F) 07/26/2023 1:31 PM GAS SCRUBBER OPERATOR Respiratory Rate 18 07/26/2023 5:37 PM GAS SCRUBBER OPERATOR Oxygen Saturation 100% 07/26/2023 5:37 PM GAS SCRUBBER OPERATOR Inhaled Oxygen Concentration - - Weight 81.2 kg (179 lb) 07/26/2023 1:31 PM GAS SCRUBBER OPERATOR Height 167.6 cm (5' 6 ) 07/26/2023 1:31 PM GAS SCRUBBER OPERATOR Body Mass Index 28.89 07/26/2023 1:31 PM GAS SCRUBBER OPERATOR Plan of Treatment Health Maintenance Due Date [...] patient's age to complete this topic Insurance [facility] Care Teams Commercial Roofing Estimator Relationship Specialty Start Date End Date None, Provider, MD PCP - General UNKNOWN PHYSICIAN SPECIALTY 07/26/23
[2024-11-26 23:11] LABS: Alanine Aminotransferase 61 U/L (6-35); Albumin Level 4.3 g/dL (3.5-5.1); Alkaline Phosphatase 85 U/L (38-126); Anion Gap 9 mmol/L (4-12); Aspartate Amino Transferase 45 U/L (14-36); Bilirubin,Total 0.4 mg/dL (0.2-1.3); Blood Urea Nitrogen 13 mg/dL (7-17); Carbon Dioxide 27 mmol/L (22-30); Chloride 104 mmol/L (98-107); Estimated CRCL calculation 106 ml/min; Estimated Glomerular Filt Rate > 60; Glucose 90 mg/dL (65-110); Lipase 62 U/L (23-300); Potassium 3.5 mmol/L (3.4-5.0); Sodium 140 mmol/L (137-145)
--- OUTSIDE RECORDS SUMMARY | 2024-11-26 23:11 | XMS_ITS | Clinical Summary ---
Author Organization [facility] [employer] Address [address] [place] [address] Care Team Providers Care Quad Stayer Name Role Phone Unavailable Primary Care Provider Unavailabl e Source Comments [facility] [employer],non-owned Affiliates and Associated Physician Practices is amultiple site organization consisting of ambulatory clinics and hospital sitesin [place], [place], [place] and [place]. This disclosure is being madepursuant to the Care Everywhere program and may not contain all information available regarding this patient. Last updated 18.[facility] [employer] Allergies No known active allergies Medications * [...] on file Legal Sex Female 5:08 PM POPULATION HEALTH MANAGER Gender Identity Not on file Sexual Orientation Not on file Last Filed Vital Signs Vital Sign Reading Time Taken Comments Blood Pressure 102/74 09/21/2015 7:22 PM POPULATION HEALTH MANAGER Pulse 68 09/21/2015 7:22 PM POPULATION HEALTH MANAGER Temperature 36.6 C (97.8 F) 09/21/2015 7:22 PM POPULATION HEALTH MANAGER Respiratory Rate 16 09/21/2015 7:22 PM POPULATION HEALTH MANAGER Oxygen Saturation 100% 09/08/2015 7:04 PM POPULATION HEALTH MANAGER Inhaled Oxygen Concentration - - Weight 58.1 kg (128 lb) 09/21/2015 7:22 PM POPULATION HEALTH MANAGER Height 167.6 cm (5' 5.98 ) 09/21/2015 7:22 PM CS T Body Mass Index 20.67 09/21/2015 7:22 PM POPULATION HEALTH MANAGER Plan of Treatment Health Maintenance Due [...] age to complete this topic Insurance ANTHEM ANTHEM
--- OUTSIDE RECORDS SUMMARY | 2024-11-26 23:11 | XMS_ITS | Clinical Summary ---
Author Organization [facility] Address [address] [place] [address] Care Team Providers Care Marine Habitat Resource Specialist Name Role Phone Unavailable Primary Care Provider Unavailabl e Social History Tobacco Use Types Packs/Day Years Used Date Smoking Tobacco: Never Assessed Comments Unknown Sex and Gender Information Value Date Recorded Sex Assigned at Not on file Legal Sex Female 1:27 PM TELEPHONE COLLECTOR Gender Identity Not on file Sexual Orientation [...]
--- NOTE | 2024-11-26 23:21 | ED.GENADULT ---
HPI - General Adult General Chief complaint: Nausea/Vomiting/Diarrhea Stated complaint: food posioning Time Seen by Provider: 11/26/24 22:32 History of Present Illness HPI narrative: Patient is a 23-year-old female who presents emergency department this evening complaining of nausea, vomiting and diarrhea since yesterday around 4:00 p.m.. Patient states that she believes that she is suffering from a food poisoning as she ate out at a [place] restaurant yesterday for lunch. Denies any active abdominal pain, any fevers or chills, any dysuria or hematuria and denies any additional symptoms or concerns at this time. Related Data Allergies Allergy/AdvReac Type Severity Reaction Status Date / Time latex Allergy Itching Verified 11/26/24 22:06 Review of Systems Review of Systems: All systems are reviewed and are negative unless stated otherwise in the HPI. [facility] Past Medical History Medical History Genital herpes UTI (urinary tract infection) Surgical History Surgical History No significant past surgical history Family History Family History Father Hyperlipidemia Sibling Chronic obstructive pulmonary disease Grandparent Diabetes mellitus Skin cancer Other Breast cancer Other No acute medical problems Social History Social History Smoking status: Light tobacco smoker Tobacco type: cigarettes Second hand tobacco smoke exposure: Yes Alcohol intake: former Alcohol use details: rarely Substance use: never Do You Feel Safe in your Home?: Yes Lack of Transportation: No Lack of Food: Never True Current Housing: I Have Housing Concerned About Future Housing: No Difficulty Paying Gas/Electric Bills: No Difficulty Paying for Meds: No Currently Unemployed: No Education: Grade School Difficulty w/ Childcare or Family Care: No Living arrangements: with family Occupation/Education: occupation Gender identity (if verbalized by the patient): Female Sexual Orientation (if Verbalized by the Patient): Straight or Heterosexual Spiritual care concerns: No Exam Narrative: General: Alert, awake, afebrile, in no acute distress. HEENT: PERRL, no rhinorrhea, no post nasal drip, oropharynx clear. Neck: Trachea midline, no JVD, no lymphadenopathy. Cardiovascular: Regular rate and rhythm, no murmurs, rubs or gallops, no peripheral edema. Respiratory: Clear to auscultation bilaterally, no tachypnea, no wheezing, no rhonchi, no rubs, no respiratory distress. Abdomen: Soft, nontender, nondistended, no rebound, no guarding, no peritoneal signs. Musculoskeletal: No joint swelling or deformity, normal muscle tone. Skin: No rashes or petechia, no signs of infection. Psychiatric: Alert and oriented, normal behavior and judgment for situation. Neurological: Alert and oriented to person, place, and time. Follows all commands. No focal deficits, speech is clear and fluent. Course Vital Signs Vital signs: Vital Signs Temperature 98.6 F 11/26/24 22:16 Pulse Rate 99 11/26/24 22:16 Respiratory Rate 18 11/26/24 22:16 Blood Pressure 113/67 11/26/24 22:16 Pulse Oximetry 98 11/26/24 22:16 Oxygen Delivery Room Air 11/26/24 22:16 Temperature 98.6 F 11/26/24 22:16 Pulse Rate 99 11/26/24 22:16 Respiratory Rate 18 11/26/24 22:16 Blood Pressure 113/67 11/26/24 22:16 Pulse Oximetry 98 11/26/24 22:16 Oxygen Delivery Room Air 11/26/24 22:16 Medical Decision Making MDM Narrative Medical decision making narrative: The patient was evaluated by myself in the emergency department. History is obtained from patient who is an independent historian and physical exam was performed. External medical records were reviewed at this time. IV was established and pertinent tests were ordered. Patient was administered 2 L IV fluid bolus with normal saline and 4 mg of IV Zofran for nausea/vomiting. Laboratory results obtained revealing mild transaminitis with an AST of 45 and an ALT of 61 otherwise unremarkable were p.m. Differential diagnosis considerations include electrolyte derangements, dehydration, acute viral illness. Comorbidities impacting this visit include none. I have evaluated and discussed social determinants of health with the patient that could potentially impact subsequent diagnosis and treatment plans. On repeat assessment of the patient, reevaluation revealed that the patient is doing well and is in no acute distress. Patient symptoms have improved since she arrived to our emergency department. Repeat vital signs were all reviewed and noted to be stable. Differential diagnosis and treatment plan were discussed with the patient at bedside. Patient agrees with discussion and after shared medical decision making agrees with discharge. All questions were answered to the patient's satisfaction. Patient will follow up with her PCP in 3-5 days. Script for Zofran was sent to patient's pharmacy to use as needed for nausea/vomiting. Patient was provided with strict return precautions and instructed to return to the emergency department if any new or worsening symptoms develop. The patient was discharged in stable condition. Vital Signs Vital Signs: Vital Signs Temperature 98.6 F 11/26/24 22:16 Pulse Rate 99 11/26/24 22:16 Respiratory Rate 18 11/26/24 22:16 Blood Pressure 113/67 11/26/24 22:16 Pulse Oximetry 98 11/26/24 22:16 Oxygen Delivery Room Air 11/26/24 22:16 Temperature 98.6 F 11/26/24 22:16 Pulse Rate 99 11/26/24 22:16 Respiratory Rate 18 11/26/24 22:16 Blood Pressure 113/67 11/26/24 22:16 Pulse Oximetry 98 11/26/24 22:16 Oxygen Delivery Room Air 11/26/24 22:16 Lab Data 11/26/24 22:52 11/26/24 22:53 Labs: Lab Results 11/26/24 11/26/24 Range/Units 22:52 22:53 WBC 5.8 (4.5-10.0) K/mm3 RBC 4.92 (4.2-5.4) M/mm3 Hgb 14.0 D (12.0-15.0) g/dL Hct 43.3 (37.0-47.0) % MCV 88.0 (80-100) fl MCH 28.5 (26-34) pg MCHC 32.3 (32-36) g/dl RDW 15.1 H (11.5-14.5) % Plt Count 293 (150-375) k/mm3 MPV 9.9 (7.4-10.4) fl Immature Gran % (Auto) 0.3 (0-0.5) % Neut % (Auto) 61.5 (45.5-73.1) % Lymph % (Auto) 28.6 (18.3-44.2) % Rosebud % (Auto) 8.3 (2.6-8.5) % Eos % (Auto) 1.0 (0-4.4) % Baso % (Auto) 0.3 (0.2-1.2) % Lymph # (Auto) 1.66 (0.9-3.2) K/mm3 Rosebud # (Auto) 0.5 (0.1-0.6) K/mm3 Eos # (Auto) 0.1 (0-0.3) K/mm3 Baso # (Auto) 0.0 (0.0-0.1) K/mm3 Abs Immat Gran (auto) 0.02 (0.00-0.031) K/mm3 Absolute Neuts (auto) 3.6 (1.3-6.7) K/mm3 Absolute Nucleated RBC 0.000 (0.0-0.012) K/mm3 Nucleated RBC % 0.0 (0.0-0.2) % Sodium 140 (137-145) mmol/L Potassium 3.5 (3.4-5.0) mmol/L Chloride 104 (98-107) mmol/L Carbon Dioxide 27 (22-30) mmol/L Anion Gap 9 (4-12) mmol/L BUN 13 (7-17) mg/dL Creatinine 0.83 (0.7-1.0) mg/dL Estim Creat Clear Calc 106 ml/min Estimated GFR > 60 (59 - ) Glucose 90 (65-110) mg/dL Calcium 9.0 (8.4-10.2) mg/dL Magnesium 2.0 (1.6-2.3) mg/dL Total Bilirubin 0.4 (0.2-1.3) mg/dL AST 45 H (14-36) U/L ALT 61 H (6-35) U/L Alkaline Phosphatase 85 (38-126) U/L Total Protein 7.0 (6.3-8.2) g/dL Albumin 4.3 (3.5-5.1) g/dL Lipase 62 (23-300) U/L Serum HCG, Qual Negative Discharge Plan Discharge Clinical Impression: Gastroenteritis Patient Disposition: Home Condition: Improved Instructions: Antibiotic Form, Gastroenteritis (ED), Food Poisoning (ED) Additional Instructions: Please follow-up with your family doctor within the next 3-5 days. Return to the emergency department if any new or worsening symptoms develop. Use the prescribed Zofran as needed for nausea/vomiting. Patient Language: Niuean Prescriptions: New ondansetron 4 mg tablet,disintegrating 4 mg PO Q8H PRN (Reason: nausea and vomiting) Qty: 10 0RF Follow-up/Referrals: UNKNOWN,DOCTOR [Primary Care Provider] - 3 Days Time of Disposition: 23:22
[2024-11-27 00:52] VITALS: BP 111/59; PULSE 85; RESP 16; O2SAT 97
== END 2024-11-27 00:59 | disposition home or self-care (01) ==
PROVIDERS: Emergency Provider Emergency Medicine
DX: K52.9 Noninfective gastroenteritis and colitis, unspecified (principal); F17.210 Nicotine dependence, cigarettes, uncomplicated; Z87.440 Personal history of urinary (tract) infections
CPT/HCPCS: 36415; 80053; 83690; 83735; 84703; 85025; 96361; 96374; 99284; J2405; J7030

== ENCOUNTER 2025-04-25 20:04 | Emergency (ER) | payer BC, MEDICAID, SELFPAY ==
--- OUTSIDE RECORDS SUMMARY | 2025-04-25 20:06 | XMS_ITS | Clinical Summary ---
Author Organization [facility] Address [address] [place] [address] Care Team Providers Care Food Dehydrator Operator Name Role Phone Unavailable Primary Care Provider Unavailabl e Source Comments [facility],non-owned Affiliates and Associated Physician Practices is amultiple site organization consisting of ambulatory clinics and hospital sitesin [place], [place], [place] and [place]. This disclosure is being madepursuant to the Care Everywhere program and may not contain all information available regarding this patient. Last updated 18.[facility] Allergies No known active allergies Medications * [...] on file Legal Sex Female 5:08 PM DEICER ELEMENT WINDER MACHINE Gender Identity Not on file Sexual Orientation Not on file Last Filed Vital Signs Vital Sign Reading Time Taken Comments Blood Pressure 102/74 09/21/2015 7:22 PM DEICER ELEMENT WINDER MACHINE Pulse 68 09/21/2015 7:22 PM DEICER ELEMENT WINDER MACHINE Temperature 36.6 C (97.8 F) 09/21/2015 7:22 PM DEICER ELEMENT WINDER MACHINE Respiratory Rate 16 09/21/2015 7:22 PM DEICER ELEMENT WINDER MACHINE Oxygen Saturation 100% 09/08/2015 7:04 PM DEICER ELEMENT WINDER MACHINE Inhaled Oxygen Concentration - - Weight 58.1 kg (128 lb) 09/21/2015 7:22 PM DEICER ELEMENT WINDER MACHINE Height 167.6 cm (5' 5.98) 09/21/2015 7:22 PM CS T Body Mass Index 20.67 09/21/2015 7:22 PM DEICER ELEMENT WINDER MACHINE Plan of Treatment Health Maintenance Due Date Last Done Comments HIV SCREENING 2016 HPV VACCINE (1 - 3-dose series) 2016 CHLAMYDIA/GONORRHEA SCREENING 2017 MENINGOCOCCAL (Group B) VACC INE SHARED DECISION-MAKING (1 of 2 - Standard) 2017 HEPATITIS C SCREENING 12/03/2019 DTAP/TDAP/TD VACCINES (1 - Tdap) 2020 HEPATITIS B VACCINE (1 of 3 - 19+ 3-dose series) 2020 DEPRESSION SCREENING 08/11/2024 COVID-19 VACCINE (1 - 2023-2 5 season) 2025 INFLUENZA VACCINE (#1) 2025 ZOSTER VACCINE (1 of 2) 12/08/2051 [...]
--- OUTSIDE RECORDS SUMMARY | 2025-04-25 20:06 | XMS_ITS | Clinical Summary ---
Author Organization [facility] Address [address] [place] [address] Care Team Providers Care Storage And Backup Administrator Name Role Phone Unavailable Primary Care Provider Unavailabl e Social History Tobacco Use Types Packs/Day Years Used Date Smoking Tobacco: Never Assessed Comments Unknown Sex and Gender Information Value Date Recorded Sex Assigned at Not on file Legal Sex Female 1:27 PM CALL CENTER SUPPORT CONSULTANT Gender Identity Not on file Sexual Orientation Not on file Plan of Treatment Health Maintenance Due Date Last Done Comments Hepatitis C Virus (HCV) Screening 2001 TdaP Immunization 2001 Human Papillomavirus (HPV) Immunization (1 - 3-dose series) 2016 Meningococcal B Immunization (1 of 2 - Standard) 2017 SARS-COV-2 Immunization ( - season) 2024 Influenza Immunization (#1) 2025 Respiratory Syncytial Virus (RSV) Immunization (Adult) (1 [...]
--- OUTSIDE RECORDS SUMMARY | 2025-04-25 20:06 | XMS_ITS | Patient Health Record ---
Author Organization [facility] [employer] Address [facility] [place] [address] Care Team Providers Care Printing And Stamping Supervisor Name Role Phone Viktoria Muñoz Unavailable [phone] Reason For Referral No Information Plan Of Treatment No Information
[2025-04-25 20:11] VITALS: BP 116/69; PULSE 86; RESP 18; TEMP 36.7; O2SAT 100
--- NOTE | 2025-04-25 22:26 | ED.DENTAL ---
HPI - Dental/Oral General Chief complaint: Dental/Oral Stated complaint: dental pain Time Seen by Provider: 04/25/25 21:55 History of Present Illness HPI Narrative: Patient is a 24 year old female who presents to the ER with complaints of dental pain. She reports she started experiencing pain around 7:00 p.m. this evening. Patient reports pain is in her right lower last molar (#32). She denies any fevers, purulent drainage, or difficulty swallowing. Patient endorses a history of dental caries but denies any other pertinent medical history. Related Data Allergies Allergy/AdvReac Type Severity Reaction Status Date / Time latex Allergy Itching Verified 04/25/25 20:11 Review of Systems Review of Systems: All systems reviewed & are unremarkable except as noted in HPI and below PMFSH Past Medical History Medical History Genital herpes UTI (urinary tract infection) Surgical History Surgical History No significant past surgical history Family History Family History Father Hyperlipidemia Sibling Chronic obstructive pulmonary disease Grandparent Diabetes mellitus Skin cancer Other Breast cancer Other No acute medical problems Social History Social History Smoking status: Light tobacco smoker Tobacco type: cigarettes Second hand tobacco smoke exposure: Yes Alcohol intake: former Alcohol use details: rarely Substance use: never Do You Feel Safe in your Home?: Yes Lack of Transportation: No Lack of Food: Never True Current Housing: I Have Housing Concerned About Future Housing: No Difficulty Paying Gas/Electric Bills: No Difficulty Paying for Meds: No Currently Unemployed: No Education: Grade School Difficulty w/ Childcare or Family Care: No Living arrangements: with family Occupation/Education: occupation Gender identity (if verbalized by the patient): Female Sexual Orientation (if Verbalized by the Patient): Straight or Heterosexual Spiritual care concerns: No Exam Narrative: GENERAL: Well appearing, well-nourished, non-toxic, in no acute distress. HEAD: Normocephalic, atraumatic. Visible dental caries to tooth #32 with mild edema, no purulent drainage. NECK: Supple. No adenopathy, no masses. RESPIRATORY: Airway patent, respirations nonlabored. Clear to auscultation bilaterally, no rales, rhonchi, wheezing. CARDIOVASCULAR: Regular rate and rhythm without murmurs, rubs, or gallops. Peripheral pulses 2+ and equal bilaterally. ABDOMINAL: Soft, nontender, nondistended, no hepatosplenomegaly. Normoactive BS. MUSCULOSKELETAL: Moves all extremities. Strength/ROM intact without gross deformities. SKIN: Warm, dry, normal color. No rashes. NEURO: A&O X3. Speech clear. Cranial nerves II-XII intact. No ataxic movements. PSYCHIATRIC: Appropriate mood and affect. Normal interaction. Course Vital Signs Vital signs: Vital Signs Temperature 36.7 C 04/25/25 20:11 Pulse Rate 86 04/25/25 20:11 Respiratory Rate 18 04/25/25 20:11 Blood Pressure 116/69 04/25/25 20:11 Pulse Oximetry 100 04/25/25 20:11 Oxygen Delivery Room Air 04/25/25 20:11 Temperature 36.7 C 04/25/25 20:11 Pulse Rate 86 04/25/25 20:11 Respiratory Rate 18 04/25/25 20:11 Blood Pressure 116/69 04/25/25 20:11 Pulse Oximetry 100 04/25/25 20:11 Oxygen Delivery Room Air 04/25/25 20:11 MDM - Dental/Oral MDM Narrative Medical decision making narrative: Patient is a 24 year old female who presents to the ER with complaints of dental pain. She reports she started experiencing pain around 7:00 p.m. this evening. Patient reports pain is in her right lower last molar (#32). She denies any fevers, purulent drainage, or difficulty swallowing. Patient endorses a history of dental caries but denies any other pertinent medical history. Patient Education/Shared MDM: Results of examination shared with patient. She endorses improvement of symptoms following medication administration. Patient strongly advised to follow-up with her dentist as soon as possible. She will be discharged home with a prescription for amoxicillin with the 1st dose given here in the ER. Strict return precautions provided. Patient verbalized understanding and is in agreement with plan. Vital signs stable at time of discharge. All questions answered. Differential Diagnosis Differential diagnosis: Likely dental caries, toothache, dental abscess and fracture of tooth Discharge Plan Discharge Clinical Impression: Toothache, Dental caries, Fracture of tooth Patient Disposition: Home Condition: Stable Instructions: Antibiotic Form, Toothache (ED) Additional Instructions: Please return to the ER with any worsening symptoms. Follow-up with your dentist as soon as possible. You may take Tylenol and/or ibuprofen for pain control. You may also use viscous lidocaine for pain control. Please complete your full dose of antibiotics. Patient Language: Nicaraguan Prescriptions: New amoxicillin 500 mg capsule 500 mg PO TID Qty: 30 0RF lidocaine HCl [Lidocaine Viscous] 2 % solution 1 applic mucous membrane TID PRN (Reason: pain) Qty: 300 0RF No Action ondansetron 4 mg tablet,disintegrating 4 mg PO Q8H PRN (Reason: nausea and vomiting) Qty: 10 0RF Follow-up/Referrals: Mark Ricardo MD [Physician, Family Practice] Referral Note: primary care provider UNKNOWN,DOCTOR [Primary Care Provider] Stand Alone Forms: Work/School Release IP Time of Disposition: 22:37
[2025-04-25] MEDS: KETOROLAC (*BKC) 60 MG/2 ML VIAL IM (22:40)
[2025-04-25] MEDS: AMOXICILLIN 500 MG CAPSULE PO (22:41)
[2025-04-25] MEDS: LIDOCAINE 2% VISC SOLN 15 ML UDC PO (22:41)
== END 2025-04-25 22:47 | disposition home or self-care (01) ==
PROVIDERS: Emergency Provider Registered Nurse
DX: K02.9 Dental caries, unspecified (principal); S02.5XXA Fracture of tooth (traumatic), initial encounter for closed fracture; F17.210 Nicotine dependence, cigarettes, uncomplicated; X58.XXXA Exposure to other specified factors, initial encounter
CPT/HCPCS: 96372; 99283; A9270; J1885